=== PATIENT | female | born 1950 | race American Indian/Alaskan Native ===

== ENCOUNTER 2020-11-06 15:17 | Outpatient (REF) | payer MEDICARE, MEDICAID, SELFPAY ==
--- NOTE | 2020-11-06 15:26 | MM_ITS ---
EXAMINATION: MM SCREENING DIGITAL BREAST TOMOSYNTHESIS, BILATERAL CLINICAL INFORMATION: Screening. Asymptomatic. The lifetime risk of breast cancer based on the Tyrer-Cuzick Model is 2%. COMPARISON: Mammography: 08/17/2019, 09/20/2017, 09/01/2016 TECHNIQUE: Digital breast tomosynthesis is performed in both the craniocaudal and mediolateral oblique views along with computer-aided detection (CAD). Synthesized 2D images are generated from the tomosynthesis. FINDINGS: There are scattered areas of fibroglandular density (ACR BI-RADS breast composition Category b). There are no significant masses, abnormal calcifications, or other abnormalities. There are some punctate dermal calcifications posterior inferior medial right breast as well as some vascular calcifications both breasts. MM/MM tomosynthesis screening BI IMPRESSION: No significant changes from prior studies. ASSESSMENT: BI-RADS 2: Benign RECOMMENDATION: Routine annual mammography screening. This patient's information was entered into a reminder system with a target due date for their next mammogram.
== END 2020-11-06 15:18 | disposition home or self-care (01) ==
LOC: HO.MAMMO 15:17
PROVIDERS: Visit Provider Internal Medicine
DX: Z12.31 Encounter for screening mammogram for malignant neoplasm of breast (principal)
CPT/HCPCS: 77063; 77067

== ENCOUNTER 2021-12-08 08:24 | Outpatient (REF) | payer MEDICARE, MEDICAID, SELFPAY ==
--- NOTE | ~2021-12-08 | MM_ITS ---
EXAMINATION: MM SCREENING DIGITAL BREAST TOMOSYNTHESIS, BILATERAL CLINICAL INFORMATION: Screening. Asymptomatic. The lifetime risk of breast cancer based on the Tyrer-Cuzick Model is 2%. COMPARISON: Mammography: 11/06/2020, 08/17/2019, 09/20/2017 TECHNIQUE: Digital breast tomosynthesis is performed in both the craniocaudal and mediolateral oblique views along with computer-aided detection (CAD). Synthesized 2D images are generated from the tomosynthesis. FINDINGS: There are scattered areas of fibroglandular density (ACR BI-RADS breast composition Category b). There are no significant masses, abnormal calcifications, or other abnormalities. Parenchymal pattern is similar to prior studies. There is no developing density or architectural abnormality. Chronic mild bilateral nipple retraction. The axilla are unremarkable. No significant changes. MM/MM tomosynthesis screening BI IMPRESSION: No mammographic evidence of malignancy. ASSESSMENT: BI-RADS 2: Benign RECOMMENDATION: Routine annual mammography screening. This patient's information was entered into a reminder system with a target due date for their next mammogram.
--- NOTE | ~2021-12-08 | MM_ITS ---
EXAMINATION: BONE DENSITOMETRY CLINICAL INDICATION: Osteopenia. COMPARISON: Previous BD dated 08/17/2019 and baseline BD dated 01/17/2007. TECHNIQUE: Using a TopBlip DXA System (software version: 13.1) manufactured by [employer], dual-energy x-ray absorptiometry was performed of the lumbar spine and left hip. The images are of good technical quality. Summary results are attached. FINDINGS: AP SPINE L1-L4: Current: BMD 1.072 g/cm2, Z-score 0.8, T-score -0.9, normal, 0.8% increase from previous, 15.6% decrease from baseline (<5% change is not significant). Prior: BMD 1.063 g/cm2. Baseline: BMD 1.270 g/cm2. LEFT FEMUR, NECK: Current: BMD 0.693 g/cm2, Z-score -0.8, T-score -2.5, osteoporosis. Prior: BMD 0.728 g/cm2. Baseline: BMD 0.916 g/cm2. LEFT FEMUR, TOTAL: Current: BMD 0.822 g/cm2, Z-score 0.0, T-score -1.5, osteopenia, 9.6% decrease from previous, 26.0% decrease from baseline (<5% change is not significant). Prior: BMD 0.909 g/cm2. Baseline: BMD 1.111 g/cm2. IDENTIFIED RISK FACTORS: Osteoporosis, recurrent falls, height loss, history of fracture (adult), secondary osteoporosis, anticonvulsants, glucocorticoids (chronic), menopause. HISTORY OF FRACTURE: Wrist. MEDICATIONS: Calcium supplements or multivitamin, vitamin D. MM/XR DEXA axial skeleton IMPRESSION: 1. DIAGNOSIS: Osteoporosis based on the lowest T-score value of -2.5 in the femoral neck applying World Health Organization criteria. 2. 10-YEAR FRACTURE RISK PREDICTION, FRAX: According to the guidelines, FRAX calculation should only be performed on patients in the osteopenia bone density category. Therefore, FRAX was not performed on this patient. 3. Treatment Recommendations: NOF guidelines recommend consideration for treatment in postmenopausal women and men age 50 and older presenting with the following: -A hip or vertebral (clinical or morphometric) fracture. -T-score less than or equal to -2.5 at the femoral neck or spine after appropriate evaluation to exclude secondary causes. -Low bone mass at the hip or spine and a 10-year fracture probability by FRAX of greater than or equal to 3% for hip fracture or greater than or equal to 20% for major osteoporotic fracture based on the [place] adapted WHO algorithm. 4. Other Recommendations: All treatment decisions require clinical judgment and consideration of individual patient factors, including patient preferences, comorbidities, previous drug use, risk factors not captured in the FRAX model (e.g. frailty, falls, vitamin D deficiency, increased bone turnover, interval significant decline in bone density) and possible under or overestimation of fracture risk by FRAX. Additional medical evaluation for secondary cause of low bone mineral density may be appropriate. FUTURE SCAN RECOMMENDATION: People with diagnosed cases of osteoporosis or at high risk for fracture should have regular bone mineral density tests. For patients eligible for Medicare, routine testing is allowed once every 2 years. The testing frequency can be increased to one year for patients who have rapidly progressing disease, those who are receiving or discontinuing medical therapy to restore bone mass, or have additional risk factors.
== END 2021-12-08 08:25 | disposition home or self-care (01) ==
LOC: HO.MAMMO 08:24
PROVIDERS: Visit Provider Internal Medicine Rheumatology
DX: Z12.31 Encounter for screening mammogram for malignant neoplasm of breast (principal); Z13.820 Encounter for screening for osteoporosis; M32.10 Systemic lupus erythematosus, organ or system involvement unspecified; M85.852 Other specified disorders of bone density and structure, left thigh; R29.890 Loss of height; Z79.899 Other long term (current) drug therapy; Z78.0 Asymptomatic menopausal state
CPT/HCPCS: 77063; 77067; 77080

== ENCOUNTER 2024-10-29 13:23 | Outpatient (AMB) | payer OTHER, SELFPAY ==
--- NOTE | 2024-10-29 13:52 | A.OFFPC_ITS ---
Vital Signs 10/29/24 14:07 Height 5 ft Weight 123 lb 6 oz BMI 24.1 BP 100/60 Blood Pressure Location Lt brachial Position Sitting Respiration 14 Pulse 80 Pulse Source Pulse Oximeter Temp 97.4 F Temp Source Oral Pulse Oximetry (%) 97 Oxygen Delivery Method Room Air Intake Visit Reasons: TIMBER GIRDLER Establish Care Intake Note: establish care Allergies carbamazepine [From Tegretol] Allergy (Intermediate, Verified 10/29/24 13:56) MOUTH SORES gabapentin [Gabapentin] Allergy (Intermediate, Verified 10/29/24 13:56) CANKER SORES IN MOUTH (ONLY GENERIC BRAND OF NEURONTIN) spider venom [SPIDER BITES] Allergy (Intermediate, Verified 10/29/24 13:56) BLISTERS Sulfa (Sulfonamide Antibiotics) Allergy (Intermediate, Verified 10/29/24 13:56) DISORIENTATION/RASH tizanidine [Tizanidine] Allergy (Intermediate, Verified 10/29/24 13:56) NIGHTMARES horton Adverse Reaction (Severe, Verified 10/29/24 13:56) SEVERE VOMITING Shellfish Allergy (Severe, Uncoded 07/10/20 15:23) TONGUE SWELLING, SHORTNESS OF BREATH spider bites Allergy (Intermediate, Uncoded 09/23/21 09:19) swelling, anaphylaxis STERI STRIPS Allergy (Mild, Uncoded 07/10/20 15:23) REDNESS/SWELLING cherries Allergy (Unknown, Uncoded 09/23/21 09:19) Nausea and Vomiting mold Allergy (Unknown, Uncoded 09/23/21 09:19) congestion SUGAR SUBSTITUTES Allergy (Unknown, Uncoded 07/10/20 15:23) SORE THROAT - LARYNGITIS Tobacco use date assessed: 10/29/24 Fall risk assessment: 2 + Falls in past year Last assessed Fall Risk: 10/29/24 Dental Screening Dental Screen Date: 10/29/24 Did you have a dental visit in the last 12 months?: Yes Did you have a dental problem in the last 6 months where you did not have access to dental care?: No Was dental information given to patient?: Patient has dentist HPI TIMBER GIRDLER Establish Care HPI Details New Patient? ?? Prior PCP:?Isadora Lopez & Dr Galvan. Last office visit/CPE:? Acute issue(s):? Sinus infection ?? PMHx:? Irregular Heartbeat., Lupus Dr Nowalk, Raynauds and using Amlodipine. Anxiety. IBS, HLD, Hypothyroid Najma's, Small Fiber Neuropathy (On gabapentin & Nortriptyline, Migraines, SurgHx:?B/L Unar Nrve, R Elbow tendon repair, Carpal tunnel b/L , L shoulder, FHx:? Mom: DM, HTN, Lung CA.. Daughter: DM. Sister: Lung CA. SocHx:? Quit cigs > 30 yrs ago. Vapes.. EtOH: Very Rarely 1-2 dr a month. MJ: None. No drugs PFSH Social History Housing: Apartment Patient Tobacco Use Status: Former Tobacco user e-Cigarette/Vaping Use: Currently Using service: No Current occupational status: retired and disabled Current occupational exposures/hazards: No Cognitive needs: No Hearing needs: No Vision needs: Yes Questionnaire PHQ-9 Over the last 2 weeks, how often have you been bothered by any of the following problems? 1. Little interest or pleasure in doing things: nearly every day 2. Feeling down, depressed, or hopeless: nearly every day 3. Trouble falling or staying asleep, or sleeping too much: nearly every day 4. Feeling tired or having little energy: nearly every day 5. Poor appetite or overeating: nearly every day 6. Feeling bad about yourself - or that you are a failure or have let yourself or your family down: nearly every day 7. Trouble concentrating on things, such as reading the newspaper or watching television: nearly every day 8. Moving or speaking so slowly that other people could have noticed. Or the opposite - being so fidgety or restless that you have been moving around a lot more than usual: more than half the days 9. Thoughts that you would be better off or of hurting yourself in some way: not at all Total score: 23 Depression Screening Interpretation: Positive Depression Screening Done: Yes 03104 - PHQ-9 Billing: Yes Source: Developed by Drs. Eric Pineda, Judy Martinez, Anup Bahena and colleagues, with an educational malu from [employer]. Thrive Questionnaire Date Thrive assessed: 10/29/24 I am a: Patient What is your living situation today?: I have a steady place to live Within the past 12 months, did the food you bought not last and you didn't have the money to get more?: Never true Within the past 12 months, did you worry whether your food would run out before you got money to buy more?: Never true Do you have trouble paying for medicines?: No Do you have trouble getting transportation to medical appointments?: Yes Do you have trouble paying your heating and electricity bill?: No Do you have trouble taking care of your child, family member or friend?: No Do you have trouble with day-to-day activities such as bathing, preparing meals, shopping, managing finances, etc.?: Yes Are you currently unemployed and looking for a job?: Yes Are you interested in more education?: No Please select the resources that you would like help with: Transportation Currently or been in a relationship where the following occur: Controlled Emotionally THRIVE Score: 2 AUDIT C Alcohol Use Questionnaire (AUDIT-C) 1. How often do you have a drink containing alcohol?: Monthly or less 2. How many drinks containing alcohol do you have on a typical day when you are drinking?: 1 or 2 3. How often do you have six or more drinks on one occasion?: Never Total Score: 1 FERMIN-7 AMB Questionnaire FERMIN-7 Date FERMIN - 7 assessed: 10/29/24 Feeling nervous, anxious, or on edge: 3 = Nearly every day Not being able to stop or control worryin = Nearly every day Worrying too much about different things: 3 = Nearly every day Trouble relaxin = Nearly every day Being so restless that it is hard to sit still: 3 = Nearly every day Becoming easily annoyed or irritable: 3 = Nearly every day Feeling afraid as if something awful might happen: 3 = Nearly every day Total FERMIN-7 score (0-4 normal; 5-9 mild; 10-14 moderate; 15-21 severe): 21 Source: Developed by Drs. Eric Pineda, Judy Martinez, Anup Bahena and colleagues, with an educational malu from [employer]. FERMIN-7 Assessment Billing FERMIN-7 Assessment Tool: FERMIN-7 Assessment 98623 Review of Systems Const Denies chills, Denies fatigue, Denies fever(s), Denies headache(s) and Denies weakness ENT Denies dizziness and Denies headache(s) Card Denies chest pain, Denies lightheadedness, Denies dyspnea and Denies other (Palpitations) Resp Denies cough, Denies dyspnea, Denies wheezing and Denies other ( shortness of breath) Musc Denies numbness and Denies tingling Neuro Denies dizziness, Denies headache(s), Denies numbness, Denies tingling, Denies paresthesias and Denies weakness Psych Denies anxiety and Denies depression Endo Denies fatigue Aller/Immun Denies wheezing Physical exam (Primary Care) Vital Signs: Last Vital Signs Temp 97.4 F 10/29/24 14:07 Pulse 80 10/29/24 14:07 Resp 14 10/29/24 14:07 BP 100/60 10/29/24 14:07 Pulse Ox 97 10/29/24 14:07 Oxygen Delivery Method Room Air 10/29/24 14:07 BMI result Body Mass Index 24.1 Tobacco/Smoking Status: Tobacco use Status Tobacco use date assessed 10/29/24 10/29/24 14:11 Patient Tobacco Use Status Former Tobacco user 10/29/24 13:54 e-Cigarette/Vaping Use Currently Using 10/29/24 14:11 PHQ-9: PHQ-9 Score PHQ-9: Total score 23 10/29/24 14:20 Depression Screening Interpretation: Positive Thrive Assessment: Date of Thrive Assessment Date Thrive assessed 10/29/24 10/29/24 14:11 Currently or been in a relationship where the following occur: Controlled Emotionally Const General: no acute distress and well developed Nutritional Appearance: well nourished Orientation/consciousness: patient oriented [facility]: Yes normocephalic and Yes atraumatic Eyes General: appearance normal, both eyes and all related structures Pupils: Equal, round and reactive pupils present EOM: EOMs intact bilaterally Resp Effort & Inspection: normal respiratory effort Auscultation: clear to auscultation bilaterally Cardio Rate: regular rate Rhythm: regular rhythm Heart sounds: S1 normal heart sound present, S2 normal heart sound present, no gallops, no murmurs and no rubs Neuro General: patient oriented x3 and gait normal Cranial nerves: Yes Equal, round and reactive pupils present Psych Affect: normal affect Coding Level of Care Code New Pt Level 4 (96860) Diagnoses Sinusitis, acute J01.90 Raynaud phenomenon I73.00 IBS (irritable bowel syndrome) K58.9 HLD (hyperlipidemia) E78.5 Cough R05.9 Anxiety F41.9 Migraines G43.909 Osteoporosis M81.0 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 Small fiber neuropathy G62.9 Back pain M54.9 History of irregular heartbeat Z86.79 Laboratory exam ordered as part of routine general medical examination Z00.00 Lupus (systemic lupus erythematosus) M32.9 Additional Codes FERMIN-7 Assessment Billing - FERMIN-7 Assessment Tool: FERMIN-7 Assessment 98786 ([id number]) PHQ-9 - 17853 - PHQ-9 Billing: Yes ([id number]) Assessment & Plan Assessment & Plan (1) Sinusitis, acute: Code(s): J01.90 - Acute sinusitis, unspecified Category: Medical Plan: Start?amoxicillin Use?saline?flushes Warm?compresses?on?face?and?forehead (2) Raynaud phenomenon: Code(s): I73.00 - Raynaud's syndrome without gangrene Category: Medical Plan: Patient?is?on?amlodipine?for?Raynaud's Keep?hands?warm (3) IBS (irritable bowel syndrome): Code(s): K58.9 - Irritable bowel syndrome, unspecified Category: Medical Plan: History?of?IBS?and?she?is?on?Linzess and?dicyclomine Continue?current?medications Follow-up?with?Gastroenterology?as?recommended (4) HLD (hyperlipidemia): Code(s): E78.5 - Hyperlipidemia, unspecified Category: Medical Plan: Continue?atorvastatin Check?lipids (5) Cough: Code(s): R05.9 - Cough, unspecified Category: Medical Plan: Possibly?secondary?to?sinus?infection Treating?as?above She?can?let?me?know?if?still?a?problem?and?we?can?work?up?further (6) Anxiety: Code(s): F41.9 - Anxiety disorder, unspecified Category: Medical Plan: She?is?on?bupropion,?mirtazapine?and?nortriptyline Continue?current?medications Follow-up?with?psychiatrist?and?therapist She?will?let?me?know?if?she?wants?to?pursue?other?referrals?as?she? considered?this?today (7) Migraines: Code(s): G43.909 - Migraine, unspecified, not intractable, without status migrainosus Category: Medical Plan: She?is?on?sumatriptan Can?continue?this?p.r.n. 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 She?has?used?visit?therapy?with?good? affect.??Also?get?good?pain?control?from?carisoprodol. Patient has tried Baclofen, Tizanadine, Cyclobenzaprene, Robaxin, with adverse effects and/or no efficacy. Will?send?script?for?carisoprodol.??I f?denied,?will?get?PA. Could?also?try?Skelaxin. (12) History of irregular heartbeat: Code(s): Z86.79 - Personal history of other diseases of the circulatory system Category: Medical Plan: Patient?notes?a?history?of?irregular?heartbeat. She?is?on?aspirin Regular?rate?and?rhythm?to?auscultation?today EKG: ?Normal?sinus?rhythm,?normal?axis,?no?hypertrophy,?no?ST-T-wave?changes. (13) Laboratory exam ordered as part of routine general medical examination: Code(s): Z00.00 - Encounter for general adult medical examination without abnormal findings Category: Medical Plan: Check?labs (14) Lupus (systemic lupus erythematosus): Code(s): M32.9 - Systemic lupus erythematosus, unspecified Category: Medical Plan: She?is?on?Plaquenil Followed?by?rheumatology Currently?stable Follow-up?with?rheumatology?as?recommended Orders: Orders Complete Blood Count Auto Diff Today Z00.00 - Encounter for general adult medical examination without abnormal findings Microalbumin, Random (w Creat) Today I10 - Essential (primary) hypertension Triiodothyronine T3 Total Today E03.9 - Hypothyroidism, unspecified UA and rflx microscopic Today Z00.00 - Encounter for general adult medical examination without abnormal findings Vitamin D 25-OH Total Today E55.9 - Vitamin D deficiency, unspecified AMB EKG-In Office Today Z86.79 - Personal history of other diseases of the circulatory system Comprehensive [place]. Panel Fast Today Z00.00 - Encounter for general adult medical examination without abnormal findings Lipid Panel Today Z00.00 - Encounter for general adult medical examination without abnormal findings Thyroid Stimulating Hormone Today E03.9 - Hypothyroidism, unspecified Free T4 (Free Thyroxine) Today E03.9 - Hypothyroidism, unspecified Vitamin B12 and Folate Today E53.8 - Deficiency of other specified B group vitamins Erythrocyte Sedimentation Rate Today M32.9 - Systemic lupus erythematosus, unspecified Medications: New amoxicillin 500 mg PO Q12H 10 days 20 tabs 0RF pantoprazole 40 mg PO DAILY 90 days 90 tabs 3RF amoxicillin 500 mg PO Q12H 10 days 20 tabs 0RF Changed From carisoprodol 350 mg PO TID To carisoprodol 350 mg PO TID 30 days PRN 90 tabs 0RF muscle pain/spasm
[2024-10-29 14:07] VITALS: BP 100/60; PULSE 80; RESP 14; TEMP 36.3; O2SAT 97; BMI 24.1
== END 2024-10-29 15:24 | disposition home or self-care (01) ==
PROVIDERS: PCP Family Medicine; Visit Provider Family Medicine
DX: J01.90 Acute sinusitis, unspecified (principal); M32.9 Systemic lupus erythematosus, unspecified; I73.00 Raynaud's syndrome without gangrene; K58.9 Irritable bowel syndrome, unspecified; E78.5 Hyperlipidemia, unspecified; R05.9 Cough, unspecified; F41.9 Anxiety disorder, unspecified; G43.909 Migraine, unspecified, not intractable, without status migrainosus; M81.0 Age-related osteoporosis without current pathological fracture; E06.3 Autoimmune thyroiditis; G62.9 Polyneuropathy, unspecified; M54.9 Dorsalgia, unspecified; Z86.79 Personal history of other diseases of the circulatory system

== ENCOUNTER → 2024-10-29 13:23 | Outpatient (BNVA) | payer OTHER, SELFPAY | PROVIDERS: PCP Family Medicine; Visit Provider Family Medicine | DX: Z00.00 Encounter for general adult medical examination without abnormal findings (principal); J01.90 Acute sinusitis, unspecified; M32.9 Systemic lupus erythematosus, unspecified; I73.00 Raynaud's syndrome without gangrene; K58.9 Irritable bowel syndrome, unspecified; E78.5 Hyperlipidemia, unspecified; R05.9 Cough, unspecified; F41.9 Anxiety disorder, unspecified; G43.909 Migraine, unspecified, not intractable, without status migrainosus; M81.0 Age-related osteoporosis without current pathological fracture; E06.3 Autoimmune thyroiditis; G62.9 Polyneuropathy, unspecified; M54.9 Dorsalgia, unspecified; Z86.79 Personal history of other diseases of the circulatory system | CPT/HCPCS: 96127; 99202 ==

== ENCOUNTER 2024-12-17 09:57 | Outpatient (AMB) | payer OTHER, SELFPAY ==
[2024-12-17 10:51] VITALS: BP 126/80; PULSE 83; TEMP 36.6; O2SAT 97; BMI 24.0
--- NOTE | 2024-12-17 10:51 | MHC.OFFWIV ---
Intake Vital Signs 12/17/24 10:51 Height 5 ft Weight 123 lb BMI 24.0 BP 126/80 Blood Pressure Location Lt brachial Position Sitting Pulse 83 Pulse Source Pulse Oximeter Temp 97.8 F Temp Source Oral Pulse Oximetry (%) 97 Oxygen Delivery Method Room Air Intake Visit Reasons: EP fall on Sat, lower back pain, neck (Not WC) Patient Tobacco Use Status: Former Tobacco user Allergies carbamazepine [From Tegretol] Allergy (Intermediate, Verified 12/17/24 10:51) MOUTH SORES gabapentin [Gabapentin] Allergy (Intermediate, Verified 12/17/24 10:51) CANKER SORES IN MOUTH (ONLY GENERIC BRAND OF NEURONTIN) spider venom [SPIDER BITES] Allergy (Intermediate, Verified 12/17/24 10:51) BLISTERS Sulfa (Sulfonamide Antibiotics) Allergy (Intermediate, Verified 12/17/24 10:51) DISORIENTATION/RASH tizanidine [Tizanidine] Allergy (Intermediate, Verified 12/17/24 10:51) NIGHTMARES horton Adverse Reaction (Severe, Verified 12/17/24 10:51) SEVERE VOMITING Shellfish Allergy (Severe, Uncoded 07/10/20 15:23) TONGUE SWELLING, SHORTNESS OF BREATH spider bites Allergy (Intermediate, Uncoded 09/23/21 09:19) swelling, anaphylaxis STERI STRIPS Allergy (Mild, Uncoded 07/10/20 15:23) REDNESS/SWELLING cherries Allergy (Unknown, Uncoded 09/23/21 09:19) Nausea and Vomiting mold Allergy (Unknown, Uncoded 09/23/21 09:19) congestion SUGAR SUBSTITUTES Allergy (Unknown, Uncoded 07/10/20 15:23) SORE THROAT - LARYNGITIS Do you need a note to return to daycare/school/sports/work: No HPI HPI Comments History of Present Illness Details History of Present Illness - The patient is a 74-year-old female presenting with evaluation after falling 2 days ago and subsequent pain. - She experienced a fall incident on Tuesday after being thrown from her shopping cart when her dog abruptly bolted, resulting in impact backwars onto pavement. - The patient hit her head, confirming no loss of consciousness, not on a blood thinner. Admits to headaches, persistent chronic tinnitus, increased light and sound sensitivity without nausea or vomiting. - She has a history of concussions, the most recent was in May and she has residual tinnitus. - She reports neck pain, consistent with whiplash injury (she has had this before and thinks it feels the same), as well as persistent pain in the lower back and hips, impacting her ability to ambulate particularly on stairs, with added pain in the right hip that occasionally pops audibly. - The left elbow shows tenderness after impacting the ground but retains full range of motion. - Attempts at analgesia with 1000mg of Tylenol and 440mg Naproxen were ineffective over the span of two days post-incident. - Admits to Osteoporosis history Physical Exam General: Cooperative, healthy appearing, uncomfortable, in acute distress, and well developed Orientation: Patient oriented x3 Limitations: Limited due to pain in the neck, lower back, ambulating gingerly Head: Tenderness noted, patient reports a horrible headache and sensitivity to light and sound Ears: Hearing grossly normal bilaterally Nose: Normal external nose present Face and sinus: Normal facial exam Eyes: Appearance normal, both eyes and all related structures Neck: Tenderness noted, limited ROM due to pain Respiratory: Normal respiratory effort and able to speak in complete sentences. Clear to auscultation bilaterally Cardiovascular: Regular rate and rhythm. Normal S1 and S2 Skin: No rashes or lesions noted Neuro: Patient oriented x3, gait is normal but walking slow and gingerly Extremities:as below [facility] Social History Housing: Apartment Patient Tobacco Use Status: Former Tobacco user e-Cigarette/Vaping Use: Currently Using service: No Current occupational status: retired and disabled Current occupational exposures/hazards: No Cognitive needs: No Hearing needs: No Vision needs: Yes Review of Systems Const All systems reviewed & are unremarkable except as noted in HPI and below Physical Exam Vital Signs: Last Vital Signs Temp 97.8 F 12/17/24 10:51 Pulse 83 12/17/24 10:51 BP 126/80 12/17/24 10:51 Pulse Ox 97 12/17/24 10:51 Oxygen Delivery Method Room Air 12/17/24 10:51 BMI result Body Mass Index 24.0 Back/Spine/Pelvis Cervical Spine: normal cervical lordosis, cervical ROM normal, cervical muscular tenderness and No Cervical spine tenderness Thoracic/Lumbar Spine: thoracic and lumbar spine normal to inspection, paraspinal muscle tenderness bilaterally in the mid thoracic, thoracic spinal tenderness at T9, at T10 and at T11 and No lumbar spinal tenderness Pelvis: no pain with anterior-posterior compression Extrem Left upper extremity: elbow/forearm Details: normal to inspection, tenderness and normal ROM; no swelling Right lower extremity: hip/thigh Details: normal to inspection and abnormal ROM Details: pain with active ROM during Details: with extension; no tenderness and no swelling Left lower extremity: hip/thigh Details: normal to inspection and abnormal ROM Details: pain with active ROM Details: with extension; no tenderness, no swelling, no abrasions and no lacerations Assessment & Plan Assessment & Plan (1) Neck pain: Code(s): M54.2 - Cervicalgia Plan: VSS, pt well appearing, no acute neurological deficits, ambulating well but gingerly. The patient is to undergo imaging of the hips, and entire spine to assess possible fractures or injuries due to the incident, with her history of osteoporosis. Monitoring of neurological status due to mild concussion is indicated, and referral for further evaluation should be considered if no symptomatic improvement is observed. Analgesic regimen may need adjustment pending imaging results. Her osteoporosis history necessitates close observation for potential fractures. Imaging will guide further management and possible referrals. Evaluation and management will adjust as determined by imaging and symptomatic response. My interpretation of the bilateral hip and pelvic x-ray did not appear to be any fractures or dislocations. Waiting on radiology read for the spine x-rays. Patient is aware we will call her with the results. Patient educated on brain rest, encouraged to continue to use Tylenol and will send Meloxicam for musculoskeletal pain. Patient currently has no acute neurological defects and cranial nerves 2-12 are intact. Likely a mild concussion. She was educated on any acute neurological defects, she should go to the emergency department to get her head scanned. She was educated on using a very low threshold to call 911 on any acute neurological changes or if her headache does not go away with a maximum dose of Tylenol and meloxicam. Patient was informed and verbally consented to the use of an ambient scribe for clinic note documentation during this visit. (2) Fall: Code(s): W19.XXXA - Unspecified fall, initial encounter Qualifiers: Encounter type: initial encounter Qualified Code(s): W19.XXXA - Unspecified fall, initial encounter Plan: as above (3) Acute hip pain, bilateral: Code(s): M25.551 - Pain in right hip; M25.552 - Pain in left hip Plan: as above (4) Acute thoracic back pain: Code(s): M54.6 - Pain in thoracic spine Qualifiers: Back pain laterality: midline Qualified Code(s): M54.6 - Pain in thoracic spine Plan: as above (5) Acute lumbar back pain: Code(s): M54.50 - Low back pain, unspecified Qualifiers: Back pain laterality: bilateral Sciatica presence: without sciatica Qualified Code(s): M54.50 - Low back pain, unspecified Plan: as above (6) Concussion: Code(s): S06.0XAA - Concussion with loss of consciousness status unknown, initial encounter Qualifiers: Encounter type: initial encounter Loss of consciousness presence/duration: without LOC Qualified Code(s): S06.0X0A - Concussion without loss of consciousness, initial encounter Plan: as above Orders: Orders XR thoracic spine 3V Today M54.6 - Pain in thoracic spine, W19.XXXA - Unspecified fall, initial encounter Coding Level of Care Code Est Pt Level 5 (51444) Diagnoses Neck pain M54.2 Fall, initial encounter W19.XXXA Encounter type: initial encounter Acute hip pain, bilateral M25.551; M25.552 Acute midline thoracic back pain M54.6 Back pain laterality: midline Acute bilateral low back pain without sciatica M54.50 Back pain laterality: bilateral Sciatica presence: without sciatica Concussion without loss of consciousness, initial encounter S06.0X0A Encounter type: initial encounter Loss of consciousness presence/duration: without LOC
--- OUTSIDE RECORDS SUMMARY | 2024-12-17 11:01 | XMS_ITS | Clinical Summary ---
Author Organization [facility] Address [address] [place] [address] Care Team Providers Care Neck Band Maker Name Role Phone Magda Garsia DMD Primary Care Provider [phone] Source Comments PLEASE NOTE, if this patient is a minor, it may be UNLAWFUL to discuss sensitive information that is contained in these records (such as FAMILY PLANNING, MENTAL HEALTH or SUBSTANCE ABUSE) with the minor patient's parent or other person without the patient's specific authorization.[facility] Social History Tobacco Use Types Packs/Day Years Used Date Smoking Tobacco: Never Assessed Social Connections Answer Date Recorded Social Connections and Isolation 0 08/10/2021 Financial Resource Strain Answer Date R ecorded Financial Resource Strain 0 2020 Stress Answer Date Recorded Stress 0 08/10/2021 Physical Activity Answer Date Recorded Physical Activity 0 08/10/2021 Food Insecurity Answer Date Recorded Food 0 08/10/2021 Transportation Needs Answer Date Record ed Transportation 0 08/10/2021 Housing Stability Answer Date Recorded Housing 0 08/10/2021 Safety and Environment Answer Date Gustavo rded Safety 0 08/10/2021 Utilities Answer Date Recorded Utilities 0 08/10/2021 Employment Answer Date Recorded Employment 0 08/10/2021 Comments Unknown Sex and Gender Information Value Date Recorded Sex Assigned at Not on file Legal Sex Female 9:45 AM PDT Gender Identity Not on file Sexual Orientation Not on file Plan of Treatment Not on file Insurance HEALTH SAF[employer]Y NET D[place] MED[place]ENT[place] Care Teams Neck Band Maker Relationship Specialty Start Date End Date Magda Garsia DMD [address] [place] [address] PCP - General 07/05/19
== END 2024-12-17 12:21 | disposition home or self-care (01) ==
PROVIDERS: PCP Family Medicine; Visit Provider Physician Assistant
DX: M54.2 Cervicalgia (principal); W19.XXXA Unspecified fall, initial encounter; M25.551 Pain in right hip; M25.552 Pain in left hip; M54.6 Pain in thoracic spine; M54.50 Low back pain, unspecified; S06.0X0A Concussion without loss of consciousness, initial encounter

== ENCOUNTER 2024-12-17 09:57 | Outpatient (REF) | payer OTHER, SELFPAY ==
--- NOTE | ~2024-12-17 | XR_ITS ---
EXAMINATION: XR THORACIC SPINE CLINICAL INFORMATION: M54.6 - Pain in thoracic spine COMPARISON: 02/10/2017. TECHNIQUE: 3 views of the thoracic spine were obtained. FINDINGS: Trace levoconvex scoliosis centered at T3. Normal thoracic kyphosis. No fractures, compression deformity, or suspicious bone lesions. Normal sagittal alignment. Moderate disc degeneration noted throughout the mid thoracic region, minimally progressed. Normal facet alignment. Mild multilevel facet degeneration, stable. Incidentally noted in the cervical spine on the swimmer's view, there is a 4 mm degenerative appearing anterolisthesis C5 on C6. There is no paraspinal soft tissue abnormality. There is dense calcification of the mitral annulus. XR/XR thoracic spine 3V IMPRESSION: 1. No acute findings of the thoracic spine. Degenerative changes as discussed. Electronically signed by: Price Maxwell MD 12/17/2024 01:29 PM [facility]
--- NOTE | ~2024-12-17 | XR_ITS ---
EXAMINATION: XR PELVIS CLINICAL INFORMATION: Bilateral hip pain. S/P fall COMPARISON: None available. TECHNIQUE: AP view of the pelvis. FINDINGS: No fracture. Hip joint spaces are maintained. Alignment is anatomic. Sacroiliac joints and pubic symphysis are normal. Degenerative changes of the lower lumbar spine with scoliosis, partially imaged. No soft tissue abnormalities. XR/XR pelvis 1-2V IMPRESSION: No acute bony abnormalities of the pelvis. Electronically signed by: Price Maxwell MD 12/18/2024 01:46 PM [facility]
--- NOTE | ~2024-12-17 | XR_ITS ---
EXAMINATION: XR HIP, RIGHT CLINICAL INFORMATION: M25.551 - Pain in right hip COMPARISON: None available. TECHNIQUE: Two views of the right hip. FINDINGS: No fracture. Alignment is anatomic. Hip joint space is maintained. No significant arthritis. Femoral head is normal in contour without evidence of AVN. Soft tissues are unremarkable. XR/XR hip RT min 2V IMPRESSION: Normal right hip. Electronically signed by: Price Maxwell MD 12/17/2024 01:17 PM [facility]
--- NOTE | ~2024-12-17 | XR_ITS ---
EXAMINATION: XR CERVICAL SPINE CLINICAL INFORMATION: M54.2 - Cervicalgia COMPARISON: February 10, 2017 TECHNIQUE: 3 views of the cervical spine were obtained. FINDINGS: Craniocervical junction is intact. There is a grade 1 anterolisthesis C5-6. No acute cortical disruption. No lytic or blastic lesions. Upper airway is patent. XR/XR cervical spine 3V IMPRESSION: Grade 1 anterolisthesis C5-6. Cervical instability cannot be entirely excluded. Overall worsened since prior exam. Electronically signed by: Gab Clark MD 12/17/2024 01:11 PM [facility]
--- NOTE | ~2024-12-17 | XR_ITS ---
EXAMINATION: XR LUMBOSACRAL SPINE CLINICAL INFORMATION: W19.XXXA - Unspecified fall, initial encounter COMPARISON: 02/10/2017. TECHNIQUE: Three views of the lumbosacral spine. FINDINGS: There is a moderate levoconvex scoliosis, apex at L2-3. There is a normal lumbar lordosis. There is no subluxation. Sagittal alignment is anatomic. There is no fracture, compression deformity, or suspicious bone lesion. Severe disc degeneration present at L2-3. Otherwise only mild disc degeneration. There is normal facet alignment. Facet degeneration is present most significant at L3-S1. There are mild vascular calcifications in the soft tissues. There is a 0.8 cm oval calcification overlying the right superior renal shadow. There are probable smaller renal calculi present. XR/XR lumbar spine 2-3V IMPRESSION: 1. Moderate levoconvex scoliosis with severe degenerative disc disease focally at L2-3. 2. Degenerative facet disease most significant at L3-S1. 3. No acute lumbar spine abnormality. 4. 8mm calcification overlying the right superior renal shadow, suspect for nephrolithiasis. There are probable smaller right renal calculi present as well. Electronically signed by: Price Maxwell MD 12/17/2024 01:25 PM [facility]
--- NOTE | ~2024-12-17 | XR_ITS ---
EXAMINATION: XR HIP, LEFT CLINICAL INFORMATION: Left hip pain. S/P fall COMPARISON: None available. TECHNIQUE: Two views of the left hip. FINDINGS: No fracture. Alignment is anatomic. Hip joint space is maintained. Soft tissues are unremarkable. XR/XR hip LT min 2V IMPRESSION: Normal left hip. Electronically signed by: Price Maxwell MD 12/18/2024 01:45 PM EST
--- OUTSIDE RECORDS SUMMARY | 2024-12-17 13:17 | XMS_ITS | Clinical Summary ---
Author Organization [facility] Address [address] [place] [address] Care Team Providers Care Asphalt Coater Name Role Phone Magda Garsia DMD Primary Care Provider [phone] Source Comments PLEASE NOTE, if this patient [...] on file Insurance HEALTH SAF[employer]Y NET DENTAL [place] MEDICAID DENTAL Care Teams Asphalt Coater Relationship Specialty Start Date End Date Magda Garsia DMD [address] [place] [address] PCP - General 07/05/19
--- OUTSIDE RECORDS SUMMARY | 2024-12-17 13:17 | XMS_ITS | Data Portability ---
Author Organization [facility] Address [address] [place] [id number] Care Team Providers Care Coping Machine Assembler Name Role Phone [facility] Referring Provider Assessment Encounter Date Assessment Date Assessment LastModified by Organization Details LastModified Time 10/15/2023 10/15/2023 I have reviewed and agree with the assessment and plan as documented by the reed man. I provided real time medical direction for this encounter and was immediately available to provide additional phone based assistance as needed. History as noted by reed man. Pt reports 2-3 weeks of a cough that is now productive of green sputum. She reports that she feels feverish intermittently . She endorses rhinorrhea as well but denies any CP or dyspnea. Pt is a non smoker. No history of asthma/COPD. On exam, pt appears well, no distress. Vitals normal. Lungs clear. Impression: Pt with acute bronchitis likely following a viral URI. Pt is prescribed doxycycline 100mg bid x7 days, as well as guaifenesin 600mg bid and albuterol MDI 2 puffs qid prn. Pt instructed to follow up with her primary care team if not improving by next week, and to seek medical attention right away with any worsening or new symptoms, which are reviewed with her. [email or web address] Not available 10/15/2023 10:51:35 Plan of Treatment Reminders Order Date Submit Date Provider Last Modified By Organization Details Last Modified Time Details Appointments None recorded. Lab None recorded. Referral None recorded. Procedures None recorded. Surgeries None recorded. Imaging None recorded. Medication Orders doxycycline hyclate 100 mg tablet 2022 023 [id number], [address], [place], [place], [phone], 10:46:47 guaifenesin ER 600 mg tablet, extended release 12 hr 2022 023 [id number], [address] [place], [phone], 3 10:46:44 albuterol sulfate HFA 90 mcg/actuati on aerosol inhaler 2022 023 [facility] #[id number], [address] [place], [place], [phone], 3 10:46:44 Patient TargetsNo targets recorded. Patient InstructionsNo instructions recorded. Reason for Referral None Reported. Medical Equipment None Reported. Medications Name Sig Start Date Stop Date Status Note LastModified by Organization Details LastModified Time multivitamin tablet TAKE 1 TABLET BY MOUTH DAILY active Not Available Not Available Not Available carisoprodol 350 mg tablet TAKE 1 TABLET BY MOUTH UP TO TWICE DAILY NEEDED active Not Available Not Available No t Available amoxicillin 500 mg capsule TAKE ONE CAPSULE BY MOUTH THREE TIMES DAILY active Not Available Not Available Not Available atorvastatin 20 mg tablet TAKE 1 TABLET BY MOUTH AT BEDTIME active Not Available Not Available No t Available cetirizine 10 mg tablet TAKE 1 TABLET BY MOUTH EVERY DAY active Not Available Not Available No t Available sumatriptan 100 mg tablet TAKE 1 TABLET BY MOUTH EVERY DAY NEEDED FOR MIGRAINE active Not Available Not Available No t Available sertraline 100 mg tablet active Not Available Not Available Not Available aspirin 81 mg tablet,delay ed release TAKE 1 TABLET BY MOUTH EVERY DAY AT LUNCH active Not Available Not Available No t Available triamcinolon e acetonide 0.1 % topical cream APPLY TWICE DAILY TWICE DAILY NEEDED. SKIP EVERY 3RD WEEK. active Not Available Not Available No t Available bupropion HCl SR 100 mg tablet,12 hr sustained-re lease active Not Available Not Available Not Available magnesium oxide 400 mg (241.3 mg magnesium) tablet active Not Available Not Available Not Available gabapentin 800 mg tablet TAKE 1 TABLET BY MOUTH FOUR TIMES A DAY active Not Available Not Available Not Available meclizine 25 mg tablet TAKE 1 TABLET BY MOUTH THREE TIMES DAILY NEEDED FOR DIZZINESS active Not Available Not Available No t Available amlodipine 10 mg tablet active Not Available Not Available Not Available levothyroxin e 50 mcg tablet TAKE 1 TABLET BY MOUTH EVERY DAY FOR 5 DAYS AND TAKE 2 TABLET BY MOUTH EVERY DAY ON 2 DAYS A WEEK active Not Available Not Available Not Available cephalexin 500 mg capsule active Not Available Not Available Not Available pantoprazole 40 mg tablet,delay ed release TAKE 1 TABLET BY MOUTH DAILY 30 TO 60 MINUTES BEFORE BREAKFAST active Not Available Not Available No t Available nortriptylin e 10 mg capsule TAKE 4 CAPSULES BY MOUTH EVERY NIGHT AT BEDTIME active Not Available Not Available No t Available mirtazapine 30 mg tablet active Not Available Not Available Not Available docusate sodium 100 mg capsule TAKE 1 CAPSULE BY MOUTH TWICE DAILY active Not Available Not Available No t Available sertraline 25 mg tablet active Not Available Not Available Not Available montelukast 10 mg tablet active Not Available Not Available Not Available mirtazapine 15 mg tablet active Not Available Not Available Not Available hydroxychlor oquine 200 mg tablet TAKE 1 TABLET BY MOUTH EVERY 12 HOURS active Not Available Not Available No t Available epinephrine 0.3 mg/0.3 mL injection, auto-injecto r INJECT 1 PEN IN THE MUSCLE ONE TIME DIRECTED active Not Available Not Available No t Available ibuprofen 600 mg tablet TAKE 1 TABLET BY MOUTH TWICE DAILY WITH FOOD NEEDED active Not Available Not Available No t Available polyethylene glycol 3350 17 gram/dose oral powder DISSOLVE 17G IN 8OZ OF WATER AND DRINK BY MOUTH DAILY NEEDED FOR MILD CONSTIPATIO N active Not Available Not Available No t Available albuterol sulfate HFA 90 mcg/actuatio n aerosol inhaler INHALE 2 PUFFS BY MOUTH FOUR TIMES DAILY FOR 10 DAYS active Not Available Not Available Not Available topiramate 100 mg tablet TAKE 1 TABLET BY MOUTH EVERY NIGHT AT BEDTIME active Not Available Not Available No t Available fluticasone propionate 50 mcg/actuatio n nasal spray,suspen kely USE 1 SPRAY IN EACH NOSTRILE DAILY active Not Available Not Available No t Available sertraline 50 mg tablet active Not Available Not Available Not Available doxycycline hyclate 100 mg tablet TAKE 1 TABLET BY MOUTH TWICE DAILY FOR 7 DAYS active Not Available Not Available No t Available vitamin E 268 mg (400 unit) capsule TAKE 1 CAPSULE BY MOUTH EVERY DAY active Not Available Not Available No t Available nortriptylin e 50 mg capsule TAKE ONE CAPSULE BY MOUTH EVERY NIGHT AT BEDTIME active Not Available Not Available No t Available Vitamin B-12 1,000 mcg tablet TAKE 1 TABLET BY MOUTH EVERY DAY active Not Available Not Available No t Available bupropion HCl XL 150 mg 24 hr tablet, extended release active Not Available Not Available Not Available nitrofuranto in monohydrate/ macrocrystal s 100 mg capsule active Not Available Not Available Not Available duloxetine 30 mg capsule,maldonado yed release active Not Available Not Available Not Available duloxetine 60 mg capsule,maldonado yed release active Not Available Not Available Not Available aripiprazole 2 mg tablet active Not Available Not Available Not Available calcium 600 mg (as carbonate)-v itamin D3 10 mcg (400 unit) tablet TAKE 1 TABLET THEN ALTERNATE WITH 2 TABLET EVERY DAY active Not Available Not Available No t Available diclofenac 1 % topical gel APPLY 2 TO 4 GRAMS TO THE LEFT HIP THREE TIMES DAILY NEEDED active Not Available Not Available No t Available cholecalcife rol (vitamin D3) 50 mcg (2,000 unit) capsule TAKE 1 CAPSULE BY MOUTH DAILY active Not Available Not Available Not Available Linzess 290 mcg capsule TAKE 1 CAPSULE BY MOUTH DAILY active Not Available Not Available Not Available guaifenesin ER 600 mg tablet, extended release 12 hr TAKE 1 TABLET BY MOUTH EVERY 12 HOURS FOR 10 DAYS NEEDED active Not Available Not Available No t Available Vitals Date Recorded Respiratory rate Body temperature Oxygen saturation Oxygen saturation in Arterial blood by Pulse oximetry Heart rate Systolic blood pressure Diastolic blood pressure Provider Name and Address Organization Details Last Updated DateTime 3 18 /min 96.8 [degF] 97 % 97 % 92 /min 130 mm[Hg] 80 mm[Hg] Not Available [facility] - production 3 10:37:25 Social History None recorded. Functional Status None recorded. Mental Status None recorded. Family History Nothing Reported. Medical History No medical history recorded. Gynecological HistoryNo gynecological history recorded. Obstetrics History GPAL:G 0 P 0 0 0 0 Past Encounters Encounter ID Performer Location Encounter Start Date Encounter Closed Date Diagnosis/Indication Diagnosis SNOMED-CT Code Diagnosis ICD10 Code Diagnosis Note [id number] Storm Hutchinson MD [facility] - [facility] [address] [place] [address] 10/15/2023 10:37:19 10/15/2023 17:33:51 Acute bronchitis 59231095 J20.9 Health Concerns Section Related Observation LastModified by Organization Detai ls LastModified Time None Recorded Concern Status LastModified by Organization Details LastModified Time None Recorded Advance Directives Directive None Recorded Payers Encounter Date Sequence Insurance Name Policy Number Policy Titus Covered Member ID Titus Member ID Guarantor Name 10/15/2023 1 [facility] - DOS ON OR AFTER 2023 - DUAL ELIGIBLE - ASSISTED OPTIONS AND ONE CARE (MEDICARE REPLACEMENT/ADV ANTAGE - HMO) Kiara Pastrana [id number] Kiara Pastrana Notes Date Note Type Note Provider Name and Address Organization Details Recorded Time 10/15/2023 text/html This was a supervised home visit with reed man Naye Yi. [facility] Nurse Triage Notes (Denilson Cedeno): Chief Complaints: URI Allergies: Unknown Comments: Cough/cold/congest ion/fever -s/s for few weeks - SOB of times - Wellness check - Coreen RN .................. .................. .................. .................. .................. .................. .................. ............... Social Science Professor Note From Naye Yi: Community Social Science Professor Angelic Yi [facility] dispatched to a [facility] for a 73 yof C/O a cough X3 weeks. Upon arrival, the pt was ambulatory, JOHNSON X4, in no apparent distress. No tachypnea or dyspnea. Pt reported that she had a productive cough w/ green phlegm that had steadily been getting worse X3 weeks. She stated she had post nasal drip, and chest wall/abd pain when she coughed. She reported that exertion and cold air triggered the coughing, and that she had not been able to sleep the past 2 nights (due to the coughing). She tried OTC meds, including nyquil and a phenylephrine/anti histamine product w/ little relief. She denied POWELL, dizziness, sore throat, ear pain, sinus pressure, CP, SOB, abd pain, N/V/D, or urinary S/S. Lung sounds clear, no pedal edema. [facility] consulted; pt was given rx for doxycycline, guafenesin, and an albuterol MDI. Instructions were discussed, and it was recommended that she also take 650 mg tylenol 3-4X a day for body pain. She was instructed to call back if she was not feeling better in a few days, or if she felt worse. Red flags discussed at length. .................. .................. .................. .................. .................. .................. .................. ............... Disposition: Fulfilled Storm Hutchinson MD [address] [facility],[address], [place], [address], [facility] 10/15/2023 11:33:52 OBGyn Episode No OBEpisode recorded.
== END 2024-12-17 09:58 | disposition home or self-care (01) ==
LOC: HO.HMGCX 09:57
PROVIDERS: PCP Family Medicine; Visit Provider Physician Assistant
DX: Z13.89 Encounter for screening for other disorder (principal)
CPT/HCPCS: 72040; 72072; 72100; 72170; 73502

== ENCOUNTER → 2024-12-17 11:35 | Outpatient (BNV) | payer OTHER, SELFPAY | PROVIDERS: PCP Family Medicine; Visit Provider Radiology Diagnostic Radiology | DX: M25.551 Pain in right hip (principal); M25.552 Pain in left hip; J01.10 Acute frontal sinusitis, unspecified; M43.12 Spondylolisthesis, cervical region; M51.360 Other intervertebral disc degeneration, lumbar region with discogenic back pain only; M51.34 Other intervertebral disc degeneration, thoracic region; S13.160A Subluxation of C5/C6 cervical vertebrae, initial encounter; M25.78 Osteophyte, vertebrae; W17.82XA Fall from (out of) grocery cart, initial encounter; W54.8XXA Other contact with dog, initial encounter | CPT/HCPCS: 70450; 72040; 72072; 72100; 72125; 73522 ==

== ENCOUNTER 2024-12-17 14:15 | Emergency (ER) | payer OTHER, SELFPAY ==
--- NOTE | ~2024-12-17 | CT_ITS ---
EXAMINATION: CT HEAD WITHOUT IV CONTRAST HISTORY: head trauma. TECHNIQUE: Unenhanced helical CT of the head was performed per standard departmental protocol. Coronal and sagittal reformats of the head were also evaluated. One or more of the following techniques was used for dose reduction: Automated exposure control, adjustment of the mA and/or kV according to patient size, use of iterative reconstruction technique. DLP: 542.97 mGy-cm COMPARISON: There are no prior studies for comparison. FINDINGS: BRAIN: The brain parenchyma is unremarkable. There is normal sagastume/white differentiation. The ventricular system is normal in size and configuration. There is no mass effect or midline shift. No intra- or extra-axial fluid collections are identified. SINUSES: There is opacification of the left frontal sinus. The mastoid air cells and middle ear cavities are well pneumatized. ORBITS: The visualized orbits are unremarkable. BONES/SOFT TISSUES: The extracranial soft tissues are unremarkable. The calvarium is intact. No suspicious lytic or sclerotic lesions. CT/CT head/brain wo IV con IMPRESSION: Opacification of the left frontal sinus. Otherwise unremarkable unenhanced head CT. Electronically signed by: Eric Pastrana MD 12/17/2024 03:37 PM [facility] [place]
--- NOTE | ~2024-12-17 | CT_ITS ---
EXAMINATION: CT CERVICAL SPINE WITHOUT IV CONTRAST HISTORY: neck trauma. TECHNIQUE: Helical CT of the cervical spine was performed per standard departmental protocol. Coronal and sagittal reformatted images were also evaluated. One or more of the following techniques was used for dose reduction: Automated exposure control, adjustment of the mA and/or kV according to patient size, use of iterative reconstruction technique. DLP: 232.17 mGy-cm COMPARISON: There are no prior studies for comparison. FINDINGS: CERVICAL SPINE: Osseous mineralization is normal. The vertebral bodies maintain normal height without evidence of fracture. There is anterior subluxation of C5 on C6, likely related to degenerative changes of the facet joints. There is moderate degenerative disc disease at this level with disc space narrowing and osteophyte formation. Evaluation for disc pathology is limited by lack of intrathecal contrast material. BRAIN: The visualized portion of the brain is unremarkable. SINUSES: The visualized paranasal sinuses, mastoid air cells and middle ear cavities are unremarkable. LUNG APICES: The visualized lung apices are clear. SOFT TISSUES: There is calcification of the internal carotid arteries. CT/CT cervical spine wo IV con IMPRESSION: No evidence of fracture of the cervical spine. Anterior subluxation of C5 on C6 is likely degenerative in nature. Electronically signed by: Eric Pastrana MD 12/17/2024 03:46 PM EST
--- NOTE | 2024-12-17 14:40 | ED_ITS ---
HPI - Neck Pain/Injury General Chief Complaint: Fall Stated Complaint: fall neck head inj sent in by pcp Time Seen by Provider: 12/17/24 14:52 Source: patient Mode of arrival: ambulatory Limitations: no limitations History of Present Illness HPI Narrative: This is a 74 years old the patient was referred to us from the urgent care because of the complaining of neck pain, she had a fall on Tuesday she is complaining of neck pain since the fall at the urgent care x ray showed ? anterolistesis complaint: neck pain Onset (ago): day(s) (2) Severity: mild Duration: constant Relieving factors: none Exacerbating factors: none Context: fall Associated symptoms: none Related Data Home Medications ?Medication ?Instructions ?Recorded ?Confirmed amlodipine 10 mg tablet 10 mg PO DAILY 09/23/21 docusate calcium 240 mg capsule 240 mg PO DAILY 09/23/21 gabapentin 800 mg tablet 800 mg PO DAILY 09/23/21 (Neurontin) hydroxychloroquine 200 mg tablet 200 mg PO DAILY 09/23/21 ibuprofen 600 mg tablet (IBU) 600 mg PO Q8H PRN 09/23/21 linaclotide 290 mcg capsule 290 mcg PO DAILY 09/23/21 (Linzess) montelukast 10 mg tablet 10 mg PO DAILY 09/23/21 aspirin 81 mg tablet,delayed 81 mg PO DAILY 10/29/24 release bupropion HCl 150 mg 24 hr tablet, 150 mg PO QAM 10/29/24 extended release diclofenac sodium 1 % topical gel topical 10/29/24 dicyclomine 10 mg capsule mg PO 10/29/24 epinephrine 0.3 mg/0.3 mL IM 10/29/24 injection, auto-injector meclizine 25 mg tablet 25 mg PO TID PRN 10/29/24 mirtazapine 45 mg tablet 45 mg PO BEDTIME 10/29/24 nortriptyline 50 mg capsule 50 mg PO BEDTIME 10/29/24 sumatriptan succinate 100 mg tablet 100 mg PO DAILY PRN migraine 10/29/24 triamcinolone acetonide 0.1 % 1 appl topical BID-TID 10/29/24 topical cream lamotrigine 25 mg tablet mg PO DAILY 12/17/24 levothyroxine 50 mcg tablet mcg PO DAILY 12/17/24 pen needle, diabetic 31 gauge x #1,200 ea 12/17/2401/06 (BD Ultra-Fine Mini Pen Needle) teriparatide 20 mcg/dose (600 mcg subcut 12/17/24 mcg/2.4 mL) subcutaneous pen injector Previous Rx's ?Medication ?Instructions ?Recorded carisoprodol 350 mg tablet 350 mg PO TID PRN muscle 10/29/24 pain/spasm 30 days #90 tabs pantoprazole 40 mg tablet,delayed 40 mg PO DAILY 90 days #90 tabs 10/29/24 release atorvastatin 20 mg tablet 20 mg PO DAILY 90 days #90 tabs 11/12/24 meloxicam 15 mg tablet 15 mg PO DAILY #7 tabs 12/17/24 oxycodone 5 mg tablet 5 mg PO Q6H PRN pain #15 tabs 12/17/24 Allergies Allergy/AdvReac Type Severity Reaction Status Date / Time carbamazepine [From Tegretol] Allergy Intermediate MOUTH SORES Verified 12/17/24 14:56 gabapentin [Gabapentin] Allergy Intermediate CANKER Verified 12/17/24 14:56 SORES IN MOUTH (ONLY GENERIC BRAND OF NEURONTIN) spider venom [SPIDER BITES] Allergy Intermediate BLISTERS Verified 12/17/24 14:56 Sulfa (Sulfonamide Allergy Intermediate DISORIENTAT Verified 12/17/24 14:56 Antibiotics) ION/RASH tizanidine [Tizanidine] Allergy Intermediate NIGHTMARES Verified 12/17/24 14:56 horton AdvReac Severe SEVERE Verified 12/17/24 14:56 VOMITING Shellfish Allergy Severe TONGUE Uncoded 12/17/24 14:56 SWELLING, SHORTNESS OF BREATH spider bites Allergy Intermediate swelling, Uncoded 12/17/24 14:56 anaphylaxis STERI STRIPS Allergy Mild REDNESS/SWE Uncoded 12/17/24 14:56 LLING cherries Allergy Unknown Nausea and Uncoded 12/17/24 14:56 Vomiting mold Allergy Unknown congestion Uncoded 12/17/24 14:56 SUGAR SUBSTITUTES Allergy Unknown SORE Uncoded 12/17/24 14:56 THROAT - LARYNGITIS Review of Systems Constitutional: Constitutional: Reports no additional constitutional complaints Cardiovascular: Cardiovascular: Reports no additional cardiovascular complaints PMFSH Past Medical History Attestation statement: The following information was validated with the patient. Social History Social History Housing: Apartment Patient Tobacco Use Status: Former Tobacco user e-Cigarette/Vaping Use: Currently Using Advance Directives: Yes Advance Directives Information Provided: No Advance Directives on File: No service: No Current occupational status: retired and disabled Current occupational exposures/hazards: No Cognitive needs: No Hearing needs: No Vision needs: Yes Physical Exam Vital Signs: Vital Signs: Last Vital Signs Temp 97.5 F 12/17/24 14:54 Pulse 87 12/17/24 14:54 Resp 20 12/17/24 14:54 BP 180/80 H 12/17/24 14:54 Pulse Ox 96 12/17/24 14:54 O2 Del Method Room Air 12/17/24 14:54 BMI result Body Mass Index 29.3 No acute distress Const: General: cooperative Nutritional Appearance: average body habitus Orientation/consciousness: patient oriented x3 Limitations: no limitations HEENT: Head: Yes normal to inspection Face and sinus: Yes normal facial exam Neck: Other: Tenderness in the posterior aspect of the neck Chest: Chest palpation & inspection: normal inspection of the chest Resp: Effort & Inspection: normal respiratory effort Auscultation: clear to auscultation bilaterally Cardio: Jugular venous distension: no JVD Rate: regular rate Rhythm: regular rhythm GI: Inspection: Yes normal to inspection Palpation (GI): Soft to palpation, not firm and nontender Auscultation: normal bowel sounds Neuro: Other: On re-examination upper extremity strength 5/5 lower extremity 5/5 sensation is intact General: patient oriented x3 Cranial nerves: Yes CN's II-XII intact bilaterally Course Course Course Narrative: This is a Rapid Medical Examination (RME) performed by Carlos Calabrese PA-C in triage. Full HPI, ROS, assessment and treatment plan per primary provider in the Main ED. 74 yo female here from for eval of neck pain s/p mechanical fall on tuesday. seen at today - xr c spine showed grade 1 anterolisthesis C5/C6, cervical instability could not entirely be ruled out. patient had already been discharged from when radiologist called. advised to come to ED for c collar and ct scans. Plan: imaging. patient placed in c collar and brought back to main ED bed Reevaluation(s) Reevaluation #1: CT scan of the cervical spine shows no acute fracture or dislocation, she has a DJD changes but no acute fracture or dislocation, neurologically she is intact she has no deficit in strength or sensation at this point she can be discharged home and follow-up with the PCP Time: 16:09 Medications Administered Discontinued Medications Generic Name Dose Route Start Last Admin Trade Name Freq PRN Reason Stop Dose Admin Oxycodone HCl 5 mg 12/17/24 14:58 12/17/24 15:36 Oxycodone Hcl Immed Release 5 Mg Tablet PO 12/17/24 14:59 5 mg ONCE ONE Administration Medical Decision Making Medical Decision Making [facility] Narrative: Patient was referred by the urgent care for a question of subluxation C5/C6 we will get CT scan cervical spine Differential Diagnosis Differential Diagnoses: The differential diagnosis associated with the presentation includes Cervical spine fracture/cervical strain Admission/Observation Consideration of admission/observation: Escalation of care including admission/observation considered Independent Interpretation I performed an independent interpretation of an: CT Scan Interpretation: No fracture no dislocation Radiology Impression Discussion of test interpretation with radiology: I have reviewed the radiologist's reading. Radiologist Impression: s unremarkable. SINUSES: The visualized paranasal sinuses, mastoid air cells and middle ear cavities are unremarkable. LUNG APICES: The visualized lung apices are clear. SOFT TISSUES: There is calcification of the internal carotid arteries. CT/CT cervical spine wo IV con IMPRESSION: No evidence of fracture of the cervical spine. Anterior subluxation of C5 on C6 is likely degenerative in nature. Electronically signed by: Eric Pastrana MD 12/17/2024 03:46 PM [facility] [place] Prescription Management I considered prescription management with: Pain Medication Discharge Plan Discharge Clinical Impression: Neck pain Patient Disposition: Home, Self-Care Instructions: Cervical Strain (ED) Additional Instructions: Follow-up with your primary care physician, return to the ED if worse, you CT of the cervical spine shows no acute fracture or acute dislocation Prescriptions: New oxycodone 5 mg tablet 5 mg PO Q6H PRN (Reason: pain) Qty: 15 0RF Rx Instructions: partial filing upon pt request; Partial Fill upon patient request. No Action atorvastatin 20 mg tablet 20 mg PO DAILY 90 Days Qty: 90 3RF docusate calcium 240 mg capsule 240 mg PO DAILY gabapentin [Neurontin] 800 mg tablet 800 mg PO DAILY ibuprofen [IBU] 600 mg tablet 600 mg PO Q8H PRN hydroxychloroquine 200 mg tablet 200 mg PO DAILY amlodipine 10 mg tablet 10 mg PO DAILY montelukast 10 mg tablet 10 mg PO DAILY Linzess 290 mcg capsule 290 mcg PO DAILY nortriptyline 50 mg capsule 50 mg PO BEDTIME sumatriptan succinate 100 mg tablet 100 mg PO DAILY PRN (Reason: migraine) bupropion HCl 150 mg tablet extended release 24 hr 150 mg PO QAM mirtazapine 45 mg tablet 45 mg PO BEDTIME meclizine 25 mg tablet 25 mg PO TID PRN aspirin 81 mg tablet,delayed release (DR/EC) 81 mg PO DAILY diclofenac sodium 1 % gel topical triamcinolone acetonide 0.1 % cream 1 appl topical BID-TID epinephrine 0.3 mg/0.3 mL auto-injector IM dicyclomine 10 mg capsule PO pantoprazole 40 mg tablet,delayed release (DR/EC) 40 mg PO DAILY 90 Days Qty: 90 3RF carisoprodol 350 mg tablet 350 mg PO TID PRN (Reason: muscle pain/spasm) 30 Days Qty: 90 0RF lamotrigine 25 mg tablet PO DAILY levothyroxine 50 mcg tablet PO DAILY (DME) pen needle, diabetic [BD Ultra-Fine Mini Pen Needle] 31 gauge x 3/16 needle See Rx Instructions .ROUTE DAILY Qty: 1200 Rx Instructions: As directed teriparatide 20 mcg/dose (600mcg/2.4mL) pen injector subcut meloxicam 15 mg tablet 15 mg PO DAILY Qty: 7 0RF Print Language: Russian
[2024-12-17 14:54] VITALS: BP 180/80; PULSE 87; RESP 20; TEMP 36.4; O2SAT 96; BMI 29.3
[2024-12-17] MEDS: oxyCODONE HCl Immed Release 5 MG TABLET PO (15:36)
[2024-12-17 16:28] VITALS: BP 199/108; PULSE 87; RESP 20; TEMP 36.2; O2SAT 99
--- OUTSIDE RECORDS SUMMARY | 2024-12-17 17:38 | XMS_ITS | Clinical Summary ---
Author Organization [facility] Address [address] [place] [address] Care Team Providers Care Systems Lead Name Role Phone Magda Garsia DMD Primary Care Provider Source Comments PLEASE NOTE, if this patient [...] on file Insurance [employer] [place] Care Teams Systems Lead Relationship Specialty Start Date End Date Magda Garsia DMD [address] [place] [address] PCP - General 07/05/19
== END 2024-12-17 16:29 | disposition home or self-care (01) ==
PROVIDERS: Emergency Provider Emergency Medicine; PCP Family Medicine
DX: M54.2 Cervicalgia (principal); R07.89 Other chest pain; M25.552 Pain in left hip; M25.551 Pain in right hip; R10.2 Pelvic and perineal pain; M54.50 Low back pain, unspecified; R51.9 Headache, unspecified; Z79.899 Other long term (current) drug therapy; Z87.891 Personal history of nicotine dependence
CPT/HCPCS: 70450; 72040; 72072; 72100; 72125; 72170; 73502; 99212; 99283; 99284

== ENCOUNTER 2024-12-24 09:23 | Outpatient (AMB) | payer OTHER, SELFPAY ==
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
--- OUTSIDE RECORDS SUMMARY | 2024-12-24 10:14 | XMS_ITS | Clinical Summary ---
Author Organization [facility] Address [address] [place] [address] Care Team Providers Care Principal Network Engineer Name Role Phone Magda Garsia DMD Primary Care Provider [phone] Source Comments PLEASE NOTE, if this patient [...] on file Insurance [employer] [place] Care Teams Principal Network Engineer Relationship Specialty Start Date End Date Magda Garsia DMD [address] [place] [address] PCP - General 07/05/19
--- OUTSIDE RECORDS SUMMARY | 2024-12-24 10:14 | XMS_ITS | Data Portability ---
Author Organization [facility] [employer] Address [address] [place] [id number] Care Team Providers Care Cafe Helper Name Role Phone [facility] Referring Provider [phone] Assessment Encounter Date Assessment Date Assessment LastModified by Organization Details LastModified Time 10/15/2023 10/15/2023 I have reviewed and agree with the assessment and plan as documented by the marine designer. I provided real time medical direction for this encounter and was immediately available to provide additional phone based assistance as needed. History as noted by marine designer. Pt reports 2-3 weeks of a cough [...] doxycycline hyclate 100 mg tablet 2022 023 [id number], [address], [place], [place], [phone], 10:46:47 guaifenesin ER 600 mg tablet, extended release 12 hr 2022 023 [id number], [address], [phone], 3 10:46:44 albuterol sulfate HFA 90 mcg/actuati on aerosol inhaler 2022 023 [facility] #[id number], [address] [place], [place], [phone], 3 10:46:44 Patient TargetsNo targets recorded. Patient [...] SNOMED-CT Code Diagnosis ICD10 Code Diagnosis Note [id number] Storm Hutchinson MD Main - [facility] [address] [place] [address] 10/15/2023 10:37:19 10/15/2023 17:33:51 Acute bronchitis [id number] J20.9 Health Concerns Section Related Observation LastModified by Organization Detai ls LastModified Time None Recorded Concern Status LastModified by Organization Details LastModified Time None Recorded Advance Directives Directive None Recorded Payers Encounter Date Sequence Insurance Name Policy Number Policy Titus Covered Member ID Titus Member ID Guarantor Name 10/15/2023 1 [facility] - DOS ON OR AFTER 2023 - DUAL ELIGIBLE - SHELTER OPTIONS AND ONE CARE (MEDICARE REPLACEMENT/ADV ANTAGE - HMO) Kiara Pastrana [id number] Kiara Pastrana Notes Date Note Type Note Provider Name and Address Organization Details Recorded Time 10/15/2023 text/html This was a supervised home visit with marine designer Naye Yi. [facility] Nurse Triage Notes (Denilson Cedeno): Chief Complaints: URI Allergies: Unknown Comments: Cough/cold/congest ion/fever -s/s for few weeks - SOB of times - Wellness check - Coreen RN .................. .................. .................. .................. .................. .................. .................. ............... Civil Preparedness Training Officer Note From Naye Yi: Community Civil Preparedness Training Officer Angelic Yi [facility]1 dispatched to a [facility] for a 73 yof C/O a [...] ............... Disposition: Fulfilled Storm Hutchinson MD [address] [facility],[address], [place], [address], [facility] 10/15/2023 11:33:52 OBGyn Episode No OBEpisode recorded.
--- OUTSIDE RECORDS SUMMARY | 2024-12-24 10:14 | XMS_ITS | Data Portability ---
Author Organization [place] [facility] Address [address] [place] [address] Care Team Providers Care Associate Entertainment Editor Name Role Phone DEEPA FONSECA Primary Care Provider [phone] Assessment Encounter Date Assessment Date Assessment LastModified by Organization Details LastModified Time 07/29/2022 07/29/2022 71 YO F establishing care with . She complains of ble edema to ankle and feet x one week with rash . Edema is worse with prolonged walking/standin g the rash gets worse with swelling . Edema and rash appearance improves with rest and elevating legs. Denies rash being itchy, hot, or experiencing exudate. States she can not wear compression stockings due to her neuropathy. VSS Exam: Constitutional: Well appearing, well nourished, well developed. NAD. HEENT:Normoceph alic, atraumatic, EOMI Resp: No dyspnea, no use of accessory muscles, speech clear and able to complete sentences CV: deferred Musc: Moves all extremities. Extremity: Trace non pitting edema with mild venous stasis. Psych: Alert and oriented. Pleasant. Test: None DDx: DVT, cellulitis, atopic dermatitis Plan: -See assessment for detail. No localized swelling, warmth, or tenderness. This is less likely cellulitis or DVT. -Patient with trace edema and mild venous stasis. Discussed briefly low salt diet, use of compression stockings with zipper or velcro since the patient has neuropathy. -Encouraged elevating legs wtih rest. -Perhaps may benefit from vascular consultation. The patient is advised to make an appt with PCP in 3-5 days to discuss ongoing symptoms/ further management. The patient is also advised to go to the ED immediately for any worsening symptoms. The patient understood and agreed with this plan. The patient was given discharge instructions and all questions were answered prior to team departure. [email or web address] Not available 07/29/2022 09:50:43 Plan of Treatment Reminders Order Date Submit Date Provider Last Modified By Organization Details Last Modified Time Details Appointments None record ed. Lab None record ed. Referral None record ed. Procedures None record ed. Surgeries None record ed. Imaging None record ed. Medication Orders None record ed. Patient TargetsNo targets recorded. Patient Instructions Encounter Date Encounter Id Patient Instructions Last Modified By Organization Details Last Modified Time 07/29/2022 [id number] Thank you for yo ur [facility]. We cannot always find the exact cause of your symptoms during your initial visit. Please follow up with your primary care provider or specialist within 12-24 hours within 24-48 hours within 2-3 days to be rechecked or seek medical attention if your symptoms do not go away or get worse. If you develop any new or worsening symptoms and need after hours care, please go to nearest ER and/or call 911. If you have additional concerns or develop a change in your condition between 8am-10pm, please call [facility] at [phone] to help navigate your care. 3 Not available 07/29/2022 09:35:09 Reason for Referral None Reported. Medical Equipment None Reported. Allergies Allergen ID Allergen Name Allergen Category Reaction Reaction Severity Criticality Documentation Date Start Date Code Code System Note Provider Name and Address Organization Details Recorded Time 203672 Substance with sulfonami de structure and antibacte rial mechanism of action (substanc e) medicatio n Not available Not available Not available 07/29/2022 21533 8003 SNOMED April HUGO Guerrero [address] [place], [address], [place] [facility] 2 09:12:58 [id number] Tegretol medicatio n Not available Not available Not available 07/29/2022 9 RxNorm Josseline Guerrero NP [address] [place], [address], [place] [facility] 09:13:07 [id number] gabapenti n medicatio n Not available Not available Not available 07/29/2022 86290 RxNorm April HUGO Guerrero [address] [place], [address], [place] [facility] 2 09:13:15 [id number] tizanidin e medicatio n Not available Not available Not available 07/29/2022 50936 RxNorm Josseline Cesar , HUGO [address], [place], [place], [address], [place] [facility] 2 09:13:24 [id number] shellfish derived food,medi cation Not available Not available Not available 07/29/2022 [id number] UNK Josseline HUGO Guerrero [address], [place], [address], [place] [facility] 2 09:13:37 Medications Name Sig Start Date Stop Date Status Note LastModified by Organization Details LastModified Time multivitami n tablet TAKE 1 TABLET BY MOUTH DAILY active Not Available Not Available No t Available carisoprodo l 350 mg tablet TAKE 1 TABLET BY MOUTH UP TO TWICE DAILY NEEDED active Not Available Not Available No t Available atorvastati n 20 mg tablet TAKE 1 TABLET BY MOUTH AT BEDTIME active Not Available Not Available No t Available cetirizine 10 mg tablet TAKE 1 TABLET BY MOUTH EVERY DAY active Not Available Not Available No t Available sumatriptan 100 mg tablet active Not Available Not Available Not Available hydrocodone 5 mg-acetamin ophen 325 mg tablet TAKE 1 TABLET BY MOUTH DAILY NEEDED FOR PAIN active Not Available Not Available No t Available Neurontin 800 mg tablet TAKE 1 TABLET BY MOUTH FOUR TIMES DAILY active Not Available Not Available No t Available sumatriptan 50 mg tablet TAKE 1 TABLET BY MOUTH EVERY DAY NEEDED FOR MIGRAINE 07/29 completed Not Available Not Available Not Available aspirin 81 mg tablet,maldonado yed release TAKE 1 TABLET BY MOUTH EVERY DAY AT LUNCH active Not Available Not Available No t Available triamcinolo ne acetonide 0.1 % topical cream APPLY TWICE DAILY NEEDED FOR LICHEN SCLEROSUS . SKIP EVERY 3RD WEEK. active Not Available Not Available No t Available pantoprazol e 20 mg tablet,maldonado yed release TAKE 1 TABLET BY MOUTH DAILY active Not Available Not Available No t Available magnesium oxide 400 mg (241.3 mg magnesium) tablet TAKE 1 TABLET BY MOUTH EVERY DAY active Not Available Not Available No t Available meclizine 25 mg tablet TAKE 1 TABLET BY MOUTH THREE TIMES DAILY NEEDED FOR DIZZINESS active Not Available Not Available No t Available amlodipine 10 mg tablet TAKE 1 TABLET BY MOUTH EVERY DAY active Not Available Not Available No t Available levothyroxi ne 50 mcg tablet TAKE 1 TABLET BY MOUTH FIVE DAYS PER WEEK AND 2 TABLETS TWO DAYS PER WEEK active Not Available Not Available No t Available pantoprazol e 40 mg tablet,maldonado yed release TAKE 1 TABLET BY MOUTH DAILY TAKE 30-60 MINUTES BEFORE BREAKFAST active Not Available Not Available No t Available nortriptyli ne 10 mg capsule TAKE 4 CAPSULES BY MOUTH EVERY NIGHT AT BEDTIME active Not Available Not Available No t Available docusate sodium 100 mg capsule TAKE 1 CAPSULE BY MOUTH TWICE DAILY active Not Available Not Available No t Available omeprazole 20 mg capsule,del ayed release active Not Available Not Available Not Available montelukast 10 mg tablet active Not Available Not Available Not Available hydroxychlo roquine 200 mg tablet TAKE 1 TABLET BY MOUTH EVERY 12 HOURS active Not Available Not Available No t Available epinephrine 0.3 mg/0.3 mL injection, auto-inject or INJECT INTO THE MUSCLE NEEDED FOR AMAPHYLAX IS active Not Available Not Available No t Available ibuprofen 600 mg tablet TAKE 1 TABLET BY MOUTH TWICE DAILY WITH FOOD active Not Available Not Available No t Available polyethylen e glycol 3350 17 gram/dose oral powder active Not Available Not Available Not Available topiramate 100 mg tablet TAKE 1 TABLET BY MOUTH EVERY NIGHT AT BEDTIME active Not Available Not Available No t Available dicyclomine 10 mg capsule TAKE 2 CAPSULES BY MOUTH FOUR TIMES DAILY NEEDED active Not Available Not Available No t Available vitamin E 268 mg (400 unit) capsule TAKE 1 CAPSULE BY MOUTH EVERY DAY active Not Available Not Available No t Available nortriptyli ne 50 mg capsule active Not Available Not Available Not Available amoxicillin 875 mg-potassiu m clavulanate 125 mg tablet 07/29 completed Not Available Not Available Not Available Vitamin B-12 1,000 mcg tablet TAKE 1 TABLET BY MOUTH EVERY DAY active Not Available Not Available No t Available calcium 600 mg (as carbonate)- vitamin D3 10 mcg (400 unit) tablet TAKE 2 TABLETS BY MOUTH DAILY active Not Available Not Available No t Available cholecalcif arian (vitamin D3) 50 mcg (2,000 unit) capsule TAKE 1 CAPSULE BY MOUTH DIALY active Not Available Not Available No t Available Linzess 290 mcg capsule TAKE 1 CAPSULE BY MOUTH DAILY active Not Available Not Available No t Available Therems Multivitami n 400 mcg tablet TAKE 1 TABLET BY MOUTH DAILY active Not Available Not Available No t Available Vitals Date Recorded Heart rate Respiratory rate Oxygen saturation Oxygen saturation in Arterial blood by Pulse oximetry Body temperature Systolic blood pressure Diastolic blood pressure Provider Name and Address Organization Details Last Updated DateTime 2 90 /min 18 /min 99 % 99 % 98.6 [degF] 136 mm[Hg] 68 mm[Hg] Not Available [facility] 09:16:37 Social History Question Answer Notes LastModified by Organizat ion Details LastModified Time Tobacco Smoking Status Former Smoker April Cesar, HUGO [address], [place], [address], [place] [facility] 07/29/2022 09:32:30 Do You Have An Advance Directive? Yes [email or web address] Information not available 07/29/2022 What Is Your Level Of Alcohol Consumption? Occasional [email or web address] Information not available 07/29/2022 Is Blood Transfusion Acceptable In An Emergency? Yes [email or web address] Information not available 07/29/2022 What Is Your Code Status? Full Code [email or web address] Information not available 07/29/2022 Do You Have A Directive To Physicians? No [email or web address] Information not available 07/29/2022 When Did You Quit Smoking? 16+yearssincel astcirodriguez [email or web address] Information not available 07/29/2022 Within The Past 12 Months, Has It Happened That The Food You Bought Just Didn't Last And You Didn't Have Money To Get More. No [email or web address] Information not available 07/29/2022 Within The Past 12 Months, Have You Worried That Your Food Would Run Out Before You Got Money To Buy More. No [email or web address] Information not available 07/29/2022 Fall Risk: Do You Feel Unsteady When Standing Or Walking? No [email or web address] Information not available 07/29/2022 We Know That How And When People Interact With Friends And Family Can Be Very Different From Person To Person. How Often Do You Have The Opportunity To See Or Talk To People That You Care About And Feel Close To? (Ex: Talking To Friends On The Phone Or Visiting Friends Or Family Or Going To Confucianism Or Club Meetings) Choose Not To Answer This Question [email or web address] Information not available 07/29/2022 Excessive Alcohol Or Drug Use No [email or web address] Information not available 07/29/2022 Does This Patient Have A PCP? Yes [email or web address] Information not available 07/28/2022 Has The Patient Seen Their PCP In The Past 6 Months? Yes [email or web address] Information not available 07/28/2022 Is This Patient In Hospice? No [email or web address] Information not available 07/29/2022 We Know From Many Of Our Patients That Covering All Of Their Costs Can Be Difficult At Times. This Can Cause Stress And Impact Health. In The Past Year, Have You Been Unable To Get Any Of The Following When It Was Really Needed? No [email or web address] Information not available 07/29/2022 What Is Your Housing Situation Today? I Have Housing [email or web address] Information not available 07/29/2022 Would You Like Help Connecting To Resources? None [email or web address] Information not available 07/29/2022 Do You Have A Medical Power Of Partner Manager? No Information not available 07/29/2022 Do You Have An Out Of Hospital DNR? No [email or web address] Information not available 07/29/2022 Do You Have A Patient Advocate? No [email or web address] Information not available 07/29/2022 Do You Use Any Illicit Or Recreational Drugs? No [email or web address] Information not available 07/29/2022 Sex: Unknown Functional Status None recorded. Mental Status None recorded. Family History Nothing Reported. Medical History Condition Response Diabetes N Coronary Artery Disease N CHF N Parkinson's Disease N Cancer N Stroke N Dementia N Hypothyroidism Y Asthma N COPD N Depression N High Cholesterol Y Rheumatoid Arthritis N Pulmonary Embolism N Hypertension N Osteoporosis Y A-fib N Kidney Disease N Gynecological HistoryNo gynecological history recorded. Obstetrics History GPAL:G 0 P 0 0 0 0 Past Encounters Encounter ID Performer Location Encounter Start Date Encounter Closed Date Diagnosis/Indication Diagnosis SNOMED-CT Code Diagnosis ICD10 Code Diagnosis Note [id number] April HUGO Guerrero [facility] [address] [facility], [place] [address] 07/29/2022 09:11:05 07/29/2022 11:15:33 Health Concerns Section Related Observation LastModified by Organization Detai ls LastModified Time None Recorded Concern Status LastModified by Organization Details LastModified Time None Recorded Advance Directives Directive Y: Payers Encounter Date Sequence Insurance Name Policy Number Policy Titus Covered Member ID Titus Member ID Guarantor Name 07/29/2022 1 [place] [employer] Kiara Pastrana [id number] Ashely Pastrana 07/29/2022 2 [place] [facility] Ashely Pastrana [id number] Ashely Pastrana Notes Date Note Type Note Provider Name and Address Organization Details Recorded Time 07/29/2022 text/html 71 YO F establishing care with . She complains of ble edema to ankle and feet x one week with rash . Edema is worse with prolonged walking/standing the rash gets worse with swelling . Edema and rash appearance improves with rest and elevating legs. States she can not wear compression stockings due to her neuropathy. April HUGO Guerrero [address], [place], [address], [place] [facility] 07/29/2022 09:50:54 OBGyn Episode No OBEpisode recorded.
[2024-12-24 10:23] VITALS: BP 100/66; PULSE 99; RESP 14; O2SAT 99
== END 2024-12-24 10:54 | disposition home or self-care (01) ==
PROVIDERS: PCP Family Medicine; Visit Provider Physician Assistant Medical
DX: N20.0 Calculus of kidney (principal); J30.89 Other allergic rhinitis; S06.0X0A Concussion without loss of consciousness, initial encounter; W19.XXXA Unspecified fall, initial encounter; M54.2 Cervicalgia; M54.9 Dorsalgia, unspecified

== ENCOUNTER → 2024-12-24 09:23 | Outpatient (BNVA) | payer OTHER, SELFPAY | PROVIDERS: PCP Family Medicine; Visit Provider Physician Assistant Medical | DX: S06.0X0A Concussion without loss of consciousness, initial encounter (principal); N20.0 Calculus of kidney; J30.89 Other allergic rhinitis; M54.2 Cervicalgia; M50.30 Other cervical disc degeneration, unspecified cervical region; M51.35 Other intervertebral disc degeneration, thoracolumbar region; W10.2XXA Fall (on)(from) incline, initial encounter; Y93.K1 Activity, walking an animal; Y92.521 Bus station as the place of occurrence of the external cause; Y99.9 Unspecified external cause status | CPT/HCPCS: 99212 ==

== ENCOUNTER 2024-12-29 14:02 | Outpatient (AMB) | payer OTHER, SELFPAY ==
--- NOTE | 2024-12-29 14:03 | AM.OFFWIN_ITS ---
Intake Vital Signs 12/29/24 14:04 Height 5 ft Weight 127 lb BMI 24.8 BP 130/78 Blood Pressure Location Lt brachial Position Sitting Pulse 90 Pulse Source Pulse Oximeter Temp 96.7 F L Temp Source Oral Pulse Oximetry (%) 98 Oxygen Delivery Method Room Air Intake Visit Reasons: EP-Fell 12/17/24, having pain Lt side ribs Patient Tobacco Use Status: Former Tobacco user Allergies carbamazepine [From Tegretol] Allergy (Intermediate, Verified 12/29/24 14:08) MOUTH SORES spider venom [SPIDER BITES] Allergy (Intermediate, Verified 12/29/24 14:08) BLISTERS Sulfa (Sulfonamide Antibiotics) Allergy (Intermediate, Verified 12/29/24 14:08) DISORIENTATION/RASH tizanidine [Tizanidine] Allergy (Intermediate, Verified 12/29/24 14:08) NIGHTMARES horton Adverse Reaction (Severe, Verified 12/29/24 14:08) SEVERE VOMITING Shellfish Allergy (Severe, Uncoded 12/29/24 14:08) TONGUE SWELLING, SHORTNESS OF BREATH spider bites Allergy (Intermediate, Uncoded 12/29/24 14:08) swelling, anaphylaxis cherries Allergy (Unknown, Uncoded 12/29/24 14:08) Nausea and Vomiting mold Allergy (Unknown, Uncoded 12/29/24 14:08) congestion SUGAR SUBSTITUTES Allergy (Unknown, Uncoded 12/29/24 14:08) SORE THROAT - LARYNGITIS HPI HPI Comments History of Present Illness Details This is a 74-year-old female who presented to the walk-in clinic complaining of left-sided rib pain that began last night. Patient states she was seen at the walk-in clinic on 12/17/2024 following a fall in which her dog bolted causing her shopping cart to list up and she was propelled backwards. She states she landed on her back, hit her head on the pavement, and hit her left ribs. She underwent an extensive workup including x-ray of the entire spine, bilateral hips, and pelvis all of which were negative for acute findings. She did follow up in the emergency room as well for CT head and CT C-spine, which were negative for acute findings. She was diagnosed with a mild concussion and was recommended brain rest and acetaminophen/ibuprofen for pain. Patient returned to the walk-in clinic today as she developed new left rib pain last night. She states that she was out and about pushing her shopping cart in very high winds yesterday and felt like she was being twisted and pulled. She also reports a chronic cough and chronic nasal congestion/rhinorrhea but states that she has noticed an increase in her cough and congestion/rhinorrhea since yesterday. She states that her lower left ribs mostly her with coughing or laughing. She denies any chest pain or shortness of breath. She denies any hemoptysis. She denies any significant sputum production/purulence with her cough. She denies any fevers or chills. [facility] Medical History (Updated 12/24/24 @ 10:38 by ROSY Hurley) Nephrolithiasis Perennial allergic rhinitis Social History Housing: Apartment Patient Tobacco Use Status: Former Tobacco user e-Cigarette/Vaping Use: Currently Using service: No Current occupational status: retired and disabled Current occupational exposures/hazards: No Cognitive needs: No Hearing needs: No Vision needs: Yes Review of Systems Const All systems reviewed & are unremarkable except as noted in HPI and below Reports no additional complaints Eyes Reports no additional complaints ENT Reports no additional complaints Card Reports no additional complaints Resp Reports no additional complaints GI Reports no additional complaints Reports no additional complaints Musc Reports no additional complaints Skin/Breast Reports system reviewed and no additional complaints, except as documented Neuro Reports no additional complaints Psych Reports no additional complaints Endo Reports no additional complaints Troy/Lymph Reports no additional complaints Aller/Immun Reports no additional complaints Physical Exam Vital Signs: Last Vital Signs Temp 96.7 F L 12/29/24 14:04 Pulse 90 12/29/24 14:04 BP 130/78 12/29/24 14:04 Pulse Ox 98 12/29/24 14:04 Oxygen Delivery Method Room Air 12/29/24 14:04 BMI result Body Mass Index 24.8 Const Other: Vital signs reviewed. Constitutional: Non-toxic appearing. No acute distress. Well-developed and well-nourished. HEENT: Normocephalic and atraumatic. Skin: Warm and dry. No rashes or lesions noted. Neck: Full and painless range of motion. No cervical lymphadenopathy. Cardio: Regular rate and rhythm. No murmurs, gallops, or rubs. No lower extremity edema. No JVD. + Tenderness to palpation of the lateral left lower ribs without crepitus or ecchymosis. Pulmonary: No respiratory distress. No accessory muscle usage. Clear to auscultation bilaterally without wheezing, crackles, or rhonchi. Gastrointestinal: Soft, nontender, and nondistended in all 4 quadrants. Musculoskeletal: Normal range of motion in joints throughout the body. No deformity or other signs of injury. Neuro: Alert and oriented x4. Cranial nerves 2-12 grossly intact. No focal deficits appreciated. Psych: Normal mood and affect. Assessment & Plan Assessment & Plan (1) Rib pain on left side: Code(s): R07.81 - Pleurodynia (2) Acute upper respiratory infection, unspecified: Code(s): J06.9 - Acute upper respiratory infection, unspecified Plan This is a 74-year-old female who presented to the walk-in clinic complaining of new onset left-sided lateral lower rib pain in the setting of worsening cough x 1 day, possible twisting injury yesterday, and recent fall 2 weeks ago. On physical examination, there is tenderness to palpation of the left lateral lower ribs without crepitus. An x-ray of the left ribs with chest x-ray was obtained, which was negative for acute bony abnormality or acute cardiopulmonary process. Patient very likely has intercostal sprain/strain/inflammation versus pleurodynia in the setting of worsening cough as well as pushing her shopping cart in high winds yesterday. Recommended symptomatic management such as heat/ice to the area, [id number] lidocaine patches or gel, acetaminophen/ibuprofen for pain management, and rest/activity modification. She was also educated on the importance deep breathing, bracing when coughing/sneezing/laughing to avoid further rib injury and atelectasis/pneumonia. Additionally, patient likely has early symptoms of an acute viral upper respiratory tract infection. Recommended symptomatic management including rest, increased fluids, advil/tylenol for pain/fever, and over the counter throat lozenges/decongestants. Patient was advised to follow-up here or proceed directly to the emergency room if she were to develop any worsening chest pain, shortness of breath, hemoptysis, etc. Patient verbalized understanding and is agreeable with the plan. Orders: Orders XR ribs LT min 3V w CXR1V Today R07.81 - Pleurodynia SARS-CoV2/FLU/RSV Today J06.9 - Acute upper respiratory infection, unspecified Coding Level of Care Code Est Pt Level 3 (24716) Diagnoses Rib pain on left side R07.81 Acute upper respiratory infection, unspecified J06.9
[2024-12-29 14:04] VITALS: BP 130/78; PULSE 90; TEMP 35.9; O2SAT 98; BMI 24.8
== END 2024-12-29 14:54 | disposition home or self-care (01) ==
LOC: HO.HMCWIC 14:02
PROVIDERS: PCP Family Medicine; Visit Provider Physician Assistant Medical
DX: R07.81 Pleurodynia (principal); J06.9 Acute upper respiratory infection, unspecified

== ENCOUNTER 2024-12-29 14:21 | Outpatient (REF) | payer OTHER, SELFPAY ==
--- NOTE | ~2024-12-29 | XR_ITS ---
CLINICAL HISTORY: R07.81 - Pleurodynia PA chest with left rib films Comparison: None Findings: Heart and lungs normal. No pneumothorax. There is mild pleural plaque in the superior left upper lobe pleural surface. No rib fractures. Impression Lungs are clear. No pleural effusion. Normal left rib films. There is a 6 cm hiatal hernia. This document has been electronically signed by: Bull Kirkland MD on 12/29/2024 14:53:50
--- OUTSIDE RECORDS SUMMARY | 2024-12-29 14:24 | XMS_ITS | Data Portability ---
Author Organization [employer] [place] [facility] [place] Address [address] [place] [address] Care Team Providers Care Criminal Records Technician Name Role Phone [facility] Referring Provider [phone] Assessment Encounter Date Assessment Date Assessment LastModified by Organization Details LastModified Time 10/15/2023 10/15/2023 I have reviewed and agree with the assessment and plan as documented by the tear down man. I provided real time medical direction for this encounter and was immediately available to provide additional phone based assistance as needed. History as noted by tear down man. Pt reports 2-3 weeks of a [...] doxycycline hyclate 100 mg tablet 2022 023 [id number], [address], [place], [place], [phone], 10:46:47 guaifenesin ER 600 mg tablet, extended release 12 hr 2022 023 [id number], [address], [place], [phone], 3 10:46:44 albuterol sulfate HFA 90 mcg/actuati on aerosol inhaler 2022 023 [facility] #[id number], [address] [place], [place], [phone], 3 10:46:44 Patient TargetsNo targets recorded. Patient [...] SNOMED-CT Code Diagnosis ICD10 Code Diagnosis Note [id number] Storm Hutchinson MD Main - [facility] [address] [place] [address] 10/15/2023 10:37:19 10/15/2023 17:33:51 Acute bronchitis [id number] J20.9 Health Concerns Section Related Observation LastModified by Organization Detai ls LastModified Time None Recorded Concern Status LastModified by Organization Details LastModified Time None Recorded Advance Directives Directive None Recorded Payers Encounter Date Sequence Insurance Name Policy Number Policy Titus Covered Member ID Titus Member ID Guarantor Name 10/15/2023 1 [facility] - DOS ON OR AFTER 2023 - DUAL ELIGIBLE - SKILLED NURSING OPTIONS AND ONE CARE (MEDICARE REPLACEMENT/ADV ANTAGE - HMO) Kiara Pastrana [id number] Kiara Pastrana Notes Date Note Type Note Provider Name and Address Organization Details Recorded Time 10/15/2023 text/html This was a supervised home visit with tear down man Naye Yi. [facility] Nurse Triage Notes (Denilson Cedeno): Chief Complaints: URI Allergies: Unknown Comments: Cough/cold/congest ion/fever -s/s for few weeks - SOB of times - Wellness check - Coreen RN .................. .................. .................. .................. .................. .................. .................. ............... Social Sciences Chair Note From Naye Yi: Community Social Sciences Chair Angelic Yi [facility] dispatched to a [facility] for a 73 yof C/O a [...] ............... Disposition: Fulfilled Storm Hutchinson MD [address] [facility],[address], [place], [address], [employer] 10/15/2023 11:33:52 OBGyn Episode No OBEpisode recorded.
--- OUTSIDE RECORDS SUMMARY | 2024-12-29 14:24 | XMS_ITS | Clinical Summary ---
Author Organization [facility] Address [address] [place] [address] Care Team Providers Care Director Of Environmental Services Name Role Phone Magda Garsia DMD Primary Care Provider [phone] Source Comments PLEASE NOTE, if this patient [...] on file Insurance [employer] [place] [employer]ENT[place] Care Teams Director Of Environmental Services Relationship Specialty Start Date End Date Magda Garsia DMD [address] [place] [address] PCP - General 07/05/19
[2024-12-31 13:50] LABS: Influenza A PCR NEGATIVE (Negative); Influenza B PCR NEGATIVE (Negative); Resp Syncy Virus RNA Qual PCR NEGATIVE (Negative); SARS COV2 PCR INHOUSE NEGATIVE (Negative)
== END 2024-12-29 14:22 | disposition home or self-care (01) ==
LOC: HO.HMGCX 14:21
PROVIDERS: PCP Family Medicine; Visit Provider Physician Assistant Medical
DX: R07.81 Pleurodynia (principal); J06.9 Acute upper respiratory infection, unspecified
CPT/HCPCS: 0241U; 71101

== ENCOUNTER → 2024-12-29 14:26 | Outpatient (BNV) | payer OTHER, SELFPAY | PROVIDERS: PCP Family Medicine; Visit Provider Radiology Diagnostic Radiology | DX: K44.9 Diaphragmatic hernia without obstruction or gangrene (principal) | CPT/HCPCS: 71101 ==

== ENCOUNTER 2025-01-11 09:11 | Outpatient (REF) | payer OTHER, SELFPAY ==
[2025-01-11 09:45] LABS: MANUAL DIFF FLAG NO
[2025-01-11 10:28] LABS: Basophils Percent Auto 1.1 % (0-2); Eosinophils Absolute Auto 0.1 X10*3/uL (0.0-0.4); Eosinophils Percent Auto 1.9 % (0-4); Hematocrit 34.9 % (37.0-47.0); Hemoglobin 11.4 g/dl (12.0-16.0); Imm Gran Abs Auto 0.01 X10*3/uL (0.00-0.03); Imm Gran Pct Auto 0.3 % (0.0-0.4); Lymphocytes Absolute Auto 1.4 X10*3/uL (1.2-4.9); Lymphocytes Percent Auto 36.5 % (20-40); Mean Corpuscular HGB Conc 32.7 g/dl (31.0-35.0); Mean Corpuscular Hemoglobin 30.9 pg (27.0-33.0); Mean Corpuscular Volume 94.6 fL (80.0-98.0); Mean Platelet Volume 10.2 fL (9.4-12.3); Monocytes Absolute Auto 0.3 X10*3/uL (0.1-1.2); Neutrophils Absolute Auto 1.9 x10*3/uL (2.0-8.3); Neutrophils Percent Auto 51.2 % (45-73); Platelet Count 251 X10*3/uL (160-400); Red Blood Count 3.69 X10*6/uL (4.20-5.50); Red Cell Distribution Width 14.4 % (11.0-16.0); White Blood Count 3.8 X10*3/uL (4.8-10.8)
[2025-01-11 11:08] LABS: Erythrocyte Sedimentation Rate 30 MM/HR (0-20)
[2025-01-11 11:24] LABS: Alanine Aminotransferase 14 U/L (0-31); Alkaline Phosphatase 122 U/L (39-117); Anion Gap 10 (12-20); Aspartate Amino Transferase 29 U/L (5-31); Bilirubin Total 0.3 mg/dL (0.0-1.0); Blood Urea Nitrogen 17 mg/dL (9-16); Calcium 9.5 mg/dL (8.4-10.2); Carbon Dioxide 22 mmol/L (22-29); Chloride 111 mmol/L (96-108); Cholesterol 202 mg/dL (<200); Estimated Glomerular Filt Rate 58; Free T4 (Free Thyroxine) 1.14 ng/dL (0.71-1.85); Glucose Fasting 70 mg/dL (60-99); HDL Cholesterol 89 mg/dL (>40); LDL Cholesterol Calculated 98 mg/dL (<100); Potassium 4.1 mmol/L (3.3-5.1); Sodium 139 mmol/L (135-145); Thyroid Stimulating Hormone 1.84 uIU/mL (0.32-4.0); Triglycerides 77 mg/dL (<150); Vitamin D 25-OH Total 31.1 ng/mL (>30)
[2025-01-11 11:29] LABS: Folate 10.2 ng/mL (> or = 4.0); Vitamin B12 564 pg/mL (200-900)
[2025-01-11 12:50] LABS: Appearance Urine Cloudy; Color Urine Yellow; Glucose Urine UA Negative (Negative); Leukocyte Esterase Urine Negative (Negative); Nitrite Urine Negative (Negative); PH 7.5 (5.0-9.0); Urine Blood Negative (Negative); Urine Ketones Negative (Negative); Urine Protein Negative (Neg-Trace)
[2025-01-11 14:14] LABS: Creatinine Urine 45.74 mg/dL; Microalbum/Creatinine Ratio Ur 19.6 ug/mg cr (<30)
[2025-01-12 05:48] LABS: Triiodothyronine T3 Total 64 ng/dL (76-181)
== END 2025-01-11 09:12 | disposition home or self-care (01) ==
LOC: HO.LAB 09:11
PROVIDERS: PCP Physician Assistant Medical; Visit Provider Family Medicine
DX: Z13.89 Encounter for screening for other disorder (principal)
CPT/HCPCS: 36415; 80053; 80061; 81003; 82043; 82306; 82570; 82607; 82746; 84439; 84443; 84480; 85025; 85652

== ENCOUNTER 2025-01-11 09:57 | Outpatient (REF) | payer OTHER, SELFPAY ==
--- NOTE | ~2025-01-11 | US_ITS ---
CLINICAL HISTORY: N20.0 - Calculus of kidney US Renal Comparison: None Findings: Right kidney normal size and echotexture, 10.6 cm length. Left kidney normal size and echotexture, 10.3 cm length. Bosniak 1 left renal cortical 1.1 x 1.0 x 0.8 cm cyst. No hydronephrosis of either kidney. Normal color Doppler. Urinary bladder is unremarkable. Prevoid volume 398 mL. Postvoid volume 308 mL. Bilateral ureteral jets are visualized. IMPRESSION: 1. Marked postvoid residual This document has been electronically signed by: Ab Garcia MD on 01/12/2025 08:49:55
== END 2025-01-11 09:58 | disposition home or self-care (01) ==
LOC: HO.US 09:57
PROVIDERS: PCP Family Medicine; Visit Provider Physician Assistant Medical
DX: N20.0 Calculus of kidney (principal); Z13.6 Encounter for screening for cardiovascular disorders
CPT/HCPCS: 36415; 76770; 80053; 80061; 81003; 82043; 82306; 82570; 82607; 82746; 84439; 84443; 84480; 85025; 85652

== ENCOUNTER → 2025-01-11 10:03 | Outpatient (BNV) | payer OTHER, SELFPAY | PROVIDERS: PCP Family Medicine; Visit Provider Specialist | DX: N39.43 Post-void dribbling (principal) | CPT/HCPCS: 76770 ==

== ENCOUNTER 2025-01-29 11:29 | Outpatient (AMB) | payer OTHER, SELFPAY ==
--- NOTE | 2025-01-29 11:50 | AM.OFFVISMDC ---
Intake Vital Signs 01/29/25 12:30 Height 5 ft Weight 127 lb 2 oz BMI 24.8 BP 122/72 Blood Pressure Location Rt brachial Position Sitting Respiration 12 Pulse 89 Pulse Source Pulse Oximeter Temp 97.5 F Temp Source Oral Pulse Oximetry (%) 98 Oxygen Delivery Method Room Air Intake Visit Reasons: CPE with f/u labs and health maint Intake Note: AWV and patient has concerns about her concussion. Patient c/o of headache after her concussion Service Greeter Required: No Allergies carbamazepine [From Tegretol] Allergy (Intermediate, Verified 01/29/25 12:42) MOUTH SORES spider venom [SPIDER BITES] Allergy (Intermediate, Verified 01/29/25 12:42) BLISTERS Sulfa (Sulfonamide Antibiotics) Allergy (Intermediate, Verified 01/29/25 12:42) DISORIENTATION/RASH tizanidine [Tizanidine] Allergy (Intermediate, Verified 01/29/25 12:42) NIGHTMARES horton Adverse Reaction (Severe, Verified 01/29/25 12:42) SEVERE VOMITING Shellfish Allergy (Severe, Uncoded 01/29/25 12:42) TONGUE SWELLING, SHORTNESS OF BREATH spider bites Allergy (Intermediate, Uncoded 01/29/25 12:42) swelling, anaphylaxis cherries Allergy (Unknown, Uncoded 01/29/25 12:42) Nausea and Vomiting mold Allergy (Unknown, Uncoded 01/29/25 12:42) congestion SUGAR SUBSTITUTES Allergy (Unknown, Uncoded 01/29/25 12:42) SORE THROAT - LARYNGITIS Medication List - Last Reconciled 01/29/25 by Luci Jean, REGISTRY RN- amlodipine 10 mg PO DAILY aspirin 81 mg PO DAILY atorvastatin 20 mg PO DAILY 90 days bupropion HCl XL 150 mg PO QAM [calciuum citrate plus d daily] carisoprodol 350 mg PO TID PRN 30 days diclofenac sodium 1% topical dicyclomine mg PO docusate calcium 240 mg PO DAILY epinephrine IM gabapentin (Neurontin) 800 mg PO DAILY hydroxychloroquine 200 mg PO DAILY ibuprofen (IBU) 600 mg PO Q8H PRN lamotrigine 50 mg PO DAILY levothyroxine mcg PO DAILY linaclotide (Linzess) 290 mcg PO DAILY meclizine 25 mg PO TID PRN meloxicam 15 mg PO DAILY mirtazapine 45 mg PO BEDTIME montelukast 10 mg PO DAILY nortriptyline 50 mg PO BEDTIME oxycodone 5 mg PO Q6H PRN pantoprazole 40 mg PO DAILY 90 days pen needle, diabetic (BD Ultra-Fine Mini Pen Needle) As directed sumatriptan succinate 100 mg PO DAILY PRN teriparatide mcg subcut triamcinolone acetonide 0.1% 1 appl topical BID-TID Do you need a note to return to daycare/school/sports/work: No HPI HPI Comments History of Present Illness Details Here today for AWV. The Medicare Annual Wellness Visit (AWV) is a yearly appointment with a health professional to identify health risks and help reduce them and to create or update a personalized prevention plan. During a Medicare AWV, health professionals should also review any current opioid prescriptions, detect any cognitive impairment, and establish or update medical and family history. 74 y/o F with chronic back pain, lupus, anxiety, multiple allergies, hyperlipidemia, FERMIN,hypothyroid, IBS, migraines, neuropathy, nephrolithiasis, CKD3, osteoporosis, L renal cyst (bosniak 1), GERD, migraine headaches, anemia, Raynauds phenomenon SurgHx:?B/L Ulnar Nerve, R Elbow tendon repair, Carpal tunnel b/L , L shoulder, FHx:? Mom: DM, HTN, Lung CA.. Daughter: DM. Sister: Lung CA. SocHx:? Quit cigs > 30 yrs ago. Vapes.. EtOH: Very Rarely 1-2 dr a month. MJ: None. No drugs Health Maintenance: See scanned preventative medicine assessment with personalized health plan and screening schedule. Colon: 2020 Mammo 2021 * DEXA 2021 *States she had this done 2024 at [facility] but i do not see these results; she is certain this is complete PAP aged out Vaccines: UTD Flu, PPSV, PCV. Tdap due AAA screen: NA hypertension well controlled on amlodipine EK10/2024 by PCP EKG: ?Normal?sinus?rhythm,?normal?axis,?no?hypertrophy,?no?ST-T-wave?changes. Results: Labs 01/11/25 anemia, ^ ESR, eGFR 58, otherwise wnl [place] of Care: Uro Allergy Immune GI Rheum Visual Acuity: wears glasses; vision screen today Hearing Screening: no hearing aides; loss of hearing in L ear. Interested in hearing eval. ACP: has HCP, does not have living will. Indo provided today Dietary/Nutrition/Exercise Edu provided: Y During the course of the visit the patient was educated and counseled about appropriate screening and preventative services. Patient instructions were provided to the patient in written or electronic format. I have reviewed and verified the above information. Here today for AWV and chronic dz fu: hypertension well controlled on amlodipine hyperlipidemia on atorvastatin generalized anxiety disorder on bupropion, lamotrigine, mirtazapine complaints of chronic pain status post falls with multiple concussions. Was prescribed oxycodone previously. Asked him for a refill today. She was also maintained on Soma. She does have meloxicam on hand that she can use, too. She reports intermittent dizziness and uses meclizine with some effect. She is currently in physical therapy. She lives home alone. Other than a dog she does not have a support system. She does not drive. She depends on public transportation. Does not have a life Alert or the like. She is interested in meeting with the community navigation team to access resources. Has a appointment with Urology this month. GI manages her IBS and GI symptoms. Review of Systems Denies any signs of bleeding Denies sob, chest pain Physical Exam General: Well developed, well nourished, in no acute distress. Appears stated age. Head: Normocephalic, atraumatic. Eyes: Pupils are equal, round and reactive to light and accommodation. Conjunctivae are clear. Wears glasses, has some light sensitivty, she reports baseline AP Ears: TMs clear AU, EACS WNL Nose: Patent, without discharge. Mouth: There are no ulcers or lesions noted. No inflammation, no post nasal drip, no plaques nor exudates. Neck: Supple, no adenopathy or thyromegaly. Breast: Edu on SBE Lungs: Clear to auscultation bilaterally. No rales, rhonchi or wheeze noted. Good air flow in all tolliver. Heart: Regular rate and rhythm. No murmurs, click, rubs or gallops are noted. Abdomen: Bowel sounds present in all quadrants. The abdomen is soft, nontender, with no masses or organomegaly noted. No hernias are noted. : Deferred. 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 Range of motion is observed to be normal. Pulses: Peripheral pulses are equal and palpable bilaterally. Extremities: No clubbing, cyanosis nor edema is noted. Neurologic: Cranial Nerves 2-12 intact. Motor strength grossly symmetrical and intact. No sensory loss. Balance abnormal, unsteady gait, requires asst onto exam table. Accompanied by dog, fiona Skin: No rashes, ulcers, or lesions noted. Turgor is good. Skin color is good. Hair and nails are without abnormalities. Psych: Normal eye contact, affect and mood appropriate, and normal interactions. Patient is alert and appropriate to context. Assessment and Plan Tdap admin today Refer to Audio for hearing loss Brief intervention w/ NN team today for resources such as life line, etc to keep her safe in the home Recommend cont all meds and care w/ care team Recommend close interim fu with PCP in a few weeks to review pain, falls and safety. Consent Patient was informed and verbally consented to the use of an ambient scribe for clinic note documentation during this visit. An additional 30 minutes was spent addressing the problem(s) noted at todays visit. This includes time spent before the visit reviewing the chart, time spent during the visit, and time spent after the visit on documentation [facility] Medical History (Updated 01/29/25 @ 17:15 by DAISHA Peoples-TRICE) Nephrolithiasis Perennial allergic rhinitis Surgical History (Updated 01/29/25 @ 12:51 by DAISHA Peoples-TRICE) History of colonoscopy (~2019) Social History Housing: Apartment Patient Tobacco Use Status: Former Tobacco user e-Cigarette/Vaping Use: Currently Using service: No Current occupational status: retired and disabled Current occupational exposures/hazards: No Cognitive needs: No Hearing needs: No Vision needs: Yes Questionnaire Medicare Wellness Checkup What [age] What gender do you identify with?: female During the past 4 weeks, how much have you been bothered by emotional problems such as feeling anxious, depressed, irritable, sad or downhearted, and blue?: moderately During the past 4 weeks, has your physical & emotional health limited your social activities with family, friends, neighbors, or groups?: moderately During the past 4 weeks, how much bodily pain have you generally had?: severe pain During the past 4 weeks, was someone available to help you if you needed & wanted help?: no, not at all During the past 4 weeks, what was the hardest physical activity you could do for at least 2 minutes?: very light Can you get to places out of walking distance without help? (For eg., can you travel alone on buses, taxis or drive your car?): Yes Can you go shopping for groceries or clothes without someone's help?: Yes Can you prepare your own meals?: Yes Can you do your housework without help?: Yes Because of any health problems, do you need the help of another person with your personal care needs such as eating, bathing, dressing or getting around the house?: Yes Can you handle your own money without help?: Yes During the past 4 weeks, how would you rate your health in general?: good During the past 4 weeks how have things been going for you?: pretty bad Are you having difficulties driving your car?: not applicable, I don't use a car Do you always fasten your seat belt when you are in a car?: yes, usually During past 4 weeks, have you been bothered by the following: never: Trouble eating well?, Teeth or denture problems?, Problems using the telephone? and Tiredness or fatigue? and always: Falling or dizzy when standing up Have you fallen 2 or more times in the past year?: Yes Are you afraid of falling?: Yes Are you a smoker?: no During the past 4 weeks, how many drinks of wine, beer, or other alcoholic beverages did you have?: 1 drink or less per week Do you exercise for about 20 minutes 3 or more times a week?: yes, some of the time Have you been given information to help with the following?: no: Hazards in your house that might hurt you? and no: Keeping track of your medications? How often do you have trouble taking medicines the way you have been told to take them?: I always take medicine as prescribed How confident are you that you can control & manage most of your health problems?: very confident What is your race?: White Activity of Daily Living Bathing - sponge bath, tub bath or shower: receives no assistance (gets in/out by self, if usual bathing means Dressing - getting clothes from closets & drawers, including inner/outer garments & fasteners.: gets clothes & gets completely dressed without help Toileting - going to the 'toilet room' for urine/bowel elimination & cleaning self/arranging clothes: goes to toilet room, cleans self, arranges clothes without help Transfer: moves in & out of bed and chair without help (may use support object) Continence: controls urination/bowel movements completely by self Feeding: feeds self without help Total Score: 0 Information obtained from: patient Using telephone: independent Traveling: independent Shopping: independent Preparing meals: independent Housework: independent Taking medicine: independent Managing money: independent PHQ-9 Over the last 2 weeks, how often have you been bothered by any of the following problems? 1. Little interest or pleasure in doing things: not at all 2. Feeling down, depressed, or hopeless: not at all 3. Trouble falling or staying asleep, or sleeping too much: not at all 4. Feeling tired or having little energy: not at all 5. Poor appetite or overeating: not at all 6. Feeling bad about yourself - or that you are a failure or have let yourself or your family down: not at all 7. Trouble concentrating on things, such as reading the newspaper or watching television: not at all 8. Moving or speaking so slowly that other people could have noticed. Or the opposite - being so fidgety or restless that you have been moving around a lot more than usual: not at all 9. Thoughts that you would be better off or of hurting yourself in some way: not at all Total score: 0 Depression Screening Interpretation: Negative Depression Screening Done: Yes 32822 - PHQ-9 Billing: Yes Source: Developed by Drs. Eric Pineda, Judy Martinez, Anup Bahena and colleagues, with an educational malu from [employer]. Physical Exam Vital Signs: Last Vital Signs Temp 97.5 F 01/29/25 12:30 Pulse 89 01/29/25 12:30 Resp 12 01/29/25 12:30 BP 122/72 01/29/25 12:30 Pulse Ox 98 01/29/25 12:30 Oxygen Delivery Method Room Air 01/29/25 12:30 BMI result Body Mass Index 24.8 Office Procedures Vision Screening Right Eye: 20/70 Left Eye: 20/200 Bilateral: 20/70 Color: Pass Corrected: Pass (wearing glasses) 17530 - Vision Screening Results AMB Hemoglobin A1c AMB Hemoglobin A1c 5.4 % Last Edit by Uriah Nunez MA on 01/29/25 13:00 Immunizations Boostrix Tdap 2.5 Lf unit-8 mcg-5 Lf/0.5 mL intramuscular syringe Performing Provider: ALLIE Peoples Performing Location: [facility] Administered by: Kiara Hood RN on 01/29/25 13:11 Dose Route Admin Location Dispensed Lot Number Expiration Date NDC Water Service Supervisor 0.5 mL IM Right Deltoid 0.5 mL [id number] 11/02/26 [id number] Context[employer] VIS Given Date VIS Provided VIS Publication Date 01/29/25 Single Vaccine 21 Eligibility Eligibility Date Funding Source Not [facility] Eligible 01/29/25 Private Results Reviewed Results Reviewed: Laboratory Last Values Hgb A1c (Clinic) 5.4 % (4.0-6.0) 01/29/25 12:40 Assessment & Plan Assessment & Plan (1) Encounter for subsequent annual wellness visit (AWV) in Medicare patient: Onset Date: ~01/2025 Code(s): Z00.00 - Encounter for general adult medical examination without abnormal findings (2) Hearing loss: Code(s): H91.90 - Unspecified hearing loss, unspecified ear Qualifiers: Hearing loss type: other Laterality: left Contralateral hearing status: unspecified Qualified Code(s): H91.8X2 - Other specified hearing loss, left ear (3) Encounter for screening involving social determinants of health (SDoH): Code(s): Z13.9 - Encounter for screening, unspecified (4) Need for Tdap vaccination: Code(s): Z23 - Encounter for immunization (5) HLD (hyperlipidemia): Code(s): E78.5 - Hyperlipidemia, unspecified Qualifiers: Hyperlipidemia type: mixed hyperlipidemia Qualified Code(s): E78.2 - Mixed hyperlipidemia (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: Code(s): E06.3 - Autoimmune thyroiditis (7) Osteoporosis: Code(s): M81.0 - Age-related osteoporosis without current pathological fracture Qualifiers: Osteoporosis type: unspecified Presence of current pathological fracture: unspecified Qualified Code(s): M81.0 - Age-related osteoporosis without current pathological fracture (8) Anxiety: Code(s): F41.9 - Anxiety disorder, unspecified (9) Concussion: Code(s): S06.0XAA - Concussion with loss of consciousness status unknown, initial encounter Qualifiers: Encounter type: initial encounter Loss of consciousness presence/duration: without LOC Qualified Code(s): S06.0X0A - Concussion without loss of consciousness, initial encounter (10) IBS (irritable bowel syndrome): Code(s): K58.9 - Irritable bowel syndrome, unspecified (11) CKD stage 3a, GFR 45-59 ml/min: Code(s): N18.31 - Chronic kidney disease, stage 3a (12) Renal cyst: Code(s): N28.1 - Cyst of kidney, acquired (13) Mild anemia: Code(s): D64.9 - Anemia, unspecified (14) ACP (advance care planning): Code(s): Z71.89 - Other specified counseling Plan . Orders: Orders AMB Hemoglobin A1c Today Z13.9 - Encounter for screening, unspecified TDaP Immunization Today Z23 - Encounter for immunization Referrals Nurse Navigator Referral H91.90 - Unspecified hearing loss, unspecified ear, Z13.9 - Encounter for screening, unspecified Audiology Referral H91.90 - Unspecified hearing loss, unspecified ear Patient Instructions: Health screenings for women You should visit your health care provider from time to time, even if you are healthy. The purpose of these visits is to: Screen for medical issues Assess your risk for future medical problems Encourage a healthy lifestyle Update vaccinations and other preventive care services Help you get to know your provider in case of an illness Information Even if you feel fine, you should still see your provider for regular checkups. These visits can help you avoid problems in the future. For example, the only way to find out if you have high blood pressure is to have it checked regularly. High blood sugar and high cholesterol levels also may not have any symptoms in the early stages. A simple blood test can check for these conditions. There are specific times when you should see your provider or receive specific health screenings. The [place] Preventive Services Task Force publishes a list of recommended screenings. Below are screening guidelines for women ages 18 to 39. BLOOD PRESSURE SCREENING Your blood pressure should be checked at least once every 3 to 5 years if: Your blood pressure is in the normal range (top number less than 120 mm Hg and bottom number less than 80 mm Hg) You don't have risk factors for high blood pressure Ask your provider if you need your blood pressure checked more often if: The top number is 120 to 129 mm Hg or the bottom number is 70 to 79 mm Hg You have diabetes, heart disease, kidney problems, are overweight, or have certain other health conditions You have a first-degree relative with high blood pressure You are Black You had high blood pressure during a If the top number is 130 mm Hg or greater or the bottom number is 80 mm Hg or greater, this is considered stage 1 hypertension. Schedule an appointment with your provider to learn how you can reduce your blood pressure. Watch for blood pressure screenings in your area. Ask your provider if you can stop in to have your blood pressure checked. BREAST CANCER SCREENING Experts do not agree about the benefits of breast self-exams in finding breast cancer or saving lives. Talk to your provider about what is best for you. A screening mammogram is not recommended for most women under age 40. Your provider may discuss and recommend mammograms, MRI scans, or ultrasounds if you have an increased risk for breast cancer, such as: A mother or sister who had breast cancer at a young age (most often starting screening earlier than the age the close relative was diagnosed) You carry a high-risk genetic marker CERVICAL CANCER SCREENING Cervical cancer screening should start at age 21 years unless your provider advises otherwise. After the first test: Women ages 21 through 29 should have a Pap test every 3 years. Exoprts do not agree on whether HPV testing is recommended for this age group. Women ages 30 through 65 should be screened with either a Pap test every 3 years or the HPV test every 5 years or both tests every 5 years (called cotesting ). Women who have been treated for precancer (cervical dysplasia) should continue to have Pap tests for 20 years after treatment or until age 65, whichever is longer. If you have had your uterus and cervix removed (total hysterectomy), and you have not been diagnosed with cervical cancer or precancer (high grade cervical neoplasia), you do not need cervical cancer screening. CHOLESTEROL SCREENING Cholesterol screening should begin at: Age 45 for women with no known risk factors for coronary heart disease Age 20 for women with known risk factors for coronary heart disease Repeat cholesterol screening should take place: Every 5 years for women with normal cholesterol levels More often if changes occur in lifestyle (including weight gain and diet) More often if you have diabetes, heart disease, kidney problems, or certain other conditions DIABETES SCREENING You should be screened for diabetes starting at age 35 and then repeated every 3 years if you have no risk factors for diabetes. Screening may need to start earlier and be repeated more often if you have other risk factors for diabetes, such as: You have a first degree relative with diabetes. You are overweight or have obesity. You have high blood pressure, prediabetes, or a history of heart disease. Screening for diabetes should be done if you are planning to become and you are overweight and have other risk factors such as high blood pressure. DENTAL EXAM Go to the dentist once or twice every year for an exam and cleaning. Your dentist will evaluate if you need more frequent visits. EYE EXAM Have an eye exam every 5 to 10 years before age 40. If you have vision problems, have an eye exam every 2 years or more often if recommended by your provider. You should have an eye exam that includes an examination of your retina (back of your eye) at least every year if you have diabetes. IMMUNIZATIONS Commonly needed vaccines include: Flu shot: get one every year. COVID-19 vaccine: ask your provider what is best for you. Tetanus-diphtheria and acellular pertussis (Tdap) vaccine: have one at or after age 19 as one of your tetanus-diphtheria vaccines if you did not receive it as an adolescent. Tetanus-diphtheria: have a booster (or Tdap) every 10 years. Varicella vaccine: receive 2 doses if you never had chickenpox or the varicella vaccine. Hepatitis B vaccine: receive 2, 3, or 4 doses, depending on your exact circumstances. Measles, mumps, and rubella (MMR) vaccine: receive 1 to 2 doses if you are not already immune to MMR. Your provider can tell you if you are immune. Ask your provider about the human papillomavirus (HPV) vaccine if: You have not received the HPV vaccine in the past You have not completed the full vaccine series (you should catch up on this shot) Ask your provider if you should receive other immunizations if you have certain health problems that increase your risk for some diseases such as pneumonia. INFECTIOUS DISEASE SCREENING Women who are sexually active should be screened for chlamydia and gonorrhea up until age 25. Women 25 years and older should be screened for chlamydia and gonorrhea if at high risk. Screening for hepatitis C: All adults ages 18 to 79 should get a one-time test for hepatitis C. people should be screened at every . Screening for human immunodeficiency virus (HIV): All people ages 15 to 65 should get a one-time test for HIV. Depending on your lifestyle and medical history, you may also need to be screened for infections such as syphilis and HIV, as well as other infections. PHYSICAL EXAM All adults should visit their provider from time to time, even if they are healthy. The purpose of these visits is to: Screen for disease Assess your risk of future medical problems Encourage a healthy lifestyle Update your vaccinations and other preventive care services Maintain a relationship with a provider in case of an illness Your height, weight, and BMI should be checked at every exam. During your exam, your provider may ask you about: Depression and anxiety Diet and exercise Alcohol and tobacco use Safety issues, such as using seat belts, smoke detectors, and intimate partner violence Your medicines and risk for interactions SKIN SELF-EXAM Your provider may check your skin for signs of skin cancer, especially if you're at high risk, such as if you: Have had skin cancer before Have close relatives with skin cancer Have a weakened immune system OTHER SCREENING Talk with your provider about colon cancer screening if you have a strong family history of colon cancer or polyps, or if you have had inflammatory bowel disease or polyps yourself. Routine bone density screening of women under 40 is not recommended. Quality Reporting (2019) Adult ([facility] 138/12/15/68) Smoking risk assessment performed?: Yes Patient Tobacco Use Status: Former Tobacco user Depression screening performed: Yes Screen Results: Yes Negative screen Systolic BP not done?: No Diastolic BP not done?: No BMI screening not done: No Sexual Activity Screening ([facility] 153) Sexually active?: No Immunizations ([facility] 147, 117) Annual Influenza Vaccine: Yes Measles Antibody Test: No Mumps Antibody Test: No Rubella Antibody Test: No Varicella Antibody Test: No Anti Hepatitis A IgG Antigen test: No Anti Hepatitis B Virus Surface Ab test: No Fall Risk Screening ([facility] 139) Last assessed Fall Risk: 01/29/25 Fall risk assessment: 2 + Falls in past year Dementia Assessment ([facility] 149) Cognitive assessment recorded: Yes Assessment of cognition with standardized tool: Yes Depression/Bipolar (159/160/161/177) PHQ-9: Total score: 0 Ophthalmol:Cataracts Visual Acuity (133) Visual acuity exam performed: Yes (see results) Coding Level of Care Code Medicare Subsequent (G0439) Est Pt Level 4 (14522) Diagnoses Encounter for subsequent annual wellness visit (AWV) in Medicare patient Z00.00 Other specified hearing loss of left ear, unspecified hearing status on contralateral side H91.8X2 Hearing loss type: other Laterality: left Contralateral hearing status: unspecified Encounter for screening involving social determinants of health (SDoH) Z13.9 Need for Tdap vaccination Z23 Mixed hyperlipidemia E78.2 Hyperlipidemia type: mixed hyperlipidemia 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 Osteoporosis, unspecified osteoporosis type, unspecified pathological fracture presence M81.0 Osteoporosis type: unspecified Presence of current pathological fracture: unspecified Anxiety F41.9 Concussion without loss of consciousness, initial encounter S06.0X0A Encounter type: initial encounter Loss of consciousness presence/duration: without LOC IBS (irritable bowel syndrome) K58.9 CKD stage 3a, GFR 45-59 ml/min N18.31 Renal cyst N28.1 Mild anemia D64.9 ACP (advance care planning) Z71.89 CPT Codes Advance Care Planning - Time spent: 1-15 minutes, not on file ([id number]) Vision Screening - Vision Screenin - Vision Screening ([id number]) Additional Codes PHQ-9 - 01016 - PHQ-9 Billing: Yes ([id number]) Advance Care Planning Advance Care Planning discussion: Exists, not on file Date of discussion: 01/29/25 Forms completed: Health Care Proxy, MOLST and Living will Time spent: 1-15 minutes, not on file Actual minutes spent: 5
[2025-01-29 12:30] VITALS: BP 122/72; PULSE 89; RESP 12; TEMP 36.4; O2SAT 98; BMI 24.8
--- OUTSIDE RECORDS SUMMARY | 2025-01-29 14:04 | XMS_ITS | Data Portability ---
Author Organization [facility] [employer] [facility] [employer] Address [address] [place] [address] Care Team Providers Care Drag Seiner Name Role Phone CCA PRIMARY CARE Referring Provider [phone] Assessment Encounter Date Assessment Date Assessment LastModified by Organization Details LastModified Time 10/15/2023 10/15/2023 I have reviewed and agree with the assessment and plan as documented by the direct care staffer. I provided real time medical direction for this encounter and was immediately available to provide additional phone based assistance as needed. History as noted by direct care staffer. Pt reports 2-3 weeks of a cough [...] doxycycline hyclate 100 mg tablet 2022 023 [facility]61, [address], [place], [place], [id number], 10:46:47 guaifenesin ER 600 mg tablet, extended release 12 hr 2022 023 [facility]94[facility], [address] [place], [place], [id number], 3 10:46:44 albuterol sulfate HFA 90 mcg/actuati on aerosol inhaler 2022 023 [facility] #91399, [address] [place], [place], [id number], 3 10:46:44 Patient TargetsNo targets recorded. Patient [...] SNOMED-CT Code Diagnosis ICD10 Code Diagnosis Note 56739 Storm Hutchinson MD Main - instED [address] [place] [address] 10/15/2023 10:37:19 10/15/2023 17:33:51 Acute bronchitis 83923337 J20.9 Health Concerns Section Related Observation LastModified by Organization Detai ls LastModified Time None Recorded Concern Status LastModified by Organization Details LastModified Time None Recorded Advance Directives Directive None Recorded Payers Encounter Date Sequence Insurance Name Policy Number Policy Titus Covered Member ID Titus Member ID Guarantor Name 10/15/2023 1 [facility] - DOS ON OR AFTER 2023 - DUAL ELIGIBLE - USP OPTIONS AND ONE CARE (MEDICARE REPLACEMENT/ADV ANTAGE - HMO) Kiara Pastrana [id number] Kiara Pastrana Notes Date Note Type Note Provider Name and Address Organization Details Recorded Time 10/15/2023 text/html This was a supervised home visit with direct care staffer Naye Yi. [facility] Nurse Triage Notes (Denilson Cedeno): Chief Complaints: URI Allergies: Unknown Comments: Cough/cold/congest ion/fever -s/s for few weeks - SOB of times - Wellness check - Coreen RN .................. .................. .................. .................. .................. .................. .................. ............... Melting Operator Note From Naye Yi: Community Melting Operator Angelic Yi [facility] 73 [facility] C/O a [...] Disposition: Fulfilled Storm Hutchinson MD [address] [facility],[address], [place], [address], [facility] 10/15/2023 11:33:52 OBGyn Episode No OBEpisode recorded.
--- OUTSIDE RECORDS SUMMARY | 2025-01-29 14:05 | XMS_ITS | Clinical Summary ---
Author Organization [facility] Address [address] [place] [address] Care Team Providers Care Goods Layer Name Role Phone Magda Garsia DMD Primary Care Provider [phone] Source Comments PLEASE NOTE, if this patient [...] on file Insurance HEALTH SAFETY NET DENTAL [place] MEDICAID DENT[place] Care Teams Goods Layer Relationship Specialty Start Date End Date Magda Garsia DMD [address] [place] [address] PCP - General 07/05/19
--- OUTSIDE RECORDS SUMMARY | 2025-01-29 14:05 | XMS_ITS | Data Portability ---
Author Organization [place] [facility] Address [address] [place] [address] Care Team Providers Care Brine Supervisor Name Role Phone DEEPA FONSECA Primary Care Provider Assessment Encounter Date Assessment Date Assessment [...] questions were answered prior to team departure. Not available 07/29/2022 09:50:43 Plan of Treatment [...] By Organization Details Last Modified Time 07/29/2022 [id number] Thank you for yo ur visit with [facility] today. We cannot always find the exact [...] in your condition between 8am-10pm, please call [facility] at [phone] to help navigate your care. 3 Not available 07/29/2022 09:35:09 Reason for Referral None Reported. Medical Equipment None Reported. Allergies Allergen ID Allergen Name Allergen Category Reaction Reaction Severity Criticality Documentation Date Start Date Code Code System Note Provider Name and Address Organization Details Recorded Time 866292 Substance with sulfonami de structure and antibacte rial mechanism of action (substanc e) medicatio n Not available Not available Not available 07/29/2022 54279 8003 SNOMED April HUGO Guerrero [address] [place], [address], [place] [facility] 2 09:12:58 093163 Tegretol medicatio n Not available Not available Not available 07/29/2022 9 RxNorm Josseline HUGO Guerrero [address] [place], [address], [place] [facility] 2 09:13:07 895901 gabapenti n medicatio n Not available Not available Not available 07/29/2022 13827 RxNorm April HUGO Guerrero [address] [place], [address], [place] [facility] 2 09:13:15 894276 tizanidin e medicatio n Not available Not available Not available 07/29/2022 20846 RxNorm Josseline Cesar , NUCLEAR OPERATIONS SPECIALIST [address], [place], [place], [address], [place] [facility] 2 09:13:24 837690 shellfish derived food,medi cation Not available Not available Not available 07/29/2022 83382 UNK Josseline Cesar , HUGO [address], [place], [place], [address], [place] [facility] [...] and Address Organization Details Last Updated DateTime 90 /min 18 /min 99 % 99 % 98.6 [degF] 136 mm[Hg] 68 mm[Hg] Not Available [facility] 09:16:37 Social History Question Answer Notes LastModified by Organizat ion Details LastModified Time Tobacco Smoking Status Former Smoker April HUGO Guerrero [address], [place], [address], [place] [facility] 07/29/2022 09:32:30 Do You Have An Advance Directive? Yes [email or web address] Information not available 07/29/2022 What Is Your Level Of Alcohol Consumption? Occasional [email or web address] Information not available 07/29/2022 Is Blood Transfusion Acceptable In An Emergency? Yes [email or web address] Information not available 07/29/2022 What Is Your Code Status? Full Code [email or web address] Information not available 07/29/2022 Do You Have A Directive To Physicians? No [email or web address] Information not available 07/29/2022 When Did You Quit Smoking? 16+yearssincel astcirodriguez legkzkzxcn441 Information not available 07/29/2022 Within The Past 12 Months, Has It Happened That The Food You Bought Just Didn't Last And You Didn't Have Money To Get More. No [email or web address] Information not available 07/29/2022 Within The Past 12 Months, Have You Worried That Your Food Would Run Out Before You Got Money To Buy More. No seetcoowfz741 Information not available 07/29/2022 Fall Risk: Do You Feel Unsteady When Standing Or Walking? No [email or web address] Information not available 07/29/2022 We Know That How And When People Interact With Friends And Family Can Be Very Different From Person To Person. How Often Do You Have The Opportunity To See Or Talk To People That You Care About And Feel Close To? (Ex: Talking To Friends On The Phone Or Visiting Friends Or Family Or Going To Temple Or Club Meetings) Choose Not To Answer This Question [email or web address] Information not available 07/29/2022 Excessive Alcohol Or Drug Use No [email or web address] Information not available 07/29/2022 Does This Patient Have A PCP? Yes [email or web address] Information not available 07/28/2022 Has The Patient Seen Their PCP In The Past 6 Months? Yes [email or web address] Information not available 07/28/2022 Is This Patient In Hospice? No [email or web address] Information not available 07/29/2022 We Know From Many Of Our Patients That Covering All Of Their Costs Can Be Difficult At Times. This Can Cause Stress And Impact Health. In The Past Year, Have You Been Unable To Get Any Of The Following When It Was Really Needed? No Information not available 07/29/2022 What Is Your Housing Situation Today? I Have Housing ouenflrfrz717 Information not available 07/29/2022 Would You Like Help Connecting To Resources? None [email or web address] Information not available 07/29/2022 Do You Have A Medical Power Of Health Unit Supervisor? No rkqzvbrnaa003 Information not available 07/29/2022 Do You Have An Out Of Hospital DNR? No [email or web address] Information not available 07/29/2022 Do You Have A Patient Advocate? No [email or web address] Information not available 07/29/2022 Do You Use Any Illicit Or Recreational Drugs? No fmifmtcbki734 Information not available 07/29/2022 Sex: Unknown Functional Status None recorded. Mental Status None recorded. Family History Nothing Reported. Medical History Condition Response Diabetes N Coronary Artery Disease N CHF N Parkinson's Disease N Cancer N Stroke N Dementia N Asthma N Hypothyroidism Y Depression N COPD N High Cholesterol Y Rheumatoid Arthritis N Pulmonary Embolism N Hypertension N A-fib N Osteoporosis Y Kidney Disease N Gynecological HistoryNo gynecological history recorded. Obstetrics History GPAL:G 0 P 0 0 0 0 Past Encounters Encounter ID Performer Location Encounter Start Date Encounter Closed Date Diagnosis/Indication Diagnosis SNOMED-CT Code Diagnosis ICD10 Code Diagnosis Note [id number] April HUGO Guerrero [facility] - HOME [address] [facility] [place], [place] [address] 07/29/2022 09:11:05 07/29/2022 11:15:33 Health Concerns Section Related Observation LastModified by Organization Detai ls LastModified Time None Recorded Concern Status LastModified by Organization Details LastModified Time None Recorded Advance Directives Directive Y: Payers Encounter Date Sequence Insurance Name Policy Number Policy Titus Covered Member ID Titus Member ID Guarantor Name 07/29/2022 1 [place] [employer] Kiara Pastrana [id number] Ashely Pastrana 07/29/2022 2 [place] [facility] Ashely Pastrana [id number] Ashely Pastrana Notes Date Note Type Note [...] neuropathy. April HUGO Guerrero [address], [place], [address], [place] [facility] 07/29/2022 09:50:54 OBGyn Episode No OBEpisode recorded.
== END 2025-01-29 13:14 | disposition home or self-care (01) ==
PROVIDERS: PCP Family Medicine; Visit Provider Nurse Practitioner Family
DX: Z00.00 Encounter for general adult medical examination without abnormal findings (principal); H91.8X2 Other specified hearing loss, left ear; N18.31 Chronic kidney disease, stage 3a; Z23 Encounter for immunization; E78.2 Mixed hyperlipidemia; E06.3 Autoimmune thyroiditis; M81.0 Age-related osteoporosis without current pathological fracture; F41.9 Anxiety disorder, unspecified; S06.0X0A Concussion without loss of consciousness, initial encounter; K58.9 Irritable bowel syndrome, unspecified; N28.1 Cyst of kidney, acquired; Z13.9 Encounter for screening, unspecified

== ENCOUNTER → 2025-01-29 11:29 | Outpatient (BNVA) | payer OTHER, SELFPAY | PROVIDERS: PCP Family Medicine; Visit Provider Nurse Practitioner Family | DX: Z00.01 Encounter for general adult medical examination with abnormal findings (principal); M54.9 Dorsalgia, unspecified; G89.29 Other chronic pain; F41.9 Anxiety disorder, unspecified; E78.5 Hyperlipidemia, unspecified; K21.9 Gastro-esophageal reflux disease without esophagitis; E03.9 Hypothyroidism, unspecified; K58.9 Irritable bowel syndrome, unspecified; G62.9 Polyneuropathy, unspecified; M81.0 Age-related osteoporosis without current pathological fracture; I73.00 Raynaud's syndrome without gangrene; H91.8X2 Other specified hearing loss, left ear; E78.2 Mixed hyperlipidemia; N18.31 Chronic kidney disease, stage 3a; N28.1 Cyst of kidney, acquired; D64.9 Anemia, unspecified; S06.0X0D Concussion without loss of consciousness, subsequent encounter; W19.XXXD Unspecified fall, subsequent encounter; Z23 Encounter for immunization; Z79.891 Long term (current) use of opiate analgesic; Z71.89 Other specified counseling | CPT/HCPCS: 83036; 90471; 90715; 96127; 99212 ==

== ENCOUNTER 2025-02-14 08:24 | Outpatient (AMB) | payer OTHER, SELFPAY ==
--- OUTSIDE RECORDS SUMMARY | 2025-02-14 08:45 | XMS_ITS | Data Portability ---
Author Organization [facility] Address [address] [place] [address] Care Team Providers Care Piano Mover Name Role Phone DEEPA FONSECA Primary Care [...] questions were answered prior to team departure. [email or web address] Not available 07/29/2022 09:50:43 Plan of Treatment [...] By Organization Details Last Modified Time 07/29/2022 [id number] Thank you for yo ur visit with [facility] today. We cannot always find the [...] in your condition between 8am-10pm, please call [facility] at [phone] to help navigate your care. [email or web address] 3 Not available 07/29/2022 09:35:09 Reason for Referral None Reported. Medical Equipment None Reported. Allergies Allergen ID Allergen Name Allergen Category Reaction Reaction Severity Criticality Documentation Date Start Date Code Code System Note Provider Name and Address Organization Details Recorded Time 879929 Substance with sulfonami de structure and antibacte rial mechanism of action (substanc e) medicatio n Not available Not available Not available 07/29/2022 57280 8003 SNOMED April HUGO Guerrero [address] [place], [address], [place] [facility] 09:12:58 434942 Tegretol medicatio n Not available Not available Not available 07/29/2022 9 RxNorm Josseline HUGO Guerrero [address] [place], [address], [place] [facility] 2 09:13:07 795903 gabapenti n medicatio n Not available Not available Not available 07/29/2022 85318 RxNorm April HUGO Guerrero [address] [place], [address], [place] [facility] 2 09:13:15 174867 tizanidin e medicatio n Not available Not available Not available 07/29/2022 95903 RxNorm Josseline Cesar , CALL CENTER ANALYST [address], [place], [place], [address], [place] [facility] 2 09:13:24 205172 shellfish derived food,medi cation Not available Not available Not available 07/29/2022 60368 UNK Josseline Cesar , HUGO [address], [place], [place], [address], [place] [facility] [...] Smoker April HUGO Guerrero [address], [place], [address], [place] [facility] 07/29/2022 09:32:30 Do You Have An Advance Directive? Yes [email or web address] Information not available 07/29/2022 What Is Your Level Of Alcohol Consumption? Occasional [email or web address] Information not available 07/29/2022 Is Blood Transfusion Acceptable In An Emergency? Yes [email or web address] Information not available 07/29/2022 What Is Your Code Status? Full Code bfvwagkmfi804 Information not available 07/29/2022 Do You Have A Directive To Physicians? No [email or web address] Information not available 07/29/2022 When Did You Quit Smoking? 16+yearssincel astcirodriguez eaphwtfvdt334 Information not available 07/29/2022 Within The Past 12 Months, Has It Happened That The Food You Bought Just Didn't Last And You Didn't Have Money To Get More. No adlgzxjdwo404 Information not available 07/29/2022 Within The Past 12 Months, Have You Worried That Your Food Would Run Out Before You Got Money To Buy More. No [email or web address] Information not available 07/29/2022 Fall Risk: Do You Feel Unsteady When Standing Or Walking? No iykiredtnn828 Information not available 07/29/2022 We Know That How And When People Interact With Friends And Family Can Be Very Different From Person To Person. How Often Do You Have The Opportunity To See Or Talk To People That You Care About And Feel Close To? (Ex: Talking To Friends On The Phone Or Visiting Friends Or Family Or Going To [employer] Or Club Meetings) Choose Not To Answer This Question iamijlbgsy967 Information not available 07/29/2022 Excessive Alcohol Or Drug Use No [email or web address] Information not available 07/29/2022 Does This Patient Have A PCP? Yes [email or web address] Information not available 07/28/2022 Has The Patient Seen Their PCP In The Past 6 Months? Yes [email or web address] Information not available 07/28/2022 Is This Patient In Hospice? No pjcpsmavqm025 Information not available 07/29/2022 We Know From Many Of Our Patients That Covering All Of Their Costs Can Be Difficult At Times. This Can Cause Stress And Impact Health. In The Past Year, Have You Been Unable To Get Any Of The Following When It Was Really Needed? No [email or web address] Information not available 07/29/2022 What Is Your Housing Situation Today? I Have Housing mxovwnndfp105 Information not available 07/29/2022 Would You Like Help Connecting To Resources? None cwxaipiarl513 Information not available 07/29/2022 Do You Have A Medical Power Of Acid Tank Cleaner? No wpopxgbrxh891 Information not available 07/29/2022 Do You Have An Out Of Hospital DNR? No cugnqjdlmz842 Information not available 07/29/2022 Do You Have A Patient Advocate? No [email or web address] Information not available 07/29/2022 Do You Use Any Illicit Or Recreational Drugs? No lvyqirhonz379 Information not available 07/29/2022 Sex: Unknown Functional Status None recorded. Mental Status None recorded. Family History Nothing Reported. Medical History Condition Response Coronary Artery Disease N COPD N Depression N Hypothyroidism Y A-fib N Cancer N Stroke N High Cholesterol Y Rheumatoid Arthritis N Kidney Disease N Parkinson's Disease N Diabetes N CHF N Dementia N Asthma N Pulmonary Embolism N Hypertension N Osteoporosis Y Gynecological HistoryNo gynecological history recorded. Obstetrics History GPAL:G 0 P 0 0 0 0 Past Encounters Encounter ID Performer Location Encounter Start Date Encounter Closed Date Diagnosis/Indication Diagnosis SNOMED-CT Code Diagnosis ICD10 Code Diagnosis Note [id number] April HUGO Guerrero [facility] - HOME [address] [facility], [place] [address] 07/29/2022 09:11:05 07/29/2022 11:15:33 Health Concerns Section Related Observation LastModified by Organization Detai ls LastModified Time None Recorded Concern Status LastModified by Organization Details LastModified Time None Recorded Advance Directives Directive Y: Payers Encounter Date Sequence Insurance Name Policy Number Policy Titus Covered Member ID Titus Member ID Guarantor Name 07/29/2022 1 [place] [employer] Kiara Pastrana [id number] Asheyl Pastrana 07/29/2022 2 [place] [facility] Ashely Pastrana [id number] Ashely Pastrana Notes Date Note Type Note [...] neuropathy. April HUGO Guerrero [address], [place], [address], [place] [facility] 07/29/2022 09:50:54 OBGyn Episode No OBEpisode recorded.
--- OUTSIDE RECORDS SUMMARY | 2025-02-14 08:45 | XMS_ITS | Clinical Summary ---
Author Organization [facility] Address [address] [place] [address] Care Team Providers Care Machining And Assembly Supervisor Name Role Phone Magda Garsia DMD Primary Care Provider [phone] Source Comments PLEASE NOTE, if this patient [...] on file Insurance HEALTH SAFETY NET DENT[place] MED[place]ID DENTAL Care Teams Machining And Assembly Supervisor Relationship Specialty Start Date End Date Magda Garsia DMD [address] [place] [address] PCP - General 07/05/19
--- OUTSIDE RECORDS SUMMARY | 2025-02-14 08:45 | XMS_ITS | Data Portability ---
Author Organization [facility] [employer] [facility] [employer] Address [address] [place] [address] Care Team Providers Care Spooler Operator Automatic Name Role Phone CCA PRIMARY CARE Referring Provider [phone] Assessment Encounter Date Assessment Date Assessment LastModified by Organization Details LastModified Time 10/15/2023 10/15/2023 I have reviewed and agree with the assessment and plan as documented by the organ pipe voicer. I provided real time medical direction for this encounter and was immediately available to provide additional phone based assistance as needed. History as noted by organ pipe voicer. Pt reports 2-3 weeks of a cough [...] doxycycline hyclate 100 mg tablet 2022 023 [facility] #32352, [address], [place], [place], [id number], 10:46:47 guaifenesin ER 600 mg tablet, extended release [address] [facility]10, [address] [place], [place], [id number], 3 10:46:44 albuterol sulfate HFA 90 mcg/actuati on aerosol inhaler [address] [facility] #25682, [address] [place], [place], [id number], 3 10:46:44 Patient TargetsNo targets recorded. Patient [...] SNOMED-CT Code Diagnosis ICD10 Code Diagnosis Note 64355 Storm Hutchinson MD Main - instED [address] [place] [address] 10/15/2023 10:37:19 10/15/2023 17:33:51 Acute bronchitis 47159094 J20.9 Health Concerns Section Related Observation LastModified by Organization Detai ls LastModified Time None Recorded Concern Status LastModified by Organization Details LastModified Time None Recorded Advance Directives Directive None Recorded Payers Encounter Date Sequence Insurance Name Policy Number Policy Titus Covered Member ID Titus Member ID Guarantor Name 10/15/2023 1 [facility] - DOS ON OR AFTER 2023 - DUAL ELIGIBLE - PENITENTIARY OPTIONS AND ONE CARE (MEDICARE REPLACEMENT/ADV ANTAGE - HMO) Kiara Pastrana [id number] Kiara Pastrana Notes Date Note Type Note Provider Name and Address Organization Details Recorded Time 10/15/2023 text/html This was a supervised home visit with organ pipe voicer Naye Yi. [facility] Nurse Triage Notes (Denilson Cedeno): Chief Complaints: URI Allergies: Unknown Comments: Cough/cold/congest ion/fever -s/s for few weeks - SOB of times - Wellness check - Coreen RN .................. .................. .................. .................. .................. .................. .................. ............... Gas Usage Meter Clerk Note From Naye Yi: Community Gas Usage Meter Clerk Angelic Yi CCA1 dispatched to a [facility] for a 73 yof C/O a [...] ............... Disposition: Fulfilled Storm Hutchinson MD [address] [facility],[address], [place], [address], [facility] 10/15/2023 11:33:52 OBGyn Episode No OBEpisode recorded.
--- NOTE | 2025-02-14 08:56 | A.OFFVIS_ITS ---
Intake Visit Reasons: kidney stones Intake Note: New Patient presents for initial visit for kidney stones Urology Medications: none Blood Thinner: aspirin Psychiatric Registered Nurse Required: No Accompanied by: Self / Same As Patient Allergies carbamazepine [From Tegretol] Allergy (Intermediate, Verified 02/14/25 09:24) MOUTH SORES spider venom [SPIDER BITES] Allergy (Intermediate, Verified 02/14/25 09:24) BLISTERS Sulfa (Sulfonamide Antibiotics) Allergy (Intermediate, Verified 02/14/25 09:24) DISORIENTATION/RASH tizanidine [Tizanidine] Allergy (Intermediate, Verified 02/14/25 09:24) NIGHTMARES horton Adverse Reaction (Severe, Verified 02/14/25 09:24) SEVERE VOMITING Shellfish Allergy (Severe, Uncoded 02/14/25 09:24) TONGUE SWELLING, SHORTNESS OF BREATH spider bites Allergy (Intermediate, Uncoded 02/14/25 09:24) swelling, anaphylaxis cherries Allergy (Unknown, Uncoded 02/14/25 09:24) Nausea and Vomiting mold Allergy (Unknown, Uncoded 02/14/25 09:24) congestion SUGAR SUBSTITUTES Allergy (Unknown, Uncoded 02/14/25 09:24) SORE THROAT - LARYNGITIS Medication List - Last Reconciled 02/14/25 by ALLIE Livingston amlodipine 10 mg PO DAILY aspirin 81 mg PO DAILY atorvastatin 20 mg PO DAILY 90 days bupropion HCl XL 150 mg PO QAM [calciuum citrate plus d daily] carisoprodol 350 mg PO TID PRN 30 days diclofenac sodium 1% topical dicyclomine mg PO docusate calcium 240 mg PO DAILY epinephrine IM gabapentin (Neurontin) 800 mg PO DAILY hydroxychloroquine 200 mg PO DAILY ibuprofen (IBU) 600 mg PO Q8H PRN lamotrigine 50 mg PO DAILY levothyroxine mcg PO DAILY linaclotide (Linzess) 290 mcg PO DAILY meclizine 25 mg PO TID PRN meloxicam 15 mg PO DAILY mirtazapine 45 mg PO BEDTIME montelukast 10 mg PO DAILY nortriptyline 50 mg PO BEDTIME oxycodone 5 mg PO Q6H PRN pantoprazole 40 mg PO DAILY 90 days pen needle, diabetic (BD Ultra-Fine Mini Pen Needle) As directed sumatriptan succinate 100 mg PO DAILY PRN teriparatide mcg subcut triamcinolone acetonide 0.1% 1 appl topical BID-TID HPI Comments Details: Miranda is a very pleasant 74-year-old female patient of Dr. You. She has a past medical history of hypertension, hyperlipidemia, lupus, chronic back pain, anxiety, IBS, hypothyroidism, migraines, neuropathy, chronic kidney disease, Osteo pyrosis, anemia, and Raynaud's. She presents to the office today as a new patient for renal cyst as well as incomplete bladder emptying. In discussion with the patient today she reports having had a recent ultrasound in recommendations were made for urology referral for further assessment evaluation. These results were reviewed and communicated with the patient today. Bilateral kidneys are normal in size and echotexture. Bosniak 1 left renal cortical cyst measuring a proximally 1.1 cm. No hydronephrosis or renal calculi of bilateral kidneys. Marked postvoid residual of 300 mL. In office urinalysis results reviewed with the patient today. In office PVR 0 mL. When asked she denies any bothersome urinary issues. She denies urinary urgency, urinary frequency, incontinence, nocturia, hematuria, dysuria, foul smelling urine, changes to urinary stream, flank pain, fever, and or chills. She is happy with her current voiding parameters. We discussed potential causes of renal cysts as well as classifications of renal cysts. Although patient with incomplete bladder emptying on day of exam it does not appear this is an issue today as postvoid residual is 0ml's. We discussed surveillance monitoring. All questions were answered. She otherwise offers no other issues or concerns at this time. Plan Our plan involves the regular surveillance of the patient's renal cyst with periodic ultrasound imaging. We will conduct an ultrasound approximately every six months to a year, depending on changes in symptom presentation, to monitor any significant changes in the size or appearance of the cyst. The patient remains clinically stable and asymptomatic, with instructions to adhere to regular voiding practices and awareness of potential symptoms requiring earlier evaluation. Understanding that her prior post-void residual was due to pre-exam overhydration alleviates concerns of chronic retention, the patient is advised to ensure balanced hydration without excess. No immediate interventions are required unless future imaging or symptoms suggest otherwise. Patient was informed and verbally consented to the use of an ambient scribe for clinic note documentation during this visit. Discussion Notes During the consultation, I discussed with the patient the current finding of a renal cyst. I explained the nature of renal cysts, reassurance was provided regarding their typically benign nature, and I emphasized the importance of regular ultrasound follow-ups to ensure stability. The discussion covered that excessive fluid intake before imaging led to an inaccurate assessment of bladder residual, alleviating concerns of persistent dysfunction. The importance of recognizing any new or significant symptoms was underscored as part of ongoing assessment, with the patient agreeing to the suggested surveillance schedule. The patient was informed about possible symptoms to watch for, should they experience increased pain or urinary changes, and reiterated the consent for periodic monitoring. [facility] Medical History Nephrolithiasis Perennial allergic rhinitis Surgical History History of colonoscopy (~2019) Social History Housing: Apartment Patient Tobacco Use Status: Former Tobacco user e-Cigarette/Vaping Use: Currently Using service: No Current occupational status: retired and disabled Current occupational exposures/hazards: No Cognitive needs: No Hearing needs: No Vision needs: Yes Review of Systems Const All systems reviewed & are unremarkable except as noted in HPI and below Physical Exam Const General: cooperative, healthy appearing, comfortable, no acute distress, well developed, alert and awake Orientation/consciousness: patient oriented x3 Limitations: no limitations HEENT Head: Yes normal to inspection, Yes normocephalic and Yes atraumatic Ears: hearing grossly normal bilaterally Eyes General: appearance normal, both eyes and all related structures Neck Neck: Yes normal visual inspection and Yes trachea midline Chest Chest palpation & inspection: normal inspection of the chest Resp Effort & Inspection: normal respiratory effort and able to speak in complete sentences Cardio Rate: regular rate GI Inspection: Yes normal to inspection General: Yes no CVA tenderness Back/Spine/Pelvis Back: no CVA tenderness Skin General skin exam: no rashes or lesions noted Neuro General: patient oriented x3 Extrem General: Yes normal to inspection Psych Appearance: grossly normal and well kempt Mental Status: mental status grossly normal Speech and movement: Normal speech and movement present and Clear speech present Affect: normal affect Attitude: cooperative Thought process: Normal thought process present Thought content: Normal thought content present Insight: Fair insight present (Psych) Judgement: Fair judgement present (Psych) Results AMB Urinalysis, Automated UA Leukoctes 0 Edvin/uL Last Edit by SiteJabberavila Fierro on 02/14/25 09:12 UA Nitrite Last Edit by Calligoyas on 02/14/25 09:12 UA Urobilinogen 0.2 mg/dL Last Edit by Calligoyas on 02/14/25 09:12 UA Protein 0 mg/dL Last Edit by Calligoyas on 02/14/25 09:12 UA pH 6.0 Last Edit by Calligoyas on 02/14/25 09:12 UA Blood 0 Devaughn/uL Last Edit by Calligoyas on 02/14/25 09:12 UA Specific [place] 1.015 Last Edit by Calligoyas on 02/14/25 09:12 UA Ketone Last Edit by Calligoyas on 02/14/25 09:12 UA Bilirubin 0 mg/dL Last Edit by Calligoyas on 02/14/25 09:12 UA Glucose 0 mg/dL Last Edit by Calligoyas on 02/14/25 09:12 Results Reviewed Results Reviewed: Laboratory Last Values Urine pH (Auto) 6.0 02/14/25 09:10 Specific [place] (Auto) 1.015 02/14/25 09:10 Urine Protein (Auto) 0 mg/dL 02/14/25 09:10 Glucose (UA)(Auto) 0 mg/dL 02/14/25 09:10 Urine Blood (Auto) 0 Devaughn/uL 02/14/25 09:10 Urine Bilirubin (Auto) 0 mg/dL 02/14/25 09:10 Urine Urobilinogen (Auto) 0.2 mg/dL 02/14/25 09:10 Leukocyte Esterase (Auto) 0 Edvin/uL 02/14/25 09:10 Date of Service: 01/11/25 Procedure(s): US retroperitoneal comp Findings: Right kidney normal size and echotexture, 10.6 cm length. Left kidney normal size and echotexture, 10.3 cm length. Bosniak 1 left renal cortical 1.1 x 1.0 x 0.8 cm cyst. No hydronephrosis of either kidney. Normal color Doppler. Urinary bladder is unremarkable. Prevoid volume 398 mL. Postvoid volume 308 mL. Bilateral ureteral jets are visualized. IMPRESSION: 1. Marked postvoid residual Assessment & Plan Assessment & Plan (1) Renal cyst: Code(s): N28.1 - Cyst of kidney, acquired Category: Medical Plan In office urinalysis results reviewed with the patient today; as noted above. PVR 0 mL. Previous imaging results reviewed with the patient today; as noted above. Will continue with surveillance monitoring. Patient currently denies any bothersome urinary issues or concerns. She reports be happy with current voiding parameters. We discussed potential causes of renal cysts as well as incomplete bladder emptying noted on day of exam We discussed healthy bathroom behaviors. Will obtain renal ultrasound in 6 months. Follow-up in 6 months with imaging and PVR; or sooner with any issues, concerns, and or questions. Orders: Orders US renal BI 6 Months N28.1 - Cyst of kidney, acquired AMB Urinalysis Automated Today Z13.9 - Encounter for screening, unspecified Patient Instructions: The patient had an opportunity to ask questions regarding the treatment plan. All questions were answered. Physical exam, labs, and imaging were discussed and reviewed in detail. As well as risks, benefits, and discussion of treatment choices. No major barriers to understanding were identified. The patient expressed understanding and agreement with the above treatment plan. The patient was made aware they should contact our office by phone for worsening of their current condition, the appearance of new symptoms, or with any questions or concerns. Compliance is encouraged with any medications and follow up testing that is ordered. It is a privilege to be allowed the opportunity to participate in? your urological care.? Again, if you have any questions or concerns If you have any questions or concerns please do not hesitate to contact me. The office is [phone]. This note is constructed using voice recognition software. While every effort has been made to ensure accuracy senior group manager errors may have been included. Yours sincerely, WAYNE Livingston Coding Level of Care Code New Pt Level 3 (20360) Diagnoses Renal cyst N28.1
== END 2025-02-14 09:38 | disposition home or self-care (01) ==
LOC: HO.HUSH 08:25
PROVIDERS: PCP Family Medicine; Visit Provider Nurse Practitioner Family
DX: Z13.9 Encounter for screening, unspecified (principal); N28.1 Cyst of kidney, acquired
CPT/HCPCS: 99203

== ENCOUNTER → 2025-02-14 08:24 | Outpatient (BNVA) | payer OTHER, SELFPAY | PROVIDERS: PCP Family Medicine; Visit Provider Nurse Practitioner Family | DX: N28.1 Cyst of kidney, acquired (principal) | CPT/HCPCS: 81003; 99202 ==

== ENCOUNTER 2025-02-28 13:04 | Outpatient (AMB) | payer OTHER, SELFPAY ==
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
--- OUTSIDE RECORDS SUMMARY | 2025-02-28 14:13 | XMS_ITS | Data Portability ---
Author Organization [facility] [facility] Address [address] [place] [address] Care Team Providers Care Surgery Aide Name Role Phone [facility] PRIMARY CARE Referring Provider [phone] Assessment Encounter Date Assessment Date Assessment LastModified by Organization Details LastModified Time 10/15/2023 10/15/2023 I have reviewed and agree with the assessment and plan as documented by the sas developer. I provided real time medical direction for this encounter and was immediately available to provide additional phone based assistance as needed. History as noted by sas developer. Pt reports 2-3 weeks of a cough [...] doxycycline hyclate 100 mg tablet 2022 023 [id number], [address], [place], [place], [phone], 10:46:47 guaifenesin ER 600 mg tablet, extended release 12 hr [address] [id number], [address], [place], [phone], 3 10:46:44 albuterol sulfate HFA 90 mcg/actuati on aerosol inhaler [address] [facility] #[id number], [address] [place], [place], [phone], 3 10:46:44 Patient TargetsNo targets recorded. Patient [...] SNOMED-CT Code Diagnosis ICD10 Code Diagnosis Note [id number] Storm Hutchinson MD Main - [facility] [address] [place] [address] 10/15/2023 10:37:19 10/15/2023 17:33:51 Acute bronchitis [id number] J20.9 Health Concerns Section Related Observation LastModified by Organization Detai ls LastModified Time None Recorded Concern Status LastModified by Organization Details LastModified Time None Recorded Advance Directives Directive None Recorded Payers Insurance Date Sequence Insurance Name Policy Number Policy Titus Covered Member ID Titus Member ID Guarantor Name 12/28/2023 1 [facility] - DOS ON OR AFTER 2023 - DUAL ELIGIBLE - DETENTION OPTIONS AND ONE CARE (MEDICARE REPLACEMENT/ADV ANTAGE - HMO) Kiara Pastrana [id number] Kiara Pastrana Notes Date Note Type Note Provider Name and Address Organization Details Recorded Time 10/15/2023 text/html This was a supervised home visit with sas developer Naye Yi. [facility] Nurse Triage Notes (Denilson Cedeno): Chief Complaints: URI Allergies: Unknown Comments: Cough/cold/congest ion/fever -s/s for few weeks - SOB of times - Wellness check - Coreen RN .................. .................. .................. .................. .................. .................. .................. ............... Spooler Operator Note From Naye Yi: Community Spooler Operator Angelic Yi CCA1 dispatched to a [facility] for a 73 yof C/O a [...] ............... Disposition: Fulfilled Storm Hutchinson MD [address] [facility],[address], [place], [address], [facility] 10/15/2023 11:33:52 OBGyn Episode No OBEpisode recorded.
--- OUTSIDE RECORDS SUMMARY | 2025-02-28 14:13 | XMS_ITS | Clinical Summary ---
Author Organization [facility] Address [address] [place] [address] Care Team Providers Care Land Agent Name Role Phone Magda Garsia DMD Primary Care Provider [phone] Source Comments PLEASE NOTE, if this patient [...] NET DENT[place] MEDICAID DENTAL Care Teams Land Agent Relationship Specialty Start Date End Date Magda Garsia DMD [address] [place] [address] PCP - General 07/05/19
== END 2025-02-28 14:17 | disposition home or self-care (01) ==
LOC: HO.HMCFM 13:05
PROVIDERS: PCP Family Medicine; Visit Provider Family Medicine
DX: S06.0X0A Concussion without loss of consciousness, initial encounter (principal); Z91.81 History of falling; R51.9 Headache, unspecified; E06.3 Autoimmune thyroiditis

== ENCOUNTER → 2025-02-28 13:04 | Outpatient (BNVA) | payer OTHER, SELFPAY | PROVIDERS: PCP Family Medicine; Visit Provider Family Medicine | DX: S06.0X0D Concussion without loss of consciousness, subsequent encounter (principal); G89.29 Other chronic pain; R51.9 Headache, unspecified; E06.3 Autoimmune thyroiditis; W19.XXXD Unspecified fall, subsequent encounter; Z91.81 History of falling; Z79.891 Long term (current) use of opiate analgesic; Z79.899 Other long term (current) drug therapy | CPT/HCPCS: 96127; 99212 ==

== ENCOUNTER 2025-04-23 14:12 | Outpatient (AMB) | payer OTHER, SELFPAY ==
--- NOTE | 2025-04-23 14:29 | MHC.PC.OV ---
Vital Signs 04/23/25 14:45 Height 5 ft Weight 122 lb 4 oz BMI 23.9 BP 110/58 L Blood Pressure Location Lt brachial Position Sitting Respiration 14 Pulse 102 H Pulse Source Pulse Oximeter Temp 98 F Temp Source Oral Pulse Oximetry (%) 97 Oxygen Delivery Method Room Air Intake Visit Reasons: pre-op for eye surgery Intake Note: Cataract surgery with Dr Dao. Needs refill on Carisoprodol. Requesting mediation to relax for the cataracts surgery, day before and day of. Respiratory Coordinator Required: No Allergies carbamazepine (From Tegretol) Allergy (Intermediate, Verified 04/23/25 14:39) MOUTH SORES spider venom (SPIDER BITES) Allergy (Intermediate, Verified 04/23/25 14:39) BLISTERS Sulfa (Sulfonamide Antibiotics) Allergy (Intermediate, Verified 04/23/25 14:39) DISORIENTATION/RASH tizanidine (Tizanidine) Allergy (Intermediate, Verified 04/23/25 14:39) NIGHTMARES horton Adverse Reaction (Severe, Verified 04/23/25 14:39) SEVERE VOMITING Shellfish Allergy (Severe, Uncoded 04/23/25 14:39) TONGUE SWELLING, SHORTNESS OF BREATH spider bites Allergy (Intermediate, Uncoded 04/23/25 14:39) swelling, anaphylaxis cherries Allergy (Unknown, Uncoded 04/23/25 14:39) Nausea and Vomiting mold Allergy (Unknown, Uncoded 04/23/25 14:39) congestion SUGAR SUBSTITUTES Allergy (Unknown, Uncoded 04/23/25 14:39) SORE THROAT - LARYNGITIS Tobacco use date assessed: 04/23/25 Fall risk assessment: 2 + Falls in past year Last assessed Fall Risk: 04/23/25 Dental Screening Dental Screen Date: 02/28/25 HPI HPI Comments History of Present Illness Details The patient is a 74 year old female with a past medical history of hypertension, hyperlipidemia, lupus, chronic back pain, anxiety, IBS, hypothyroidism, migraines, neuropathy, chronic kidney disease, osteoporosis, anemia, and Raynaud's presenting for preoperative cardiac assessment-cataract & Dr Whitehead She is terrified of getting eye injections/procedures Tolerated anesthesia in the past. She has had left rotator cuff surgery in the past, colonoscopy etc She is able to walk 1/2 mile without difficulty CV:Hypertension, hyperlipidemia CKD stage 3A-last cr 12/2024 0.95 Immune: On HCQ ROS CONSTITUTIONAL: Denies weight loss, fever and chills. HEENT: Denies changes in vision and hearing. RESPIRATORY: Denies SOB and cough. CV: Denies palpitations and CP GI: Denies abdominal pain, nausea, vomiting and diarrhea. : Denies dysuria and urinary frequency. MSK: Denies new myalgia and joint pain. SKIN: Denies rash and pruritus. NEUROLOGICAL: Denies headache PSYCHIATRIC: Denies recent changes in mood. PHYSICAL EXAM: GENERAL: Alert and oriented x 3. NAD EYES: EOMI. Anicteric. HENT: Moist mucous membranes. No scleral icterus. No cervical lymphadenopathy. LUNGS: Clear to auscultation bilaterally. CARDIOVASCULAR: Regular rate and rhythm. No murmur. No JVD. ABDOMEN: Soft, non-tender +bs EXTREMITIES: No edema. Non-tender. SKIN: No rashes or lesions. Warm. NEUROLOGIC: No focal neurological deficits. CN II-XII grossly intact PSYCHIATRIC: Cooperative. Appropriate mood and affect [facility] Medical History Nephrolithiasis Perennial allergic rhinitis Surgical History History of colonoscopy (~2019) Social History Housing: Apartment Patient Tobacco Use Status: Former Tobacco user Cigarettes Per Day: 10 Years Smoked: 20 e-Cigarette/Vaping Use: Currently Using service: No Current occupational status: retired and disabled Current occupational exposures/hazards: No Cognitive needs: No Hearing needs: No Vision needs: Yes Questionnaire Thrive Questionnaire Date Thrive assessed: 10/29/24 I am a: Patient What is your living situation today?: I have a steady place to live Within the past 12 months, did the food you bought not last and you didn't have the money to get more?: Never true Within the past 12 months, did you worry whether your food would run out before you got money to buy more?: Never true Do you have trouble paying for medicines?: No Do you have trouble getting transportation to medical appointments?: Yes Do you have trouble paying your heating and electricity bill?: No Do you have trouble taking care of your child, family member or friend?: No Do you have trouble with day-to-day activities such as bathing, preparing meals, shopping, managing finances, etc.?: Yes Are you currently unemployed and looking for a job?: Yes Are you interested in more education?: No Please select the resources that you would like help with: Transportation Currently or been in a relationship where the following occur: Controlled Emotionally THRIVE Score: 2 AUDIT C Alcohol Use Questionnaire (AUDIT-C) 1. How often do you have a drink containing alcohol?: Monthly or less 2. How many drinks containing alcohol do you have on a typical day when you are drinking?: 1 or 2 3. How often do you have six or more drinks on one occasion?: Never Total Score: 1 FERMIN-7 AMB Questionnaire FERMIN-7 Date FERMIN - 7 assessed: 02/28/25 Source: Developed by Drs. Eric Pineda, Judy Martinez, Anup Bahena and colleagues, with an educational malu from the grafter. Physical exam (Primary Care) Vital Signs: Last Vital Signs Temp 98 F 04/23/25 14:45 Pulse 102 H 04/23/25 14:45 Resp 14 04/23/25 14:45 BP 110/58 L 04/23/25 14:45 Pulse Ox 97 04/23/25 14:45 Oxygen Delivery Method Room Air 04/23/25 14:45 BMI result Body Mass Index 23.9 Tobacco/Smoking Status: Tobacco use Status Tobacco use date assessed 04/23/25 04/23/25 14:48 Patient Tobacco Use Status Former Tobacco user 04/23/25 14:30 e-Cigarette/Vaping Use Currently Using 04/23/25 14:30 Thrive Assessment: Date of Thrive Assessment Date Thrive assessed 10/29/24 04/23/25 14:30 Currently or been in a relationship where the following occur: Controlled Emotionally Coding Level of Care Code Est Pt Level 4 (53004) Diagnoses Preop cardiovascular exam Z01.810 Mixed hyperlipidemia E78.2 Hyperlipidemia type: mixed hyperlipidemia Anxiety F41.9 CKD stage 3a, GFR 45-59 ml/min N18.31 Other forms of systemic lupus erythematosus, unspecified organ involvement status M32.8 Systemic lupus erythematosus type: other Systemic lupus erythematosus organ involvement: unspecified Assessment & Plan Assessment & Plan (1) Preop cardiovascular exam: Code(s): Z01.810 - Encounter for preprocedural cardiovascular examination Category: Medical (2) HLD (hyperlipidemia): Code(s): E78.5 - Hyperlipidemia, unspecified Category: Medical Qualifiers: Hyperlipidemia type: mixed hyperlipidemia Qualified Code(s): E78.2 - Mixed hyperlipidemia (3) Anxiety: Code(s): F41.9 - Anxiety disorder, unspecified Category: Medical (4) CKD stage 3a, GFR 45-59 ml/min: Code(s): N18.31 - Chronic kidney disease, stage 3a Category: Medical (5) Lupus (systemic lupus erythematosus): Code(s): M32.9 - Systemic lupus erythematosus, unspecified Category: Medical Qualifiers: Systemic lupus erythematosus type: other Systemic lupus erythematosus organ involvement: unspecified Qualified Code(s): M32.8 - Other forms of systemic lupus erythematosus Plan 74 year old female for preoperative assessment She has CKD stage 3a -stable She has no significant cardiopulmonary issues METS>/=4 EKG reviewed Patient is average risk for low risk procedure She can proceed without further cardiac testing Medications: New lorazepam 0.5 mg (1/2 x 1 mg) PO BID PRN 30 tabs 0RF anxiety Refilled carisoprodol 350 mg PO TID PRN 90 tabs 0RF muscle pain/spasm 30 days
[2025-04-23 14:45] VITALS: BP 110/58; PULSE 102; RESP 14; TEMP 36.6; O2SAT 97; BMI 23.9
--- OUTSIDE RECORDS SUMMARY | 2025-04-23 15:26 | XMS_ITS | Data Portability ---
Author Organization [place] [facility] Address [address] [place] [id number] Care Team Providers Care Track Service Worker Name Role Phone DEEPA FONSECA Primary Care [...] questions were answered prior to team departure. [email or web address] Not available 07/29/2022 09:50:43 Plan of Treatment [...] By Organization Details Last Modified Time 07/29/2022 [id number] Thank you for yo ur visit with [facility] today. We cannot always find the exact cause of your symptoms during your initial visit. Please follow up with your primary care provider or specialist within 2-3 days to be rechecked or seek medical attention if your symptoms do not go away or get worse. If you develop any new or worsening symptoms and need after hours care, please go to nearest ER and/or call 911. If you have additional concerns or develop a change in your condition between 8am-10pm, please call [facility] at [phone] to help navigate your care. [email or web address] Not available 07/29/2022 09:35:09 Reason for Referral None Reported. Medical Equipment None Reported. Allergies Allergen ID Allergen Name Allergen Category Reaction Reaction Severity Criticality Documentation Date Start Date Code Code System Note Provider Name and Address Organization Details Recorded Time [id number] Substance with sulfonami de structure and antibacte rial mechanism of action (substanc e) medicatio n Not available Not available Not available 07/29/2022 39027 8003 SNOMED April HUGO Guerrero [address] [place], [address], [place] [facility] 09:12:58 [id number] Tegretol medicatio n Not available Not available Not available 07/29/202220292 9 RxNorm April HUGO Guerrero [address] [place], [address], [place] [facility] 09:13:07 [id number] gabapenti n medicatio n Not available Not available Not available 07/29/2022 81804 RxNorm April HUGO Guerrero [address] [place], [address], [place] [facility] 09:13:15 [id number] tizanidin e medicatio n Not available Not available Not available 07/29/2022 53221 RxNorm Josseline Cesar , HUGO [address], [place], [place], [address], [place] [facility] 09:13:24 [id number] shellfish derived food,medi cation Not available Not available Not available 07/29/2022 [id number] UNK Josseline HUGO Guerrero [address], [place], [place], [address], [place] [facility] 2 09:13:37 Medications [...] Smoker April HUGO Guerrero [address], [place], [address], [place] [facility] 07/29/2022 09:32:30 Do You Have An Advance Directive? Yes [email or web address] Information not available 07/29/2022 Is Blood Transfusion Acceptable In An Emergency? Yes [email or web address] Information not available 07/29/2022 What Is Your Code Status? Full Code [email or web address] Information not available 07/29/2022 Do You Have A Directive To Physicians? No [email or web address] Information not available 07/29/2022 When Did You Quit Smoking? 16+yearssince lastcigarette [email or web address] Information not available 07/29/2022 Within The Past 12 Months, Has It Happened That The Food You Bought Just Didn't Last And You Didn't Have Money To Get More. No [email or web address] Information not available 07/29/2022 Within The Past 12 Months, Have You Worried That Your Food Would Run Out Before You Got Money To Buy More. No [email or web address] Information not available 07/29/2022 Fall Risk: Do You Feel Unsteady When Standing Or Walking? No [email or web address] Information not available 07/29/2022 We Know That How And When People Interact With Friends And Family Can Be Very Different From Person To Person. How Often Do You Have The Opportunity To See Or Talk To People That You Care About And Feel Close To? (Ex: Talking To Friends On The Phone Or Visiting Friends Or Family Or Going To Restorationist Or Club Meetings) Choose Not To Answer This Question [email or web address] Information not available 07/29/2022 Excessive Alcohol Or Drug Use No [email or web address] Information not available 07/29/2022 Does This Patient Have A PCP? Yes [email or web address] Information not available 07/28/2022 Has The Patient Seen Their PCP In The Past 6 Months? Yes [email or web address] Information not available 07/28/2022 Is This Patient In Hospice? No [email or web address] Information not available 07/29/2022 We Know From Many Of Our Patients That Covering All Of Their Costs Can Be Difficult At Times. This Can Cause Stress And Impact Health. In The Past Year, Have You Been Unable To Get Any Of The Following When It Was Really Needed? No [email or web address] Information not available 07/29/2022 What Is Your Housing Situation Today? I Have Housing [email or web address] Information not available 07/29/2022 Would You Like Help Connecting To Resources? None [email or web address] Information not available 07/29/2022 Do You Have A Medical Power Of Senior Loan Officer? No [email or web address] Information not available 07/29/2022 Do You Have An Out Of Hospital DNR? No [email or web address] Information not available 07/29/2022 Do You Have A Patient Advocate? No [email or web address] Information not available 07/29/2022 Sex: Unknown Functional Status Question Answer Note LastModified by Organizat ion Details LastModified Time Do you use any illicit or recreational drugs? No [email or web address] Information not available 07/29/2022 What is your level of alcohol consumption? Occasional Information not available 07/29/2022 Mental Status None recorded. Family History Nothing Reported. Medical History Condition Response Coronary Artery Disease N Parkinson's Disease N COPD N Depression N Hypothyroidism Y A-fib N Diabetes N CHF N Cancer N Dementia N Stroke N Asthma N High Cholesterol Y Rheumatoid Arthritis N Pulmonary Embolism N Hypertension N Osteoporosis Y Kidney Disease N Gynecological HistoryNo gynecological history recorded. Obstetrics History GPAL:G 0 P 0 0 0 0 Past Encounters Encounter ID Performer Location Encounter Start Date Encounter Closed Date Diagnosis/Indication Diagnosis SNOMED-CT Code Diagnosis ICD10 Code Diagnosis Note [id number] April HUGO Guerrero [facility] [address] [facility] [place] [address] 07/29/2022 09:11:05 07/29/2022 11:15:33 Health Concerns Section Related Observation LastModified by Organization Detai ls LastModified Time None Recorded Concern Status LastModified by Organization Details LastModified Time None Recorded Advance Directives Directive Y: Payers Insurance Date Sequence Insurance Name Policy Number Policy Titus Covered Member ID Titus Member ID Guarantor Name 08/09/2022 1 [place]ARE [place] [employer] Kiara Pastrana [id number] Ashely Pastrana 08/09/2022 1 *SELF PAY* Ashely Pastrana [id number] Ashely Pastrana 08/09/2022 2 [place] [facility] Ashely Pastrana [id number] Ashely Pastrana Notes Date Note Type Note [...] her neuropathy. April HUGO Guerrero [address] [place], [address], [place] [facility] 07/29/2022 09:50:54 OBGyn Episode No OBEpisode recorded.
--- OUTSIDE RECORDS SUMMARY | 2025-04-23 15:26 | XMS_ITS | Clinical Summary ---
Author Organization [facility] Address [address] [place] [address] Care Team Providers Care Prisoner Classification Interviewer Name Role Phone Magda Garsia DMD Primary Care Provider [phone] Source Comments PLEASE NOTE, if this patient [...] on file Insurance [employer] D[place]ENT[place] Care Teams Prisoner Classification Interviewer Relationship Specialty Start Date End Date Magda Garsia DMD [address] [place] [address] PCP - General 07/05/19
== END 2025-04-23 15:14 | disposition home or self-care (01) ==
LOC: HO.HMCFM 14:13
PROVIDERS: PCP Family Medicine; Visit Provider Internal Medicine
DX: E78.2 Mixed hyperlipidemia (principal); N18.31 Chronic kidney disease, stage 3a; M32.8 Other forms of systemic lupus erythematosus; Z01.810 Encounter for preprocedural cardiovascular examination; F41.9 Anxiety disorder, unspecified

== ENCOUNTER → 2025-04-23 14:12 | Outpatient (BNVA) | payer OTHER, SELFPAY | PROVIDERS: PCP Family Medicine; Visit Provider Internal Medicine | DX: Z01.810 Encounter for preprocedural cardiovascular examination (principal); I10 Essential (primary) hypertension; E78.5 Hyperlipidemia, unspecified; N18.31 Chronic kidney disease, stage 3a; F41.9 Anxiety disorder, unspecified; M32.9 Systemic lupus erythematosus, unspecified | CPT/HCPCS: 99212 ==

== ENCOUNTER 2025-05-29 13:57 | Outpatient (AMB) | payer OTHER, SELFPAY ==
--- NOTE | 2025-05-29 14:10 | MHC.PC.OV ---
Vital Signs 05/29/25 14:17 05/29/25 14:36 05/29/25 14:36 05/29/25 14:37 Height 5 ft Weight 123 lb 4 oz BMI 24.1 BP 150/72 H 151/81 H 122/67 154/70 H Blood Pressure Location Rt brachial Rt brachial Rt brachial Rt brachial Position Sitting Sitting Standing Supine Respiration 13 Pulse 82 Pulse Source Pulse Oximeter Temp 97.3 F Temp Source Oral Pulse Oximetry (%) 100 Oxygen Delivery Method Room Air Intake Visit Reasons: D/C [facility] Intake Note: Discharge follow up from [facility]. Patient c/o BP dropped when standing up. Tourist Home Keeper Required: No Allergies carbamazepine (From Tegretol) Allergy (Intermediate, Verified 05/29/25 14:11) MOUTH SORES spider venom (SPIDER BITES) Allergy (Intermediate, Verified 05/29/25 14:11) BLISTERS Sulfa (Sulfonamide Antibiotics) Allergy (Intermediate, Verified 05/29/25 14:11) DISORIENTATION/RASH tizanidine (Tizanidine) Allergy (Intermediate, Verified 05/29/25 14:11) NIGHTMARES horton Adverse Reaction (Severe, Verified 05/29/25 14:11) SEVERE VOMITING Shellfish Allergy (Severe, Uncoded 05/29/25 14:11) TONGUE SWELLING, SHORTNESS OF BREATH spider bites Allergy (Intermediate, Uncoded 05/29/25 14:11) swelling, anaphylaxis cherries Allergy (Unknown, Uncoded 05/29/25 14:11) Nausea and Vomiting mold Allergy (Unknown, Uncoded 05/29/25 14:11) congestion SUGAR SUBSTITUTES Allergy (Unknown, Uncoded 05/29/25 14:11) SORE THROAT - LARYNGITIS Medication List - Last Reconciled 05/29/25 by Ricardo You MD amlodipine 10 mg PO DAILY aspirin 81 mg PO DAILY atorvastatin 20 mg PO BEDTIME bupropion HCl XL 150 mg PO QAM [calciuum citrate plus d 1 tab PO DAILY] carisoprodol 350 mg PO TID PRN 30 days diclofenac sodium 1% 1 ea topical BID PRN dicyclomine 10 mg PO TID PRN docusate calcium 240 mg PO DAILY PRN epinephrine 0.3 mL IM ONCE PRN gabapentin (Neurontin) 800 mg PO QID hydroxychloroquine 300 mg PO DAILY levothyroxine 100 mcg (2 x 50 mcg) PO DAILY 90 days linaclotide (Linzess) 290 mcg PO DAILY lorazepam 0.5 mg (1/2 x 1 mg) PO BID PRN meclizine 25 mg PO TID PRN meloxicam 15 mg PO DAILY 30 days mirtazapine 45 mg PO BEDTIME montelukast 10 mg PO BEDTIME nortriptyline 50 mg PO BEDTIME pantoprazole 40 mg PO DAILY 90 days pen needle, diabetic (BD Ultra-Fine Mini Pen Needle) As directed sumatriptan succinate 100 mg PO DAILY PRN teriparatide 20 mcg subcut DAILY triamcinolone acetonide 0.1% 1 appl topical BID-TID PRN Tobacco use date assessed: 05/29/25 Fall risk assessment: 2 + Falls in past year Last assessed Fall Risk: 05/29/25 Dental Screening Dental Screen Date: 05/29/25 Did you have a dental visit in the last 12 months?: Yes Did you have a dental problem in the last 6 months where you did not have access to dental care?: No Was dental information given to patient?: Patient has dentist HPI D/C [facility] HPI Details Hospital Admission Discharged 05/07/2025 Patient was hospitalized for vertigo, fall, laceration of scalp and subdural hematoma. Also incidental finding of left adnexal mass. Patient with history of lupus, Raynaud's disease, Najma's thyroiditis, chronic migraine, vertigo and hypertension, had felt dizzy prior to standing up and when she stood up, she tripped over her dog and fell backwards, hitting her head. Amlodipine has been stopped due to low blood pressures. At hospital, workup included head CT which showed a subdural hematoma. Repeat CT showed interval improvement. Physical therapy had recommended rehab and she was discharged to a custodial facility. Custodial Facility Discharge 05/22/2025 Mild anemia H&H 10.7/34.2 Mildly elevated CRP with normal sed rate Otherwise unremarkable labs Review of med list: Patient is off amlodipine. Her blood pressure today is 154/70. Will get ultrasound to evaluate adnexal mass. They note they have an appt. with ObGyn. Pt states she described an episode of not feeling right after standing up and feeling dizzy. [facility] Medical History Nephrolithiasis Perennial allergic rhinitis Surgical History History of colonoscopy (~2019) Social History Housing: Apartment Are you a primary career center advisor to a significant other at home: No Do you presently have visiting nurse or other home services: No Patient Tobacco Use Status: Former Tobacco user Cigarettes Per Day: 10 Years Smoked: 20 e-Cigarette/Vaping Use: Currently Using Second Hand Smoke Exposure: No service: No Current occupational status: retired and disabled Current occupational exposures/hazards: No Cognitive needs: No Hearing needs: No Vision needs: Yes Questionnaire Thrive Questionnaire Date Thrive assessed: 10/29/24 I am a: Patient What is your living situation today?: I have a steady place to live Within the past 12 months, did the food you bought not last and you didn't have the money to get more?: Never true Within the past 12 months, did you worry whether your food would run out before you got money to buy more?: Never true Do you have trouble paying for medicines?: No Do you have trouble getting transportation to medical appointments?: Yes Do you have trouble paying your heating and electricity bill?: No Do you have trouble taking care of your child, family member or friend?: No Do you have trouble with day-to-day activities such as bathing, preparing meals, shopping, managing finances, etc.?: Yes Are you currently unemployed and looking for a job?: Yes Are you interested in more education?: No Please select the resources that you would like help with: Transportation Currently or been in a relationship where the following occur: Controlled Emotionally THRIVE Score: 2 FERMIN-7 AMB Questionnaire FERMIN-7 Date FERMIN - 7 assessed: 02/28/25 Source: Developed by Drs. Eric Pineda, Judy Martinez, Anup Bahena and colleagues, with an educational malu from [employer]. Review of Systems Const Denies chills, Denies fatigue, Denies fever(s), Denies headache(s) and Denies weakness ENT Denies dizziness and Denies headache(s) Card Denies dyspnea Resp Denies cough, Denies dyspnea, Denies wheezing and Denies other (shortness of breath) Musc Denies numbness and Denies tingling Neuro Denies dizziness, Denies headache(s), Denies numbness, Denies tingling and Denies weakness Psych Denies anxiety and Denies depression Endo Denies fatigue Aller/Immun Denies wheezing Physical exam (Primary Care) Vital Signs: Last Vital Signs Temp 97.3 F 05/29/25 14:17 Pulse 82 05/29/25 14:17 Resp 13 05/29/25 14:17 BP 154/70 H 05/29/25 14:37 Pulse Ox 100 05/29/25 14:17 Oxygen Delivery Method Room Air 05/29/25 14:17 BMI result Body Mass Index 24.1 Tobacco/Smoking Status: Tobacco use Status Tobacco use date assessed 05/29/25 05/29/25 14:13 Patient Tobacco Use Status Former Tobacco user 05/29/25 14:13 e-Cigarette/Vaping Use Currently Using 05/29/25 14:13 Thrive Assessment: Date of Thrive Assessment Date Thrive assessed 10/29/24 05/29/25 14:13 Currently or been in a relationship where the following occur: Controlled Emotionally Const General: well developed; No acute distress Nutritional Appearance: well nourished Orientation/consciousness: patient oriented x3 HENMT Head: Yes normocephalic and Yes atraumatic Eyes General: appearance normal, both eyes and all related structures Pupils: Equal, round and reactive pupils present EOM: EOMs intact bilaterally Resp Effort & Inspection: normal respiratory effort Auscultation: clear to auscultation bilaterally Cardio Rate: regular rate Rhythm: regular rhythm Heart sounds: S1 normal heart sound present, S2 normal heart sound present, no gallops, no murmurs and no rubs Neuro General: patient oriented x3 and gait normal Cranial nerves: Yes Equal, round and reactive pupils present Psych Affect: normal affect Coding Level of Care Code Est Pt Level 5 (38726) Diagnoses Syncope R55 Orthostatic hypotension I95.1 Status post fall Z91.81 Vertigo R42 Hypertension I10 Adnexal mass N94.89 Mild anemia D64.9 Concussion without loss of consciousness, initial encounter S06.0X0A Encounter type: initial encounter Loss of consciousness presence/duration: without LOC Assessment & Plan Assessment & Plan (1) Syncope: Code(s): R55 - Syncope and collapse Category: Medical (2) Orthostatic hypotension: Code(s): I95.1 - Orthostatic hypotension Category: Medical (3) Status post fall: Code(s): Z91.81 - History of falling Category: Medical (4) Vertigo: Code(s): R42 - Dizziness and giddiness Category: Medical (5) Hypertension: Code(s): I10 - Essential (primary) hypertension Category: Medical (6) Adnexal mass: Code(s): N94.89 - Other specified conditions associated with female genital organs and menstrual cycle Category: Medical (7) Mild anemia: Code(s): D64.9 - Anemia, unspecified Category: Medical (8) Concussion: Code(s): S06.0XAA - Concussion with loss of consciousness status unknown, initial encounter Category: Medical Qualifiers: Encounter type: initial encounter Loss of consciousness presence/duration: without LOC Qualified Code(s): S06.0X0A - Concussion without loss of consciousness, initial encounter (9) Syncope: Code(s): R55 - Syncope and collapse Category: Medical Plan Hospital Admission 05/05/2025 Discharged 05/07/2025 Physical therapy had recommended rehab and she was discharged to a custodial facility. D/c from rehab 05/22/25 Patient was hospitalized for vertigo, fall, laceration of scalp and subdural hematoma. Also incidental finding of left adnexal mass. Patient with history of lupus, Raynaud's disease, Najma's thyroiditis, chronic migraine, vertigo and hypertension, had felt dizzy prior to standing up and when she stood up, she became more dizzy and reached for a railing but fell backwards, hitting her head. At hospital, workup included head CT which showed a subdural hematoma. Repeat CT showed interval improvement. Amlodipine has been stopped due to low blood pressures. Patient was taking his medication for Raynaud's phenomenon. She says that orthostasis did not improve with holding the medications so she has resumed. Blood pressure today: consistently SBP 150s however systolic blood pressure drops 30 points with standing. Recommend that she hydrate well and squeeze muscles in lower extremities prior to standing up. She will stands slowly and evaluate for dizziness and she will sit down if she is dizzy or lightheaded. Blood pressure otherwise is too high. Cont Amlodipine. May need small dose of lisinopril - will recheck in 1 week. Maintain vigilance for orthostasis. Concern for possible arrhythmia and will check Holter monitor test Referring her to Cardiology for orthostasis and syncope Patient had had impact with subdural hematoma and has concussion. Recommend mental and physical rest Will follow-up in a week Adnexal mass was found incidentally. She has an appointment with her obgyn specialist and an ultrasound is already scheduled. Mild anemia H&H 10.7/34.2 Mildly elevated CRP with normal sed rate Otherwise unremarkable labs Will recheck CBC Orders: Orders Complete Blood Count Auto Diff Today R55 - Syncope and collapse, Z00.00 - Encounter for general adult medical examination without abnormal findings ECG holter monitor 48 hour Today R55 - Syncope and collapse Comprehensive Met. Panel Today R55 - Syncope and collapse TSH reflex Free T4 Today R55 - Syncope and collapse, Z00.00 - Encounter for general adult medical examination without abnormal findings Referrals Cardiology Referral I10 - Essential (primary) hypertension, I95.1 - Orthostatic hypotension, R55 - Syncope and collapse
[2025-05-29 14:17] VITALS: BP 150/72; PULSE 82; RESP 13; TEMP 36.3; O2SAT 100; BMI 24.1
--- OUTSIDE RECORDS SUMMARY | 2025-05-29 14:31 | XMS_ITS | Clinical Summary ---
Author Organization [facility] Address [address] [place] [address] Care Team Providers Care Swatch Checker Name Role Phone Magda Garsia DMD Primary Care Provider [phone] Source Comments PLEASE NOTE, if this patient [...] NET DENTAL [place] MEDICAID DENTAL Care Teams Swatch Checker Relationship Specialty Start Date End Date Magda Garsia DMD [address] [place] [address] PCP - General 07/05/19
--- OUTSIDE RECORDS SUMMARY | 2025-05-29 14:31 | XMS_ITS | Clinical Summary ---
Author Organization 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 Active dicyclomine (BENTYL) 10 MG capsuleIndications :as needed Take 10 mg by mouth. 2 tabs Indications: as needed Active SUMAtriptan (IMITREX) 50 MG tablet Take 100 mg by mouth daily as needed. Active topiramate (TOPAMAX) 100 MG tablet Take 100 mg by mouth daily. Active meclizine (ANTIVERT) 25 mg tabletIndications: Chronic vertigo TAKE 1 TABLET BY MOUTH THREE TIMES DAILY NEEDED 30 tablet 3 07/07/20 21 Active NEURONTIN 800 mg tablet Take 1 tablet (800 mg total) by mouth 4 (four) times a day. 120 tablet 1 01/08/20 23 Active Additional Information Patient taking differently:800 mg Oral 4 times daily,Generic states takes 800 qid, Informant: Self, Reported on 04/24/2025 docusate sodium (COLACE) 100 MG capsule TAKE 1 CAPSULE BY MOUTH TWICE DAILY 180 capsule 3 04/04/20 23 Active magnesium oxide (MAG-OX) 400 mg (241.3 mg elemental) tablet TAKE 1 TABLET(400 MG) BY MOUTH DAILY 30 tablet 11 04/14/20 23 Active montelukast (SINGULAIR) 10 mg tablet TAKE 1 TABLET(10 MG) BY MOUTH EVERY NIGHT AT BEDTIME 90 tablet 3 05/10/20 23 Active pantoprazole (PROTONIX) 40 MG tablet TAKE 1 TABLET BY MOUTH DAILY TAKE 30-60 MINUTES BEFORE BREAKFAST 30 tablet 11 06/09/20 23 Active Additional Information Patient taking differently: As needed, Reported on 04/24/2025 aspirin 81 MG EC tabletIndications: Systemic lupus erythematosus with organ system involvement TAKE 1 TABLET BY MOUTH EVERY DAY AT LUNCH 90 tablet 3 08/15/20 23 Active nortriptyline (PAMELOR) 50 MG capsuleIndications :Small fiber neuropathy Take 1 capsule (50 mg total) by mouth nightly at bedtime. 90 capsule 3 09/08/20 23 Active atorvastatin (LIPITOR) 20 MG tablet take 1 tablet by mouth at bedtime 90 tablet 3 10/10/20 23 Active polyethylene glycol (MIRALAX) 17 gram/dose powder DISSOLVE 17G IN 8OZ WATER AND DRINK NEEDED FOR CONSTIPATION 510 g 3 12/07/19 24 Active EPINEPHrine 0.3 mg/0.3 mL auto-injector INJECT INTO THE MUSCLE NEEDED FOR AMAPHYLAXIS 2 each 12/08/19 24 Active triamcinolone acetonide 0.1 % cream APPLY TWICE DAILY TWICE DAILY NEEDED. SKIP EVERY 3RD WEEK. 30 g 1 12/14/19 24 Active levothyroxine (SYNTHROID, LEVOTHROID) 50 MCG tabletIndications: Acquired hypothyroidism TAKE 1 TABLET BY MOUTH EVERY DAY FOR 5 DAYS AND TAKE 2 TABLET BY MOUTH EVERY DAY ON 2 DAYS A WEEK 108 tablet 3 12/14/19 24 Active mirtazapine (REMERON) 45 MG tablet Take 1 tablet (45 mg total) by mouth nightly at bedtime. 30 tablet 1 01/16/20 24 Active buPROPion (WELLBUTRIN XL) 150 MG ER 24 hr tablet Take 150 mg by mouth daily. Active amLODIPine (NORVASC) 10 MG tabletIndications: Essential hypertension TAKE 1 TABLET(10 MG) BY MOUTH DAILY 90 tablet 3 06/14/20 24 Active carisoprodol (SOMA) 350 MG tabletIndications: Muscle spasm TAKE 1 TABLET BY MOUTH UP TO TWICE DAILY NEEDED 60 tablet 3 09/13/20 24 Active teriparatide (FORTEO) 20 mcg/dose (600mcg/2.4mL) PnIj Inject 20 mcg under the skin daily. Active lamoTRIgine (LAMICTAL) 25 MG IMMEDIATE release tablet Take 25 mg by mouth daily. Active calcium citrate/vitamin D3 (CALCIUM CITRATE + D ORAL) Take 1 tablet by mouth daily. 630 mg , D3 12.5 MCG Active meloxicam (MOBIC) 15 MG tablet Take 15 mg by mouth daily. Active LORazepam (ATIVAN) 0.5 MG tablet Take 0.5 mg by mouth 2 (two) times a day. Active diclofenac sodium (VOLTAREN) 1 % Gel 2-4 gm TID PRN to left hip 200 g 2 04/24/20 25 Active hydroxychloroquine (PLAQUENIL) 200 mg tabletIndications: Systemic lupus erythematosus with organ system involvement TAKE 1 TABLET BY MOUTH EVERY MORNING AN TAKE 1/2 EVERY NIGHT AT BEDTIME 135 tablet 3 04/24/20 25 Active Active Problems Problem Noted Date Diagnosed Date Anemia in other chronic diseases classified else where 09/13/2024 Assessment & Plan (01/15/2025 4:36 PM EDT): Well-balanced nutritionally diet, rich in iron, vitamin C, vitamin B12 and optimizing treatment for her underlying systemic lupus erythematosus. Primary osteoarthritis involving multiple joints 06/14/2024 Assessment & Plan (04/24/2025 10:23 AM EDT): Joint protection, energy conservation. Gentle, regular exercise routine. Avoid falls, injuries, overuse. Keep body weight in ideal range for her height. She may benefit from topical cream such as Arnica, Biofreeze, Aspercreme versus medicated patches such as salonpas, icy hot patch 2-3 times daily and if necessary at bedtime x 3 weeks. Assessment & Plan (12/21/2024 11:41 AM EST): Joint protection, energy conservation. Gentle, regular exercise routine. Avoid falls, injuries, overuse. Keep body weight in ideal range for her height. She may benefit from topical cream such as Arnica, Biofreeze, Aspercreme versus medicated patches such as salonpas, icy hot patch 2-3 times daily and if necessary at bedtime x 3 weeks. Assessment & Plan (09/13/2024 11:48 AM EST): Joint protection, energy conservation. Gentle, regular exercise routine. Avoid falls, injuries, overuse. Keep body weight in ideal range for her height. She may benefit from topical cream such as Arnica, Biofreeze, Aspercreme versus medicated patches such as salonpas, icy hot patch 2-3 times daily and if necessary at bedtime x 3 weeks. Assessment & Plan (06/14/2024 10:53 AM EDT): Joint protection, energy conservation. Gentle, regular exercise routine. Avoid falls, injuries, overuse. Keep body weight in ideal range for her height. She may benefit from topical cream such as Arnica, Biofreeze, Aspercreme versus medicated patches such as salonpas, icy hot patch 2-3 times daily and if necessary at bedtime x 3 weeks. Anemia 12/14/2023 Assessment & Plan (12/17/2023 8:00 PM EST): To make sure that she does not have iron deficiency or GI loss I requested additional iron studies and fecal immunochemical test. Status post fall 08/12/2023 Assessment & Plan (01/15/2025 4:34 PM EDT): Luckily no bony fractures though whiplash and minor concussion secondary to Tuesday-12/17/2024 fall. Continue watchful daily walking, gentle stretching and muscle strengthening exercises. Balance activity and rest. Assessment & Plan (08/13/2023 5:58 PM EDT): Since she has ongoing pain within her left hand and wrist region with soreness to gentle palpation and appreciable swelling I asked her to get an x-ray to make sure that she does not have fracture there. She went to [facility] radiology and I was paged at 12:55 PM due to x-rays revealing mildly displaced fracture of base of the fifth metacarpal involving the articular surface. With the help of my triage nurse she was advised to see orthopedic hand surgeon. She is scheduled to see Dr. Infante 11 AM on 08/15/2023. In the meantime I advised her to go to urgent care for proper splinting. Concussion with loss of consciousness of 30 purvi cesar or less 08/12/2023 Assessment & Plan (08/13/2023 5:52 PM EDT): I have explained to Ashely that as long as she is not getting worsening symptoms it is not unusual that she may experience low-grade headaches for up to 12 weeks following injury causing concussion. Muscle spasm 08/12/2023 Assessment & Plan (12/21/2024 11:42 AM EST): Due to a loss of her prescribing neurologist and inability to get prescription for Soma (carisoprodol) previously prescribed by him I agreed to provide the prescription until she finds another neurologist. It helps her with recurrent severe muscle spasms. I reviewed with her most frequent side effects including sleepiness, decreased response reaction and need to refrain from driving after taking Soma for at least 8 hours. Assessment & Plan (09/13/2024 12:59 PM EST): Due to a loss of her prescribing neurologist and inability to get prescription for Soma (carisoprodol) previously prescribed by him I agreed to provide the prescription until she finds another neurologist. It helps her with recurrent severe muscle spasms. I reviewed with her most frequent side effects including sleepiness, decreased response reaction and need to refrain from driving after taking Soma for at least 8 hours. Assessment & Plan (08/13/2023 5:59 PM EDT): Due to a loss of her prescribing neurologist and inability to get prescription for Soma (carisoprodol) previously prescribed by him I agreed to provide the prescription until she finds another neurologist. It helps her with recurrent severe muscle spasms. I reviewed with her most frequent side effects including sleepiness, decreased response reaction and need to refrain from driving after taking Soma for at least 8 hours. Abnormal CBC 07/20/2023 Assessment & Plan (07/20/2023 11:43 AM EDT): Was mildly anemia last check- will do labs to reassess History of suicide attempt 07/20/2023 Assessment & Plan (07/20/2023 11:49 AM EDT): She admits to three attempts Of suicide at age [age]yr. Reports once she had her daughter this resolved- as she had her to live for denies SI/HI at present- I am referring to psychiatry To eval medication therapies as her s/s of depression and anxiety are not improved. She was given suicide hotline today in AVS- I enc her to put the number in her cell phone Generalized anxiety disorder with panic attacks 05/04/2023 Assessment & Plan (07/20/2023 11:38 AM EDT): She is having worsening anxiety symptoms going back to January. Any change to her medications have resulted in only brief improvements- . She is agreeable to see psychiatry as a consult- to help guide her care- she is in talk therapy once weekly with [facility] counselor Kristy Lomeli-will not make any more changes at this time- await psych recommendations Recurrent major depressive disorder, in partial remission 05/04/2023 Assessment & Plan (07/20/2023 11:41 AM EDT): Her depression is severe. She is currently taking sertraline 150mg po qd and Wellbutrin XL 150mg po qd- PHQ9 score 24 today. Medications have been adjusted Q other month since January by pcp- with brief improvements only- She denies suicidal ideation/ states feels safe. Is agreeable to see psychiatry as a consult to help guide her care. She will continue talk therapy with [facility] counselor 1 x a week. Suicide hotline info provided in AVS- She will call us if she has not heard About referral or if there is any changes to her s/s Vitamin B12 deficiency 06/21/2022 Assessment & Plan (12/17/2023 7:59 PM EST): Continue daily supplementation to replace the deficit Assessment & Plan (08/13/2023 5:50 PM EDT): Continue daily supplementation to replace the deficit Assessment & Plan (02/06/2023 9:31 PM EDT): Continue daily supplementation to replace the deficit NSAID long-term use 06/21/2022 Assessment & Plan (04/24/2025 10:24 AM EDT): Take the lowest dose, with least frequency, for shortest time. Remember to take it always with food. Favor topical over oral preparations. Assessment & Plan (06/14/2024 10:43 AM EDT): Take the lowest dose, with least frequency, for shortest time. Remember to take it always with food. Favor topical over oral preparations. Assessment & Plan (12/17/2023 7:59 PM EST): Take the lowest dose, with least frequency, for shortest time. Remember to take it always with food. Favor topical over oral preparations. Assessment & Plan (08/13/2023 5:53 PM EDT): Take the lowest dose, with least frequency, for shortest time. Remember to take it always with food. Favor topical over oral preparations. Assessment & Plan (01/26/2023 9:10 AM EDT): Take the lowest dose, with least frequency, for shortest time. Remember to take it always with food. Favor topical over oral preparations. Assessment & Plan (06/21/2022 12:29 PM EDT): Take the lowest dose, with least frequency, for shortest time. Remember to take it always with food. Favor topical over oral preparations. Ganglion cyst of tendon sheath of left hand 11/24 Medial epicondylitis of right elbow 12/04/2021 Assessment & Plan (12/04/2021 11:05 AM EST): Joint protection, energy conservation techniques reviewed and strongly encouraged. Use warm packs and topical cream versus patch 2-3 times daily and if needed at bedtime. Examples of exercises with pictures and detailed instructions printed for home use today. May need to consider formal OT if not better with above measures. Trochanteric bursitis of left hip 06/05/2021 Assessment & Plan (09/20/2021 8:54 PM EST): Continue PT guided regular exercises and participate in formal sessions as scheduled twice a week. Avoid falls, injuries, overuse. Assessment & Plan (06/05/2021 11:46 AM EDT): Procedure: After an informed oral consent, under sterile conditions using Ethyl chloride spray for local anesthesia I have injected 40 mg DepoMedrol and 2 cc 1% Lidocaine into Left trochanteric uneventfully. Details of post-procedure care were explained to the patient in the office and given in writing. Provider: Francisca Tony MD Patient: Ashely Pastrana : 1950 Date: 06/05/2021 Hypercalcemia 03/07/2021 Assessment & Plan (03/07/2021 8:41 PM EDT): Provide enough calcium through the diet and if unable to achieve optimal 1200 mg daily take supplement but skip it once a week to reduce slightly elevated serum level. Lichen sclerosus 08/13/2020 Post concussion syndrome 10/01/2019 Assessment & Plan (10/02/2019 7:35 PM EST): She is aware about prolonged recovery and understands the need for avoiding any injuries, falls or stresses. Close follow-up with treating neurologist as scheduled. Long-term use of Plaquenil 10/01/2019 Assessment & Plan (04/24/2025 10:23 AM EDT): Take exactly as prescribed. Follow closely with chair caner at least every 12 months-she is due for yearly checkup later in spring 2024. Daily sun protection all year round. Assessment & Plan (01/15/2025 4:31 PM EDT): Take exactly as prescribed. Follow closely with chair caner at least every 12 months-she is due for yearly checkup later in spring 2024. Daily sun protection all year round. Assessment & Plan (09/13/2024 11:48 AM EST): Take exactly as prescribed. Follow closely with chair caner at least every 12 months. Daily sun protection all year round. Assessment & Plan (06/14/2024 10:42 AM EDT): Take exactly as prescribed. Follow closely with chair caner at least every 12 months. Daily sun protection all year round. Assessment & Plan (12/17/2023 7:59 PM EST): Take exactly as prescribed. Follow closely with chair caner at least every 12 months. Daily sun protection all year round. Assessment & Plan (08/13/2023 5:53 PM EDT): Take exactly as prescribed. Follow closely with chair caner at least every 12 months. Daily sun protection all year round. Assessment & Plan (01/26/2023 9:10 AM EDT): Take exactly as prescribed. Follow closely with chair caner at least every 12 months. Daily sun protection all year round. Assessment & Plan (06/21/2022 12:28 PM EDT): Take exactly as prescribed. Follow closely with chair caner at least every 12 months. Daily sun protection all year round. Assessment & Plan (03/01/2022 11:12 AM EDT): Take exactly as prescribed. Follow closely with chair caner at least every 12 months. Daily sun protection all year round. Assessment & Plan (12/04/2021 10:47 AM EST): Take exactly as prescribed. Follow closely with chair caner at least every 12 months. Daily sun protection all year round. Assessment & Plan (09/04/2021 2:46 PM EST): Take exactly as prescribed. Follow closely with chair caner at least every 12 months. Daily sun protection all year round. Assessment & Plan (06/05/2021 11:31 AM EDT): Take exactly as prescribed. Follow closely with chair caner at least every 12 months. Daily sun protection all year round. Assessment & Plan (04/09/2021 9:57 AM EDT): Take exactly as prescribed. Follow closely with chair caner at least every 12 months. Daily sun protection all year round. Assessment & Plan (02/26/2021 9:29 AM EDT): Take exactly as prescribed. Follow closely with chair caner at least every 12 months. Daily sun protection all year round. Assessment & Plan (12/04/2020 9:21 AM EST): Take exactly as prescribed. Follow closely with chair caner at least every 12 months. Daily sun protection all year round. Assessment & Plan (09/29/2020 12:18 PM EST): Take exactly as prescribed. Follow closely with chair caner at least every 12 months. Daily sun protection all year round. Assessment & Plan (04/21/2020 10:31 AM EDT): Take exactly as prescribed. Follow closely with chair caner at least every 12 months. Daily sun protection all year round. Assessment & Plan (12/05/2019 10:33 AM EST): Take exactly as prescribed. Follow closely with chair caner at least every 12 months. Daily sun protection all year round. Assessment & Plan (10/02/2019 7:38 PM EST): Take exactly as prescribed. Follow closely with chair caner at least every 12 months. Daily sun protection all year round. On statin therapy 10/01/2019 Assessment & Plan (04/24/2025 10:24 AM EDT): Monitor for muscle tenderness, swelling and weakness Assessment & Plan (06/14/2024 10:42 AM EDT): Monitor for muscle tenderness, swelling and weakness Assessment & Plan (01/26/2023 9:10 AM EDT): Monitor for muscle tenderness, swelling and weakness Assessment & Plan (03/01/2022 11:13 AM EDT): Monitor for muscle tenderness, swelling and weakness Assessment & Plan (12/04/2021 10:47 AM EST): Monitor for muscle tenderness, swelling and weakness Assessment & Plan (09/04/2021 2:46 PM EST): Monitor for muscle tenderness, swelling and weakness Assessment & Plan (06/05/2021 11:31 AM EDT): Monitor for muscle tenderness, swelling and weakness Assessment & Plan (02/26/2021 9:29 AM EDT): Monitor for muscle tenderness, swelling and weakness Assessment & Plan (12/04/2020 9:20 AM EST): Monitor for muscle tenderness, swelling and weakness Assessment & Plan (09/29/2020 12:17 PM EST): Monitor for muscle tenderness, swelling and weakness Assessment & Plan (12/05/2019 10:34 AM EST): Monitor for muscle tenderness, swelling and weakness Assessment & Plan (10/02/2019 7:38 PM EST): Monitor for muscle tenderness, swelling and weakness Aspirin long-term use 10/01/2019 Assessment & Plan (04/24/2025 10:24 AM EDT): Avoid falls, injuries and cuts. Monitor for excessive bruising and bleeding. Assessment & Plan (12/21/2024 11:42 AM EST): Avoid falls, injuries and cuts. Monitor for excessive bruising and bleeding. Assessment & Plan (09/13/2024 11:48 AM EST): Avoid falls, injuries and cuts. Monitor for excessive bruising and bleeding. Assessment & Plan (12/17/2023 7:59 PM EST): Avoid falls, injuries and cuts. Monitor for excessive bruising and bleeding. Assessment & Plan (08/13/2023 5:53 PM EDT): Avoid falls, injuries and cuts. Monitor for excessive bruising and bleeding. Assessment & Plan (01/26/2023 9:10 AM EDT): Avoid falls, injuries and cuts. Monitor for excessive bruising and bleeding. Assessment & Plan (06/21/2022 12:28 PM EDT): Avoid falls, injuries and cuts. Monitor for excessive bruising and bleeding. Assessment & Plan (03/01/2022 11:10 AM EDT): Avoid falls, injuries and cuts. Monitor for excessive bruising and bleeding. Assessment & Plan (12/04/2021 10:46 AM EST): Avoid falls, injuries and cuts. Monitor for excessive bruising and bleeding. Assessment & Plan (09/04/2021 2:47 PM EST): Avoid falls, injuries and cuts. Monitor for excessive bruising and bleeding. Assessment & Plan (06/05/2021 11:32 AM EDT): Avoid falls, injuries and cuts. Monitor for excessive bruising and bleeding. Assessment & Plan (04/09/2021 9:56 AM EDT): Avoid falls, injuries and cuts. Monitor for excessive bruising and bleeding. Assessment & Plan (02/26/2021 9:21 AM EDT): Avoid falls, injuries and cuts. Monitor for excessive bruising and bleeding. Assessment & Plan (09/29/2020 12:18 PM EST): Avoid falls, injuries and cuts. Monitor for excessive bruising and bleeding. Assessment & Plan (04/21/2020 10:28 AM EDT): Avoid falls, injuries and cuts. Monitor for excessive bruising and bleeding. Assessment & Plan (12/05/2019 10:32 AM EST): Avoid falls, injuries and cuts. Monitor for excessive bruising and bleeding. Assessment & Plan (10/02/2019 7:38 PM EST): Avoid falls, injuries and cuts. Monitor for excessive bruising and bleeding. Tachycardia 10/01/2019 Assessment & Plan (03/16/2022 12:07 PM EDT): Encouraged to use deep breathing techniques, relaxation and meditation on a regular basis. If symptoms persist consider formal EKG and if abnormal further cardiac work-up. Assessment & Plan (10/02/2019 7:28 PM EST): I have asked her to keep a diary of her accelerated heartbeat and accompanying/modifying factors address length of the episodes, time of the day and activity etc. If symptoms recurrent may need to get EKG and if documented further cardiac work-up. Pain of joint of left ankle and foot 12/29/2018 Small fiber neuropathy 05/24/2018 Overview (03/08/2019): Overview: Sees Dr. Jc Assessment & Plan (04/24/2025 10:24 AM EDT): Generally managed with submaximal doses of gabapentin. Since she reports most of the discomfort at night I suggested her to discuss with prescribing doctor consideration for increasing bedtime dose from 800 mg to 1200 mg. She may benefit additionally from regular meditation/relaxation, CBT, DNRS, acupuncture, acupressure, positive imagery etc. Assessment & Plan (12/21/2024 11:42 AM EST): Generally managed with submaximal doses of gabapentin. Since she reports most of the discomfort at night I suggested her to discuss with prescribing doctor consideration for increasing bedtime dose from 800 mg to 1200 mg. She may benefit additionally from regular meditation/relaxation, CBT, DNRS, acupuncture, acupressure, positive imagery etc. Assessment & Plan (09/13/2024 11:49 AM EST): Generally managed with submaximal doses of gabapentin. Since she reports most of the discomfort at night I suggested her to discuss with prescribing doctor consideration for increasing bedtime dose from 800 mg to 1200 mg. She may benefit additionally from regular meditation/relaxation, CBT, DNRS, acupuncture, acupressure, positive imagery etc. Assessment & Plan (06/14/2024 10:41 AM EDT): Generally managed with submaximal doses of gabapentin. Since she reports most of the discomfort at night I suggested her to discuss with prescribing doctor consideration for increasing bedtime dose from 800 mg to 1200 mg. She may benefit additionally from regular meditation/relaxation, CBT, DNRS, acupuncture, acupressure, positive imagery etc. Assessment & Plan (01/26/2023 9:11 AM EDT): Generally managed with submaximal doses of gabapentin. Since she reports most of the discomfort at night I suggested her to discuss with prescribing doctor consideration for increasing bedtime dose from 800 mg to 1200 mg. She may benefit additionally from regular meditation/relaxation, CBT, DNRS, acupuncture, acupressure, positive imagery etc. Assessment & Plan (06/21/2022 12:30 PM EDT): Generally managed with submaximal doses of gabapentin. Since she reports most of the discomfort at night I suggested her to discuss with prescribing doctor consideration for increasing bedtime dose from 800 mg to 1200 mg. She may benefit additionally from regular meditation/relaxation, CBT, DNRS, acupuncture, acupressure, positive imagery etc. Assessment & Plan (03/16/2022 12:10 PM EDT): Generally managed with submaximal doses of gabapentin. Since she reports most of the discomfort at night I suggested her to discuss with prescribing doctor consideration for increasing bedtime dose from 800 mg to 1200 mg. She may benefit additionally from regular meditation/relaxation, CBT, DNRS, acupuncture, acupressure, positive imagery etc. Assessment & Plan (02/26/2021 9:28 AM EDT): Generally managed with submaximal doses of gabapentin. Since she reports most of the discomfort at night I suggested her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 up-to-date with age-appropriate screenings and preventive strategies. Daily sun protection all year round. Call if questions or problems. Assessment & Plan (12/04/2021 10:43 AM EST): Carefully continue Plaquenil as prescribed and follow with chair caner as scheduled at least once every 12 months. Balance rest and activity. Avoid sick contacts. Keep up-to-date with age-appropriate screenings and preventive strategies. Daily sun protection all year round. Call if questions or problems. Assessment & Plan (09/04/2021 2:40 PM EST): Carefully continue Plaquenil as prescribed and follow with chair caner as scheduled at least once every 12 months. Balance rest and activity. Avoid sick contacts. Keep up-to-date with age-appropriate screenings and preventive strategies. Daily sun protection all year round. Call if questions or problems. Assessment & Plan (06/05/2021 11:29 AM EDT): Carefully continue Plaquenil as prescribed and follow with chair caner as scheduled at least once every 12 months. Balance rest and activity. Avoid sick contacts. Keep up-to-date with age-appropriate screenings and preventive strategies. Daily sun protection all year round. Call if questions or problems. Assessment & Plan (04/09/2021 9:58 AM EDT): Carefully continue Plaquenil as prescribed and follow with chair caner as scheduled at least once every 12 months. Balance rest and activity. Avoid sick contacts. Keep up-to-date with age-appropriate screenings and preventive strategies. Daily sun protection all year round. Call if questions or problems. Assessment & Plan (02/26/2021 9:24 AM EDT): Carefully continue Plaquenil as prescribed and follow with chair caner as scheduled at least once every 12 months. Balance rest and activity. Avoid sick contacts. Keep up-to-date with age-appropriate screenings and preventive strategies. Daily sun protection all year round. Call if questions or problems. Assessment & Plan (12/04/2020 9:11 AM EST): Carefully continue Plaquenil as prescribed and follow with chair caner as scheduled at least once every 12 months. Balance rest and activity. Avoid sick contacts. Keep up-to-date with age-appropriate screenings and preventive strategies. Daily sun protection all year round. Call if questions or problems. Assessment & Plan (09/30/2020 8:12 PM EST): Carefully continue Plaquenil as prescribed and follow with chair caner as scheduled at least once every 12 months. Balance rest and activity. Avoid sick contacts. Keep up-to-date with age-appropriate screenings and preventive strategies. Daily sun protection all year round. Call if questions or problems. Assessment & Plan (04/21/2020 10:27 AM EDT): Based on her clinical examination and recent history there are no significant signs of active inflammation however I took the liberty of getting a new set of lab work to make sure that there are no subclinical abnormalities requiring specific attention. Balance rest and activity. Avoid sick contacts. Keep up-to-date with age-appropriate screenings and preventive strategies. Carefully continue Plaquenil as prescribed and follow with chair caner as scheduled at least once every 12 months. Daily sun protection all year round. Assessment & Plan (12/31/2019 3:05 PM EDT): Based on her clinical examination and recent history there are no significant signs of active inflammation however I took the liberty of getting a new set of lab work to make sure that there are no subclinical abnormalities requiring specific attention. Balance rest and activity. Avoid sick contacts. Keep up-to-date with age-appropriate screenings and preventive strategies. Carefully continue Plaquenil as prescribed and follow with chair caner as scheduled at least once every 12 months. Daily sun protection all year round. Assessment & Plan (10/02/2019 7:29 PM EST): Based on her clinical examination and recent history there are no significant signs of active however I took the liberty of getting a new set of lab work to make sure that there are no subclinical abnormalities requiring specific attention. Balance rest and activity. Avoid sick contacts. Keep up-to-date with age-appropriate screenings and preventive strategies. Carefully continue Plaquenil as prescribed and follow with chair caner as scheduled at least once every 12 months. Daily sun protection all year round. Allergy to shellfish 09/30/2017 Overview (02/06/2018): swelling Allergy to mold 09/30/2017 Overview (02/06/2018): congested Resolved Problems Problem Noted Date Diagnosed Date Resolved Date Age-related osteoporosis wit hout current pathological fracture 06/05/2021 06/05/2021 Osteopenia of hip 06/05/2021 03/16/2022 Assessment & Plan (06/16/2021 3:47 PM EDT): Daily weightbearing exercises 45-60 minutes. Fall and fracture prevention strategies. She is afraid of injectable bone preserving medications and took Fosamax for longer than 5 years. Interval bone density requested to make sure that she does not require additional bone preserving therapy. Chronic tension-type headach e, not intractable 09/30/2017 12/14/2023 Assessment & Plan (03/16/2022 12:09 PM EDT): Proper hydration. Sleep hygiene. Continue migraine medications exactly as prescribed by her neurologist. Keep a diary of migraine headaches and modifying factors to review upcoming visit with neurologist as scheduled. Call if problems or questions. Assessment & Plan (06/05/2021 11:32 AM EDT): Proper hydration. Sleep hygiene. Continue migraine medications exactly as prescribed by her neurologist. Keep a diary of migraine headaches and modifying factors to review upcoming visit with neurologist as scheduled. Call if problems or questions. Assessment & Plan (04/20/2021 8:37 AM EDT): Proper hydration. Sleep hygiene. Continue migraine medications exactly as prescribed by her neurologist. Keep a diary of migraine headaches and modifying factors to review upcoming visit with neurologist as scheduled. Call if problems or questions. Assessment & Plan (04/21/2020 10:29 AM EDT): Continue medications as prescribed and close follow-up with treating neurologist as scheduled Assessment & Plan (12/05/2019 10:33 AM EST): Continue medications as prescribed and close follow-up with treating neurologist as scheduled Assessment & Plan (10/02/2019 7:30 PM EST): Continue medications as prescribed and close follow-up with treating neurologist as scheduled Essential hypertension 09/30/201704/21 Mild intermittent asthma without complication 09/30/20 17 11/08/2017 Encounters Date Type Department Care Team Description 04/24/2025 10:00 AM EDT Office Visit [facility] Rheumatology [address] [place] [address] Francisca Tony MD Systemic lupus erythematosus with organ system involvement (Primary Dx); Raynaud's disease without gangrene; Long-term use of Plaquenil; Age-related osteoporosis without current pathological fracture; Primary osteoarthritis involving multiple joints; Gastroesophageal reflux disease without esophagitis; Aspirin long-term use; Small fiber neuropathy; On statin therapy; NSAID long-term use 04/24/2025 9:04 AM EDT - 04/24/2025 11:59 PM EDT Hospital Encounter [facility] Laboratory [address] [place] [address] Francisca Tony MD Discharge Disposition: Home or Self Care 03/01/2025 Orders Only [facility] Health Info Management Virtual Department [address] [place] [address] ProviderRemi MD from Last 3 Months Immunizations Immunization Administration Dates Next Due INFLUENZA, SPLIT VIRUS, TRIVALENT PF 07/04/2020, 06/18/2016 INFLUENZA, SPLIT VIRUS, TRIV ALENT W/ PRESERVATIVE IM 06/07/2021,06/24/2017,06/30/2016,07/06,06/19/2014,06/24/2011,07/05/2010 Influenza High-Dose Quadriva lent Preservative Free IM 06/14/2023,06/09/2022 Influenza, Unspecified Formulation 06/18/2019, PPD Test 01/04/2018 Pneumococcal conjugate PCV13 06/25/2018 Pneumococcal polysaccharide PPSV23 07/31/2019, Tdap 05/21/2015 Zoster live 03/31/2016 Zoster recombinant 07/02/2019,05/01/2019 Family History Medical History Relation Comments No Known Problems Brother No Known Problems Daughter 1 No Known Problems Daughter 2 Heart disease Father Lung cancer Father Lung cancer Mother Depression Sister 2 No Known Problems Sister 3 Relation Status Comments Brother Alive Daughter 1 Alive Daughter 2 Alive Father (Age 54) Mother (Age 82) Sister 1 (Age 54) Sister 2 Alive Sister 3 Alive Social History Tobacco Use Types Packs/Day Years Used Date Smoking Tobacco: Former Cigarettes 1 14 1 980 - 02/21/1993 Passive Smoke Exposure: Current Smokeless Tobacco: Never Tobacco Cessation:Counseling Given: Not Answered Comments:off and on Alcohol Use Standard Drinks/Week Comments Yes 0 (1 standard drink = 0.6 oz pur e alcohol) couple times a year Education Answer Date Recorded Are you interested in more education? Not on annette e 02/18/2023 Are you concerned about learning? Not on file 02/18/2023 No 02/18/2023 No 02/18/2023 Digital Access Answer Date Recorded No 03/17/2023 No 03/17/2023 Reliable internet access at home? Not on file 03/17/2023 Device with a working camera? Not on file Intimate Partner Violence Answer Date R ecorded Denied Basic Needs Not on file 02/04/2023 In the past 12 months have y ou been in a relationship with a person who hurts, threatens, or tries to control you? No 02/04/2023 Worried food would run out Not on file 02/04 In the past 12 months have y ou been in a relationship with a person who hurts, threatens, or tries to control you? No 02/04/2023 Comments Unknown Sex and Gender Information Value Date Recorded Sex Assigned at Not on file Legal Sex Female 9:59 PM EDT Gender Identity Not on file Sexual Orientation Not on file Last Filed Vital Signs Vital Sign Reading Time Taken Comments Blood Pressure 102/64 04/24/2025 10:04 AM EDT Pulse 81 04/24/2025 10:04 AM EDT Temperature 36.4 C (97.5 F) 07/20/2023 10:30 AM EDT Respiratory Rate 16 12/08/2023 11:2 7 AM EST Oxygen Saturation 99% 04/24/2025 10: 04 AM EDT Inhaled Oxygen Concentration - - Weight 55.7 kg (122 lb 12.8 oz) 025 10:04 AM EDT Height 152.4 cm (5') 04/24/2025 10:04 AM EDT Body Mass Index 23.98 04/24/2025 10:04 AM EDT Plan of Treatment Upcoming Encounters Date Type Department Care Team (Late st Contact Info) Description 08/26/2025 10:00 AM EST Office Visit [facility] Rheumatology [address] [place] [address] Francisca Tony MD [address] [facility], [address] [place] [address] [email or web address] Health Maintenance Due Date Last Done Comments COLOGUARD 1997 FIT TEST 1997 FOBT 1997 SIGMOIDOSCOPY 1997 VIRTUAL COLONOSCOPY 1997 FOLLOW UP BONE DENSITY TESTING 12/08/2023 12/08/2021, 08/17/2019, 07/24/2013 TSH LEVEL 08/12/2024 08/12/2023, 05/24, 08/24/2021, Additional history exists DEPRESSION SCREENING 12/08/2024 12/08/2023, 12/08/19 24 COVID-19 VACCINE ( season) 2024 06/29/2024, 08/04/2023, 05/28/2023, Additional history exists MAMMOGRAM 12/08/2025 12/08/2023, 11/24, 08/17/2019, Additional history exists LIPID PANEL 02/05/2028 02/04/2023, 07/25, 08/13/2022, Additional history exists COLONOSCOPY 07/06/2033 07/06/2023, 10/19/2012 COLORECTAL CANCER SCREENING 07/06/2033 Adult Td,Tdap Booster 01/29/2035 01/29/2025, 015 PNEUMOCOCCAL VACCINES (50+ years) Completed 07/31/2019, 06/25/2018, 09/20/2012 HEPATITIS C SCREENING Completed 08/01/2019, 019 OSTEOPOROSIS SCREENING INITIAL (ONE-TIME) Completed 12/08/2021, 08/17/2019, 07/24/2013 RSV VACCINE Completed 12/26/2023 ZOSTER VACCINES Completed 12/30/2023, 0906/2019, 05/01/2019, Additional history exists SMOKING STATUS SCREENING (Once After 26 Yrs) Completed 04/24/2025 HEPATITIS A VACCINES Aged Out No long er eligible based on patient's age to complete this topic HIB VACCINES Aged Out No longer eligi ble based on patient's age to complete this topic MENINGOCOCCAL VACCINES (ACWY) Aged Out No longer eligible based on patient's age to complete this topic MENINGOCOCCAL VACCINES (B) Aged Out N o longer eligible based on patient's age to complete this topic Medical Devices Not on file Procedures Procedure Name Priority Date/Time Associated Diagnosis Comments TOTAL PROTEIN CREATININE RATIO, RANDOM URINE Routine 04/24/2025 11:05 AM EDT Systemic lupus erythematosus with organ system involvement Long-term use of Plaquenil COMPREHENSIVE METABOLIC PANEL Routine 04/24/2025 9:22 AM EDT Systemic lupus erythematosus with organ system involvement Long-term use of Plaquenil C-REACTIVE PROTEIN Routine 04/24/2025 9: 22 AM EDT Systemic lupus erythematosus with organ system involvement Long-term use of Plaquenil SEDIMENTATION RATE (ESR) Routine 04/24/2025 9:22 AM EDT Systemic lupus erythematosus with organ system involvement Long-term use of Plaquenil CBC AND DIFFERENTIAL Routine 04/24/2025 9:22 AM EDT Systemic lupus erythematosus with organ system involvement Long-term use of Plaquenil COMPLEMENT C3 Routine 04/24/2025 9:22 AM EDT Systemic lupus erythematosus with organ system involvement Long-term use of Plaquenil COMPLEMENT C4 Routine 04/24/2025 9:22 AM EDT Systemic lupus erythematosus with organ system involvement Long-term use of Plaquenil CPK (CREATINE KINASE) Routine 04/24/2025 9:22 AM EDT Systemic lupus erythematosus with organ system involvement Long-term use of Plaquenil DOUBLE STRANDED DNA ANTIBODIES Routine 04/24/2025 9:22 AM EDT Systemic lupus erythematosus with organ system involvement Long-term use of Plaquenil BI MAMMOGRAM SCREENING (BILATERAL) Routine 12/08/2023 12:00 PM EST Encounter for screening mammogram for malignant neoplasm of breast TSH WITH REFLEX Routine 08/12/2023 11:20 AM EDT Acquired hypothyroidism HM COLONOSCOPY FOR RESULT ENTRY ONLY Routine 07/06/2023 LIPID PANEL Routine 02/04/2023 10:10 AM EDT Mixed hyperlipidemia OUTSIDE BONE DENSITY SCREENING Routine 12/08/2021 HEPATITIS C ANTIBODY, QUALITATIVE Routine 08/01/2019 9:35 AM EDT Routine general medical examination at a health care facility from Last 3 Months or Most Recently Relevant to Health Maintenance Results * TOTAL PROTEIN CREATININE RATIO, RANDOM URINE (04/24/2025 11:05 AM EDT) Pathologist [facility] URINE TOTAL PROTEIN 5.0 mg/dL [facility] URINE CREATININE 35 mg/dL [facility] URINE TP CRE RATIO 0.14 0 - 0.19 [facility] Urine (Urine) 04/24/2025 11: 05 AM EDT 04/24/2025 11:06 AM EDT us Francisca Tony MD URINE ORDERABLES Final R esult Performing Organization Address City/State/[facility] Co de Phone Number [facility] [address], [place] [id number] * Comprehensive metabolic panel (04/24/2025 9:22 AM EDT) Pathologist [facility] SODIUM 135 133 - 146 mmol/L [facility] POTASSIUM 4.4 3.3 - 5.1 mmol/L [facility] CHLORIDE 102 96 - 108 mmol/L [facility] CO2 25 21 - 35 mmol/L [facility] BUN 15 6 - 19 mg/dL [facility] CREATININE 0.90 0.5 - 1.5 mg/dL [facility] GLUCOSE 99 70 - 99 mg/dL [facility] ALBUMIN 4.2 3.9 - 4.8 g/dL [facility] TOTAL PROTEIN 7.5 6.5 - 8.0 g/dL [facility] CALCIUM 10.3 8.4 - 10.3 mg/dL [facility] ALKALINE PHOSPHATASE 97 39 - 117 U/L [facility] TOTAL BILIRUBIN <0.2 0.0 - 1.2 mg/dL [facility] AST 26 0 - 37 U/L [facility] ALT 15 0 - 40 U/L [facility] GLOBULIN 3.3 1 - 4.8 g/dL [facility] EGFR 68 >59 mL/min/1.7 3m2 [facility] Comment:Estimated glomerular filtration rate calculated using the CKD-EPI refit equation. ANION GAP 12 10 - 20 mmol/L [facility] Blood 04/24/2025 9:22 AM EDT 04/24/2025 9:36 AM EDT Francisca Tony MD LAB BLOOD ORDERABLES Fin al Result Performing Organization Address [facility] Co de Phone Number [address] [address] * Double stranded DNA antibodies (04/24/2025 9:22 AM EDT) ANTI DSDNA ANTIBODY Negative at 1:10 [facility] Comment: Performing Physician, Bunny Patiño M.D., [id number] Normal: Negative at 1:10 To interpret a negative test for anti-[place] or double stranded DNA antibodies in a patient suspected of having systemic lupus erythematosus, the following limitation should be noted. Anti-double stranded DNA antibodies are usually detected in SLE patients with active disease, especially in those with active renal disease. Anti-DNA antibodies are usually not detected in SLE patients with spontaneous or drug-induced remissions. Blood 04/24/2025 9:22 AM EDT 04/24/2025 9:36 AM EDT us Francisca Tony MD LAB BLOOD ORDERABLES Fin al Result [address] [address] * Sedimentation rate (ESR) (04/24/2025 9:22 AM EDT) ESR 12 0 - 30 mm/h [facility] Blood 04/24/2025 9:22 AM EDT 04/24/2025 9:36 AM EDT us Francisca Tony MD LAB BLOOD ORDERABLES Fin al Result [facility] [address], [place] [id number] * (ABNORMAL) CBC and differential (04/24/2025 9:22 AM EDT) WBC 7.45 4.00 - 11.00 K/uL [facility] RBC 3.70(L) 4.00 - 5.20 M/uL [facility] HGB 10.7(L) 12.0 - 16.0 g/dL [facility] HCT 34.2(L) 36.0 - 46.0 % [facility] PLT 266 150 - 450 K/uL [facility] MCV 92.4 80.0 - 100.0 fL [facility] MCH 28.9 27.0 - 31.0 pg [facility] MCHC 31.3(L) 32.0 - 36.0 g/dL [facility] RDW 14.8(H) 11.5 - 14.5 % [facility] MPV 9.3 8.4 - 12.0 fL [facility] NRBC 0.00 0.00 /100 WBCs [facility] ABSOLUTE NRBC 0.00 0.00 K/uL [facility] DIFF METHOD Auto [facility] NEUTS 68.7 48.0 - 76.0 % [facility] LYMPHS 19.9 18.0 - 41.0 % [facility] MONOS 9.5 4.0 - 11.0 % [facility] EOS 1.1 0.0 - 5.0 % [facility] BASOS 0.4 0.0 - 1.5 % [facility] Granulocytes, immature (%) 0.4 0.0 - 0.9 % [facility] ABSOLUTE NEUTS 5.12 1.92 - 7.60 K/uL [facility] ABSOLUTE LYMPHS 1.48 0.72 - 4.10 K/uL [facility] ABSOLUTE MONOS 0.71 0.16 - 1.10 K/uL [facility] ABSOLUTE EOS 0.08 0.00 - 0.50 K/uL [facility] ABSOLUTE BASOS 0.03 0.00 - 0.15 K/uL [facility] Granulocytes, immature 0.03 0.00 - 0.09 K/uL [facility] Blood 04/24/2025 9:22 AM EDT 04/24/2025 9:36 AM EDT us Francisca Tony MD LAB BLOOD ORDERABLES Fin al Result [facility] [address] [place] [address] * Complement C3 (04/24/2025 9:22 AM EDT) C3 150 81 - 157 mg/dl [facility] Blood 04/24/2025 9:22 AM EDT 04/24/2025 9:36 AM EDT Francisca Tony MD LAB BLOOD ORDERABLES Fin al Result Performing Organization Address City/[facility] Co de Phone Number [address] [address] * Complement C4 (04/24/2025 9:22 AM EDT) C4 32 12 - 39 mg/dL [facility] Blood 04/24/2025 9:22 AM EDT 04/24/2025 9:36 AM EDT Francisca Tony MD LAB BLOOD ORDERABLES Fin al Result [address] [address] * (ABNORMAL) C-Reactive Protein (04/24/2025 9:22 AM EDT) C REACTIVE PROTEIN 6.3(H) 0.0 - 4.0 mg/L [facility] Blood 04/24/2025 9:22 AM EDT 04/24/2025 9:36 AM EDT Francisca Tony MD LAB BLOOD ORDERABLES Fin al Result Performing Organization Address [facility]/ZIP Co de Phone Number [address] [address] * (ABNORMAL) CPK (creatine kinase) (04/24/2025 9:22 AM EDT) CREATINE KINASE 231(H) 21 - 215 U/L [facility] Blood 04/24/2025 9:22 AM EDT 04/24/2025 9:36 AM EDT Francisca Tony MD LAB BLOOD ORDERABLES Fin al Result Performing Organization Address [facility] de Phone Number [address] [address] * (ABNORMAL) TSH with reflex (08/12/2023 11:20 AM EDT) TSH 5.03(H) 0.27 - 4.20 uIU/mL [facility] Blood 08/12/2023 11:2 0 AM EDT 08/12/2023 11:23 AM EDT us Ashley Pichardo NP LAB BLOOD ORDERABLES Final R esult Performing Organization Address [facility]/ZIP Co de Phone Number [address] [address] * HM COLONOSCOPY FOR RESULT ENTRY ONLY (07/06/2023) us Historical Provider HEALTH MAINTENANCE Edited Result - Final * (ABNORMAL) Lipid panel (02/04/2023 10:10 AM EDT) HDL 76 mg/dL [facility] Comment: Interpretation <40 mg/dL: Low HDL cholesterol (major risk factor for CHD) Greater than or equal to 60 mg/dL: High HDL cholesterol ( negative risk factor for CHD) HDL - cholesterol is affected by a number of factors, e.g. smoking, excerise, hormones, sex and age. CHOLESTEROL 188 0 - 240 mg/dL [facility] TRIGLYCERIDES 130 30 - 160 mg/dL [facility] LDL 86 50 - 129 mg/dL [facility] Comment: LDL levels in terms of risk for coronary heart disease: <100 mg/dL: Optimal 100-129 mg/dL: Near or above optimal 130-159 mg/dL: Borderline high 160-189 mg/dL: High >190 mg/dL: Very High CARDIAC RISK RATIO 2.5(L) 3.3 - 4.4 C [facility] Blood 02/04/2023 10:1 0 AM EDT 02/04/2023 10:13 AM EDT Isadora Contreras NP LAB BLOOD ORDERABLES Final Resu lt Performing Organization Address City/[facility]/ZIP Co de Phone Number [address] [address] * OUTSIDE BONE DENSITY SCREENING (12/08/2021) Pathologist [facility] BONE DENSITY SCREENING - EXTERNAL osteoporosis Historical Provider HEALTH MAINTENANCE Final Result * HM MAMMOGRAPHY FOR RESULT ENTRY ONLY (12/08/2021) Historical Provider HEALTH MAINTENANCE Edited Result - Final * Hepatitis C antibody, qualitative (08/01/2019 9:35 AM EDT) HCV NON-REACTIV E NON-REACTI VE [facility] Blood 08/01/2019 9:35 AM EDT 08/01/2019 9:38 AM EDT Isadora Contreras NP LAB BLOOD ORDERABLES Final Resu lt Performing Organization Address City/[facility]/ZIP Co de Phone Number [address] [address] from Last 3 Months or Most Recently Relevant to Health Maintenance Insurance MEDICARE REPLACEMENT MEDICARE REPLACEMENT MEDICARE REPLACEMENT MEDICARE REPLACEMENT MEDICARE REPLACEMENT MEDICARE REPLACEMENT Care Teams Patient Accounts Clerk Relationship Specialty Start Date End Date Ricardo You MD [address] [place] [address] PCP - General Family Medicine 06/18/24 Additional Source Comments The information contained in this document represents components of the legal health record. It is not the complete legal health record.[facility]
--- OUTSIDE RECORDS SUMMARY | 2025-05-29 14:31 | XMS_ITS | Patient Health Record ---
Author Organization [facility] Address [address] [place] [id number] Care Team Providers Care Cyber Special Agent Name Role Phone Eric Chester Unavailable [phone] Reason For Referral No Information Plan Of Treatment No Information
[2025-05-29 14:36] VITALS: BP 122/67; BP 151/81
[2025-05-29 14:37] VITALS: BP 154/70
== END 2025-05-29 15:12 | disposition home or self-care (01) ==
LOC: HO.HMCFM 13:58
PROVIDERS: PCP Family Medicine; Visit Provider Family Medicine
DX: R55 Syncope and collapse (principal); I95.1 Orthostatic hypotension; Z91.81 History of falling; R42 Dizziness and giddiness; I10 Essential (primary) hypertension; N94.89 Other specified conditions associated with female genital organs and menstrual cycle; D64.9 Anemia, unspecified; S06.0X0A Concussion without loss of consciousness, initial encounter

== ENCOUNTER → 2025-05-29 13:57 | Outpatient (BNVA) | payer OTHER, SELFPAY | PROVIDERS: PCP Family Medicine; Visit Provider Family Medicine | DX: I73.00 Raynaud's syndrome without gangrene (principal); E06.3 Autoimmune thyroiditis; G43.909 Migraine, unspecified, not intractable, without status migrainosus; R42 Dizziness and giddiness; I10 Essential (primary) hypertension; I95.1 Orthostatic hypotension; N94.89 Other specified conditions associated with female genital organs and menstrual cycle; D64.9 Anemia, unspecified; S06.0X0A Concussion without loss of consciousness, initial encounter; X58.XXXA Exposure to other specified factors, initial encounter; Y93.9 Activity, unspecified; Y92.9 Unspecified place or not applicable; Y99.9 Unspecified external cause status; Z91.81 History of falling | CPT/HCPCS: 99212 ==

== ENCOUNTER 2025-06-05 08:28 | Outpatient (AMB) | payer OTHER, SELFPAY ==
--- OUTSIDE RECORDS SUMMARY | 2025-06-05 08:40 | XMS_ITS | Clinical Summary ---
Author Organization [facility] Address [address] [place] [phone] Phone Care Team Providers Care Telecom Coordinator Name Role Phone Ricardo You MD Primary Care Provider Allergies Active Allergy Reactions Criticality Noted Date Comments Horne Other (See Comments) 09/30/2017 sick to stomach Mold Other 09/30/2017 Metal Shellfish Derived Soy Diarrhea Medium 10/07/2017 [id number] Other (See Comments) 09/30 Sugar substitutes-sick to [...] not have fracture there. She went to [facility] radiology and I was paged at 12:55 [...] in talk therapy once weekly with [facility] counselor Kristy Lomeli-will not make any more [...] care. She will continue talk therapy with [facility] counselor 1 x a week. Suicide hotline [...] Take exactly as prescribed. Follow closely with passenger attendant at least every 12 months-she is due for yearly checkup later in spring 2024. Daily sun protection all year round. Assessment & Plan (01/15/2025 4:31 PM EDT): Take exactly as prescribed. Follow closely with passenger attendant at least every 12 months-she is due for yearly checkup later in spring 2024. Daily sun protection all year round. Assessment & Plan (09/13/2024 11:48 AM EST): Take exactly as prescribed. Follow closely with passenger attendant at least every 12 months. Daily sun protection all year round. Assessment & Plan (06/14/2024 10:42 AM EDT): Take exactly as prescribed. Follow closely with passenger attendant at least every 12 months. Daily sun protection all year round. Assessment & Plan (12/17/2023 7:59 PM EST): Take exactly as prescribed. Follow closely with passenger attendant at least every 12 months. Daily sun protection all year round. Assessment & Plan (08/13/2023 5:53 PM EDT): Take exactly as prescribed. Follow closely with passenger attendant at least every 12 months. Daily sun protection all year round. Assessment & Plan (01/26/2023 9:10 AM EDT): Take exactly as prescribed. Follow closely with passenger attendant at least every 12 months. Daily sun protection all year round. Assessment & Plan (06/21/2022 12:28 PM EDT): Take exactly as prescribed. Follow closely with passenger attendant at least every 12 months. Daily sun protection all year round. Assessment & Plan (03/01/2022 11:12 AM EDT): Take exactly as prescribed. Follow closely with passenger attendant at least every 12 months. Daily sun protection all year round. Assessment & Plan (12/04/2021 10:47 AM EST): Take exactly as prescribed. Follow closely with passenger attendant at least every 12 months. Daily sun protection all year round. Assessment & Plan (09/04/2021 2:46 PM EST): Take exactly as prescribed. Follow closely with passenger attendant at least every 12 months. Daily sun protection all year round. Assessment & Plan (06/05/2021 11:31 AM EDT): Take exactly as prescribed. Follow closely with passenger attendant at least every 12 months. Daily sun protection all year round. Assessment & Plan (04/09/2021 9:57 AM EDT): Take exactly as prescribed. Follow closely with passenger attendant at least every 12 months. Daily sun protection all year round. Assessment & Plan (02/26/2021 9:29 AM EDT): Take exactly as prescribed. Follow closely with passenger attendant at least every 12 months. Daily sun protection all year round. Assessment & Plan (12/04/2020 9:21 AM EST): Take exactly as prescribed. Follow closely with passenger attendant at least every 12 months. Daily sun protection all year round. Assessment & Plan (09/29/2020 12:18 PM EST): Take exactly as prescribed. Follow closely with passenger attendant at least every 12 months. Daily sun protection all year round. Assessment & Plan (04/21/2020 10:31 AM EDT): Take exactly as prescribed. Follow closely with passenger attendant at least every 12 months. Daily sun protection all year round. Assessment & Plan (12/05/2019 10:33 AM EST): Take exactly as prescribed. Follow closely with passenger attendant at least every 12 months. Daily sun protection all year round. Assessment & Plan (10/02/2019 7:38 PM EST): Take exactly as prescribed. Follow closely with passenger attendant at least every 12 months. Daily sun [...] D supplementation. She decided to meet with metal alloy scientist at [facility] in October 2024 and pursue Evenity [...] D supplementation. She decided to meet with metal alloy scientist at [facility] in October 2024 and pursue Evenity [...] D supplementation. She got bone density at [facility] but I do not have the copy [...] D supplementation. She got bone density at [facility] but I do not have the copy [...] D supplementation. She got bone density at [facility] but I do not have the copy [...] supplementation. She is getting bone density at [facility] within the next week. Assessment & Plan [...] from earlier this morning -standing orders in [facility]. Carefully continue Plaquenil as prescribed and follow with passenger attendant as scheduled at least once every 12 months. . Balance rest and activity. Avoid sick contacts. Keep up-to-date with age-appropriate screenings and preventive strategies. Daily sun protection all year round. Call if questions or problems. Assessment & Plan (12/21/2024 11:41 AM EST): Clinically appears stable-new set of lab work requested-standing orders in [facility]. Carefully continue Plaquenil as prescribed and follow with passenger attendant as scheduled at least once every 12 months. She already received yearly influenza vaccination the newest COVID-19 vaccine booster . Balance rest and activity. Avoid sick contacts. Keep up-to-date with age-appropriate screenings and preventive strategies. Daily sun protection all year round. Call if questions or problems. Assessment & Plan (09/13/2024 12:57 PM EST): Clinically appears stable-new set of lab work requested-standing orders in [facility]. Carefully continue Plaquenil as prescribed and follow with passenger attendant as scheduled at least once every 12 months. She already received yearly influenza vaccination the newest COVID-19 vaccine booster . Balance rest and activity. Avoid sick contacts. Keep up-to-date with age-appropriate screenings and preventive strategies. Daily sun protection all year round. Call if questions or problems. Assessment & Plan (06/14/2024 10:52 AM EDT): Clinically appears stable-new set of lab work requested-standing orders in [facility]. Carefully continue Plaquenil as prescribed and follow with passenger attendant as scheduled at least once every 12 [...] continue Plaquenil as prescribed and follow with passenger attendant as scheduled at least once every 12 months. Balance rest and activity. Avoid sick contacts. Keep up-to-date with age-appropriate screenings and preventive strategies. Daily sun protection all year round. Call if questions or problems. Assessment & Plan (08/13/2023 5:51 PM EDT): Carefully continue Plaquenil as prescribed and follow with passenger attendant as scheduled at least once every 12 months. Balance rest and activity. Avoid sick contacts. Keep up-to-date with age-appropriate screenings and preventive strategies. Daily sun protection all year round. Call if questions or problems. Assessment & Plan (01/26/2023 9:09 AM EDT): Carefully continue Plaquenil as prescribed and follow with passenger attendant as scheduled at least once every 12 months. Balance rest and activity. Avoid sick contacts. Keep up-to-date with age-appropriate screenings and preventive strategies. Daily sun protection all year round. Call if questions or problems. Assessment & Plan (06/21/2022 12:27 PM EDT): Carefully continue Plaquenil as prescribed and follow with passenger attendant as scheduled at least once every 12 months. Balance rest and activity. Avoid sick contacts. Keep up-to-date with age-appropriate screenings and preventive strategies. Daily sun protection all year round. Call if questions or problems. Assessment & Plan (03/01/2022 11:09 AM EDT): Carefully continue Plaquenil as prescribed and follow with passenger attendant as scheduled at least once every 12 months. Balance rest and activity. Avoid sick contacts. Keep up-to-date with age-appropriate screenings and preventive strategies. Daily sun protection all year round. Call if questions or problems. Assessment & Plan (12/04/2021 10:43 AM EST): Carefully continue Plaquenil as prescribed and follow with passenger attendant as scheduled at least once every 12 months. Balance rest and activity. Avoid sick contacts. Keep up-to-date with age-appropriate screenings and preventive strategies. Daily sun protection all year round. Call if questions or problems. Assessment & Plan (09/04/2021 2:40 PM EST): Carefully continue Plaquenil as prescribed and follow with passenger attendant as scheduled at least once every 12 months. Balance rest and activity. Avoid sick contacts. Keep up-to-date with age-appropriate screenings and preventive strategies. Daily sun protection all year round. Call if questions or problems. Assessment & Plan (06/05/2021 11:29 AM EDT): Carefully continue Plaquenil as prescribed and follow with passenger attendant as scheduled at least once every 12 months. Balance rest and activity. Avoid sick contacts. Keep up-to-date with age-appropriate screenings and preventive strategies. Daily sun protection all year round. Call if questions or problems. Assessment & Plan (04/09/2021 9:58 AM EDT): Carefully continue Plaquenil as prescribed and follow with passenger attendant as scheduled at least once every 12 months. Balance rest and activity. Avoid sick contacts. Keep up-to-date with age-appropriate screenings and preventive strategies. Daily sun protection all year round. Call if questions or problems. Assessment & Plan (02/26/2021 9:24 AM EDT): Carefully continue Plaquenil as prescribed and follow with passenger attendant as scheduled at least once every 12 months. Balance rest and activity. Avoid sick contacts. Keep up-to-date with age-appropriate screenings and preventive strategies. Daily sun protection all year round. Call if questions or problems. Assessment & Plan (12/04/2020 9:11 AM EST): Carefully continue Plaquenil as prescribed and follow with passenger attendant as scheduled at least once every 12 months. Balance rest and activity. Avoid sick contacts. Keep up-to-date with age-appropriate screenings and preventive strategies. Daily sun protection all year round. Call if questions or problems. Assessment & Plan (09/30/2020 8:12 PM EST): Carefully continue Plaquenil as prescribed and follow with passenger attendant as scheduled at least once every 12 [...] continue Plaquenil as prescribed and follow with passenger attendant as scheduled at least once every 12 [...] continue Plaquenil as prescribed and follow with passenger attendant as scheduled at least once every 12 [...] continue Plaquenil as prescribed and follow with passenger attendant as scheduled at least once every 12 [...] Description 04/24/2025 10:00 AM EDT Office Visit [facility] [address] [place] [address] Francisca Tony MD Systemic lupus erythematosus with organ system involvement (Primary Dx); Raynaud's disease without gangrene; Long-term use of Plaquenil; Age-related osteoporosis without current pathological fracture; Primary osteoarthritis involving multiple joints; Gastroesophageal reflux disease without esophagitis; Aspirin long-term use; Small fiber neuropathy; On statin therapy; NSAID long-term use 04/24/2025 9:04 AM EDT - 04/24/2025 11:59 PM EDT Hospital Encounter [facility] [address] [place] [address] Francisca Tony MD Discharge Disposition: Home or Self Care from Last 3 Months Immunizations Immunization Administration [...] Description 08/26/2025 10:00 AM EST Office Visit [facility] [address] [place] [address] Francisca Tony MD [address] [place] [address], [address] [place] [address] Health Maintenance Due Date Last Done Comments [...] VACCINE Completed 12/26/2023 ZOSTER VACCINES Completed 12/30/2023, 06/2019, 05/01/2019, Additional history exists SMOKING STATUS SCREENING [...] RATIO, RANDOM URINE (04/24/2025 11:05 AM EDT) URINE TOTAL PROTEIN 5.0 mg/dL [facility] URINE CREATININE 35 mg/dL [facility] URINE TP CRE RATIO 0.14 0 - 0.19 [facility] Urine (Urine) 04/24/2025 11: 05 AM EDT 04/24/2025 11:06 AM EDT us Francisca Tony MD URINE ORDERABLES Final R esult [facility] [address] [place], [place] [id number] * Comprehensive metabolic panel (04/24/2025 9:22 AM EDT) SODIUM 135 133 - 146 mmol/L [facility] POTASSIUM 4.4 3.3 - 5.1 mmol/L [facility] CHLORIDE 102 96 - 108 mmol/L [facility] CO2 25 21 - 35 mmol/L [facility] BUN 15 6 - 19 mg/dL [facility] CREATININE 0.90 0.5 - 1.5 mg/dL [facility] GLUCOSE 99 70 - 99 mg/dL [facility] ALBUMIN 4.2 3.9 - 4.8 g/dL [facility] TOTAL PROTEIN 7.5 6.5 - 8.0 g/dL [facility] CALCIUM 10.3 8.4 - 10.3 mg/dL [facility] ALKALINE PHOSPHATASE 97 39 - 117 U/L [facility] TOTAL BILIRUBIN <0.2 0.0 - 1.2 mg/dL [facility] AST 26 0 - 37 U/L [facility] ALT 15 0 - 40 U/L [facility] GLOBULIN 3.3 1 - 4.8 g/dL [facility] EGFR 68 >59 mL/min/1.7 3m2 [facility] Comment:Estimated glomerular filtration rate calculated using the CKD-EPI refit equation. ANION GAP 12 10 - 20 mmol/L [facility] Blood 04/24/2025 9:22 AM EDT 04/24/2025 9:36 AM EDT Francisca Tony MD LAB BLOOD ORDERABLES Fin al Result Performing Organization Address City/[facility] Co de Phone Number [address] [phone] * Double stranded DNA antibodies (04/24/2025 9:22 AM EDT) ANTI DSDNA ANTIBODY Negative at 1:10 [facility] Comment: Performing Physician, Bunny Patiño M.D., [id number] Normal: Negative at 1:10 To interpret a negative test for anti-anvik or double stranded DNA antibodies in a [...] MD LAB BLOOD ORDERABLES Fin al Result [address] [address] * Sedimentation rate (ESR) (04/24/2025 9:22 AM EDT) ESR 12 0 - 30 mm/h [facility] Blood 04/24/2025 9:22 AM EDT 04/24/2025 9:36 AM EDT us Francisca Tony MD LAB BLOOD ORDERABLES Fin al Result [address] [address] * (ABNORMAL) CBC and differential (04/24/2025 9:22 AM EDT) WBC 7.45 4.00 - 11.00 K/uL [facility] RBC 3.70(L) 4.00 - 5.20 M/uL [facility] HGB 10.7(L) 12.0 - 16.0 g/dL [facility] HCT 34.2(L) 36.0 - 46.0 % [facility] PLT 266 150 - 450 K/uL [facility] MCV 92.4 80.0 - 100.0 fL [facility] MCH 28.9 27.0 - 31.0 pg [facility] MCHC 31.3(L) 32.0 - 36.0 g/dL [facility] RDW 14.8(H) 11.5 - 14.5 % [facility] MPV 9.3 8.4 - 12.0 fL [facility] NRBC 0.00 0.00 /100 WBCs [facility] ABSOLUTE NRBC 0.00 0.00 K/uL [facility] DIFF METHOD Auto [facility] NEUTS 68.7 48.0 - 76.0 % [facility] LYMPHS 19.9 18.0 - 41.0 % [facility] MONOS 9.5 4.0 - 11.0 % [facility] EOS 1.1 0.0 - 5.0 % [facility] BASOS 0.4 0.0 - 1.5 % [facility] Granulocytes, immature (%) 0.4 0.0 - 0.9 % [facility] ABSOLUTE NEUTS 5.12 1.92 - 7.60 K/uL [facility] ABSOLUTE LYMPHS 1.48 0.72 - 4.10 K/uL [facility] ABSOLUTE MONOS 0.71 0.16 - 1.10 K/uL [facility] ABSOLUTE EOS 0.08 0.00 - 0.50 K/uL [facility] ABSOLUTE BASOS 0.03 0.00 - 0.15 K/uL [facility] Granulocytes, immature 0.03 0.00 - 0.09 K/uL [facility] Blood 04/24/2025 9:22 AM EDT 04/24/2025 9:36 AM EDT Francisca Tony MD LAB BLOOD ORDERABLES Fin al Result [facility] [address] [place] [address] * Complement C3 (04/24/2025 9:22 AM EDT) C3 150 81 - 157 mg/dl [facility] Blood 04/24/2025 9:22 AM EDT 04/24/2025 9:36 AM EDT Francisca Tony MD LAB BLOOD ORDERABLES Fin al Result [address] [address] * Complement C4 (04/24/2025 9:22 AM EDT) C4 32 12 - 39 mg/dL [facility] Blood 04/24/2025 9:22 AM EDT 04/24/2025 9:36 AM EDT Francisca Tony MD LAB BLOOD ORDERABLES Fin al Result [address] [address] * (ABNORMAL) C-Reactive Protein (04/24/2025 9:22 AM EDT) C REACTIVE PROTEIN 6.3(H) 0.0 - 4.0 mg/L [facility] Blood 04/24/2025 9:22 AM EDT 04/24/2025 9:36 AM EDT us Francisca Tony MD LAB BLOOD ORDERABLES Fin al Result Performing Organization Address City/[facility]/ZIP Co de Phone Number [address] [address] * (ABNORMAL) CPK (creatine kinase) (04/24/2025 9:22 AM EDT) CREATINE KINASE 231(H) 21 - 215 U/L [facility] Blood 04/24/2025 9:22 AM EDT 04/24/2025 9:36 AM EDT Francisca Tony MD LAB BLOOD ORDERABLES Fin al Result Performing Organization Address [facility] Co de Phone Number [address] [address] * (ABNORMAL) TSH with reflex (08/12/2023 11:20 AM EDT) TSH 5.03(H) 0.27 - 4.20 uIU/mL [facility] Blood 08/12/2023 11:2 0 AM EDT 08/12/2023 11:23 AM EDT us Ashley Pichardo NP LAB BLOOD ORDERABLES Final R esult Performing Organization Address [facility] Co de Phone Number [address] [address] * HM COLONOSCOPY FOR RESULT ENTRY ONLY (07/06/2023) us Historical Provider HEALTH MAINTENANCE Edited Result - Final * (ABNORMAL) Lipid panel (02/04/2023 10:10 AM EDT) HDL 76 mg/dL [facility] Comment: Interpretation <40 mg/dL: Low HDL cholesterol (major risk factor for CHD) Greater than or equal to 60 mg/dL: High HDL cholesterol ( negative risk factor for CHD) HDL - cholesterol is affected by a number of factors, e.g. smoking, excerise, hormones, sex and age. CHOLESTEROL 188 0 - 240 mg/dL [facility] TRIGLYCERIDES 130 30 - 160 mg/dL [facility] LDL 86 50 - 129 mg/dL [facility] Comment: LDL levels in terms of risk for coronary heart disease: <100 mg/dL: Optimal 100-129 mg/dL: Near or above optimal 130-159 mg/dL: Borderline high 160-189 mg/dL: High >190 mg/dL: Very High CARDIAC RISK RATIO 2.5(L) 3.3 - 4.4 [facility] Blood 02/04/2023 10:1 0 AM EDT 02/04/2023 10:13 AM EDT Isadora Contreras NP LAB BLOOD ORDERABLES Final Resu lt Performing Organization Address [facility] de Phone Number [address] [address] * OUTSIDE BONE DENSITY SCREENING (12/08/2021) BONE DENSITY SCREENING - EXTERNAL osteoporosis Historical Provider HEALTH MAINTENANCE Final Result * MAMMOGRAPHY FOR RESULT ENTRY ONLY (12/08/2021) Historical Provider HEALTH MAINTENANCE Edited Result - Final * Hepatitis C antibody, qualitative (08/01/2019 9:35 AM EDT) HCV NON-REACTIV E NON-REACTI VE [facility] Blood 08/01/2019 9:35 AM EDT 08/01/2019 9:38 AM EDT Isadora Contreras NP LAB BLOOD ORDERABLES Final Resu lt Performing Organization Address [facility] Co de Phone Number [address] [address] from Last 3 Months or Most Recently Relevant to Health Maintenance [place] [address] [place] [address] MEDICARE REPLACEMENT MEDICARE REPLACEMENT [facility] MEDICARE REPLACEMENT [facility] MEDICARE REPLACEMENT [facility] MEDICARE REPLACEMENT [facility] MEDICARE REPLACEMENT Care Teams Telecom Coordinator Relationship Specialty Start Date End Date Ricardo You MD [address] [place] [address] PCP - General Family Medicine 06/18/24 Additional Source Comments The information contained in this document represents components of the legal health record. It is not the complete legal health record.[facility]
--- OUTSIDE RECORDS SUMMARY | 2025-06-05 08:40 | XMS_ITS | Clinical Summary ---
Author Organization [facility] Address [address] [place] [address] Care Team Providers Care Wrap Checker Name Role Phone Magda Garsia DMD Primary Care Provider [phone] Source Comments PLEASE NOTE, if this patient [...] on file Insurance HE[employer] SAF[employer]Y [place] DENT[place] Care Teams Wrap Checker Relationship Specialty Start Date End Date Magda Garsia DMD [address] [place] [address] PCP - General 07/05/19
--- OUTSIDE RECORDS SUMMARY | 2025-06-05 08:40 | XMS_ITS | Patient Health Record ---
Author Organization [facility] Address [address] [place] [id number] Care Team Providers Care Type Bar And Segment Assembler Name Role Phone Eric Chester Unavailable [phone] Reason For Referral No Information Plan Of Treatment No Information
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
[2025-06-05 09:19] VITALS: BP 129/85; PULSE 82; RESP 12; TEMP 35.9; O2SAT 99; BMI 23.8
== END 2025-06-05 10:23 | disposition home or self-care (01) ==
LOC: HO.HMCFM 08:28
PROVIDERS: PCP Family Medicine; Visit Provider Family Medicine
DX: I10 Essential (primary) hypertension (principal); S06.0X0A Concussion without loss of consciousness, initial encounter; R42 Dizziness and giddiness

== ENCOUNTER → 2025-06-05 08:28 | Outpatient (BNVA) | payer OTHER, SELFPAY | PROVIDERS: PCP Family Medicine; Visit Provider Family Medicine | DX: I10 Essential (primary) hypertension (principal); R42 Dizziness and giddiness; S06.0X0A Concussion without loss of consciousness, initial encounter; X58.XXXA Exposure to other specified factors, initial encounter; Y93.9 Activity, unspecified; Y92.9 Unspecified place or not applicable; Y99.9 Unspecified external cause status; Z79.899 Other long term (current) drug therapy | CPT/HCPCS: 99212 ==

== ENCOUNTER → 2025-06-07 23:59 | Outpatient (BNV) | payer OTHER, SELFPAY | PROVIDERS: PCP Family Medicine; Visit Provider Family Medicine | DX: R42 Dizziness and giddiness (principal); R26.81 Unsteadiness on feet; E78.5 Hyperlipidemia, unspecified | CPT/HCPCS: G0180 ==

== ENCOUNTER → 2025-06-17 13:15 | Outpatient (REF) | payer OTHER, SELFPAY ==
--- NOTE | 2025-06-17 13:18 | HM_ITS ---
Conclusion: 1. Patient was monitored for total period of 2 days 2. Baseline was normal sinus rhythm with average heart of 82 beats per minute 3. No significant pauses noted 4. Occasional PVCs noted with total burden of 0.55% 5. No patient reported events MTDD
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
--- OUTSIDE RECORDS SUMMARY | 2025-06-17 14:34 | XMS_ITS | Clinical Summary ---
Author Organization [facility] Address [address] [place] [phone] Phone Care Team Providers Care Spindle Frame Carver Name Role Phone Ricardo You MD Primary Care Provider Allergies Active Allergy Reactions Criticality Noted Date Comments Horne Other (See Comments) 09/30/2017 sick to stomach Mold Other 09/30/2017 Metal Shellfish Derived Soy Diarrhea Medium 10/07/2017 [id number] Other (See Comments) 09/30 Sugar substitutes-sick to [...] not have fracture there. She went to [facility] radiology and I was paged [...] is in talk therapy once weekly with [facility] counselor Kristy Lomeli-will not make [...] care. She will continue talk therapy with [facility] counselor 1 x a week. Suicide hotline [...] Take exactly as prescribed. Follow closely with fagot heater helper at least every 12 months-she is due for yearly checkup later in spring 2024. Daily sun protection all year round. Assessment & Plan (01/15/2025 4:31 PM EDT): Take exactly as prescribed. Follow closely with fagot heater helper at least every 12 months-she is due for yearly checkup later in spring 2024. Daily sun protection all year round. Assessment & Plan (09/13/2024 11:48 AM EST): Take exactly as prescribed. Follow closely with fagot heater helper at least every 12 months. Daily sun protection all year round. Assessment & Plan (06/14/2024 10:42 AM EDT): Take exactly as prescribed. Follow closely with fagot heater helper at least every 12 months. Daily sun protection all year round. Assessment & Plan (12/17/2023 7:59 PM EST): Take exactly as prescribed. Follow closely with fagot heater helper at least every 12 months. Daily sun protection all year round. Assessment & Plan (08/13/2023 5:53 PM EDT): Take exactly as prescribed. Follow closely with fagot heater helper at least every 12 months. Daily sun protection all year round. Assessment & Plan (01/26/2023 9:10 AM EDT): Take exactly as prescribed. Follow closely with fagot heater helper at least every 12 months. Daily sun protection all year round. Assessment & Plan (06/21/2022 12:28 PM EDT): Take exactly as prescribed. Follow closely with fagot heater helper at least every 12 months. Daily sun protection all year round. Assessment & Plan (03/01/2022 11:12 AM EDT): Take exactly as prescribed. Follow closely with fagot heater helper at least every 12 months. Daily sun protection all year round. Assessment & Plan (12/04/2021 10:47 AM EST): Take exactly as prescribed. Follow closely with fagot heater helper at least every 12 months. Daily sun protection all year round. Assessment & Plan (09/04/2021 2:46 PM EST): Take exactly as prescribed. Follow closely with fagot heater helper at least every 12 months. Daily sun protection all year round. Assessment & Plan (06/05/2021 11:31 AM EDT): Take exactly as prescribed. Follow closely with fagot heater helper at least every 12 months. Daily sun protection all year round. Assessment & Plan (04/09/2021 9:57 AM EDT): Take exactly as prescribed. Follow closely with fagot heater helper at least every 12 months. Daily sun protection all year round. Assessment & Plan (02/26/2021 9:29 AM EDT): Take exactly as prescribed. Follow closely with fagot heater helper at least every 12 months. Daily sun protection all year round. Assessment & Plan (12/04/2020 9:21 AM EST): Take exactly as prescribed. Follow closely with fagot heater helper at least every 12 months. Daily sun protection all year round. Assessment & Plan (09/29/2020 12:18 PM EST): Take exactly as prescribed. Follow closely with fagot heater helper at least every 12 months. Daily sun protection all year round. Assessment & Plan (04/21/2020 10:31 AM EDT): Take exactly as prescribed. Follow closely with fagot heater helper at least every 12 months. Daily sun protection all year round. Assessment & Plan (12/05/2019 10:33 AM EST): Take exactly as prescribed. Follow closely with fagot heater helper at least every 12 months. Daily sun protection all year round. Assessment & Plan (10/02/2019 7:38 PM EST): Take exactly as prescribed. Follow closely with fagot heater helper at least every 12 months. Daily sun [...] D supplementation. She decided to meet with blower feeder dyed raw stock at [facility] in October 2024 and pursue Evenity [...] D supplementation. She decided to meet with blower feeder dyed raw stock at [facility] in October 2024 and pursue Evenity [...] D supplementation. She got bone density at [facility] but I do not have the copy [...] D supplementation. She got bone density at [facility] but I do not have the copy [...] D supplementation. She got bone density at [facility] but I do not have the copy [...] supplementation. She is getting bone density at [facility] within the next week. Assessment & Plan [...] from earlier this morning -standing orders in [facility]. Carefully continue Plaquenil as prescribed and follow with fagot heater helper as scheduled at least once every 12 months. . Balance rest and activity. Avoid sick contacts. Keep up-to-date with age-appropriate screenings and preventive strategies. Daily sun protection all year round. Call if questions or problems. Assessment & Plan (12/21/2024 11:41 AM EST): Clinically appears stable-new set of lab work requested-standing orders in [facility]. Carefully continue Plaquenil as prescribed and follow with fagot heater helper as scheduled at least once every 12 months. She already received yearly influenza vaccination the newest COVID-19 vaccine booster . Balance rest and activity. Avoid sick contacts. Keep up-to-date with age-appropriate screenings and preventive strategies. Daily sun protection all year round. Call if questions or problems. Assessment & Plan (09/13/2024 12:57 PM EST): Clinically appears stable-new set of lab work requested-standing orders in [facility]. Carefully continue Plaquenil as prescribed and follow with fagot heater helper as scheduled at least once every 12 months. She already received yearly influenza vaccination the newest COVID-19 vaccine booster . Balance rest and activity. Avoid sick contacts. Keep up-to-date with age-appropriate screenings and preventive strategies. Daily sun protection all year round. Call if questions or problems. Assessment & Plan (06/14/2024 10:52 AM EDT): Clinically appears stable-new set of lab work requested-standing orders in [facility]. Carefully continue Plaquenil as prescribed and follow with fagot heater helper as scheduled at least once every 12 [...] continue Plaquenil as prescribed and follow with fagot heater helper as scheduled at least once every 12 months. Balance rest and activity. Avoid sick contacts. Keep up-to-date with age-appropriate screenings and preventive strategies. Daily sun protection all year round. Call if questions or problems. Assessment & Plan (08/13/2023 5:51 PM EDT): Carefully continue Plaquenil as prescribed and follow with fagot heater helper as scheduled at least once every 12 months. Balance rest and activity. Avoid sick contacts. Keep up-to-date with age-appropriate screenings and preventive strategies. Daily sun protection all year round. Call if questions or problems. Assessment & Plan (01/26/2023 9:09 AM EDT): Carefully continue Plaquenil as prescribed and follow with fagot heater helper as scheduled at least once every 12 months. Balance rest and activity. Avoid sick contacts. Keep up-to-date with age-appropriate screenings and preventive strategies. Daily sun protection all year round. Call if questions or problems. Assessment & Plan (06/21/2022 12:27 PM EDT): Carefully continue Plaquenil as prescribed and follow with fagot heater helper as scheduled at least once every 12 months. Balance rest and activity. Avoid sick contacts. Keep up-to-date with age-appropriate screenings and preventive strategies. Daily sun protection all year round. Call if questions or problems. Assessment & Plan (03/01/2022 11:09 AM EDT): Carefully continue Plaquenil as prescribed and follow with fagot heater helper as scheduled at least once every 12 months. Balance rest and activity. Avoid sick contacts. Keep up-to-date with age-appropriate screenings and preventive strategies. Daily sun protection all year round. Call if questions or problems. Assessment & Plan (12/04/2021 10:43 AM EST): Carefully continue Plaquenil as prescribed and follow with fagot heater helper as scheduled at least once every 12 months. Balance rest and activity. Avoid sick contacts. Keep up-to-date with age-appropriate screenings and preventive strategies. Daily sun protection all year round. Call if questions or problems. Assessment & Plan (09/04/2021 2:40 PM EST): Carefully continue Plaquenil as prescribed and follow with fagot heater helper as scheduled at least once every 12 months. Balance rest and activity. Avoid sick contacts. Keep up-to-date with age-appropriate screenings and preventive strategies. Daily sun protection all year round. Call if questions or problems. Assessment & Plan (06/05/2021 11:29 AM EDT): Carefully continue Plaquenil as prescribed and follow with fagot heater helper as scheduled at least once every 12 months. Balance rest and activity. Avoid sick contacts. Keep up-to-date with age-appropriate screenings and preventive strategies. Daily sun protection all year round. Call if questions or problems. Assessment & Plan (04/09/2021 9:58 AM EDT): Carefully continue Plaquenil as prescribed and follow with fagot heater helper as scheduled at least once every 12 months. Balance rest and activity. Avoid sick contacts. Keep up-to-date with age-appropriate screenings and preventive strategies. Daily sun protection all year round. Call if questions or problems. Assessment & Plan (02/26/2021 9:24 AM EDT): Carefully continue Plaquenil as prescribed and follow with fagot heater helper as scheduled at least once every 12 months. Balance rest and activity. Avoid sick contacts. Keep up-to-date with age-appropriate screenings and preventive strategies. Daily sun protection all year round. Call if questions or problems. Assessment & Plan (12/04/2020 9:11 AM EST): Carefully continue Plaquenil as prescribed and follow with fagot heater helper as scheduled at least once every 12 months. Balance rest and activity. Avoid sick contacts. Keep up-to-date with age-appropriate screenings and preventive strategies. Daily sun protection all year round. Call if questions or problems. Assessment & Plan (09/30/2020 8:12 PM EST): Carefully continue Plaquenil as prescribed and follow with fagot heater helper as scheduled at least once every 12 [...] continue Plaquenil as prescribed and follow with fagot heater helper as scheduled at least once every 12 [...] continue Plaquenil as prescribed and follow with fagot heater helper as scheduled at least once every 12 [...] continue Plaquenil as prescribed and follow with fagot heater helper as scheduled at least once every 12 [...] Description 04/24/2025 10:00 AM EDT Office Visit [facility] [address] [place] [address] Francisca Tony MD Systemic lupus erythematosus with organ system involvement (Primary Dx); Raynaud's disease without gangrene; Long-term use of Plaquenil; Age-related osteoporosis without current pathological fracture; Primary osteoarthritis involving multiple joints; Gastroesophageal reflux disease without esophagitis; Aspirin long-term use; Small fiber neuropathy; On statin therapy; NSAID long-term use 04/24/2025 9:04 AM EDT - 04/24/2025 11:59 PM EDT Hospital Encounter [facility] [address] [place] [address] Francisca Tony MD Discharge Disposition: Home or [...] Description 08/26/2025 10:00 AM EST Office Visit [facility] [address] [place] [address] Francisca Tony MD [address] [place] [address], [address] [place] [address] [email or web address] Health Maintenance Due Date Last Done Comments [...] AM EDT) URINE TOTAL PROTEIN 5.0 mg/dL [facility] URINE CREATININE 35 mg/dL [facility] URINE TP CRE RATIO 0.14 0 - 0.19 [facility] Urine (Urine) 04/24/2025 11: 05 AM EDT 04/24/2025 11:06 AM EDT us Francisca Tony MD URINE ORDERABLES Final R esult [facility] [address] [place], [place] [id number] * Comprehensive metabolic panel (04/24/2025 9:22 AM EDT) SODIUM 135 133 - 146 mmol/L [facility] POTASSIUM 4.4 3.3 - 5.1 mmol/L [facility] CHLORIDE 102 96 - 108 mmol/L [facility] CO2 25 21 - 35 mmol/L [facility] BUN 15 6 - 19 mg/dL [facility] CREATININE 0.90 0.5 - 1.5 mg/dL [facility] GLUCOSE 99 70 - 99 mg/dL [facility] ALBUMIN 4.2 3.9 - 4.8 g/dL [facility] TOTAL PROTEIN 7.5 6.5 - 8.0 g/dL [facility] CALCIUM 10.3 8.4 - 10.3 mg/dL [facility] ALKALINE PHOSPHATASE 97 39 - 117 U/L [facility] TOTAL BILIRUBIN <0.2 0.0 - 1.2 mg/dL [facility] AST 26 0 - 37 U/L [facility] ALT 15 0 - 40 U/L [facility] GLOBULIN 3.3 1 - 4.8 g/dL [facility] EGFR 68 >59 mL/min/1.7 3m2 [facility] Comment:Estimated glomerular filtration rate calculated using the CKD-EPI refit equation. ANION GAP 12 10 - 20 mmol/L [facility] Blood 04/24/2025 9:22 AM EDT 04/24/2025 9:36 AM EDT Francisca Tony MD LAB BLOOD ORDERABLES Fin al Result Performing Organization Address City/[facility] Co de Phone Number [address] [address] * Double stranded DNA antibodies (04/24/2025 9:22 AM EDT) ANTI DSDNA ANTIBODY Negative at 1:10 [facility] Comment: Performing Physician, Bunny Patiño M.D., [id number] Normal: Negative at 1:10 To interpret a negative test for anti-yakutat or double stranded DNA antibodies in a [...] MD LAB BLOOD ORDERABLES Fin al Result [address] [address] * Sedimentation rate (ESR) (04/24/2025 9:22 AM EDT) ESR 12 0 - 30 mm/h [facility] Blood 04/24/2025 9:22 AM EDT 04/24/2025 9:36 AM EDT us Francisca Tony MD LAB BLOOD ORDERABLES Fin al Result [address] [address] * (ABNORMAL) CBC and differential (04/24/2025 9:22 AM EDT) WBC 7.45 4.00 - 11.00 K/uL [facility] RBC 3.70(L) 4.00 - 5.20 M/uL [facility] HGB 10.7(L) 12.0 - 16.0 g/dL [facility] HCT 34.2(L) 36.0 - 46.0 % [facility] PLT 266 150 - 450 K/uL [facility] MCV 92.4 80.0 - 100.0 fL [facility] MCH 28.9 27.0 - 31.0 pg [facility] MCHC 31.3(L) 32.0 - 36.0 g/dL [facility] RDW 14.8(H) 11.5 - 14.5 % [facility] MPV 9.3 8.4 - 12.0 fL [facility] NRBC 0.00 0.00 /100 WBCs [facility] ABSOLUTE NRBC 0.00 0.00 K/uL [facility] DIFF METHOD Auto [facility] NEUTS 68.7 48.0 - 76.0 % [facility] LYMPHS 19.9 18.0 - 41.0 % [facility] MONOS 9.5 4.0 - 11.0 % [facility] EOS 1.1 0.0 - 5.0 % [facility] BASOS 0.4 0.0 - 1.5 % [facility] Granulocytes, immature (%) 0.4 0.0 - 0.9 % [facility] ABSOLUTE NEUTS 5.12 1.92 - 7.60 K/uL [facility] ABSOLUTE LYMPHS 1.48 0.72 - 4.10 K/uL [facility] ABSOLUTE MONOS 0.71 0.16 - 1.10 K/uL [facility] ABSOLUTE EOS 0.08 0.00 - 0.50 K/uL [facility] ABSOLUTE BASOS 0.03 0.00 - 0.15 K/uL [facility] Granulocytes, immature 0.03 0.00 - 0.09 K/uL [facility] Blood 04/24/2025 9:22 AM EDT 04/24/2025 9:36 AM EDT Francisca Tony MD LAB BLOOD ORDERABLES Fin al Result [facility] [address] [place] [address] * Complement C3 (04/24/2025 9:22 AM EDT) C3 150 81 - 157 mg/dl [facility] Blood 04/24/2025 9:22 AM EDT 04/24/2025 9:36 AM EDT Francisca Tony MD LAB BLOOD ORDERABLES Fin al Result [address] [address] * Complement C4 (04/24/2025 9:22 AM EDT) C4 32 12 - 39 mg/dL [facility] Blood 04/24/2025 9:22 AM EDT 04/24/2025 9:36 AM EDT Francisca Tony MD LAB BLOOD ORDERABLES Fin al Result [address] [address] * (ABNORMAL) C-Reactive Protein (04/24/2025 9:22 AM EDT) C REACTIVE PROTEIN 6.3(H) 0.0 - 4.0 mg/L [facility] Blood 04/24/2025 9:22 AM EDT 04/24/2025 9:36 AM EDT us Francisca Tony MD LAB BLOOD ORDERABLES Fin al Result Performing Organization Address City/[facility]/ZIP Co de Phone Number [address] [address] * (ABNORMAL) CPK (creatine kinase) (04/24/2025 9:22 AM EDT) CREATINE KINASE 231(H) 21 - 215 U/L [facility] Blood 04/24/2025 9:22 AM EDT 04/24/2025 9:36 AM EDT Francisca Tony MD LAB BLOOD ORDERABLES Fin al Result Performing Organization Address [facility] Co de Phone Number [address] [address] * (ABNORMAL) TSH with reflex (08/12/2023 11:20 AM EDT) TSH 5.03(H) 0.27 - 4.20 uIU/mL [facility] Blood 08/12/2023 11:2 0 AM EDT 08/12/2023 11:23 AM EDT us Ashley Pichardo NP LAB BLOOD ORDERABLES Final R esult Performing Organization Address [facility] Co de Phone Number [address] [address] * HM COLONOSCOPY FOR RESULT ENTRY ONLY (07/06/2023) us Historical Provider HEALTH MAINTENANCE Edited Result - Final * (ABNORMAL) Lipid panel (02/04/2023 10:10 AM EDT) HDL 76 mg/dL [facility] Comment: Interpretation <40 mg/dL: Low HDL cholesterol (major risk factor for CHD) Greater than or equal to 60 mg/dL: High HDL cholesterol ( negative risk factor for CHD) HDL - cholesterol is affected by a number of factors, e.g. smoking, excerise, hormones, sex and age. CHOLESTEROL 188 0 - 240 mg/dL [facility] TRIGLYCERIDES 130 30 - 160 mg/dL [facility] LDL 86 50 - 129 mg/dL [facility] Comment: LDL levels in terms of risk for coronary heart disease: <100 mg/dL: Optimal 100-129 mg/dL: Near or above optimal 130-159 mg/dL: Borderline high 160-189 mg/dL: High >190 mg/dL: Very High CARDIAC RISK RATIO 2.5(L) 3.3 - 4.4 C [facility] Blood 02/04/2023 10:1 0 AM EDT 02/04/2023 10:13 AM EDT Isadora Contreras NP LAB BLOOD ORDERABLES Final Resu lt Performing Organization Address [facility] de Phone Number [address] [address] * OUTSIDE BONE DENSITY SCREENING (12/08/2021) BONE DENSITY SCREENING - EXTERNAL osteoporosis Historical Provider HEALTH MAINTENANCE Final Result * MAMMOGRAPHY FOR RESULT ENTRY ONLY (12/08/2021) Historical Provider HEALTH MAINTENANCE Edited Result - Final * Hepatitis C antibody, qualitative (08/01/2019 9:35 AM EDT) HCV NON-REACTIV E NON-REACTI VE [facility] Blood 08/01/2019 9:35 AM EDT 08/01/2019 9:38 AM EDT Isadora Contreras NP LAB BLOOD ORDERABLES Final Resu lt Performing Organization Address [facility] Co de Phone Number [address] [address] from Last 3 Months or Most Recently Relevant to Health Maintenance [place] [address] [place] [address] MEDICARE REPLACEMENT MEDICARE REPLACEMENT [facility] MEDICARE REPLACEMENT [facility] MEDICARE REPLACEMENT [facility] MEDICARE REPLACEMENT [facility] MEDICARE REPLACEMENT Care Teams Spindle Frame Carver Relationship Specialty Start Date End Date Ricardo You MD [address] [place] [address] PCP - General Family Medicine 06/18/24 Additional Source Comments The information contained in this document represents components of the legal health record. It is not the complete legal health record.[facility]
--- OUTSIDE RECORDS SUMMARY | 2025-06-17 14:34 | XMS_ITS | Patient Health Record ---
Author Organization [facility] Address [address] [place] [id number] Care Team Providers Care Board Setter Name Role Phone Eric Chester Unavailable [phone] Reason For Referral No Information Plan Of Treatment No Information
== END ==
LOC: HO.CARD 13:15
PROVIDERS: PCP Family Medicine; Visit Provider Family Medicine
DX: R55 Syncope and collapse (principal)
CPT/HCPCS: 93225

== ENCOUNTER → 2025-06-17 13:18 | Outpatient (BNV) | payer OTHER, SELFPAY | PROVIDERS: PCP Family Medicine; Visit Provider Internal Medicine Cardiovascular Disease | DX: I49.3 Ventricular premature depolarization (principal) | CPT/HCPCS: 93227 ==

== ENCOUNTER 2025-08-06 11:49 | Outpatient (REF) | payer OTHER, SELFPAY ==
--- NOTE | ~2025-08-06 | US_ITS ---
CLINICAL HISTORY: N28.1 - Cyst of kidney, acquired US Renal Comparison: US - US RETROPERITONEAL COMP - 01/11/25 10:51 EDT Findings: Right kidney normal size and echotexture, 10.6 x 5.2 x 4.1 cm length. Left kidney normal size and echotexture, 10.5 x 4.3 x 5.6 cm length. Lower pole anechoic focus with posterior acoustic enhancement, 1 cm; simple cysts. No hydronephrosis of either kidney. Normal color Doppler. The bladder was not imaged on present exam. IMPRESSION: 1. Normal kidneys. This document has been electronically signed by: Tomasz Good MD on 08/07/2025 18:58:16
--- OUTSIDE RECORDS SUMMARY | 2025-08-06 14:31 | XMS_ITS | Encounter Summary ---
Author Organization [facility] Address [address] [place] [address] Care Team Providers Care Senior Technical Support Engineer Name Role Phone Darwin Costa MD Primary Care Provider [phone] Encounter Details Date Type Department Care Team (Late st Contact Info) Description 05/12/2025 Lab Requisition [facility] - Main Lab 299 [facility] [place] [address] Darwin Costa MD [address] [place] [address] Systemic lupus erythematosus, unspecified (CMS/HCC V24, CMS/HCC V28) Social History Tobacco Use Types Packs/Day Years Used Date Smoking Tobacco: Former Smokeless Tobacco: Never Alcohol Use Standard Drinks/Week Comments Yes 0.8 (1 standard drink = 0.6 oz p ure alcohol) Comments Unknown Sex and Gender Information Value Date Recorded Sex Assigned at Not on file Legal Sex Female 2:21 AM EST Gender Identity Not on file Sexual Orientation Not on file documented as of this encounter Plan of Treatment Not on file documented as of this encounter Procedures Procedure Name Priority Date/Time Associated Diagnosis Comments COMPLETE BLOOD COUNT Routine 05/13/2025 7:13 AM EDT Systemic lupus erythematosus, unspecified (CMS/HCC V24, CMS/HCC V28) COMPREHENSIVE METABOLIC PANEL Routine 05/13/2025 7:13 AM EDT Systemic lupus erythematosus, unspecified (CMS/HCC V24, CMS/HCC V28) BASIC METABOLIC PANEL Routine 05/13/2025 7:13 AM EDT Systemic lupus erythematosus, unspecified ([facility] V24, [facility] V28) documented in this encounter Results * (ABNORMAL) Comprehensive metabolic panel (05/13/2025 7:13 AM EDT) Sodium 139 133 - 145 mmol/L LAB CHEMISTRY METHOD 05/13/2025 12:20 PM [facility] Potassium 4.1 3.5 - 5.5 mmol/L LAB CHEMISTRY METHOD 05/13/2025 12:20 PM [facility] Chloride 110 96 - 110 mmol/L LAB CHEMISTRY METHOD 05/13/2025 12:20 PM [facility] CO2 23 21 - 32 mmol/L LAB CHEMISTRY METHOD 05/13/2025 12:20 PM [facility] Anion Gap 6 3 - 11 LAB CHEMISTRY METHOD 05/13/2025 12:20 PM [facility] Glucose 67(L) 70 - 100 mg/dL LAB CHEMISTRY METHOD 05/13/2025 12:20 PM [facility] BUN 19 5 - 25 mg/dL LAB CHEMISTRY METHOD 05/13/2025 12:20 PM [facility] Creatinine 0.83 0.50 - 1.10 mg/dL LAB CHEMISTRY METHOD 05/13/2025 12:20 PM [facility] eGFR 75 >=60 mL/min/1. 73m2 LAB CHEMISTRY METHOD 05/13/2025 12:20 PM [facility] Comment:Calculation based on the Chronic Kidney Disease Epidemiology Collaboration (CKD-EPI) equation refit without adjustment for race. BUN/Creatinine Ratio 22.9 LAB CHEMISTRY METHOD 05/13/2025 12:20 PM [facility] Calcium 9.4 8.5 - 10.5 mg/dL LAB CHEMISTRY METHOD 05/13/2025 12:20 PM EDT [facility] AST (SGOT) 20 10 - 42 unit/L LAB CHEMISTRY METHOD 05/13/2025 12:20 PM [facility] ALT (SGPT) 20 10 - 60 unit/L LAB CHEMISTRY METHOD 05/13/2025 12:20 PM [facility] Alkaline Phosphatase 92 42 - 121 unit/L LAB CHEMISTRY METHOD 05/13/2025 12:20 PM [facility] Total Protein 7.0 6.0 - 8.0 g/dL LAB CHEMISTRY METHOD 05/13/2025 12:20 PM [facility] Albumin 3.6 3.2 - 5.0 g/dL LAB CHEMISTRY METHOD 05/13/2025 12:20 PM [facility] Total Bilirubin 0.2 0.0 - 1.4 mg/dL LAB CHEMISTRY METHOD 05/13/2025 12:20 PM [facility] Blood Venous blood specimen / Unknown Venipuncture / Unknown 05/13/2025 7:13 AM EDT 05/13/2025 9:55 AM EDT us Darwin Costa MD LAB BLOOD ORDERABLES Final Resul t [facility] [address] [place] [address], * (ABNORMAL) Basic metabolic panel (05/13/2025 7:13 AM EDT) Sodium 139 133 - 145 mmol/L LAB CHEMISTRY METHOD 05/13/2025 12:20 PM [facility] Potassium 4.1 3.5 - 5.5 mmol/L LAB CHEMISTRY METHOD 05/13/2025 12:20 PM [facility] Chloride 110 96 - 110 mmol/L LAB CHEMISTRY METHOD 05/13/2025 12:20 PM [facility] CO2 23 21 - 32 mmol/L LAB CHEMISTRY METHOD 05/13/2025 12:20 PM [facility] Anion Gap 6 3 - 11 LAB CHEMISTRY METHOD 05/13/2025 12:20 PM [facility] Glucose 67(L) 70 - 100 mg/dL LAB CHEMISTRY METHOD 05/13/2025 12:20 PM [facility] BUN 19 5 - 25 mg/dL LAB CHEMISTRY METHOD 05/13/2025 12:20 PM [facility] Creatinine 0.83 0.50 - 1.10 mg/dL LAB CHEMISTRY METHOD 05/13/2025 12:20 PM [facility] eGFR 75 >=60 mL/min/1. 73m2 LAB CHEMISTRY METHOD 05/13/2025 12:20 PM [facility] Comment: Calculation based on the Chronic Kidney Disease Epidemiology Collaboration (CKD- EPI) equation refit without adjustment for race. Calculation based on the Chronic Kidney Disease Epidemiology Collaboration (CKD- EPI) equation refit without adjustment for race. BUN/Creatinine Ratio 22.9 LAB CHEMISTRY METHOD 05/13/2025 12:20 PM [facility] Calcium 9.4 8.5 - 10.5 mg/dL LAB CHEMISTRY METHOD 05/13/2025 12:20 PM [facility] Blood Venous blood specimen / Unknown Venipuncture / Unknown 05/13/2025 7:13 AM EDT 05/13/2025 9:55 AM EDT us Darwin Costa MD LAB BLOOD ORDERABLES Final Resul t [facility] [address] [place] [address], * (ABNORMAL) Complete blood count (05/13/2025 7:13 AM EDT) WBC 4.9 4.8 - 10.8 K/mcL LAB HEMETOLOGY METHOD 05/13/2025 10:53 AM [facility] RBC 3.80 3.80 - 4.80 M/[facility] LAB HEMETOLOGY METHOD 05/13/2025 10:53 AM [facility] Hemoglobin 10.4(L) 11.5 - 16.0 g/dL LAB HEMETOLOGY METHOD 05/13/2025 10:53 AM [facility] Hematocrit 34.2(L) 35.0 - 47.0 % LAB HEMETOLOGY METHOD 05/13/2025 10:53 AM [facility] MCV 90.7 79.0 - 98.0 FL LAB HEMETOLOGY METHOD 05/13/2025 10:53 AM [facility] MCH 27.6 27.0 - 32.0 pcg LAB HEMETOLOGY METHOD 05/13/2025 10:53 AM [facility] MCHC 30.4(L) 32.0 - 37.0 g/dL LAB HEMETOLOGY METHOD 05/13/2025 10:53 AM [facility] RDW 15.6(H) 11.0 - 15.0 % LAB HEMETOLOGY METHOD 05/13/2025 10:53 AM [facility] Platelets 299 130 - 400 K/[facility] LAB HEMETOLOGY METHOD 05/13/2025 10:53 AM [facility] MPV 9.3 7.0 - 11.0 FL LAB HEMETOLOGY METHOD 05/13/2025 10:53 AM [facility] NRBC 0.0 <1.0 % LAB HEMETOLOGY METHOD 05/13/2025 10:53 AM [facility] NRBC Absolute 0.00 <0.10 K/[facility] LAB HEMETOLOGY METHOD 05/13/2025 10:53 AM [facility] Blood Venous blood specimen / Unknown Venipuncture / Unknown 05/13/2025 7:13 AM EDT 05/13/2025 9:58 AM EDT Darwin Costa MD LAB BLOOD ORDERABLES Final Resul t [facility] [address] [place] [address], documented in this encounter Visit Diagnoses Diagnosis Systemic lupus erythematosus, unspecified (CMS/HCC V24, CMS/HCC V28) documented in this encounter Care Teams Senior Technical Support Engineer Relationship Specialty Start Date End Date Darwin Costa MD [address] [place] [address] [address] [place] [address] PCP - General Geriatric Medicine 05/08/25 documented as of this encounter
--- OUTSIDE RECORDS SUMMARY | 2025-08-06 14:31 | XMS_ITS | Encounter Summary ---
Author Organization [facility] Address [address] [place] [address] Care Team Providers Care Data Management Engineer Name Role Phone Darwin Costa MD Primary Care Provider [phone] Encounter Details Date Type Department Care Team (Late st Contact Info) Description 05/26/2025 Lab Requisition [facility] - Main Lab 299 [facility] [place] [address] Darwin Costa MD [address] [facility] [address] [place] [address] Systemic lupus erythematosus, unspecified (CMS/HCC V24, CMS/HCC [...] on file documented as of this encounter Visit Diagnoses Diagnosis Systemic lupus erythematosus, unspecified (CMS/HCC V24, CMS/HCC V28) documented in this encounter Care Teams Data Management Engineer Relationship Specialty Start Date End Date Darwin Costa MD [address] [facility] [address] [place], [place] [id number] PCP - General Geriatric Medicine 05/08/25 documented as of this encounter
--- OUTSIDE RECORDS SUMMARY | 2025-08-06 14:31 | XMS_ITS | Encounter Summary ---
Author Organization [facility] Address [address] [place] [address] Care Team Providers Care Lube Worker Name Role Phone Darwin Costa MD Primary Care Provider [phone] Encounter Details Date Type Department Care Team (Latest Contact Info) Description 07/05/2025 Lab Requisition [facility] - Main Lab [address] [place] [id number] Ricardo Arcos MD [address] [phone] Encounter for gynecological examination (general) (routine) without abnormal findings Social History Tobacco Use Types Packs/Day Years [...] Procedure Name Priority Date/Time Associated Diagnosis Comments PAP SMEAR Routine 07/04/2025 12:00 AM EDT Encounter for gynecological examination (general) (routine) without abnormal findings documented in this encounter Results * Pap smear (07/04/2025 12:00 AM EDT) Interpretation Negative for intraepithelial lesion or malignancy [facility] General Categorization Negative 07/09/2025 12:08 PM EDT [facility] Other Findings Atrophy 07/09/2025 12:08 PM [facility] Specimen Adequacy Satisfactory for evaluation [facility] Pap Methodology Liquid Based Pap Test 07/[facility]2025 [facility] Disclaimer Note: This pap test could not be imaged utilizing the [employer] System and required a manual review. The Pap test is a screening test which carries an inherent false negative rate. These test results should be correlated with the patient's clinical findings and history. This Pap test was processed using an automated screening system. Technical cytopathology services provided by [facility], at [address] [place] [address] (CLIA # [id number]/German Fields MD, Hygiene Coordinator.) 07/09/2025 12:08 PM [facility] Console Pap Interpretation Reported 07/09/2025 12:08 PM [facility] Brushing/Spatula Cervix uteri structure / Unknown 07/04/2025 07/05/2025 7:43 AM EDT us Ricardo Arcos MD LAB CYTOLOGY ORDERABLES Final Result [facility] [address] [place] [address], documented in this encounter Visit Diagnoses Diagnosis Encounter for gynecological examination (general) (routine) without abnormal findings documented in this encounter Care Teams Lube Worker Relationship Specialty Start Date End Date Darwin Costa MD 300 [facility] [address] [place] [address] PCP - General Geriatric Medicine 05/08/25 documented as of this encounter
--- OUTSIDE RECORDS SUMMARY | 2025-08-06 14:31 | XMS_ITS | Clinical Summary ---
Author Organization [facility] Address [address] [place] [address] Care Team Providers Care Defensive Line Coach Name Role Phone Magda Garsia DMD Primary [...] on file Insurance [employer] [place] Care Teams Defensive Line Coach Relationship Specialty Start Date End Date Magda Garsia DMD [address] [place] [address] PCP - General 07/05/19
--- OUTSIDE RECORDS SUMMARY | 2025-08-06 14:31 | XMS_ITS | Encounter Summary ---
Author Organization [facility] Address [address] [place] [address] Care Team Providers Care Temp Recruiter Name Role Phone Darwin Costa MD Primary Care Provider [phone] Encounter Details Date Type Department Care Team (Late st Contact Info) Description 05/08/2025 Lab Requisition [facility] - Main Lab 299 [facility] [place] [address] Darwin Costa MD [address] [place] [address] Systemic lupus erythematosus, unspecified (CMS/HCC V24, CMS/HCC V28); Chronic migraine without aura, not intractable, with status migrainosus; Anxiety disorder, unspecified Social History Tobacco Use Types Packs/Day Years [...] Procedure Name Priority Date/Time Associated Diagnosis Comments VITAMIN B12 AND FOLATE Routine 7:49 AM EDT Systemic lupus erythematosus, unspecified (CMS/HCC V24, CMS/HCC V28) Chronic migraine without aura, not intractable, with status migrainosus Anxiety disorder, unspecified COMPLETE BLOOD COUNT Routine 05/08/2025 7:49 AM EDT Systemic lupus erythematosus, unspecified (CMS/HCC V24, CMS/HCC V28) Chronic migraine without aura, not intractable, with status migrainosus Anxiety disorder, unspecified THYROID STIMULATING HORMONE Routine 05/08/2025 7:49 AM EDT Systemic lupus erythematosus, unspecified (CMS/HCC V24, CMS/HCC V28) Chronic migraine without aura, not intractable, with status migrainosus Anxiety disorder, unspecified COMPREHENSIVE METABOLIC PANEL Routine 05/08/2025 7:49 AM EDT Systemic lupus erythematosus, unspecified (CMS/HCC V24, CMS/HCC V28) Chronic migraine without aura, not intractable, with status migrainosus Anxiety disorder, unspecified documented in this encounter Results * Vitamin B12 and folate (05/08/2025 7:49 AM EDT) Vitamin B-12 699 250 - 900 pcg/mL LAB CHEMISTRY METHOD 05/08/2025 12:[address] [facility] Folate 12.8 2.8 - 17.0 ng/ml LAB CHEMISTRY METHOD 05/08/2025 12:[address] [facility] Blood Venous blood specimen / Unknown Venipuncture / Unknown 05/08/2025 7:49 AM EDT 05/08/2025 9:53 AM EDT us Darwin Cosat MD LAB BLOOD ORDERABLES Final Resul t [facility] [address] [place] [address], * (ABNORMAL) Thyroid stimulating hormone (05/08/2025 7:49 AM EDT) TSH 4.14(H) 0.40 - 4.00 mcIU/mL LAB CHEMISTRY METHOD 05/08/2025 12:[address] [facility] Blood Venous blood specimen / Unknown Venipuncture / Unknown 05/08/2025 7:49 AM EDT 05/08/2025 9:53 AM EDT Darwin Costa MD LAB BLOOD ORDERABLES Final Resul t [facility] [address] [place] [address], [place] [phone] * Comprehensive metabolic panel (05/08/2025 7:49 AM EDT) Sodium 137 133 - 145 mmol/L LAB CHEMISTRY METHOD 05/08/2025 12:08 PM [facility] Potassium 4.3 3.5 - 5.5 mmol/L LAB CHEMISTRY METHOD 05/08/2025 12:08 PM [facility] Chloride 106 96 - 110 mmol/L LAB CHEMISTRY METHOD 05/08/2025 12:08 PM [facility] CO2 24 21 - 32 mmol/L LAB CHEMISTRY METHOD 05/08/2025 12:08 PM [facility] Anion Gap 7 3 - 11 LAB CHEMISTRY METHOD 05/08/2025 12:08 PM [facility] Glucose 77 70 - 100 mg/dL LAB CHEMISTRY METHOD 05/08/2025 12:08 PM [facility] BUN 13 5 - 25 mg/dL LAB CHEMISTRY METHOD 05/08/2025 12:08 PM [facility] Creatinine 0.93 0.50 - 1.10 mg/dL LAB CHEMISTRY METHOD 05/08/2025 12:08 PM [facility] eGFR 65 >=60 mL/min/1. 73m2 LAB CHEMISTRY METHOD 05/08/2025 12:08 PM [facility] Comment:Calculation based on the Chronic Kidney Disease Epidemiology Collaboration (CKD-EPI) equation refit without adjustment for race. BUN/Creatinine Ratio 14.0 LAB CHEMISTRY METHOD 05/08/2025 12:08 PM [facility] Calcium 9.2 8.5 - 10.5 mg/dL LAB CHEMISTRY METHOD 05/08/2025 12:08 PM [facility] AST (SGOT) 21 10 - 42 unit/L LAB CHEMISTRY METHOD 05/08/2025 12:08 PM [facility] ALT (SGPT) 15 10 - 60 unit/L LAB CHEMISTRY METHOD 05/08/2025 12:08 PM [facility] Alkaline Phosphatase 91 42 - 121 unit/L LAB CHEMISTRY METHOD 05/08/2025 12:08 PM [facility] Total Protein 6.6 6.0 - 8.0 g/dL LAB CHEMISTRY METHOD 05/08/2025 12:08 PM [facility] Albumin 3.2 3.2 - 5.0 g/dL LAB CHEMISTRY METHOD 05/08/2025 12:08 PM [facility] Total Bilirubin 0.2 0.0 - 1.4 mg/dL LAB CHEMISTRY METHOD 05/08/2025 12:08 PM [facility] Blood Venous blood specimen / Unknown Venipuncture / Unknown 05/08/2025 7:49 AM EDT 05/08/2025 9:53 AM EDT us Darwin Costa MD LAB BLOOD ORDERABLES Final Resul t [facility] [address] [place] [address], * (ABNORMAL) Complete blood count (05/08/2025 7:49 AM EDT) WBC 4.8 4.8 - 10.8 K/mcL LAB HEMETOLOGY METHOD 05/08/2025 11:[address] [facility] RBC 3.70(L) 3.80 - 4.80 M/mcL LAB HEMETOLOGY METHOD 05/08/2025 11:03 AM [facility] Hemoglobin 10.5(L) 11.5 - 16.0 g/dL LAB HEMETOLOGY METHOD 05/08/2025 11:03 AM [facility] Hematocrit 33.3(L) 35.0 - 47.0 % LAB HEMETOLOGY METHOD 05/08/2025 11:03 AM [facility] MCV 89.5 79.0 - 98.0 FL LAB HEMETOLOGY METHOD 05/08/2025 11:03 AM [facility] MCH 28.2 27.0 - 32.0 pcg LAB HEMETOLOGY METHOD 05/08/2025 11:03 AM [facility] MCHC 31.5(L) 32.0 - 37.0 g/dL LAB HEMETOLOGY METHOD 05/08/2025 11:03 AM [facility] RDW 14.7 11.0 - 15.0 % LAB HEMETOLOGY METHOD 05/08/2025 11:03 AM [facility] Platelets 292 130 - 400 K/mcL LAB HEMETOLOGY METHOD 05/08/2025 11:03 AM [facility] MPV 9.0 7.0 - 11.0 FL LAB HEMETOLOGY METHOD 05/08/2025 11:03 AM [facility] NRBC 0.0 <1.0 % LAB HEMETOLOGY METHOD 05/08/2025 11:03 AM [facility] NRBC Absolute 0.00 <0.10 K/mcL LAB HEMETOLOGY METHOD 05/08/2025 11:03 AM [facility] Blood Venous blood specimen / Unknown Venipuncture / Unknown 05/08/2025 7:49 AM EDT 05/08/2025 9:53 AM EDT Darwin Costa MD LAB BLOOD ORDERABLES Final Resul t [facility] [address] [place] [address], documented in this encounter Visit Diagnoses Diagnosis Systemic lupus erythematosus, unspecified (CMS/HCC V24, CMS/HCC V28) Chronic migraine without aura, not intractable, with status migrainosus Anxiety disorder, unspecified documented in this encounter Care Teams Temp Recruiter Relationship Specialty Start Date End Date Darwin Costa MD [address] [facility] [address] [place] [address] PCP - General Geriatric Medicine 05/08/25 documented as of this encounter
--- OUTSIDE RECORDS SUMMARY | 2025-08-06 14:31 | XMS_ITS | Encounter Summary ---
Author Organization [facility] Address [address] [place] [address] Care Team Providers Care Betting Clerks Name Role Phone Darwin Costa MD Primary Care Provider [phone] Encounter Details Date Type Department Care Team (Late st Contact Info) Description 05/18/[address] [facility] - Main Lab 299 [facility] [place] [address] Darwin Costa MD [address] [place] [address] Systemic lupus erythematosus, unspecified (CMS/HCC V24, CMS/HCC [...] Associated Diagnosis Comments COMPLETE BLOOD COUNT Routine 05/20/2025 6:51 AM EDT Systemic lupus erythematosus, unspecified (CMS/HCC V24, CMS/HCC V28) BASIC METABOLIC PANEL Routine 05/20/2025 6:51 AM EDT Systemic lupus erythematosus, unspecified (CMS/HCC V24, CMS/HCC V28) documented in this encounter Results * Basic metabolic panel (05/20/2025 6:51 AM EDT) Sodium 139 133 - 145 mmol/L LAB CHEMISTRY METHOD 05/20/2025 11:[address] [facility] Potassium 4.1 3.5 - 5.5 mmol/L LAB CHEMISTRY METHOD 05/20/2025 11:[address] [facility] Chloride 109 96 - 110 mmol/L LAB CHEMISTRY METHOD 05/20/2025 11:[address] [facility] CO2 26 21 - 32 mmol/L LAB CHEMISTRY METHOD 05/20/2025 11:[address] [facility] Anion Gap 4 3 - 11 LAB CHEMISTRY METHOD 05/20/2025 11:[address] [facility] Glucose 96 70 - 100 mg/dL LAB CHEMISTRY METHOD 05/20/2025 11:[address] [facility] BUN 19 5 - 25 mg/dL LAB CHEMISTRY METHOD 05/20/2025 11:[address] [facility] Creatinine 0.88 0.50 - 1.10 mg/dL LAB CHEMISTRY METHOD 05/20/2025 11:[address] [facility] eGFR 70 >=60 mL/min/1. 73m2 LAB CHEMISTRY METHOD 05/20/2025 11:[address] [facility] Comment:Calculation based on the Chronic Kidney Disease Epidemiology Collaboration (CKD-EPI) equation refit without adjustment for race. BUN/Creatinine Ratio 21.6 LAB CHEMISTRY METHOD 05/20/2025 11:[address] [facility] Calcium 9.6 8.5 - 10.5 mg/dL LAB CHEMISTRY METHOD 05/20/2025 11:[address] [facility] Blood Venous blood specimen / Unknown Venipuncture / Unknown 05/20/2025 6:51 AM EDT 05/20/2025 9:53 AM EDT us Darwin Costa MD LAB BLOOD ORDERABLES Final Resul t [facility] [address] [place] [address], * (ABNORMAL) Complete blood count (05/20/2025 6:51 AM EDT) WBC 5.8 4.8 - 10.8 K/mcL LAB HEMETOLOGY METHOD 05/20/2025 10:26 AM EDT [facility] RBC 3.70(L) 3.80 - 4.80 M/mcL LAB HEMETOLOGY METHOD 05/20/2025 10:[address] [facility] Hemoglobin 10.2(L) 11.5 - 16.0 g/dL LAB HEMETOLOGY METHOD 05/20/2025 10:[address] [facility] Hematocrit 33.3(L) 35.0 - 47.0 % LAB HEMETOLOGY METHOD 05/20/2025 10[facility] MCV 91.0 79.0 - 98.0 FL LAB HEMETOLOGY METHOD 05/20/2025 10:26 [facility] MCH 27.9 27.0 - 32.0 pcg LAB HEMETOLOGY METHOD 05/20/2025 10:26 [facility] MCHC 30.6(L) 32.0 - 37.0 g/dL LAB HEMETOLOGY METHOD 05/20/2025 10:[address] [facility] RDW 15.9(H) 11.0 - 15.0 % LAB HEMETOLOGY METHOD 05/20/2025 10:[address] [facility] Platelets 309 130 - 400 K/mcL LAB HEMETOLOGY METHOD 05/20/2025 10:26 AM EDT [facility] MPV 9.2 7.0 - 11.0 FL LAB HEMETOLOGY METHOD 05/20/2025 10:26 AM EDT [facility] NRBC 0.0 <1.0 % LAB HEMETOLOGY METHOD 05/20/2025 10:26 AM EDT [facility] NRBC Absolute 0.00 <0.10 K/mcL LAB HEMETOLOGY METHOD 05/20/2025 10:26 AM EDT [facility] Blood Venous blood specimen / Unknown Venipuncture / Unknown 05/20/2025 6:51 AM EDT 05/20/2025 9:56 AM EDT Darwin Costa MD LAB BLOOD ORDERABLES Final Resul t [facility] [address] [place] [address], documented in this encounter Visit Diagnoses Diagnosis Systemic lupus erythematosus, unspecified (CMS/HCC V24, CMS/HCC V28) documented in this encounter Care Teams Betting Clerks Relationship Specialty Start Date End Date Darwin Costa MD [address] [place] [address] [address] [place] [address] PCP - General Geriatric Medicine 05/08/25 documented as of this encounter
--- OUTSIDE RECORDS SUMMARY | 2025-08-06 14:31 | XMS_ITS | Clinical Summary ---
Author Organization [address] [facility] Address [address] [place] [address] Phone Care Team Providers Care Loom Stop Checker Name Role Phone Darwin Costa MD Primary Care Provider [phone] Encounters Date Type Department Care Team Description 07/05/2025 Lab Requisition [facility] Lab [address] [place] [phone] Ricardo Arcos MD Encounter for gynecological examination (general) (routine) without abnormal findings 05/26/2025 Lab Requisition [facility] Lab [address] [place] [phone] Darwin Costa MD Systemic lupus erythematosus, unspecified (CMS/HCC V24, CMS/[facility] V28) 05/18/2025 Lab Requisition [facility] Lab [address] [place] [phone] Darwin Costa MD Systemic lupus erythematosus, unspecified (CMS/HCC V24, CMS/[facility] V28) 05/12/2025 Lab Requisition [facility] Lab [address] [place] [phone] Darwin Costa MD Systemic lupus erythematosus, unspecified (CMS/HCC V24, CMS/[facility] V28) 05/08/2025 Lab Requisition [facility] Lab [address] [place] [phone] Darwin Costa MD Systemic lupus erythematosus, unspecified ([facility] V24, [facility] V28); Chronic migraine without aura, not intractable, with status migrainosus; Anxiety disorder, unspecified from Last 3 Months Surgical History Surgery Date Site/Laterality Comments ELBOW SURGERY Bilateral PROCEDURE: HISTORICAL ELBOW SURGERY; COMMENT: for tendonitis ROTATOR CUFF REPAIR -2015 Left PROCEDURE: HISTORICAL ROTATOR CUFF REPAIR CARPAL TUNNEL RELEASE - 2013 Bilateral PROCEDURE: HISTORICAL CARPAL TUNNEL REL Medical History Medical History Date Comments Lupus DX:Lupus Raynaud's disease DX:Raynaud's d isease Najma's disease DX:Najma 's disease Neuropathy DX:Neuropathy Arthritis DX:Arthritis A-fib ([facility] V24, [facility] V28) DX:A-fib ([facility]) IBS (irritable bowel syndrome) D X:IBS (irritable bowel syndrome) Migraines DX:Migraines Chest pain, unspecified 11/07/2012 DX:Chest pain, unspecified Essential hypertension, benign 11/07/2012 D X:Essential hypertension, benign Other and unspecified hyperlipidemia 11/07/2012 DX:Other and unspecified hyperlipidemia Systemic lupus erythematosus ([facility] V24, [facility] V28) 11/07/2012 DX:Systemic lupus erythemato farzaneh ([facility]) Small fiber neuropathy 05/24/2018 DX:Small fiber neuropathy; COMMENT: Sees Dr. Jc Osteoporosis 05/24/2018 DX:Osteoporosis; COMMENT: On Fosamax - Hypothyroid 05/24/2018 DX:Hypothyroid Social History Tobacco Use Types Packs/Day Years Used Date Smoking Tobacco: Former Smokeless Tobacco: Never Alcohol Use Standard Drinks/Week Comments Yes 0.8 (1 standard drink = 0.6 oz p ure alcohol) Comments Unknown Sex and Gender Information Value Date Recorded Sex Assigned at Not on file Legal Sex Female 2:21 AM EST Gender Identity Not on file Sexual Orientation Not on file Obstetrics History Plan of Treatment Health Maintenance Due Date Last Done Comments Breast Cancer Screening 1950 Colorectal Cancer Screening: Colonoscopy 1950 Depression Screening 10/24/2024 Falls Risk Assessment 05/08/2025 Medicare Annual Wellness Visit 05/08/2025 Osteoporosis Screening (Bone Density Screening) 05/08/2025 Social Influencers of Health Screening 05/08/2025 DTaP,Tdap,and Td Vaccines (2 - Td or Tdap) 05/21/2025 05/21/2015 COVID-19 Vaccine (1 - season) 2025 Influenza Vaccine (#1) 2025 , 06/09/2022, 06/07/2021, Additional history exists Hypertension/CHF/CAD Annual BMP Blood Test 05/20/2026 05/20/2025, 05/13/2025, 05/13/2025, Additional history exists RSV Immunization Adult Patients (1 - 1-dose 75+ series) 2027 Cholesterol Screening (Lipid Panel) 02/05/2028 02/04/2023 Zoster Vaccines Completed 07/02/2019, 06/2019, 03/31/2016 Pneumococcal Vaccine: 50+ Years Completed 07/31/2019, 06/25/2018, 09/20/2012 Hepatitis C Screening Completed 08/01/2019 HIB Vaccines Aged Out No longer eligi ble based on patient's age to complete this topic HPV Vaccines Aged Out No longer eligi ble based on patient's age to complete this topic Hepatitis A Vaccines Aged Out No long er eligible based on patient's age to complete this topic Hepatitis B Vaccines Aged Out No long er eligible based on patient's age to complete this topic IPV Vaccines Aged Out No longer eligi ble based on patient's age to complete this topic MMR Vaccines Aged Out No longer eligi ble based on patient's age to complete this topic Meningococcal ACWY Vaccine Aged Out N o longer eligible based on patient's age to complete this topic Meningococcal B Vaccine Aged Out No l onger eligible based on patient's age to complete this topic RSV Immunization Patients Under 20 months Aged Out No longer eligible based on patient's age to complete this topic Varicella Vaccines Aged Out No longer eligible based on patient's age to complete this topic Procedures Procedure Name Priority Date/Time Associated Diagnosis Comments PAP SMEAR Routine 07/04/2025 12:00 AM EDT Encounter for gynecological examination (general) (routine) without abnormal findings BASIC METABOLIC PANEL Routine 05/20/2025 6:51 AM EDT Systemic lupus erythematosus, unspecified ([facility] V24, [facility] V28) COMPLETE BLOOD COUNT Routine 05/20/2025 6:51 AM EDT Systemic lupus erythematosus, unspecified (CMS/HCC V24, CMS/HCC V28) COMPREHENSIVE METABOLIC PANEL Routine 05/13/2025 7:13 AM EDT Systemic lupus erythematosus, unspecified (CMS/HCC V24, CMS/HCC V28) BASIC METABOLIC PANEL Routine 05/13/2025 7:13 AM EDT Systemic lupus erythematosus, unspecified (CMS/HCC V24, CMS/HCC V28) COMPLETE BLOOD COUNT Routine 05/13/2025 7:13 AM EDT Systemic lupus erythematosus, unspecified (CMS/HCC V24, CMS/HCC V28) VITAMIN B12 AND FOLATE Routine 05/08/2025 7:49 AM EDT Systemic lupus [...] intractable, with status migrainosus Anxiety disorder, unspecified from Last 3 Months Results * Pap smear (07/04/2025 12:00 AM EDT) Interpretation Negative for intraepithelial lesion or malignancy 07/09/2025 12:08 PM EDT [facility] General Categorization Negative 07/09/2025 12:08 PM EDT [facility] Other Findings Atrophy 07/09/2025 12:08 PM EDT [facility] Specimen Adequacy Satisfactory for evaluation 07/09/2025 12:08 PM EDT [facility] Pap Methodology Liquid Based Pap Test 07/09/2025 12:08 PM EDT [facility] Disclaimer Note: This pap test could not be imaged utilizing the [employer] and required a manual review. The Pap test is a screening test which carries an inherent false negative rate. These test results should be correlated with the patient's clinical findings and history. This Pap test was processed using an automated screening system. Technical cytopathology services provided by [facility], at [address] [place] [address] (CLIA # [id number]/German Fields MD, [employer].) 07/09/2025 12:08 PM [facility] Console Pap Interpretation Reported 07/09/2025 12:08 PM [facility] Brushing/Spatula Cervix uteri structure / Unknown 07/04/2025 07/05/2025 7:43 AM EDT us Ricardo Arcos MD LAB CYTOLOGY ORDERABLES Final Result [facility] [address] [place] [address], * (ABNORMAL) Complete blood count (05/20/2025 6:51 AM EDT) Only the most recent of3 resultswithin the time period is included. WBC 5.8 4.8 - 10.8 K/[facility] LAB HEMETOLOGY METHOD 05/20/2025 10:26 AM [facility] RBC 3.70(L) 3.80 - 4.80 M/mcL LAB HEMETOLOGY METHOD 05/20/2025 10:26 AM [facility] Hemoglobin 10.2(L) 11.5 - 16.0 g/dL LAB HEMETOLOGY METHOD 05/20/2025 10:26 AM [facility] Hematocrit 33.3(L) 35.0 - 47.0 % LAB HEMETOLOGY METHOD 05/20/2025 10:26 AM [facility] MCV 91.0 79.0 - 98.0 FL LAB HEMETOLOGY METHOD 05/20/2025 10:26 AM [facility] MCH 27.9 27.0 - 32.0 pcg LAB HEMETOLOGY METHOD 05/20/2025 10:26 AM [facility] MCHC 30.6(L) 32.0 - 37.0 g/dL LAB HEMETOLOGY METHOD 05/20/2025 10:26 AM [facility] RDW 15.9(H) 11.0 - 15.0 % LAB HEMETOLOGY METHOD 05/20/2025 10:26 AM [facility] Platelets 309 130 - 400 K/mcL LAB HEMETOLOGY METHOD 05/20/2025 10:26 AM [facility] MPV 9.2 7.0 - 11.0 FL LAB HEMETOLOGY METHOD 05/20/2025 10:26 AM [facility] NRBC 0.0 <1.0 % LAB HEMETOLOGY METHOD 05/20/2025 10:26 AM [facility] NRBC Absolute 0.00 <0.10 K/mcL LAB HEMETOLOGY METHOD 05/20/2025 10:26 AM [facility] Blood Venous blood specimen / Unknown Venipuncture / Unknown 05/20/2025 6:51 AM EDT 05/20/2025 9:56 AM EDT us Darwin Costa MD LAB BLOOD ORDERABLES Final Resul t [facility] [address] [place] [address], [place] [phone] * Basic metabolic panel (05/20/2025 6:51 AM EDT) Only the most recent of2 resultswithin the time period is included. Sodium 139 133 - 145 mmol/L LAB CHEMISTRY METHOD 05/20/2025 11:05 AM [facility] Potassium 4.1 3.5 - 5.5 mmol/L LAB CHEMISTRY METHOD 05/20/2025 11:05 AM [facility] Chloride 109 96 - 110 mmol/L LAB CHEMISTRY METHOD 05/20/2025 11:05 AM [facility] CO2 26 21 - 32 mmol/L LAB CHEMISTRY METHOD 05/20/2025 11:05 AM [facility] Anion Gap 4 3 - 11 LAB CHEMISTRY METHOD 05/20/2025 11:05 AM [facility] Glucose 96 70 - 100 mg/dL LAB CHEMISTRY METHOD 05/20/2025 11:05 AM [facility] BUN 19 5 - 25 mg/dL LAB CHEMISTRY METHOD 05/20/2025 11:05 AM [facility] Creatinine 0.88 0.50 - 1.10 mg/dL LAB CHEMISTRY METHOD 05/20/2025 11:05 AM [facility] eGFR 70 >=60 mL/min/1. 73m2 LAB CHEMISTRY METHOD 05/20/2025 11:05 AM [facility] Comment:Calculation based on the Chronic Kidney Disease Epidemiology Collaboration (CKD-EPI) equation refit without adjustment for race. BUN/Creatinine Ratio 21.6 LAB CHEMISTRY METHOD 05/20/2025 11:05 AM [facility] Calcium 9.6 8.5 - 10.5 mg/dL LAB CHEMISTRY METHOD 05/20/2025 11:05 AM [facility] Blood Venous blood specimen / Unknown Venipuncture / Unknown 05/20/2025 6:51 AM EDT 05/20/2025 9:53 AM EDT us Darwin Costa MD LAB BLOOD ORDERABLES Final Resul t [facility] [address] [place] [address], [place] [phone] * (ABNORMAL) Comprehensive metabolic panel (05/13/2025 7:13 AM EDT) Only the most recent of2 resultswithin the time period is included. Sodium 139 133 - 145 mmol/L LAB CHEMISTRY METHOD 05/13/2025 12:20 PM [facility] Potassium 4.1 3.5 - 5.5 mmol/L LAB CHEMISTRY METHOD 05/13/2025 12:20 PM [facility] Chloride 110 96 - 110 mmol/L LAB CHEMISTRY METHOD 05/13/2025 12:20 PM [facility] CO2 23 21 - 32 mmol/L LAB CHEMISTRY METHOD 05/13/2025 12:20 PM [facility] Anion Gap 6 3 - 11 LAB CHEMISTRY METHOD 05/13/2025 12:20 PM [facility] Glucose 67(L) 70 - 100 mg/dL LAB CHEMISTRY METHOD 05/13/2025 12:20 PM [facility] BUN 19 5 - 25 mg/dL LAB CHEMISTRY METHOD 05/13/2025 12:20 PM [facility] Creatinine 0.83 0.50 - 1.10 mg/dL LAB CHEMISTRY METHOD 05/13/2025 12:20 PM [facility] eGFR 75 >=60 mL/min/1. 73m2 LAB CHEMISTRY METHOD 05/13/2025 12:20 PM [facility] Comment:Calculation based on the Chronic Kidney Disease Epidemiology Collaboration (CKD-EPI) equation refit without adjustment for race. BUN/Creatinine Ratio 22.9 LAB CHEMISTRY METHOD 05/13/2025 12:20 PM T [facility] Calcium 9.4 8.5 - 10.5 mg/dL LAB CHEMISTRY METHOD 05/13/2025 12:20 PM [facility] AST (SGOT) 20 10 - 42 unit/L LAB CHEMISTRY METHOD 05/13/2025 12:20 PM [facility] ALT (SGPT) 20 10 - 60 unit/L LAB CHEMISTRY METHOD 05/13/2025 12:20 PM [facility] Alkaline Phosphatase 92 42 - 121 unit/L LAB CHEMISTRY METHOD 05/13/2025 12:20 PM [facility] Total Protein 7.0 6.0 - 8.0 g/dL LAB CHEMISTRY METHOD 05/13/2025 12:20 PM [facility] Albumin 3.6 3.2 - 5.0 g/dL LAB CHEMISTRY METHOD 05/13/2025 12:20 PM [facility] Total Bilirubin 0.2 0.0 - 1.4 mg/dL LAB CHEMISTRY METHOD 05/13/2025 12:20 PM [facility] Blood Venous blood specimen / Unknown Venipuncture / Unknown 05/13/2025 7:13 AM EDT 05/13/2025 9:55 AM EDT us Darwin Costa MD LAB BLOOD ORDERABLES Final Resul t [facility] [address] [place] [address], [place] [phone] * Vitamin B12 and folate (05/08/2025 7:49 AM EDT) Vitamin B-12 699 250 - 900 pcg/mL LAB CHEMISTRY METHOD 05/08/2025 12:08 PM EDT [facility] Folate 12.8 2.8 - 17.0 ng/ml LAB CHEMISTRY METHOD 05/08/2025 12:08 PM EDT [facility] Blood Venous blood specimen / Unknown Venipuncture / Unknown 05/08/2025 7:49 AM EDT 05/08/2025 9:53 AM EDT Darwin Costa MD LAB BLOOD ORDERABLES Final Resul t Performing Organization Address [facility]/ZIP Co de Phone Number [facility] [address] [place] [address], [place] [phone] * (ABNORMAL) Thyroid stimulating hormone (05/08/2025 7:49 AM EDT) TSH 4.14(H) 0.40 - 4.00 mcIU/mL LAB CHEMISTRY METHOD 05/08/2025 12:38 PM EDT [facility] Blood Venous blood specimen / Unknown Venipuncture / Unknown 05/08/2025 7:49 AM EDT 05/08/2025 9:53 AM EDT Darwin Costa MD LAB BLOOD ORDERABLES Final Resul t Performing Organization Address City/[facility]/ZIP Co de Phone Number [facility] [address] [place] [address], [place] [phone] from Last 3 Months Insurance [facility] [employer] Member Subscriber Plan / Payer (Ef fective 2022-Present) Name:Ashely Pastrana Relation to Subscriber:Self Name:Ashely Pastrana Payer ID:[id number] Group ID:Not on file Type:Not on file Address: [address] [address] Advance Directives Documents on File Type Date Recorded Patient Teacher'S Assistant Expl anation Health Care Decision (hx) 04/10/2010 AD FERRELL DIRECTIVE Health Care Decision (hx) 04/10/2010 AD FERRELL DIRECTIVE Care Teams Loom Stop Checker Relationship Specialty Start Date End Date Darwin Costa MD [address] [place] [address] [address] [place] [address] PCP - General Geriatric Medicine 05/08/25
== END 2025-08-06 11:50 | disposition home or self-care (01) ==
LOC: HO.US 11:49
PROVIDERS: PCP Family Medicine; Visit Provider Nurse Practitioner Family
DX: N28.1 Cyst of kidney, acquired (principal)
CPT/HCPCS: 76775

== ENCOUNTER → 2025-08-06 11:51 | Outpatient (BNV) | payer OTHER, SELFPAY | PROVIDERS: PCP Family Medicine; Visit Provider Radiology Diagnostic Radiology | DX: N28.1 Cyst of kidney, acquired (principal) | CPT/HCPCS: 76775 ==

== ENCOUNTER 2025-08-15 08:55 | Outpatient (AMB) | payer OTHER, SELFPAY ==
--- NOTE | 2025-08-15 09:00 | A.OFFVIS_ITS ---
Intake Visit Reasons: 6m/US/PVR Intake Note: Patient is present for 6M/US/PVR Urology Medication:NONE Antibiotic Allergy:SULFA Blood Thinner:ASPIRIN Todays PVR:154ML'S Information Technology Project Manager Required: No Allergies carbamazepine (From Tegretol) Allergy (Intermediate, Verified 08/15/25 10:10) MOUTH SORES spider venom (SPIDER BITES) Allergy (Intermediate, Verified 08/15/25 10:10) BLISTERS Sulfa (Sulfonamide Antibiotics) Allergy (Intermediate, Verified 08/15/25 10:10) DISORIENTATION/RASH tizanidine (Tizanidine) Allergy (Intermediate, Verified 08/15/25 10:10) NIGHTMARES horton Adverse Reaction (Severe, Verified 08/15/25 10:10) SEVERE VOMITING Shellfish Allergy (Severe, Uncoded 08/15/25 10:10) TONGUE SWELLING, SHORTNESS OF BREATH spider bites Allergy (Intermediate, Uncoded 08/15/25 10:10) swelling, anaphylaxis cherries Allergy (Unknown, Uncoded 08/15/25 10:10) Nausea and Vomiting mold Allergy (Unknown, Uncoded 08/15/25 10:10) congestion SUGAR SUBSTITUTES Allergy (Unknown, Uncoded 08/15/25 10:10) SORE THROAT - LARYNGITIS Medication List - Last Reconciled 08/15/25 by DAISHA Livingston- amlodipine 10 mg PO DAILY aspirin 81 mg PO DAILY atorvastatin 20 mg PO BEDTIME bupropion HCl XL 150 mg PO QAM [calciuum citrate plus d 1 tab PO DAILY] carisoprodol 350 mg PO TID PRN 30 days diclofenac sodium 1% 1 ea topical BID PRN dicyclomine 10 mg PO TID PRN docusate calcium 240 mg PO DAILY PRN gabapentin (Neurontin) 800 mg PO QID hydroxychloroquine 300 mg PO DAILY levothyroxine 100 mcg (2 x 50 mcg) PO DAILY 90 days linaclotide (Linzess) 290 mcg PO DAILY lorazepam 0.5 mg (1/2 x 1 mg) PO BID PRN meclizine 25 mg PO TID PRN 10 days meloxicam 15 mg PO DAILY 30 days montelukast 10 mg PO BEDTIME nortriptyline 50 mg PO BEDTIME pantoprazole 40 mg PO DAILY 90 days pen needle, diabetic (BD Ultra-Fine Mini Pen Needle) As directed sumatriptan succinate 100 mg PO DAILY PRN teriparatide 20 mcg subcut DAILY triamcinolone acetonide 0.1% 1 appl topical BID-TID PRN HPI Comments Details: Miranda is a very pleasant 74-year-old female patient of Dr. You. She has a past medical history of hypertension, hyperlipidemia, lupus, chronic back pain, anxiety, IBS, hypothyroidism, migraines, neuropathy, chronic kidney disease, osteoporosis, anemia, and Raynaud's. She presents to the office today for follow-up. Of note, patient was seen approximately 6 months ago as a new patient for renal cyst as well as incomplete bladder emptying at which time discussion regarding renal cysts and incomplete bladder emptying was had. In discussion with the patient today she reports to be doing and feeling well. She reports earlier this summer she fell however is recovering well. She reports chavez diane stopped her medication for her osteoporosis as she felt this was causing her to have balance issues. She reports having followed up with endocrinology regarding this issue. Recent renal imaging results reviewed with the patient today. 08/17 kidneys are normal in size and echotexture. Left lower pole simple cyst cyst measuring 1 cm. No hydronephrosis or renal calculi noted bilaterally. Normal kidney ultrasound per radiology report. In office urinalysis results reviewed with the patient today. PVR 154 mL. We did discuss increase in postvoid residual and incomplete bladder emptying. When asked she currently denies any bothersome urinary issues. She denies urinary urgency, urinary frequency, incontinence, nocturia, hematuria, dysuria, foul smelling urine, changes to urinary stream, flank pain, fever, and or chills. She is happy with her current voiding parameters. We discussed potential causes of renal cysts as well as classifications of renal cysts. We discussed surveillance monitoring. All questions were answered. She otherwise offers no other issues or concerns at this time. [facility], [facility] Medical History Nephrolithiasis Perennial allergic rhinitis Surgical History History of colonoscopy (~2019) Social History Housing: Apartment Are you a primary rn acute care to a significant other at home: No Do you presently have visiting nurse or other home services: No Patient Tobacco Use Status: Former Tobacco user Cigarettes Per Day: 10 Years Smoked: 20 e-Cigarette/Vaping Use: Currently Using Second Hand Smoke Exposure: No service: No Current occupational status: retired and disabled Current occupational exposures/hazards: No Cognitive needs: No Hearing needs: No Vision needs: Yes Review of Systems Const All systems reviewed & are unremarkable except as noted in HPI and below Physical Exam Const General: cooperative, healthy appearing, comfortable, no acute distress, well developed, alert and awake Orientation/consciousness: patient oriented x3 Limitations: ambulation with walker HEENT Head: Yes normal to inspection, Yes normocephalic and Yes atraumatic Ears: hearing grossly normal bilaterally Eyes General: appearance normal, both eyes and all related structures Neck Neck: Yes normal visual inspection and Yes trachea midline Chest Chest palpation & inspection: normal inspection of the chest Resp Effort & Inspection: normal respiratory effort and able to speak in complete sentences Cardio Rate: regular rate GI Inspection: Yes normal to inspection General: Yes no CVA tenderness Back/Spine/Pelvis Back: no CVA tenderness Skin General skin exam: no rashes or lesions noted Neuro General: patient oriented x3 Extrem General: Yes normal to inspection Psych Appearance: grossly normal and well kempt Mental Status: mental status grossly normal Speech and movement: Normal speech and movement present and Clear speech present Affect: normal affect Attitude: cooperative Thought process: Normal thought process present Thought content: Normal thought content present Insight: Fair insight present (Psych) Judgement: Fair judgement present (Psych) Office Procedures Post Void Residual Post Residual Void Post Void Residual (PVR): 154 16131-Tqel Void Residual by ultrasound Results AMB Urinalysis, Automated UA Leukoctes 0 Edvin/uL Last Edit by MONTANA Farias on 08/15/25 09:20 UA Nitrite Negative Last Edit by MONTANA Farias on 08/15/25 09:20 UA Urobilinogen 0.2 mg/dL Last Edit by MONTANA Farias on 08/15/25 09:2 0 UA Protein 15 mg/dL Last Edit by MONTANA Farias on 08/15/25 09:20 UA pH 6.0 Last Edit by MONTANA Farias on 08/15/25 09:20 UA Blood 0 Devaughn/uL Last Edit by MONTANA Farias on 08/15/25 09:20 UA Specific [place] 1.015 Last Edit by MONTANA Farias on 08/15/25 09: 20 UA Ketone Negative Last Edit by MONTANA Farias on 08/15/25 09:20 UA Bilirubin 0 mg/dL Last Edit by MONTANA Farias on 08/15/25 09:20 UA Glucose 0 mg/dL Last Edit by MONTANA Farias on 08/15/25 09:20 Results Reviewed Results Reviewed: Laboratory Last Values Urine pH (Auto) 6.0 08/15/25 09:19 Specific [place] (Auto) 1.015 08/15/25 09:19 Urine Protein (Auto) 15 mg/dL 08/15/25 09:19 Glucose (UA)(Auto) 0 mg/dL 08/15/25 09:19 Urine Ketones (Auto) Negative 08/15/25 09:19 Urine Blood (Auto) 0 Devaughn/uL 08/15/25 09:19 Urine Nitrite (Auto) Negative 08/15/25 09:19 Urine Bilirubin (Auto) 0 mg/dL 08/15/25 09:19 Urine Urobilinogen (Auto) 0.2 mg/dL 08/15/25 09:19 Leukocyte Esterase (Auto) 0 Edvin/uL 08/15/25 09:19 Date of Service: 08/06/25 Procedure(s): US renal BI Findings: Right kidney normal size and echotexture, 10.6 x 5.2 x 4.1 cm length. Left kidney normal size and echotexture, 10.5 x 4.3 x 5.6 cm length. Lower pole anechoic focus with posterior acoustic enhancement, 1 cm; simple cysts. No hydronephrosis of either kidney. Normal color Doppler. The bladder was not imaged on present exam. IMPRESSION: 1. Normal kidneys. Assessment & Plan Assessment & Plan (1) Renal cyst: Code(s): N28.1 - Cyst of kidney, acquired Category: Medical (2) Incomplete bladder emptying: Code(s): R33.9 - Retention of urine, unspecified Category: Medical Plan In office urinalysis results reviewed with the patient today; as noted above. PVR 154 mL. Recent renal imaging results reviewed with the patient today; as noted above. Will continue with surveillance monitoring. Patient currently denies any bothersome urinary issues or concerns. She reports be happy with current voiding parameters. We discussed potential causes of renal cysts as well as incomplete bladder emptying; we did discussed further treatment options and risks and benefits of these treatment options. We discussed healthy bathroom behaviors. Will obtain retroperitoneal ultrasound in 6 months Follow-up in 6 months with imaging and PVR; or sooner with any issues, concerns, and or questions. Orders: Orders AMB Urinalysis Automated Today Z13.9 - Encounter for screening, unspecified US retroperitoneal comp 6 Months N28.1 - Cyst of kidney, acquired, R33.9 - Retention of urine, unspecified, R39.14 - Feeling of incomplete bladder emptying Patient Instructions: The patient had an opportunity to ask questions regarding the treatment plan. All questions were answered. Physical exam, labs, and imaging were discussed and reviewed in detail. As well as risks, benefits, and discussion of treatment choices. No major barriers to understanding were identified. The patient express ed understanding and agreement with the above treatment plan. The patient was made aware they should contact our office by phone for worsening of their current condition, the appearance of new symptoms, or with any questions or concerns. Compliance is encouraged with any medications and follow up testing that is ordered. It is a privilege to be allowed the opportunity to participate in? your urological care.? Again, if you have any questions or concerns If you have any questions or concerns please do not hesitate to contact me. The office is [phone]. This note is constructed using voice recognition software. While every effort has been made to ensure accuracy fare register repairer errors may have been included. Yours sincerely, ALLIE Livingston Coding Level of Care Code Est Pt Level 3 (94715) Complex EM visit Add On G2211 Diagnoses Renal cyst N28.1 Incomplete bladder emptying R33.9 CPT Codes Post Residual Void - PVR CPT Code: 89729-Ptwi Void Residual by ultrasound ([id number])
--- OUTSIDE RECORDS SUMMARY | 2025-08-15 09:40 | XMS_ITS | Data Portability ---
Author Organization [employer], [facility] Address [address] [place] [address] Care Team Providers Care Spring Production Supervisor Name Role Phone [facility] Referring Provider Assessment Encounter Date Assessment Date Assessment LastModified by Organization Details LastModified Time 10/15/2023 10/15/2023 I have reviewed and agree with the assessment and plan as documented by the rack worker. I provided real time medical direction for this encounter and was immediately available to provide additional phone based assistance as needed. History as noted by rack worker. Pt reports 2-3 weeks of a cough [...] doxycycline hyclate 100 mg tablet 2022 023 [id number], [address], [place], [place], [phone], 10:46:47 guaifenesin ER 600 mg tablet, extended release hr 2022 023 [id number], [address], [place], [phone], 3 10:46:44 albuterol sulfate HFA 90 mcg/actuati on aerosol inhaler 2022 023 [facility] #[id number], [address], [place], [id number], 3 10:46:44 Patient TargetsNo targets recorded. Patient [...] blood by Pulse oximetry Heart rate Systolic And Diastolic Provider Name and Address Organization Details Last Updated DateTime 3 18 /min 96.8 [degF] 97 % 97 % 92 /min 130/80 mm[Hg] Not Available [facility] - production 3 [...] Diagnosis SNOMED-CT Code Diagnosis ICD10 Code Diagnosis IMO Codes Diagnosis Note [id number] Storm Hutchinson MD Main - [facility] [address] [place] [phone] 10/15/2023 10:37:19 10/15/2023 17:33:51 Acute bronchitis [id number] J20.9 Health Concerns Section Related Observation LastModified by Organization Detai ls LastModified Time None Recorded Concern Status LastModified by Organization Details LastModified Time None Recorded Advance Directives Directive None Recorded Payers Insurance Date Sequence Insurance Name Policy Number Policy Titus Covered Member ID Titus Member ID Guarantor Name 12/28/2023 1 [facility] - DOS ON OR AFTER 2023 - DUAL ELIGIBLE - [employer]PC OPTIONS AND ONE CARE (MEDICARE REPLACEMENT/ADV ANTAGE - HMO) Kiara Pastrana [id number] Kiara Pastrana Notes Date Note Type Note Provider Name and Address Organization Details Recorded Time 10/15/2023 text/html ROS as noted in the HPI This was a supervised home visit with rack worker Naye Yi. [facility] Nurse Triage Notes (Denilson Cedeno): Chief Complaints: URI Allergies: Unknown Comments: Cough/cold/congest ion/fever -s/s for few weeks - SOB of times - Wellness check - Coreen SAHNI .................. .................. .................. .................. .................. .................. .................. ............... Wrapping Machine Tender Note From Naye Yi: Community Wrapping Machine Tender Angelic Yi [facility] dispatched to a [facility] for a 73 yof C/O a cough [...] S/S. Lung sounds clear, no pedal edema. C consulted; pt was given rx for doxycycline, [...] .................. ............... Disposition: Fulfilled Storm Hutchinson MD [address] [place] [address],[address] [facility], [place], [phone], [employer] 10/15/2023 11:33:52 OBGyn Episode No OBEpisode recorded.
--- OUTSIDE RECORDS SUMMARY | 2025-08-15 09:40 | XMS_ITS | Clinical Summary ---
Author Organization [facility] Address [address] [place] [address] Phone Care Team Providers Care Automotive Service Professional Name Role Phone Ricardo You MD Primary Care Provider Allergies Active Allergy Reactions Criticality Noted Date Comments Horne Other (See Comments) 09/30/2017 sick to stomach Mold Other 09/30/2017 Metal Shellfish Derived Soy Diarrhea Medium 10/07/2017 [id number] Other (See Comments) 09/30 Sugar substitutes-sick to [...] not have fracture there. She went to [facility] radiology and I was paged at [...] is in talk therapy once weekly with [facility] counselor Kristy Lomeli-will not make any more [...] care. She will continue talk therapy with [facility] counselor 1 x a week. Suicide hotline [...] Take exactly as prescribed. Follow closely with fulfillment mail clerk at least every 12 months-she is due for yearly checkup later in spring 2024. Daily sun protection all year round. Assessment & Plan (01/15/2025 4:31 PM EDT): Take exactly as prescribed. Follow closely with fulfillment mail clerk at least every 12 months-she is due for yearly checkup later in spring 2024. Daily sun protection all year round. Assessment & Plan (09/13/2024 11:48 AM EST): Take exactly as prescribed. Follow closely with fulfillment mail clerk at least every 12 months. Daily sun protection all year round. Assessment & Plan (06/14/2024 10:42 AM EDT): Take exactly as prescribed. Follow closely with fulfillment mail clerk at least every 12 months. Daily sun protection all year round. Assessment & Plan (12/17/2023 7:59 PM EST): Take exactly as prescribed. Follow closely with fulfillment mail clerk at least every 12 months. Daily sun protection all year round. Assessment & Plan (08/13/2023 5:53 PM EDT): Take exactly as prescribed. Follow closely with fulfillment mail clerk at least every 12 months. Daily sun protection all year round. Assessment & Plan (01/26/2023 9:10 AM EDT): Take exactly as prescribed. Follow closely with fulfillment mail clerk at least every 12 months. Daily sun protection all year round. Assessment & Plan (06/21/2022 12:28 PM EDT): Take exactly as prescribed. Follow closely with fulfillment mail clerk at least every 12 months. Daily sun protection all year round. Assessment & Plan (03/01/2022 11:12 AM EDT): Take exactly as prescribed. Follow closely with fulfillment mail clerk at least every 12 months. Daily sun protection all year round. Assessment & Plan (12/04/2021 10:47 AM EST): Take exactly as prescribed. Follow closely with fulfillment mail clerk at least every 12 months. Daily sun protection all year round. Assessment & Plan (09/04/2021 2:46 PM EST): Take exactly as prescribed. Follow closely with fulfillment mail clerk at least every 12 months. Daily sun protection all year round. Assessment & Plan (06/05/2021 11:31 AM EDT): Take exactly as prescribed. Follow closely with fulfillment mail clerk at least every 12 months. Daily sun protection all year round. Assessment & Plan (04/09/2021 9:57 AM EDT): Take exactly as prescribed. Follow closely with fulfillment mail clerk at least every 12 months. Daily sun protection all year round. Assessment & Plan (02/26/2021 9:29 AM EDT): Take exactly as prescribed. Follow closely with fulfillment mail clerk at least every 12 months. Daily sun protection all year round. Assessment & Plan (12/04/2020 9:21 AM EST): Take exactly as prescribed. Follow closely with fulfillment mail clerk at least every 12 months. Daily sun protection all year round. Assessment & Plan (09/29/2020 12:18 PM EST): Take exactly as prescribed. Follow closely with fulfillment mail clerk at least every 12 months. Daily sun protection all year round. Assessment & Plan (04/21/2020 10:31 AM EDT): Take exactly as prescribed. Follow closely with fulfillment mail clerk at least every 12 months. Daily sun protection all year round. Assessment & Plan (12/05/2019 10:33 AM EST): Take exactly as prescribed. Follow closely with fulfillment mail clerk at least every 12 months. Daily sun protection all year round. Assessment & Plan (10/02/2019 7:38 PM EST): Take exactly as prescribed. Follow closely with fulfillment mail clerk at least every 12 months. Daily sun [...] D supplementation. She decided to meet with media center director school at [facility] in October 2024 and pursue Evenity [...] D supplementation. She decided to meet with media center director school at [facility] in October 2024 and pursue Evenity [...] D supplementation. She got bone density at [facility] but I do not have the copy [...] D supplementation. She got bone density at [facility] but I do not have the copy [...] D supplementation. She got bone density at [facility] but I do not have the copy [...] supplementation. She is getting bone density at [facility] within the next week. Assessment & Plan [...] from earlier this morning -standing orders in [facility]. Carefully continue Plaquenil as prescribed and follow with fulfillment mail clerk as scheduled at least once every 12 months. . Balance rest and activity. Avoid sick contacts. Keep up-to-date with age-appropriate screenings and preventive strategies. Daily sun protection all year round. Call if questions or problems. Assessment & Plan (12/21/2024 11:41 AM EST): Clinically appears stable-new set of lab work requested-standing orders in [facility]. Carefully continue Plaquenil as prescribed and follow with fulfillment mail clerk as scheduled at least once every 12 months. She already received yearly influenza vaccination the newest COVID-19 vaccine booster . Balance rest and activity. Avoid sick contacts. Keep up-to-date with age-appropriate screenings and preventive strategies. Daily sun protection all year round. Call if questions or problems. Assessment & Plan (09/13/2024 12:57 PM EST): Clinically appears stable-new set of lab work requested-standing orders in [facility]. Carefully continue Plaquenil as prescribed and follow with fulfillment mail clerk as scheduled at least once every 12 months. She already received yearly influenza vaccination the newest COVID-19 vaccine booster . Balance rest and activity. Avoid sick contacts. Keep up-to-date with age-appropriate screenings and preventive strategies. Daily sun protection all year round. Call if questions or problems. Assessment & Plan (06/14/2024 10:52 AM EDT): Clinically appears stable-new set of lab work requested-standing orders in [facility]. Carefully continue Plaquenil as prescribed and follow with fulfillment mail clerk as scheduled at least once every 12 [...] continue Plaquenil as prescribed and follow with fulfillment mail clerk as scheduled at least once every 12 months. Balance rest and activity. Avoid sick contacts. Keep up-to-date with age-appropriate screenings and preventive strategies. Daily sun protection all year round. Call if questions or problems. Assessment & Plan (08/13/2023 5:51 PM EDT): Carefully continue Plaquenil as prescribed and follow with fulfillment mail clerk as scheduled at least once every 12 months. Balance rest and activity. Avoid sick contacts. Keep up-to-date with age-appropriate screenings and preventive strategies. Daily sun protection all year round. Call if questions or problems. Assessment & Plan (01/26/2023 9:09 AM EDT): Carefully continue Plaquenil as prescribed and follow with fulfillment mail clerk as scheduled at least once every 12 months. Balance rest and activity. Avoid sick contacts. Keep up-to-date with age-appropriate screenings and preventive strategies. Daily sun protection all year round. Call if questions or problems. Assessment & Plan (06/21/2022 12:27 PM EDT): Carefully continue Plaquenil as prescribed and follow with fulfillment mail clerk as scheduled at least once every 12 months. Balance rest and activity. Avoid sick contacts. Keep up-to-date with age-appropriate screenings and preventive strategies. Daily sun protection all year round. Call if questions or problems. Assessment & Plan (03/01/2022 11:09 AM EDT): Carefully continue Plaquenil as prescribed and follow with fulfillment mail clerk as scheduled at least once every 12 months. Balance rest and activity. Avoid sick contacts. Keep up-to-date with age-appropriate screenings and preventive strategies. Daily sun protection all year round. Call if questions or problems. Assessment & Plan (12/04/2021 10:43 AM EST): Carefully continue Plaquenil as prescribed and follow with fulfillment mail clerk as scheduled at least once every 12 months. Balance rest and activity. Avoid sick contacts. Keep up-to-date with age-appropriate screenings and preventive strategies. Daily sun protection all year round. Call if questions or problems. Assessment & Plan (09/04/2021 2:40 PM EST): Carefully continue Plaquenil as prescribed and follow with fulfillment mail clerk as scheduled at least once every 12 months. Balance rest and activity. Avoid sick contacts. Keep up-to-date with age-appropriate screenings and preventive strategies. Daily sun protection all year round. Call if questions or problems. Assessment & Plan (06/05/2021 11:29 AM EDT): Carefully continue Plaquenil as prescribed and follow with fulfillment mail clerk as scheduled at least once every 12 months. Balance rest and activity. Avoid sick contacts. Keep up-to-date with age-appropriate screenings and preventive strategies. Daily sun protection all year round. Call if questions or problems. Assessment & Plan (04/09/2021 9:58 AM EDT): Carefully continue Plaquenil as prescribed and follow with fulfillment mail clerk as scheduled at least once every 12 months. Balance rest and activity. Avoid sick contacts. Keep up-to-date with age-appropriate screenings and preventive strategies. Daily sun protection all year round. Call if questions or problems. Assessment & Plan (02/26/2021 9:24 AM EDT): Carefully continue Plaquenil as prescribed and follow with fulfillment mail clerk as scheduled at least once every 12 months. Balance rest and activity. Avoid sick contacts. Keep up-to-date with age-appropriate screenings and preventive strategies. Daily sun protection all year round. Call if questions or problems. Assessment & Plan (12/04/2020 9:11 AM EST): Carefully continue Plaquenil as prescribed and follow with fulfillment mail clerk as scheduled at least once every 12 months. Balance rest and activity. Avoid sick contacts. Keep up-to-date with age-appropriate screenings and preventive strategies. Daily sun protection all year round. Call if questions or problems. Assessment & Plan (09/30/2020 8:12 PM EST): Carefully continue Plaquenil as prescribed and follow with fulfillment mail clerk as scheduled at least once every 12 [...] continue Plaquenil as prescribed and follow with fulfillment mail clerk as scheduled at least once every 12 [...] continue Plaquenil as prescribed and follow with fulfillment mail clerk as scheduled at least once every 12 [...] continue Plaquenil as prescribed and follow with fulfillment mail clerk as scheduled at least once every 12 [...] intermittent asthma without complication 09/30/20 17 11/08/2017 Immunizations Immunization Administration Dates Next Due INFLUENZA, [...] Description 08/26/2025 10:00 AM EST Office Visit [facility] Rheumatology [address] [place] [address] Francisca Tony MD [address] [place] [address], [address] [place] [address] [email or web address] Health Maintenance Due Date Last Done Comments COLOGUARD 1997 FIT TEST 1997 FOBT 1997 SIGMOIDOSCOPY 1997 VIRTUAL COLONOSCOPY 1997 FOLLOW UP BONE DENSITY TESTING 12/08/2023 12/08/2021, 08/17/2019, 07/24/2013 TSH LEVEL 08/12/2024 08/12/2023, 05/24, 08/24/2021, Additional history exists DEPRESSION SCREENING 12/08/2024 12/08/2023, 12/08/19 24 INFLUENZA VACCINE (#1) 2025 , 06/14/2023, 06/09/2022, Additional history exists COVID-19 VACCINE (9 - 2025- season) 2025 06/29/2024, 08/04/2023, 05/28/2023, Additional history exists MAMMOGRAM [...] Procedure Name Priority Date/Time Associated Diagnosis Comments BI MAMMOGRAM SCREENING (BILATERAL) Routine 12/08/2023 12:00 [...] Recently Relevant to Health Maintenance Results * (ABNORMAL) TSH with reflex (08/12/2023 11:20 AM EDT) TSH 5.03(H) 0.27 - 4.20 uIU/mL [facility] Blood 08/12/2023 11:2 0 AM EDT 08/12/2023 11:23 AM EDT Ashley Pichardo NP LAB BLOOD ORDERABLES Final R esult [address] [address] * COLONOSCOPY FOR RESULT ENTRY ONLY (07/06/2023) Historical Provider HEALTH MAINTENANCE Edited Result - Final * (ABNORMAL) Lipid panel (02/04/2023 10:10 AM EDT) HDL 76 mg/dL [facility] Comment: Interpretation <40 mg/dL: Low HDL cholesterol (major risk factor for CHD) Greater than or equal to 60 mg/dL: High HDL cholesterol ( negative risk factor for CHD) HDL - cholesterol is affected by a number of factors, e.g. smoking, excerise, hormones, sex and age. CHOLESTEROL 188 0 - 240 mg/dL [facility] TRIGLYCERIDES 130 30 - 160 mg/dL [facility] LDL 86 50 - 129 mg/dL [facility] Comment: LDL levels in terms of risk for coronary heart disease: <100 mg/dL: Optimal 100-129 mg/dL: Near or above optimal 130-159 mg/dL: Borderline high 160-189 mg/dL: High >190 mg/dL: Very High CARDIAC RISK RATIO 2.5(L) 3.3 - 4.4 [facility] Blood 02/04/2023 10:1 0 AM EDT 02/04/2023 10:13 AM EDT Isadora Contreras NP LAB BLOOD ORDERABLES Final Resu lt Performing Organization Address City/[facility]/ZIP Co de Phone Number [address] [address] * OUTSIDE BONE DENSITY SCREENING (12/08/2021) BONE DENSITY SCREENING - EXTERNAL osteoporosis Historical Provider HEALTH MAINTENANCE Final Result * HM MAMMOGRAPHY FOR RESULT ENTRY ONLY (12/08/2021) Historical Provider HEALTH MAINTENANCE Edited Result - Final * Hepatitis C antibody, qualitative (08/01/2019 9:35 AM EDT) Pathologist [facility] HCV NON-REACTIV E NON-REACTI VE [facility] Blood 08/01/2019 9:35 AM EDT 08/01/2019 9:38 AM EDT Isadora Contreras NP LAB BLOOD ORDERABLES Final Resu lt Performing Organization Address [facility]/ZIP Co de Phone Number [address] [address] from Last 3 Months or Most Recently Relevant to Health Maintenance Insurance [address] [place], [place] [id number] MEDICARE REPLACEMENT [employer] [facility] [place] [address] MEDICARE REPLACEMENT MEDICARE REPLACEMENT [facility] MEDICARE REPLACEMENT [employer] MEDICARE REPLAC[place] [address] MEDICARE REPLACEMENT Care Teams Automotive Service Professional Relationship Specialty Start Date End Date Ricardo You MD [address] [place] [address] PCP - General Family Medicine 06/18/24 Additional Source Comments The information contained in this document represents components of the legal health record. It is not the complete legal health record.[facility]
--- OUTSIDE RECORDS SUMMARY | 2025-08-15 09:40 | XMS_ITS | Clinical Summary ---
Author Organization [facility] Address [address] [place] [address] Phone Care Team Providers Care Corporate Vp Advertising & Online Name Role Phone Darwin Costa MD Primary Care Provider [phone] Encounters Date Type Department Care Team Description 07/05/2025 Lab Requisition [facility] Lab [address] [place] [phone] Ricardo Arcos MD Encounter for gynecological examination (general) (routine) without abnormal findings 05/26/2025 Lab Requisition [facility] Lab [address] [place] [phone] Darwin Costa MD Systemic lupus erythematosus, unspecified ([facility] V24, [facility] V28) 05/18/2025 Lab Requisition [facility] Lab [address] [place] [address] Darwin Costa MD Systemic lupus erythematosus, unspecified ([facility] V24, [facility] V28) from Last 3 Months Surgical History Surgery [...] 's disease Neuropathy DX:Neuropathy Arthritis DX:Arthritis A-fib (CMS/[facility] V24, [facility] V28) DX:A-fib (HCC) IBS (irritable bowel syndrome) D X:IBS (irritable bowel syndrome) Migraines DX:Migraines Chest pain, unspecified 11/07/2012 DX:Chest pain, unspecified Essential hypertension, benign 11/07/2012 D X:Essential hypertension, benign Other and unspecified hyperlipidemia 11/07/2012 DX:Other and unspecified hyperlipidemia Systemic lupus erythematosus ([facility] V24, [facility] V28) 11/07/2012 DX:Systemic lupus erythemato farzaneh ([facility]) Small fiber neuropathy 05/24/2018 DX:Small [...] Td or Tdap) 05/21/2025 05/21/2015 COVID-19 Vaccine ( - season) 2025 Influenza Vaccine (#1) 2025 , 06/09/2022, 06/07/2021, Additional history exists Hypertension/CHF/CAD Annual BMP Blood Test 05/20/2026 05/20/2025, 05/13/2025, 05/13/2025, Additional history exists RSV Immunization Adult Patients (1 - 1-dose 75+ series) 2027 Cholesterol Screening (Lipid Panel) 02/05/2028 02/04/2023 Zoster Vaccines Completed 07/02/2019, 07/0 06/2019, 03/31/2016 Pneumococcal Vaccine: 50+ Years Completed [...] 6:51 AM EDT Systemic lupus erythematosus, unspecified ([facility] V24, CMS/[facility] V28) COMPLETE BLOOD COUNT Routine 05/20/2025 6:51 AM EDT Systemic lupus erythematosus, unspecified (CMS/HCC V24, CMS/HCC V28) from Last 3 Months Results * Pap smear (07/04/2025 12:00 AM EDT) Interpretation Negative for intraepithelial lesion or malignancy 07/09/2025 12:08 PM EDT [facility] General Categorization Negative 07/09/2025 12:08 PM EDT [facility] Other Findings Atrophy 07/09/2025 12:08 PM EDT [facility] Specimen Adequacy Satisfactory for evaluation 07/09/2025 12[facility] Pap Methodology Liquid Based Pap Test 07/09/2025 12:08 PM EDT [facility] Disclaimer Note: This pap test could not be imaged utilizing the [employer] System and required a manual review. The Pap test is a screening test which carries an inherent false negative rate. These test results should be correlated with the patient's clinical findings and history. This Pap test was processed using an automated screening system. Technical cytopathology services provided by [facility], at [address] [place] [id number] (CLIA # [id number]/German Fields MD, Cleat Thrower.) 07/09/2025 12:[address] [facility] Console Pap Interpretation Reported 07/09/2025 12:[address] [facility] Brushing/Spatula Cervix uteri structure / Unknown 07/04/2025 07/05/2025 7:43 AM EDT Ricardo Arcos MD LAB CYTOLOGY ORDERABLES Final Result [facility] [address] [place] [address], * (ABNORMAL) Complete blood count (05/20/2025 6:51 AM EDT) WBC 5.8 4.8 - 10.8 K/[facility] LAB HEMETOLOGY METHOD 05/20/2025 10:26 AM EDT [facility] RBC 3.70(L) 3.80 - 4.80 M/[facility] LAB HEMETOLOGY METHOD 05/20/2025 10:26 AM EDT [facility] Hemoglobin 10.2(L) 11.5 - 16.0 g/dL LAB HEMETOLOGY METHOD 05/20/2025 10:26 AM EDT [facility] Hematocrit 33.3(L) 35.0 - 47.0 % LAB HEMETOLOGY METHOD 05/20/2025 10:26 AM EDT [facility] MCV 91.0 79.0 - 98.0 FL LAB HEMETOLOGY METHOD 05/20/2025 10:26 AM EDT [facility] MCH 27.9 27.0 - 32.0 pcg LAB HEMETOLOGY METHOD 05/20/2025 10:26 AM EDT [facility] MCHC 30.6(L) 32.0 - 37.0 g/dL LAB HEMETOLOGY METHOD 05/20/2025 10:[address] [facility] RDW 15.9(H) 11.0 - 15.0 % LAB HEMETOLOGY METHOD 05/20/2025 10:26 AM EDT [facility] Platelets 309 130 - 400 K/mcL LAB HEMETOLOGY METHOD 05/20/2025 10:26 AM T [facility] MPV 9.2 7.0 - 11.0 FL LAB HEMETOLOGY METHOD 05/20/2025 10:[address] [facility] NRBC 0.0 <1.0 % LAB HEMETOLOGY METHOD 05/20/2025 10:26 AM EDT [facility] NRBC Absolute 0.00 <0.10 K/mcL LAB HEMETOLOGY METHOD 05/20/2025 10:[address] [facility] Blood Venous blood specimen / Unknown Venipuncture / Unknown 05/20/2025 6:51 AM EDT 05/20/2025 9:56 AM EDT us Darwin Costa MD LAB BLOOD ORDERABLES Final Resul t [facility] [address] [place] [address], * Basic metabolic panel (05/20/2025 6:51 AM EDT) Sodium 139 133 - 145 mmol/L LAB CHEMISTRY METHOD 05/20/2025 11:[address] [facility] Potassium 4.1 3.5 - 5.5 mmol/L LAB CHEMISTRY METHOD 05/20/2025 11:[address] [facility] Chloride 109 96 - 110 mmol/L LAB CHEMISTRY METHOD 05/20/2025 11:[address] [facility] CO2 26 21 - 32 mmol/L LAB CHEMISTRY METHOD 05/20/2025 11:[address] [facility] Anion Gap 4 3 - 11 LAB CHEMISTRY METHOD 05/20/2025 11:[address] [facility] Glucose 96 70 - 100 mg/dL LAB CHEMISTRY METHOD 05/20/2025 11:[address] [facility] BUN 19 5 - 25 mg/dL LAB CHEMISTRY METHOD 05/20/2025 11:[address] [facility] Creatinine 0.88 0.50 - 1.10 mg/dL LAB CHEMISTRY METHOD 05/20/2025 11:[address] [facility] eGFR 70 >=60 mL/min/1. 73m2 LAB CHEMISTRY METHOD 05/20/2025 11:[address] [facility] Comment:Calculation based on the Chronic Kidney Disease Epidemiology Collaboration (CKD-EPI) equation refit without adjustment for race. BUN/Creatinine Ratio 21.6 LAB CHEMISTRY METHOD 05/20/2025 11:[address] [facility] Calcium 9.6 8.5 - 10.5 mg/dL LAB CHEMISTRY METHOD 05/20/2025 11:[address] [facility] Blood Venous blood specimen / Unknown Venipuncture / Unknown 05/20/2025 6:51 AM EDT 05/20/2025 9:53 AM EDT us Darwin Costa MD LAB BLOOD ORDERABLES Final Resul t [facility] [address] [place] [address], [place] [phone] from Last 3 Months Insurance [facility] [employer] Member Subscriber Plan / Payer (Ef fective 2022-Present) Name:Ashely Pastrana Relation to Subscriber:Self Name:Ashely Pastrana Payer ID:[id number] Group ID:Not on file Type:Not on file Address: [place] [address] [place] [id number] Advance Directives Documents on File Type Date Recorded 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
--- OUTSIDE RECORDS SUMMARY | 2025-08-15 09:40 | XMS_ITS | Encounter Summary ---
Author Organization [facility] Address [address] [place] [address] Care Team Providers Care Acid Washer Operator Name Role Phone Darwin Costa MD Primary Care Provider [phone] Encounter Details Date Type Department Care Team (Late st Contact Info) Description 05/12/2025 Lab Requisition [facility] - Main Lab [address] [facility] [place] [address] Darwin Costa MD [address] [place] [address] Systemic lupus erythematosus, unspecified (CMS/HCC V24, CMS/HCC [...] 7:13 AM EDT Systemic lupus erythematosus, unspecified ([facility] V24, [facility] V28) documented in this encounter Results * (ABNORMAL) Comprehensive metabolic panel (05/13/2025 7:13 AM EDT) Sodium 139 133 - 145 mmol/L LAB CHEMISTRY METHOD 05/13/2025 12:20 PM [facility] Potassium 4.1 3.5 - 5.5 mmol/L LAB CHEMISTRY METHOD 05/13/2025 12:20 PM [facility] Chloride 110 96 - 110 mmol/L LAB CHEMISTRY METHOD 05/13/2025 12:20 PM [facility] CO2 23 21 - 32 mmol/L LAB CHEMISTRY METHOD 05/13/2025 12:20 PM [facility] Anion Gap 6 3 - 11 LAB CHEMISTRY METHOD 05/13/2025 12:20 PM [facility] Glucose 67(L) 70 - 100 mg/dL LAB CHEMISTRY METHOD 05/13/2025 12:20 PM [facility] BUN 19 5 - 25 mg/dL LAB CHEMISTRY METHOD 05/13/2025 12:20 PM [facility] Creatinine 0.83 0.50 - 1.10 mg/dL LAB CHEMISTRY METHOD 05/13/2025 12:20 PM [facility] eGFR 75 >=60 mL/min/1. 73m2 LAB CHEMISTRY METHOD 05/13/2025 12:20 PM [facility] Comment:Calculation based on the Chronic Kidney Disease Epidemiology Collaboration (CKD-EPI) equation refit without adjustment for race. BUN/Creatinine Ratio 22.9 LAB CHEMISTRY METHOD 05/13/2025 12:20 PM [facility] Calcium 9.4 8.5 - 10.5 mg/dL LAB CHEMISTRY METHOD 05/13/2025 12:20 PM EDT [facility] AST (SGOT) 20 10 - 42 unit/L LAB CHEMISTRY METHOD 05/13/2025 12:20 PM [facility] ALT (SGPT) 20 10 - 60 unit/L LAB CHEMISTRY METHOD 05/13/2025 12:20 PM [facility] Alkaline Phosphatase 92 42 - 121 unit/L LAB CHEMISTRY METHOD 05/13/2025 12:20 PM [facility] Total Protein 7.0 6.0 - 8.0 g/dL LAB CHEMISTRY METHOD 05/13/2025 12:20 PM [facility] Albumin 3.6 3.2 - 5.0 g/dL LAB CHEMISTRY METHOD 05/13/2025 12:20 PM [facility] Total Bilirubin 0.2 0.0 - 1.4 mg/dL LAB CHEMISTRY METHOD 05/13/2025 12:20 PM [facility] Blood Venous blood specimen / Unknown Venipuncture / Unknown 05/13/2025 7:13 AM EDT 05/13/2025 9:55 AM EDT us Darwin Costa MD LAB BLOOD ORDERABLES Final Resul t [facility] [address] [place] [address], * (ABNORMAL) Basic metabolic panel (05/13/2025 7:13 AM EDT) Sodium 139 133 - 145 mmol/L LAB CHEMISTRY METHOD 05/13/2025 12:20 PM [facility] Potassium 4.1 3.5 - 5.5 mmol/L LAB CHEMISTRY METHOD 05/13/2025 12:20 PM [facility] Chloride 110 96 - 110 mmol/L LAB CHEMISTRY METHOD 05/13/2025 12:20 PM [facility] CO2 23 21 - 32 mmol/L LAB CHEMISTRY METHOD 05/13/2025 12:20 PM [facility] Anion Gap 6 3 - 11 LAB CHEMISTRY METHOD 05/13/2025 12:20 PM [facility] Glucose 67(L) 70 - 100 mg/dL LAB CHEMISTRY METHOD 05/13/2025 12:20 PM [facility] BUN 19 5 - 25 mg/dL LAB CHEMISTRY METHOD 05/13/2025 12:20 PM [facility] Creatinine 0.83 0.50 - 1.10 mg/dL LAB CHEMISTRY METHOD 05/13/2025 12:20 PM [facility] eGFR 75 >=60 mL/min/1. 73m2 LAB CHEMISTRY METHOD 05/13/2025 12:20 PM [facility] Comment: Calculation based on the Chronic Kidney Disease Epidemiology Collaboration (CKD- EPI) equation refit without adjustment for race. Calculation based on the Chronic Kidney Disease Epidemiology Collaboration (CKD- EPI) equation refit without adjustment for race. BUN/Creatinine Ratio 22.9 LAB CHEMISTRY METHOD 05/13/2025 12:20 PM [facility] Calcium 9.4 8.5 - 10.5 mg/dL LAB CHEMISTRY METHOD 05/13/2025 12:20 PM [facility] Blood Venous blood specimen / Unknown Venipuncture / Unknown 05/13/2025 7:13 AM EDT 05/13/2025 9:55 AM EDT us Darwin Costa MD LAB BLOOD ORDERABLES Final Resul t [facility] [address] [place] [address], * (ABNORMAL) Complete blood count (05/13/2025 7:13 AM EDT) WBC 4.9 4.8 - 10.8 K/mcL LAB HEMETOLOGY METHOD 05/13/2025 10:53 AM [facility] RBC 3.80 3.80 - 4.80 M/[facility] LAB HEMETOLOGY METHOD 05/13/2025 10:53 AM [facility] Hemoglobin 10.4(L) 11.5 - 16.0 g/dL LAB HEMETOLOGY METHOD 05/13/2025 10:53 AM [facility] Hematocrit 34.2(L) 35.0 - 47.0 % LAB HEMETOLOGY METHOD 05/13/2025 10:53 AM [facility] MCV 90.7 79.0 - 98.0 FL LAB HEMETOLOGY METHOD 05/13/2025 10:53 AM [facility] MCH 27.6 27.0 - 32.0 pcg LAB HEMETOLOGY METHOD 05/13/2025 10:53 AM [facility] MCHC 30.4(L) 32.0 - 37.0 g/dL LAB HEMETOLOGY METHOD 05/13/2025 10:53 AM [facility] RDW 15.6(H) 11.0 - 15.0 % LAB HEMETOLOGY METHOD 05/13/2025 10:53 AM [facility] Platelets 299 130 - 400 K/[facility] LAB HEMETOLOGY METHOD 05/13/2025 10:53 AM [facility] MPV 9.3 7.0 - 11.0 FL LAB HEMETOLOGY METHOD 05/13/2025 10:53 AM [facility] NRBC 0.0 <1.0 % LAB HEMETOLOGY METHOD 05/13/2025 10:53 AM [facility] NRBC Absolute 0.00 <0.10 K/[facility] LAB HEMETOLOGY METHOD 05/13/2025 10:53 AM [facility] Blood Venous blood specimen / Unknown Venipuncture / Unknown 05/13/2025 7:13 AM EDT 05/13/2025 9:58 AM EDT Darwin Costa MD LAB BLOOD ORDERABLES Final Resul t [facility] [address] [place] [address], documented in this encounter Visit Diagnoses Diagnosis Systemic lupus erythematosus, unspecified (CMS/HCC V24, CMS/HCC V28) documented in this encounter Care Teams Acid Washer Operator Relationship Specialty Start Date End Date Darwin Costa MD [address] [place] [address] [address] [place] [address] PCP - General Geriatric Medicine 05/08/25 documented as of this encounter
--- OUTSIDE RECORDS SUMMARY | 2025-08-15 09:40 | XMS_ITS | Encounter Summary ---
Author Organization [facility] Address [address] [place] [address] [place] [address] Phone Care Team Providers Care Touring Production Manager Name Role Phone Isadora Contreras NP Primary Care Provider [phone] Unknown, Unknown Primary Care Provider Eli Ruth MD Primary Care Provider [phone] Ricardo You MD Primary Care Provider Encounter Details Date Type Department Care Team (Late st Contact Info) Description 02/28/2023 Telephone [facility] [address] [place] [address] Danyell Gautam RN [email or web address] Social History Tobacco Use Types Packs/Day Years [...] Description 08/26/2025 10:00 AM EST Office Visit [facility] Rheumatology [address] [place] [address] Francisca Tony MD [address] [facility], [address] [place] [address] [email or web address] documented as of this encounter Visit Diagnoses Not on filedocumented in this encounter Additional Health Concerns Assessment Noted Time PHQ-9 Depression Total Score: 23 023 9:20 AM EDT PHQ-2 Depression Total Score: 6 02/05/20 23 9:20 AM EDT documented as of this encounter Care Teams Touring Production Manager Relationship Specialty Start Date End Date Isadora Contreras NP PCP - General Family Medicine 11/20/19 01/08/24 Unknown, Asif, PCP - General 01/09/24 06/13/24 Eli Madden MD [address] [place] [address] PCP - General Internal Medicine 06/14/24 06/17/24 Ricardo You MD [address] [place] [address] PCP - General Family Medicine 06/18/24 documented as of this encounter Additional Source Comments The information contained in this document represents components of the legal health record. It is not the complete legal health record.[facility]
--- OUTSIDE RECORDS SUMMARY | 2025-08-15 09:40 | XMS_ITS | Encounter Summary ---
Author Organization [facility] Address [address] [place] [address] Care Team Providers Care Crime Laboratory Analyst Name Role Phone Darwin Costa MD Primary Care Provider [phone] Encounter Details Date Type Department Care Team (Late st Contact Info) Description 05/08/2025 Lab Requisition [facility] - Main Lab [address] [facility] [place] [address] Darwin Costa MD [address] [place] [address] Systemic lupus erythematosus, unspecified (CMS/HCC V24, CMS/HCC [...] LAB CHEMISTRY METHOD 05/08/2025 12:08 PM EDT [facility] Folate 12.8 2.8 - 17.0 ng/ml LAB CHEMISTRY METHOD 05/08/2025 12:08 PM EDT [facility] Blood Venous blood specimen / Unknown Venipuncture / Unknown 05/08/2025 7:49 AM EDT 05/08/2025 9:53 AM EDT us Darwin Costa MD LAB BLOOD ORDERABLES Final Resul t [facility] [address] [place] [address], * (ABNORMAL) Thyroid stimulating hormone (05/08/2025 7:49 AM EDT) TSH 4.14(H) 0.40 - 4.00 mcIU/mL LAB CHEMISTRY METHOD 05/08/2025 12:38 PM EDT [facility] Blood Venous blood specimen / Unknown Venipuncture / Unknown 05/08/2025 7:49 AM EDT 05/08/2025 9:53 AM EDT Darwin Costa MD LAB BLOOD ORDERABLES Final Resul t [facility] [address] [place] [address], [place] [phone] * Comprehensive metabolic panel (05/08/2025 7:49 AM EDT) Sodium 137 133 - 145 mmol/L LAB CHEMISTRY METHOD 05/08/2025 12:[address] [facility] Potassium 4.3 3.5 - 5.5 mmol/L LAB CHEMISTRY METHOD 05/08/2025 12:[address] [facility] Chloride 106 96 - 110 mmol/L LAB CHEMISTRY METHOD 05/08/2025 12:[address] [facility] CO2 24 21 - 32 mmol/L LAB CHEMISTRY METHOD 05/08/2025 12:[address] [facility] Anion Gap 7 3 - 11 LAB CHEMISTRY METHOD 05/08/2025 12:[address] [facility] Glucose 77 70 - 100 mg/dL LAB CHEMISTRY METHOD 05/08/2025 12:[address] [facility] BUN 13 5 - 25 mg/dL LAB CHEMISTRY METHOD 05/08/2025 12:[address] [facility] Creatinine 0.93 0.50 - 1.10 mg/dL LAB CHEMISTRY METHOD 05/08/2025 12:[address] [facility] eGFR 65 >=60 mL/min/1. 73m2 LAB CHEMISTRY METHOD 05/08/2025 12:[address] [facility] Comment:Calculation based on the Chronic Kidney Disease Epidemiology Collaboration (CKD-EPI) equation refit without adjustment for race. BUN/Creatinine Ratio 14.0 LAB CHEMISTRY METHOD 05/08/2025 12:[address] [facility] Calcium 9.2 8.5 - 10.5 mg/dL LAB CHEMISTRY METHOD 05/08/2025 12:[address] [facility] AST (SGOT) 21 10 - 42 unit/L LAB CHEMISTRY METHOD 05/08/2025 12:[address] [facility] ALT (SGPT) 15 10 - 60 unit/L LAB CHEMISTRY METHOD 05/08/2025 12:[address] [facility] Alkaline Phosphatase 91 42 - 121 unit/L LAB CHEMISTRY METHOD 05/08/2025 12:[address] [facility] Total Protein 6.6 6.0 - 8.0 g/dL LAB CHEMISTRY METHOD 05/08/2025 12:[address] [facility] Albumin 3.2 3.2 - 5.0 g/dL LAB CHEMISTRY METHOD 05/08/2025 12:[address] [facility] Total Bilirubin 0.2 0.0 - 1.4 mg/dL LAB CHEMISTRY METHOD 05/08/2025 12:[address] [facility] Blood Venous blood specimen / Unknown Venipuncture / Unknown 05/08/2025 7:49 AM EDT 05/08/2025 9:53 AM EDT us Darwin Costa MD LAB BLOOD ORDERABLES Final Resul t [facility] [address] [place] [address], * (ABNORMAL) Complete blood count (05/08/2025 7:49 AM EDT) WBC 4.8 4.8 - 10.8 K/mcL LAB HEMETOLOGY METHOD 05/08/2025 11:03 AM EDT [facility] RBC 3.70(L) 3.80 - 4.80 M/mcL LAB HEMETOLOGY METHOD 05/08/2025 11:[address] [facility] Hemoglobin 10.5(L) 11.5 - 16.0 g/dL LAB HEMETOLOGY METHOD 05/08/2025 11:[address] [facility] Hematocrit 33.3(L) 35.0 - 47.0 % LAB HEMETOLOGY METHOD 05/08/2025 11:[address] [facility] MCV 89.5 79.0 - 98.0 FL LAB HEMETOLOGY METHOD 05/08/2025 11:[address] [facility] MCH 28.2 27.0 - 32.0 pcg LAB HEMETOLOGY METHOD 05/08/2025 11:[address] [facility] MCHC 31.5(L) 32.0 - 37.0 g/dL LAB HEMETOLOGY METHOD 05/08/2025 11:[address] [facility] RDW 14.7 11.0 - 15.0 % LAB HEMETOLOGY METHOD 05/08/2025 11:[address] [facility] Platelets 292 130 - 400 K/mcL LAB HEMETOLOGY METHOD 05/08/2025 11:[address] [facility] MPV 9.0 7.0 - 11.0 FL LAB HEMETOLOGY METHOD 05/08/2025 11:[address] [facility] NRBC 0.0 <1.0 % LAB HEMETOLOGY METHOD 05/08/2025 11:[address] [facility] NRBC Absolute 0.00 <0.10 K/mcL LAB HEMETOLOGY METHOD 05/08/2025 11:[address] [facility] Blood Venous blood specimen / Unknown Venipuncture / Unknown 05/08/2025 7:49 AM EDT 05/08/2025 9:53 AM EDT Darwin Costa MD LAB BLOOD ORDERABLES Final Resul t [facility] ([facility] [address] [place] [address], documented in this encounter Visit Diagnoses Diagnosis Systemic lupus erythematosus, unspecified (CMS/HCC V24, CMS/HCC V28) Chronic migraine without aura, not intractable, with status migrainosus Anxiety disorder, unspecified documented in this encounter Care Teams Crime Laboratory Analyst Relationship Specialty Start Date End Date Darwin Costa MD [address] [facility] [address] [place] [address] PCP - General Geriatric Medicine 05/08/25 documented as of this encounter
--- OUTSIDE RECORDS SUMMARY | 2025-08-15 09:41 | XMS_ITS | Data Portability ---
Author Organization [place] [facility] Address [address] [place] [address] Care Team Providers Care Wildlife Control Operator Name Role Phone DEEPA FONSECA Primary Care Provider [phone] Assessment Encounter Date Assessment Date Assessment LastModified [...] questions were answered prior to team departure. [email or web address] Not available 07/29/2022 09:50:43 Plan of Treatment [...] By Organization Details Last Modified Time 07/29/2022 [id number] [facility] yo [facility]. We cannot always find the [...] in your condition between 8am-10pm, please [facility] at [phone] to help navigate your care. [email or web address] Not available 07/29/2022 09:35:09 Reason for Referral None Reported. Medical Equipment None Reported. Allergies Allergen ID Allergen Name Allergen Category Reaction Reaction Severity Criticality Documentation Date Start Date Code Code System Note Provider Name and Address Organization Details Recorded Time 447575 Substance with sulfonami de structure and antibacte rial mechanism of action (substanc e) medicatio n Not available Not available Not available 07/29/2022 95967 8003 SNOMED April HUGO Guerrero [address] [place], [address], [place] [facility] 2 09:12:58 762030 Tegretol medicatio n Not available Not available Not available 07/29/202220292 9 RxNorm April HUGO Guerrero [address] [place], [address], [place] [facility] 2 09:13:07 590176 gabapenti n medicatio n Not available Not available Not available 07/29/2022 66964 RxNorm Josseline HUGO Guerrero [address] [place], [address], [place] [facility] 2 09:13:15 133476 tizanidin e medicatio n Not available Not available Not available 07/29/2022 09296 RxNorm April HUGO Guerrero [address], [address] [place], [place], [address], [place] [facility] 2 09:13:24 [id number] shellfish derived food,medi cation Not available Not available Not available 07/29/2022 Josseline HUGO Guerrero [address], [place], [address], [place] [facility] 2 09:13:37 [...] blood by Pulse oximetry Body temperature Systolic And Diastolic Provider Name and Address Organization Details Last Updated DateTime 2 90 /min 18 /min 99 % 99 % 98.6 [degF] 136/68 mm[Hg] Not Available [facility] 09:16:37 Social History Question Answer Notes LastModified by Organizat ion Details LastModified Time Tobacco Smoking Status Former Smoker April Cesar, HUGO [address], [place], [address], [place] [facility] 07/29/2022 09:32:30 Do You Have An Advance Directive? Yes [email or web address] Information not available 07/29/2022 Is Blood Transfusion Acceptable In An Emergency? Yes [email or web address] Information not available 07/29/2022 What Is Your Code Status? Full Code [email or web address] Information not available 07/29/2022 Do You Have A Directive To Physicians? No [email or web address] Information not available 07/29/2022 When Did You Quit Smoking? 16+yearssince lastcigarette [email or web address] Information not available 07/29/2022 Within The Past 12 Months, Has It Happened That The Food You Bought Just Didn't Last And You Didn't Have Money To Get More. No [email or web address] Information not available 07/29/2022 Within The Past 12 Months, Have You Worried That Your Food Would Run Out Before You Got Money To Buy More. No [email or web address] Information not available 07/29/2022 Fall Risk: Do You Feel Unsteady When Standing Or Walking? No [email or web address] Information not available 07/29/2022 We Know That How And When People Interact With Friends And Family Can Be Very Different From Person To Person. How Often Do You Have The Opportunity To See Or Talk To People That You Care About And Feel Close To? (Ex: Talking To Friends On The Phone Or Visiting Friends Or Family Or Going To Orthodoxy Or Club Meetings) Choose Not To Answer This Question [email or web address] Information not available 07/29/2022 Excessive Alcohol Or Drug Use No [email or web address] Information not available 07/29/2022 Does This Patient Have A PCP? Yes [email or web address] Information not available 07/28/2022 Has The Patient Seen Their PCP In The Past 6 Months? Yes [email or web address] Information not available 07/28/2022 Is This Patient In Hospice? No [email or web address] Information not available 07/29/2022 We Know From Many Of Our Patients That Covering All Of Their Costs Can Be Difficult At Times. This Can Cause Stress And Impact Health. In The Past Year, Have You Been Unable To Get Any Of The Following When It Was Really Needed? No [email or web address] Information not available 07/29/2022 What Is Your Housing Situation Today? I Have Housing [email or web address] Information not available 07/29/2022 Would You Like Help Connecting To Resources? None [email or web address] Information not available 07/29/2022 Do You Have A Medical Power Of Shrimp Trawler? No [email or web address] Information not available 07/29/2022 Do You Have An Out Of Hospital DNR? No [email or web address] Information not available 07/29/2022 Do You Have A Patient Advocate? No [email or web address] Information not available 07/29/2022 Sex: Unknown Functional Status Question Answer Note LastModified by Organizat ion Details LastModified Time Do you use any illicit or recreational drugs? No [email or web address] Information not available 07/29/2022 What is your level of alcohol consumption? Occasional [email or web address] Information not available 07/29/2022 Mental Status None recorded. Family History Nothing Reported. Medical History Condition Response Diabetes N Coronary Artery Disease N CHF N Parkinson's Disease N Cancer N Stroke N Dementia N Hypothyroidism Y COPD N Asthma N Depression N High Cholesterol Y Rheumatoid Arthritis N Pulmonary Embolism N Hypertension N A-fib N Osteoporosis Y Kidney Disease N Gynecological HistoryNo gynecological history recorded. Obstetrics History GPAL:G 0 P 0 0 0 0 Past Encounters Encounter ID Performer Location Encounter Start Date Encounter Closed Date Diagnosis/Indication Diagnosis SNOMED-CT Code Diagnosis ICD10 Code Diagnosis IMO Codes Diagnosis Note [id number] April HUGO Guerrero [facility] [address] [facility], [place] [address] 07/29/2022 09:11:05 07/29/2022 11:15:33 Health Concerns Section Related Observation LastModified by Organization Detai ls LastModified Time None Recorded Concern Status LastModified by Organization Details LastModified Time None Recorded Advance Directives Directive Y: Payers Insurance Date Sequence Insurance Name Policy Number Policy Titus Covered Member ID Titus Member ID Guarantor Name 08/09/2022 1 [place]ICARE B[place]: [employer] Kiara Pastrana [id number] Ashely Pastrana 08/09/2022 1 *SELF PAY* Ashely Pastrana [id number] Ashely Pastrana 08/09/2022 2 [place] Ashely Pastrana [id number] Ashely Pastrana Notes Date Note Type Note [...] neuropathy. April HUGO Guerrero [address], [place], [address], [place] [facility] 07/29/2022 09:50:54 OBGyn Episode No OBEpisode recorded.
--- OUTSIDE RECORDS SUMMARY | 2025-08-15 09:41 | XMS_ITS | Clinical Summary ---
Author Organization [facility] Address [address] [place] [address] Care Team Providers Care Grapple Skidder Operator Name Role Phone Magda Garsia DMD Primary Care Provider [phone] Source Comments PLEASE NOTE, if this patient [...] on file Insurance [employer]AF[employer] [place] Care Teams Grapple Skidder Operator Relationship Specialty Start Date End Date Magda Garsia DMD [address] [place] [address] PCP - General 07/05/19
--- OUTSIDE RECORDS SUMMARY | 2025-08-15 09:41 | XMS_ITS | Encounter Summary ---
Author Organization [facility] Address [address] [place] [address] Care Team Providers Care Director Of Dementia Operations Name Role Phone Darwin Costa MD Primary Care Provider [phone] Encounter Details Date Type Department Care Team (Late st Contact Info) Description 05/18/2025 Lab Requisition [facility] - Main Lab [address] [facility] [place] [address] Darwin Costa MD [address] [place] [address] Systemic lupus erythematosus, unspecified (CMS/HCC V24, CMS/HCC [...] mmol/L LAB CHEMISTRY METHOD 05/20/2025 11:05 AM [facility] Potassium 4.1 3.5 - 5.5 mmol/L LAB CHEMISTRY METHOD 05/20/2025 11:05 AM [facility] Chloride 109 96 - 110 mmol/L LAB CHEMISTRY METHOD 05/20/2025 11:05 AM [facility] CO2 26 21 - 32 mmol/L LAB CHEMISTRY METHOD 05/20/2025 11:05 AM [facility] Anion Gap 4 3 - 11 LAB CHEMISTRY METHOD 05/20/2025 11:05 AM [facility] Glucose 96 70 - 100 mg/dL LAB CHEMISTRY METHOD 05/20/2025 11:05 AM [facility] BUN 19 5 - 25 mg/dL LAB CHEMISTRY METHOD 05/20/2025 11:05 AM [facility] Creatinine 0.88 0.50 - 1.10 mg/dL LAB CHEMISTRY METHOD 05/20/2025 11:05 AM [facility] eGFR 70 >=60 mL/min/1. 73m2 LAB CHEMISTRY METHOD 05/20/2025 11:05 AM [facility] Comment:Calculation based on the Chronic Kidney Disease Epidemiology Collaboration (CKD-EPI) equation refit without adjustment for race. BUN/Creatinine Ratio 21.6 LAB CHEMISTRY METHOD 05/20/2025 11:05 AM [facility] Calcium 9.6 8.5 - 10.5 mg/dL LAB CHEMISTRY METHOD 05/20/2025 11:05 AM [facility] Blood Venous blood specimen / Unknown Venipuncture / Unknown 05/20/2025 6:51 AM EDT 05/20/2025 9:53 AM EDT us Darwin Costa MD LAB BLOOD ORDERABLES Final Resul t [facility] [address] [place] [address], * (ABNORMAL) Complete blood count (05/20/2025 6:51 AM EDT) WBC 5.8 4.8 - 10.8 K/mcL LAB HEMETOLOGY METHOD 05/20/2025 10:26 AM EDT [facility] RBC 3.70(L) 3.80 - 4.80 M/mcL LAB HEMETOLOGY METHOD 05/20/2025 10:26 AM [facility] Hemoglobin 10.2(L) 11.5 - 16.0 g/dL LAB HEMETOLOGY METHOD 05/20/2025 10:26 AM [facility] Hematocrit 33.3(L) 35.0 - 47.0 % LAB HEMETOLOGY METHOD 05/20/[facility] MCV 91.0 79.0 - 98.0 FL LAB HEMETOLOGY METHOD 05/20/2025 [facility] MCH 27.9 27.0 - 32.0 pcg LAB HEMETOLOGY METHOD 05/20/2025 10:[facility] MCHC 30.6(L) 32.0 - 37.0 g/dL LAB HEMETOLOGY METHOD 05/20/2025 10:26 AM [facility] RDW 15.9(H) 11.0 - 15.0 % LAB HEMETOLOGY METHOD 05/20/2025 10:26 AM [facility] Platelets 309 130 - 400 K/mcL LAB HEMETOLOGY METHOD 05/20/2025 10:26 AM EDT [facility] MPV 9.2 7.0 - 11.0 FL LAB HEMETOLOGY METHOD 05/20/2025 10:26 AM EDT [facility] NRBC 0.0 <1.0 % LAB HEMETOLOGY METHOD 05/20/2025 10:26 AM EDT [facility] NRBC Absolute 0.00 <0.10 K/mcL LAB HEMETOLOGY METHOD 05/20/2025 10:26 AM EDT [facility] Blood Venous blood specimen / Unknown Venipuncture / Unknown 05/20/2025 6:51 AM EDT 05/20/2025 9:56 AM EDT Darwin Costa MD LAB BLOOD ORDERABLES Final Resul t [facility] [address] [place] [address], documented in this encounter Visit Diagnoses Diagnosis Systemic lupus erythematosus, unspecified (CMS/HCC V24, CMS/HCC V28) documented in this encounter Care Teams Director Of Dementia Operations Relationship Specialty Start Date End Date Darwin Cotsa MD [address] [place] [address] [address] [place] [address] PCP - General Geriatric Medicine 05/08/25 documented as of this encounter
--- OUTSIDE RECORDS SUMMARY | 2025-08-15 09:41 | XMS_ITS | Encounter Summary ---
Author Organization [facility] Address [address] [place] [address] Care Team Providers Care Piece Dyeing Machine Tender Name Role Phone Darwin Costa MD Primary Care Provider [phone] Encounter Details Date Type Department Care Team (Late st Contact Info) Description 05/26/2025 Lab Requisition [facility] - Main Lab 299 [facility] [place] [address] Darwin Costa MD [address] [facility] [address] [place] [address] Systemic lupus erythematosus, unspecified (CMS/HCC V24, CMS/HCC [...] V28) documented in this encounter Care Teams Piece Dyeing Machine Tender Relationship Specialty Start Date End Date Darwin Costa MD [address] [place], [place] [id number] PCP - General Geriatric Medicine 05/08/25 documented as of this encounter
--- OUTSIDE RECORDS SUMMARY | 2025-08-15 09:41 | XMS_ITS | Encounter Summary ---
Author Organization [facility] Address [address] [place] [address] Care Team Providers Care Debone Supervisor Name Role Phone Darwin Costa MD Primary Care Provider [phone] Encounter Details Date Type Department Care Team (Latest Contact Info) Description 07/05/2025 Lab Requisition [facility] - Main Lab [address] [place] [id number] Ricardo Arcos MD [address] [phone] Encounter for gynecological examination (general) (routine) without [...] intraepithelial lesion or malignancy [facility] Categorization Negative 07/09/2025 12:[address] [facility] Other Findings Atrophy 07/09/2025 12:08 PM [facility] Specimen Adequacy Satisfactory for evaluation 07/09/2025 12:[facility] Pap Methodology Liquid Based Pap Test 07/09/2025 12:[facility] Disclaimer Note: This pap test could not be imaged utilizing the [employer] System and required a manual review. The Pap test is a screening test which carries an inherent false negative rate. These test results should be correlated with the patient's clinical findings and history. This Pap test was processed using an automated screening system. Technical cytopathology services provided by [facility], at [address] [place] [address] (CLIA # [id number]/German Fields MD, Compressed Gases Tester.) 07/09/2025 12:08 PM [facility] Console Pap Interpretation Reported 07/09/2025 12:08 PM [facility] Brushing/Spatula Cervix uteri structure / Unknown 07/04/2025 07/05/2025 7:43 AM EDT us Ricardo Arcos MD LAB CYTOLOGY ORDERABLES Final Result [facility] [address] [place] [address], documented in this encounter Visit Diagnoses Diagnosis Encounter for gynecological examination (general) (routine) without abnormal findings documented in this encounter Care Teams Debone Supervisor Relationship Specialty Start Date End Date Darwin Costa MD [address] [facility] [address] [place] [address] PCP - General Geriatric Medicine 05/08/25 documented as of this encounter
== END 2025-08-15 09:38 | disposition home or self-care (01) ==
LOC: HO.HUSH 08:56
PROVIDERS: PCP Family Medicine; Visit Provider Nurse Practitioner Family
DX: N28.1 Cyst of kidney, acquired (principal); R33.9 Retention of urine, unspecified; Z13.9 Encounter for screening, unspecified
CPT/HCPCS: 99213; G2211

== ENCOUNTER → 2025-08-15 08:55 | Outpatient (BNVA) | payer OTHER, SELFPAY | PROVIDERS: PCP Family Medicine; Visit Provider Nurse Practitioner Family | DX: R39.14 Feeling of incomplete bladder emptying (principal); N28.1 Cyst of kidney, acquired; R33.9 Retention of urine, unspecified | CPT/HCPCS: 51798; 81003; 99212 ==

== ENCOUNTER 2025-09-02 13:30 | Outpatient (AMB) | payer OTHER, SELFPAY ==
--- NOTE | 2025-09-02 13:53 | A.OFFPC_ITS ---
Vital Signs 09/02/25 13:58 Height 5 ft Weight 128 lb 4 oz BMI 25.0 BP 120/70 Blood Pressure Location Lt brachial Position Sitting Respiration 14 Temp 97.4 F Temp Source Oral Intake Visit Reasons: f/u HTN, chronic conditions Intake Note: patient is scheduled for htn and chronic condition follow up with pcp Resp Therapist Required: No Allergies carbamazepine (From Tegretol) Allergy (Intermediate, Verified 09/02/25 13:54) MOUTH SORES spider venom (SPIDER BITES) Allergy (Intermediate, Verified 09/02/25 13:54) BLISTERS Sulfa (Sulfonamide Antibiotics) Allergy (Intermediate, Verified 09/02/25 13:54) DISORIENTATION/RASH tizanidine (Tizanidine) Allergy (Intermediate, Verified 09/02/25 13:54) NIGHTMARES horton Adverse Reaction (Severe, Verified 09/02/25 13:54) SEVERE VOMITING Shellfish Allergy (Severe, Uncoded 08/15/25 10:10) TONGUE SWELLING, SHORTNESS OF BREATH spider bites Allergy (Intermediate, Uncoded 08/15/25 10:10) swelling, anaphylaxis cherries Allergy (Unknown, Uncoded 08/15/25 10:10) Nausea and Vomiting mold Allergy (Unknown, Uncoded 08/15/25 10:10) congestion SUGAR SUBSTITUTES Allergy (Unknown, Uncoded 08/15/25 10:10) SORE THROAT - LARYNGITIS Medication List - Last Reconciled 09/02/25 by Ricardo You MD amlodipine 10 mg PO DAILY aspirin 81 mg PO DAILY atorvastatin 20 mg PO BEDTIME bupropion HCl XL 150 mg PO QAM 90 days [calciuum citrate plus d 1 tab PO DAILY] carisoprodol 350 mg PO TID PRN 30 days diclofenac sodium 1% 1 ea topical BID PRN dicyclomine 10 mg PO TID PRN docusate calcium 240 mg PO DAILY PRN gabapentin (Neurontin) 800 mg PO QID hydroxychloroquine 300 mg PO DAILY levothyroxine 100 mcg (2 x 50 mcg) PO DAILY 90 days linaclotide (Linzess) 290 mcg PO DAILY lorazepam 0.5 mg (1/2 x 1 mg) PO BID PRN meclizine 25 mg PO TID PRN 10 days meloxicam 15 mg PO DAILY 30 days montelukast 10 mg PO BEDTIME nortriptyline 50 mg PO BEDTIME pantoprazole 40 mg PO DAILY 90 days pen needle, diabetic (BD Ultra-Fine Mini Pen Needle) As directed sumatriptan succinate 100 mg PO DAILY PRN triamcinolone acetonide 0.1% 1 appl topical BID-TID PRN Tobacco use date assessed: 05/29/25 Dental Screening Dental Screen Date: 06/05/25 HPI f/u HTN, chronic conditions HPI Details 74 y/o female presents to f/u HTN, chron ic conditions. Blood pressure today 120/70. She is on amlodipine 10mg daily. Reports ongoing issues with concussion. Notes bump on head still hurts at times. Reports ongoing headaches. Reports worsening anxiety. Notes episodes of severe depression, poor judgment, lack of sleep. [facility] Medical History Nephrolithiasis Perennial allergic rhinitis Surgical History History of colonoscopy (~2019) Social History Housing: Apartment Are you a primary healthcare network consultant to a significant other at home: No Do you presently have visiting nurse or other home services: No Patient Tobacco Use Status: Former Tobacco user Cigarettes Per Day: 10 Years Smoked: 20 e-Cigarette/Vaping Use: Currently Using Second Hand Smoke Exposure: No service: No Current occupational status: retired and disabled Current occupational exposures/hazards: No Cognitive needs: No Hearing needs: No Vision needs: Yes Questionnaire Thrive Questionnaire Date Thrive assessed: 10/29/24 I am a: Patient What is your living situation today?: I have a steady place to live Within the past 12 months, did the food you bought not last and you didn't have the money to get more?: Never true Within the past 12 months, did you worry whether your food would run out before you got money to buy more?: Never true Do you have trouble paying for medicines?: No Do you have trouble getting transportation to medical appointments?: Yes Do you have trouble paying your heating and electricity bill?: No Do you have trouble taking care of your child, family member or friend?: No Do you have trouble with day-to-day activities such as bathing, preparing meals, shopping, managing finances, etc.?: Yes Are you currently unemployed and looking for a job?: Yes Are you interested in more education?: No Please select the resources that you would like help with: Transportation Currently or been in a relationship where the following occur: Controlled Emotionally THRIVE Score: 2 FERMIN-7 AMB Questionnaire FERMIN-7 Date FERMIN - 7 assessed: 02/28/25 Source: Developed by Drs. Eric Pineda, Judy Martinez, Anup Bahena and colleagues, with an educational malu from [employer]. Review of Systems Const Denies chills, Denies fatigue, Denies fever(s), Denies headache(s) and Denies weakness ENT Denies dizziness and Denies headache(s) Card Denies dyspnea Resp Denies cough, Denies dyspnea, Denies wheezing and Denies other (shortness of breath) Musc Denies numbness and Denies tingling Neuro Denies dizziness, Denies headache(s), Denies numbness, Denies tingling and Vitaly es weakness Psych Denies anxiety and Denies depression Endo Denies fatigue Aller/Immun Denies wheezing Physical exam (Primary Care) Vital Signs: Last Vital Signs Temp 97.4 F 09/02/25 13:58 Resp 14 09/02/25 13:58 BP 120/70 09/02/25 13:58 BMI result Body Mass Index 25.0 Tobacco/Smoking Status: Tobacco use Status Tobacco use date assessed 05/29/25 09/02/25 14:04 Patient Tobacco Use Status Former Tobacco user 09/02/25 14:04 e-Cigarette/Vaping Use Currently Using 09/02/25 14:04 Thrive Assessment: Date of Thrive Assessment Date Thrive assessed 10/29/24 09/02/25 14:04 Currently or been in a relationship where the following occur: Controlled Emotionally Const General: well developed; No acute distress Nutritional Appearance: well nourished Orientation/consciousness: patient oriented x3 HENMT Head: Yes normocephalic and Yes atraumatic Eyes General: appearance normal, both eyes and all related structures Pupils: Equal, round and reactive pupils present EOM: EOMs intact bilaterally Resp Effort & Inspection: normal respiratory effort Neuro General: patient oriented x3 and gait normal Cranial nerves: Yes Equal, round and reactive pupils present Psych Affect: normal affect Coding Level of Care Code Est Pt Level 5 (01892) Diagnoses Hypertension I10 Concussion without loss of consciousness, initial encounter S06.0X0A Encounter type: initial encounter Loss of consciousness presence/duration: without LOC Anxiety F41.9 Assessment & Plan Assessment & Plan (1) Hypertension: Code(s): I10 - Essential (primary) hypertension Category: Medical Plan: Blood pressure is controlled. Goal is less than 140/90 Continue current medication (2) Concussion: Code(s): S06.0XAA - Concussion with loss of consciousness status unknown, initial encounter Category: Medical Qualifiers: Encounter type: initial encounter Loss of consciousness presence/duration: without LOC Qualified Code(s): S06.0X0A - Concussion without loss of consciousness, initial encounter Plan: Gradually improving. Continue symptoms limited activities (3) Anxiety: Code(s): F41.9 - Anxiety disorder, unspecified Category: Medical Plan: Ongoing and severe anxiety and likely depression. Patient notes episodes of severe depression and then episodes of elation and poor judgment as well as lack of sleep. She has a psychiatrist and it is unclear if she has a diagnosis of bipolar disorder. She is currently taking bupropion and also lorazepam. Her psychiatrist had given her mirtazapine but patient says she stopped it because she did not like the way it made her feel. We discussed that I am willing to continue the current medications but she would need to talk to her psychiatrist as he is unclear to me if she has bipolar disorder a to avoid certain medications. She would like a referral to a new psychiatrist as she thinks that her current psychiatrist is not listening to her or helpful. Will make a new referral Plan She will return in 3 months for follow-up of hypertension and pre physical labs. Will also ensure she has referral. See A/P Orders: Orders Comprehensive [place]. Panel Fast 09/02/25 Z. - Encounter for general adult medical examination without abnormal findings Lipid Panel 09/02/25. - Encounter for general adult medical examination without abnormal findings TSH reflex Free T4 09/02/25. - Encounter for general adult medical examination without abnormal findings UA CC w/rflx Micro + Cult 09/02/25. - Encounter for general adult medical examination without abnormal findings Complete Blood Count Auto Diff 09/02/25 Z00.00 - Encounter for general adult medical examination without abnormal findings Microalbumin, Random (w Creat) 09/02/25 I10 - Essential (primary) hypertension Referrals Psychiatry Referral F32.A - Depression, unspecified, F41.9 - Anxiety disorder, unspecified Medications: New cetirizine (All Day Allergy (cetirizine)) 10 mg PO DAILY PRN 90 tabs 3RF allergy symptoms 90 days Changed From bupropion HCl XL 150 mg PO QAM To bupropion HCl XL 150 mg PO QAM 90 tabs 2RF 90 days Refilled lorazepam 0.5 mg (1/2 x 1 mg) PO BID PRN 30 tabs 0RF anxiety meclizine 25 mg PO TID PRN 30 tabs 0RF Dizziness Or Vertigo 10 days carisoprodol 350 mg PO TID PRN 90 tabs 0RF muscle pain/spasm 30 days
[2025-09-02 13:58] VITALS: BP 120/70; RESP 14; TEMP 36.3; BMI 25.0
--- OUTSIDE RECORDS SUMMARY | 2025-09-02 15:37 | XMS_ITS | Encounter Summary ---
Author Organization [facility] Address [address] [place] [address] [place] [phone] Phone Care Team Providers Care Superintendent Plant Protection Name Role Phone Isadora Cnotreras NP Primary Care Provider [phone] Unknown, Unknown Primary Care Provider Eli Ruth MD Primary Care Provider [phone] Ricardo You MD Primary Care Provider Encounter Details Date Type Department Care Team (Late st Contact Info) Description 02/28/2023 Telephone Evalve [facility] [address] [place] [address] Danyell Gautam RN [email or web address] Social History Tobacco Use Types Packs/Day [...] Care Team (Late st Contact Info) Description 12/06/2025 2:00 PM EST Office Visit [facility] Rheumatology [address] [place] [address] Francisca Tony MD [address] [facility], [address] [place] [address] [email or web address] documented as of this encounter Visit Diagnoses Not on filedocumented in this encounter Additional Health Concerns Assessment Noted Time PHQ-9 Depression Total Score: 23 023 9:20 AM EDT PHQ-2 Depression Total Score: 6 02/05/20 23 9:20 AM EDT documented as of this encounter Care Teams Superintendent Plant Protection Relationship Specialty Start Date End Date Isadora Contreras NP [email or web address] PCP - General Family Medicine 11/20/19 01/08/24 Unknown, Asif, PCP - General 01/09/24 06/13/24 Eli Madden MD [address] [place] [id number] PCP - General Internal Medicine 06/14/24 06/17/24 Ricardo You MD [address] [place] [address] PCP - General Family Medicine 06/18/24 documented as of this encounter Additional Source Comments The information contained in this document represents components of the legal health record. It is not the complete legal health record.[facility]
--- OUTSIDE RECORDS SUMMARY | 2025-09-02 15:37 | XMS_ITS | Data Portability ---
Author Organization [place] [facility] Address [address] [place] [id number] Care Team Providers Care Claim Approver Name Role Phone DEEPA FONSECA Primary Care Provider [phone] Assessment Encounter Date Assessment Date Assessment LastModified [...] By Organization Details Last Modified Time 07/29/2022 [id number] Thank you for yo ur visit with [facility] today. We cannot always find [...] in your condition between 8am-10pm, please call [facility] at [phone] to help navigate your care. [email or web address] Not available 07/29/2022 09:35:09 Reason for Referral None Reported. Medical Equipment None Reported. Allergies Allergen ID Allergen Name Allergen Category Reaction Reaction Severity Criticality Documentation Date Start Date Code Code System Note Provider Name and Address Organization Details Recorded Time [id number] Substance with sulfonami de structure and antibacte rial mechanism of action (substanc e) medicatio n Not available Not available Not available 07/29/2022 43617 8003 SNOMED April HUGO Guerrero [address] [place], [address], [place] [facility] 2 09:12:58 [id number] Tegretol medicatio n Not available Not available Not available 07/29/202220292 9 RxNorm April HUGO Guerrero [address] [place], [address], [place] [facility] 2 09:13:07 [id number] gabapenti n medicatio n Not available Not available Not available 07/29/2022 04551 RxNorm April HUGO Guerrero [address] [place], [address], [place] [facility] 2 09:13:15 [id number] tizanidin e medicatio n Not available Not available Not available 07/29/2022 02908 RxNorm April HUGO Guerrero [address], [address] [place], [place], [address], [place] [facility] 2 09:13:24 [id number] shellfish derived food,medi cation Not available Not available Not available 07/29/2022 Josseline HUGO Guerrero [address], [place], [address], [place] [facility] 2 09:13:37 [...] Smoker April Cesar, HUGO [address], [place], [address], [place] [facility] 07/29/2022 09:32:30 Do You Have An Advance Directive? Yes [email or web address] Information not available 07/29/2022 Is Blood Transfusion Acceptable In An Emergency? Yes [email or web address] Information not available 07/29/2022 What Is Your Code Status? Full Code [email or web address] Information not available 07/29/2022 Do You Have A Directive To Physicians? No [email or web address] Information not available 07/29/2022 When Did You Quit Smoking? 16+yearssince lastcigarette [email or web address] Information not available 07/29/2022 Within The Past 12 Months, Has It Happened That The Food You Bought Just Didn't Last And You Didn't Have Money To Get More. No Information not available 07/29/2022 Within The Past 12 Months, Have You Worried That Your Food Would Run Out Before You Got Money To Buy More. No [email or web address] Information not available 07/29/2022 Fall Risk: Do You Feel Unsteady When Standing Or Walking? No [email or web address] Information not available 07/29/2022 We Know That [...] Meetings) Choose Not To Answer This Question [email or web address] Information not available 07/29/2022 Excessive Alcohol Or Drug Use No [email or web address] Information not available 07/29/2022 Does This Patient Have A PCP? Yes [email or web address] Information not available 07/28/2022 Has The Patient Seen Their PCP In The Past 6 Months? Yes [email or web address] Information not available 07/28/2022 Is This Patient In Hospice? No [email or web address] Information not available 07/29/2022 We Know From Many Of Our Patients That Covering All Of Their Costs Can Be Difficult At Times. This Can Cause Stress And Impact Health. In The Past Year, Have You Been Unable To Get Any Of The Following When It Was Really Needed? No [email or web address] Information not available 07/29/2022 What Is Your Housing Situation Today? I Have Housing [email or web address] Information not available 07/29/2022 Would You Like Help Connecting To Resources? None [email or web address] Information not available 07/29/2022 Do You Have A Medical Power Of Director Of Health Care Marketing? No Information not available 07/29/2022 Do You Have An Out Of Hospital DNR? No [email or web address] Information not available 07/29/2022 Do You Have A Patient Advocate? No [email or web address] Information not available 07/29/2022 Sex: Unknown Functional Status Question Answer Note LastModified by Organizat ion Details LastModified Time Do you use any illicit or recreational drugs? No [email or web address] Information not available 07/29/2022 What is your level of alcohol consumption? Occasional [email or web address] Information not available 07/29/2022 Mental Status None recorded. Family History Nothing Reported. Medical History Condition Response Coronary Artery Disease N Parkinson's Disease N COPD N Depression N Hypothyroidism Y A-fib N Diabetes N CHF N Cancer N Stroke N Dementia N Asthma N High Cholesterol Y Rheumatoid Arthritis N Pulmonary Embolism N Hypertension N Osteoporosis Y Kidney Disease N Gynecological HistoryNo gynecological history recorded. Obstetrics History GPAL:G 0 P 0 0 0 0 Past Encounters Encounter ID Performer Location Encounter Start Date Encounter Closed Date Diagnosis/Indication Diagnosis SNOMED-CT Code Diagnosis ICD10 Code Diagnosis IMO Codes Diagnosis Note [id number] April HUGO Guerrero [facility] [address] [facility], [place] [address] 07/29/2022 09:11:05 07/29/2022 11:15:33 Health Concerns Section Related Observation LastModified by Organization Detai ls LastModified Time None Recorded Concern Status LastModified by Organization Details LastModified Time None Recorded Advance Directives Directive Y: Payers Insurance Date Sequence Insurance Name Policy Number Policy Titus Covered Member ID Titus Member ID Guarantor Name 08/09/2022 1 [place]ARE B-[place]: [employer] Kiara Pastrana [id number] Ashely Pastrana 08/09/2022 1 *SELF PAY* Ashely Pastrana [id number] Ashely Pastrana 08/09/2022 2 [place] Ashely Pastrana [id number] Ashely Pastrana Notes Date Note Type Note [...] neuropathy. April HUGO Guerrero [address], [place], [address], [place] [facility] 07/29/2022 09:50:54 OBGyn Episode No OBEpisode recorded.
--- OUTSIDE RECORDS SUMMARY | 2025-09-02 15:37 | XMS_ITS | Clinical Summary ---
Author Organization 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 Active dicyclomine (BENTYL) 10 MG capsuleIndication s:as needed Take 10 mg by mouth. 2 tabs Indications: as needed Active SUMAtriptan (IMITREX) 50 MG tablet Take 100 mg by mouth daily as needed. Active topiramate (TOPAMAX) 100 MG tablet Take 100 mg by mouth daily. Active meclizine (ANTIVERT) 25 mg tabletIndications :Chronic vertigo TAKE 1 TABLET BY MOUTH THREE TIMES DAILY NEEDED 30 tablet 3 021 Active NEURONTIN 800 mg tablet Take 1 tablet (800 mg total) by mouth 4 (four) times a day. 120 tablet 1 023 Active magnesium oxide (MAG-OX) 400 mg (241.3 mg elemental) tablet TAKE 1 TABLET(400 MG) BY MOUTH DAILY 30 tablet 11 023 Active pantoprazole (PROTONIX) 40 MG tablet TAKE 1 TABLET BY MOUTH DAILY TAKE 30-60 MINUTES BEFORE BREAKFAST 30 tablet 11 023 Active aspirin 81 MG EC tabletIndications :Systemic lupus erythematosus with organ system involvement TAKE 1 TABLET BY MOUTH EVERY DAY AT LUNCH 90 tablet 3 023 Active nortriptyline (PAMELOR) 50 MG capsuleIndication s:Small fiber neuropathy Take 1 capsule (50 mg total) by mouth nightly at bedtime. 90 capsule 3 023 Active atorvastatin (LIPITOR) 20 MG tablet take 1 tablet by mouth at bedtime 90 tablet 3 023 Active polyethylene glycol (MIRALAX) 17 gram/dose powder DISSOLVE 17G IN 8OZ WATER AND DRINK NEEDED FOR CONSTIPATION 510 g 3 024 Active EPINEPHrine 0.3 mg/0.3 mL auto-injector INJECT INTO THE MUSCLE NEEDED FOR AMAPHYLAXIS 2 each 024 Active triamcinolone acetonide 0.1 % cream APPLY TWICE DAILY TWICE DAILY NEEDED. SKIP EVERY 3RD WEEK. 30 g 1 024 Active levothyroxine (SYNTHROID, LEVOTHROID) 50 MCG tabletIndications :Acquired hypothyroidism TAKE 1 TABLET BY MOUTH EVERY DAY FOR 5 DAYS AND TAKE 2 TABLET BY MOUTH EVERY DAY ON 2 DAYS A WEEK 108 tablet 3 024 Active buPROPion (WELLBUTRIN XL) 150 MG ER 24 hr tablet Take 150 mg by mouth daily. Active carisoprodol (SOMA) 350 MG tabletIndications :Muscle spasm TAKE 1 TABLET BY MOUTH UP TO TWICE DAILY NEEDED 60 tablet 3 024 Active calcium citrate/vitamin D3 (CALCIUM CITRATE + D ORAL) Take 1 tablet by mouth daily. 630 mg , D3 12.5 MCG Active LORazepam (ATIVAN) 0.5 MG tablet Take 0.5 mg by mouth 2 (two) times a day. Active diclofenac sodium (VOLTAREN) 1 % Gel 2-4 gm TID PRN to left hip 200 g 2 025 Active hydroxychloroquin e (PLAQUENIL) 200 mg tabletIndications :Systemic lupus erythematosus with organ system involvement TAKE 1 TABLET BY MOUTH EVERY MORNING AN TAKE 1/2 EVERY NIGHT AT BEDTIME 135 tablet 3 025 Active amLODIPine (NORVASC) 10 MG tabletIndications :Essential hypertension Take 1 tablet (10 mg total) by mouth every morning. 90 tablet 3 025 Active docusate sodium (COLACE) 100 MG capsule TAKE 1 CAPSULE BY MOUTH TWICE DAILY 180 capsule 3 023 2024 Discontinued(N o longer taking) montelukast (SINGULAIR) 10 mg tablet TAKE 1 TABLET(10 MG) BY MOUTH EVERY NIGHT AT BEDTIME 90 tablet 3 023 2024 Discontinued mirtazapine (REMERON) 45 MG tablet Take 1 tablet (45 mg total) by mouth nightly at bedtime. 30 tablet 1 024 2024 Discontinued(N o longer taking) amLODIPine (NORVASC) 10 MG tabletIndications :Essential hypertension TAKE 1 TABLET(10 MG) BY MOUTH DAILY 90 tablet 3 024 2024 Discontinued teriparatide (FORTEO) 20 mcg/dose (600mcg/2.4mL) PnIj Inject 20 mcg under the skin daily. 2024 Discontinued(N o longer taking) lamoTRIgine (LAMICTAL) 25 MG IMMEDIATE release tablet Take 25 mg by mouth daily. 2024 Discontinued(N o longer taking) meloxicam (MOBIC) 15 MG tablet Take 15 mg by mouth daily. 2024 Discontinued(N o longer taking) amLODIPine (NORVASC) 10 MG tabletIndications :Essential hypertension TAKE 1 TABLET BY MOUTH EVERY DAY 90 tablet 3 025 2024 Discontinued(R lex) Active Problems Problem Noted Date Diagnosed Date Memory loss 08/26/2025 Assessment & Plan (08/26/2025 11:02 AM EST): Chronic but worsening in her opinion after her most recent concussion on 05/05/2025. She is aware that it may take up to a full calendar year to recover and understands that if symptoms are progressing she may need separate assessment of her memory in memory center. Anemia in other chronic diseases classified else where 09/13/2024 Assessment & Plan (01/15/2025 4:36 PM EDT): Well-balanced nutritionally diet, rich in iron, vitamin C, vitamin B12 and optimizing treatment for her underlying systemic lupus erythematosus. Primary osteoarthritis involving multiple joints 06/14/2024 Assessment & Plan (08/26/2025 10:17 AM EST): Joint protection, energy conservation. Gentle, regular exercise routine. Avoid falls, injuries, overuse. Keep body weight in ideal range for her height. She may benefit from topical cream such as Arnica, Biofreeze, Aspercreme versus medicated patches such as salonpas, icy hot patch 2-3 times daily and if necessary at bedtime x 3 weeks. Assessment & Plan (04/24/2025 10:23 AM EDT): [...] not have fracture there. She went to [facility] radiology and I was paged at [...] She was given suicide hotline today in [facility]- I enc her to put the number [...] is in talk therapy once weekly with [facility] counselor Kristy Lomeli-will not make [...] care. She will continue talk therapy with [facility] counselor 1 x a week. Suicide hotline [...] use of Plaquenil 10/01/2019 Assessment & Plan (08/26/2025 10:17 AM EST): Take exactly as prescribed. Follow closely with certified industrial hygienist at least every 12 months-she is due for yearly checkup later in spring 2024. Daily sun protection all year round. Assessment & Plan (04/24/2025 10:23 AM EDT): Take exactly as prescribed. Follow closely with certified industrial hygienist at least every 12 months-she is due for yearly checkup later in spring 2024. Daily sun protection all year round. Assessment & Plan (01/15/2025 4:31 PM EDT): Take exactly as prescribed. Follow closely with certified industrial hygienist at least every 12 months-she is due for yearly checkup later in spring 2024. Daily sun protection all year round. Assessment & Plan (09/13/2024 11:48 AM EST): Take exactly as prescribed. Follow closely with certified industrial hygienist at least every 12 months. Daily sun protection all year round. Assessment & Plan (06/14/2024 10:42 AM EDT): Take exactly as prescribed. Follow closely with certified industrial hygienist at least every 12 months. Daily sun protection all year round. Assessment & Plan (12/17/2023 7:59 PM EST): Take exactly as prescribed. Follow closely with certified industrial hygienist at least every 12 months. Daily sun protection all year round. Assessment & Plan (08/13/2023 5:53 PM EDT): Take exactly as prescribed. Follow closely with certified industrial hygienist at least every 12 months. Daily sun protection all year round. Assessment & Plan (01/26/2023 9:10 AM EDT): Take exactly as prescribed. Follow closely with certified industrial hygienist at least every 12 months. Daily sun protection all year round. Assessment & Plan (06/21/2022 12:28 PM EDT): Take exactly as prescribed. Follow closely with certified industrial hygienist at least every 12 months. Daily sun protection all year round. Assessment & Plan (03/01/2022 11:12 AM EDT): Take exactly as prescribed. Follow closely with certified industrial hygienist at least every 12 months. Daily sun protection all year round. Assessment & Plan (12/04/2021 10:47 AM EST): Take exactly as prescribed. Follow closely with certified industrial hygienist at least every 12 months. Daily sun protection all year round. Assessment & Plan (09/04/2021 2:46 PM EST): Take exactly as prescribed. Follow closely with certified industrial hygienist at least every 12 months. Daily sun protection all year round. Assessment & Plan (06/05/2021 11:31 AM EDT): Take exactly as prescribed. Follow closely with certified industrial hygienist at least every 12 months. Daily sun protection all year round. Assessment & Plan (04/09/2021 9:57 AM EDT): Take exactly as prescribed. Follow closely with certified industrial hygienist at least every 12 months. Daily sun protection all year round. Assessment & Plan (02/26/2021 9:29 AM EDT): Take exactly as prescribed. Follow closely with certified industrial hygienist at least every 12 months. Daily sun protection all year round. Assessment & Plan (12/04/2020 9:21 AM EST): Take exactly as prescribed. Follow closely with certified industrial hygienist at least every 12 months. Daily sun protection all year round. Assessment & Plan (09/29/2020 12:18 PM EST): Take exactly as prescribed. Follow closely with certified industrial hygienist at least every 12 months. Daily sun protection all year round. Assessment & Plan (04/21/2020 10:31 AM EDT): Take exactly as prescribed. Follow closely with certified industrial hygienist at least every 12 months. Daily sun protection all year round. Assessment & Plan (12/05/2019 10:33 AM EST): Take exactly as prescribed. Follow closely with certified industrial hygienist at least every 12 months. Daily sun protection all year round. Assessment & Plan (10/02/2019 7:38 PM EST): Take exactly as prescribed. Follow closely with certified industrial hygienist at least every 12 months. Daily sun protection all year round. On statin therapy 10/01/2019 Assessment & Plan (08/26/2025 10:18 AM EST): Monitor for muscle tenderness, swelling and weakness Assessment & Plan (04/24/2025 10:24 AM EDT): [...] Aspirin long-term use 10/01/2019 Assessment & Plan (08/26/2025 10:18 AM EST): Avoid falls, injuries and cuts. Monitor for excessive bruising and bleeding. Assessment & Plan (04/24/2025 10:24 AM EDT): [...] Overview: Sees Dr. Jc Assessment & Plan (08/26/2025 10:18 AM EST): Generally managed with submaximal doses of gabapentin. Since she reports most of the discomfort at night I suggested her to discuss with prescribing doctor consideration for increasing bedtime dose from 800 mg to 1200 mg. She may benefit additionally from regular meditation/relaxation, CBT, DNRS, acupuncture, acupressure, positive imagery etc. Assessment & Plan (04/24/2025 10:24 AM EDT): [...] EDT): Neuropathic pain managed through neurology with [facility], now patient though has exacerbation with history [...] to pharmacy. Patient should also follow-up with [facility] next week in regards to her pain. Counseled patient on dizziness, hives, bronchospasm, constipation that can occur with Percocet, also with long-term use addiction possible and actually probable. Patient stated that she would not request it for more than short period of time 7 to 14 days for example Raynaud's disease without gangrene 05/24/2018 Assessment & Plan (08/26/2025 10:17 AM EST): Keep warm, dress in layers. Optimize stress management strategies. Avoid vasoconstrictors in OTC products for cold/flu and sinus. Assessment & Plan (04/24/2025 10:23 AM EDT): [...] tis 09/30/2017 Overview (09/30/2020): Assessment & Plan (08/26/2025 10:17 AM EST): Avoid late, large, spicy meals and oral NSAIDs. Keep headboard elevated at 45 angle for nighttime. Carefully continue 40 mg Protonix ( pantoprazole) 30-60 minutes prior to breakfast Assessment & Plan (04/24/2025 10:24 AM EDT): [...] hyperlipidemia 09/30/2017 Osteoporosis 09/30/2017 Assessment & Plan (08/26/2025 11:01 AM EST): .Due to her report of [...] Forteo on 12/07/2024 to continue for 2 years but stopped it in early May 2025 due to episodes of dizziness and feeling off balance every morning after injecting it. Assessment & Plan (04/24/2025 10:23 AM EDT): [...] D supplementation. She decided to meet with rivet sorter at [facility] in October 2024 and pursue Evenity [...] D supplementation. She decided to meet with rivet sorter at [facility] in October 2024 and pursue Evenity [...] D supplementation. She got bone density at [facility] but I do not have the [...] D supplementation. She got bone density at [facility] but I do not have the [...] D supplementation. She got bone density at [facility] but I do not have the [...] supplementation. She is getting bone density at [facility] within the next week. Assessment & [...] system i nvolvement 09/30/2017 Assessment & Plan (08/26/2025 10:17 AM EST): Clinically appears stable-new set of lab work pending from earlier this morning [facility]. Carefully continue Plaquenil as prescribed and follow with certified industrial hygienist as scheduled at least once every 12 months. . Balance rest and activity. Avoid sick contacts. Keep up-to-date with age-appropriate screenings and preventive strategies. Daily sun protection all year round. Call if questions or problems. Assessment & Plan (04/24/2025 10:55 AM EDT): Clinically appears stable-new set of lab work pending from earlier this morning [facility]. Carefully continue Plaquenil as prescribed and follow with certified industrial hygienist as scheduled at least once every 12 months. . Balance rest and activity. Avoid sick contacts. Keep up-to-date with age-appropriate screenings and preventive strategies. Daily sun protection all year round. Call if questions or problems. Assessment & Plan (12/21/2024 11:41 AM EST): Clinically appears stable-new set of lab work requested[facility]. Carefully continue Plaquenil as prescribed and follow with certified industrial hygienist as scheduled at least once every 12 months. She already received yearly influenza vaccination the newest COVID-19 vaccine booster . Balance rest and activity. Avoid sick contacts. Keep up-to-date with age-appropriate screenings and preventive strategies. Daily sun protection all year round. Call if questions or problems. Assessment & Plan (09/13/2024 12:57 PM EST): Clinically appears stable-new set of lab work requested[facility]. Carefully continue Plaquenil as prescribed and follow with certified industrial hygienist as scheduled at least once every 12 months. She already received yearly influenza vaccination the newest COVID-19 vaccine booster . Balance rest and activity. Avoid sick contacts. Keep up-to-date with age-appropriate screenings and preventive strategies. Daily sun protection all year round. Call if questions or problems. Assessment & Plan (06/14/2024 10:52 AM EDT): Clinically appears stable-new set of lab work requested[facility]. Carefully continue Plaquenil as prescribed and follow with certified industrial hygienist as scheduled at least once every 12 [...] continue Plaquenil as prescribed and follow with certified industrial hygienist as scheduled at least once every 12 months. Balance rest and activity. Avoid sick contacts. Keep up-to-date with age-appropriate screenings and preventive strategies. Daily sun protection all year round. Call if questions or problems. Assessment & Plan (08/13/2023 5:51 PM EDT): Carefully continue Plaquenil as prescribed and follow with certified industrial hygienist as scheduled at least once every 12 months. Balance rest and activity. Avoid sick contacts. Keep up-to-date with age-appropriate screenings and preventive strategies. Daily sun protection all year round. Call if questions or problems. Assessment & Plan (01/26/2023 9:09 AM EDT): Carefully continue Plaquenil as prescribed and follow with certified industrial hygienist as scheduled at least once every 12 months. Balance rest and activity. Avoid sick contacts. Keep up-to-date with age-appropriate screenings and preventive strategies. Daily sun protection all year round. Call if questions or problems. Assessment & Plan (06/21/2022 12:27 PM EDT): Carefully continue Plaquenil as prescribed and follow with certified industrial hygienist as scheduled at least once every 12 months. Balance rest and activity. Avoid sick contacts. Keep up-to-date with age-appropriate screenings and preventive strategies. Daily sun protection all year round. Call if questions or problems. Assessment & Plan (03/01/2022 11:09 AM EDT): Carefully continue Plaquenil as prescribed and follow with certified industrial hygienist as scheduled at least once every 12 months. Balance rest and activity. Avoid sick contacts. Keep up-to-date with age-appropriate screenings and preventive strategies. Daily sun protection all year round. Call if questions or problems. Assessment & Plan (12/04/2021 10:43 AM EST): Carefully continue Plaquenil as prescribed and follow with certified industrial hygienist as scheduled at least once every 12 months. Balance rest and activity. Avoid sick contacts. Keep up-to-date with age-appropriate screenings and preventive strategies. Daily sun protection all year round. Call if questions or problems. Assessment & Plan (09/04/2021 2:40 PM EST): Carefully continue Plaquenil as prescribed and follow with certified industrial hygienist as scheduled at least once every 12 months. Balance rest and activity. Avoid sick contacts. Keep up-to-date with age-appropriate screenings and preventive strategies. Daily sun protection all year round. Call if questions or problems. Assessment & Plan (06/05/2021 11:29 AM EDT): Carefully continue Plaquenil as prescribed and follow with certified industrial hygienist as scheduled at least once every 12 months. Balance rest and activity. Avoid sick contacts. Keep up-to-date with age-appropriate screenings and preventive strategies. Daily sun protection all year round. Call if questions or problems. Assessment & Plan (04/09/2021 9:58 AM EDT): Carefully continue Plaquenil as prescribed and follow with certified industrial hygienist as scheduled at least once every 12 months. Balance rest and activity. Avoid sick contacts. Keep up-to-date with age-appropriate screenings and preventive strategies. Daily sun protection all year round. Call if questions or problems. Assessment & Plan (02/26/2021 9:24 AM EDT): Carefully continue Plaquenil as prescribed and follow with certified industrial hygienist as scheduled at least once every 12 months. Balance rest and activity. Avoid sick contacts. Keep up-to-date with age-appropriate screenings and preventive strategies. Daily sun protection all year round. Call if questions or problems. Assessment & Plan (12/04/2020 9:11 AM EST): Carefully continue Plaquenil as prescribed and follow with certified industrial hygienist as scheduled at least once every 12 months. Balance rest and activity. Avoid sick contacts. Keep up-to-date with age-appropriate screenings and preventive strategies. Daily sun protection all year round. Call if questions or problems. Assessment & Plan (09/30/2020 8:12 PM EST): Carefully continue Plaquenil as prescribed and follow with certified industrial hygienist as scheduled at least once every 12 [...] continue Plaquenil as prescribed and follow with certified industrial hygienist as scheduled at least once every 12 [...] continue Plaquenil as prescribed and follow with certified industrial hygienist as scheduled at least once every 12 [...] continue Plaquenil as prescribed and follow with certified industrial hygienist as scheduled at least once every 12 [...] Encounters Date Type Department Care Team Description 08/28/2025 Telephone [facility] [address] [place] [address] Francisca Tony MD RX Pharmacy Change 08/26/2025 10:00 AM EST Office Visit [facility] [address] [place] [address] [place] [address] Francisca Tony MD Systemic lupus erythematosus with organ system involvement (Primary Dx); Raynaud's disease without gangrene; Primary osteoarthritis involving multiple joints; Long-term use of Plaquenil; Gastroesophageal reflux disease without esophagitis; Age-related osteoporosis without current pathological fracture; Small fiber neuropathy; On statin therapy; Aspirin long-term use; Memory loss 08/24/2025 Refill [facility] [address] [place] [address] [place] [address] Francisca Tony MD Medication Refill 08/21/2025 1:22 PM EDT - 08/21/2025 11:59 PM EDT Hospital Encounter [facility] [address] [place] [address] Francisca Tony MD Discharge Disposition: Home or Self Care 08/21/2025 Transcribe Orders [facility] [address] [place] [address] Francisca Tony MD Systemic lupus erythematosus with organ system involvement (Primary Dx); Long-term use of Plaquenil from Last 3 Months Immunizations Immunization Administration [...] Sign Reading Time Taken Comments Blood Pressure 120/78 08/26/2025 10:08 AM EST Pulse 90 08/26/2025 10:08 AM EST Temperature 36.4 C (97.5 F) 07/20/2023 10:30 AM EDT Respiratory Rate 16 12/08/2023 11:27 AM EST Oxygen Saturation 97% 08/26/2025 10:08 AM EST Inhaled Oxygen Concentration - - Weight 57.7 kg (127 lb 3.2 oz) 08/26/2025 10:08 AM EST Height 152.4 cm (5') 08/26/2025 10:08 AM EST Body Mass Index 24.84 08/26/2025 10:08 AM EST Plan of Treatment Upcoming Encounters Date Type Department Care Team (Late st Contact Info) Description 12/06/2025 2:00 PM EST Office Visit [facility] Rheumatology [address] [place] [address] Francisca Tony MD [address] [facility], [address] [place] [address] Health Maintenance Due Date Last Done Comments COLOGUARD 1997 FIT TEST 1997 FOBT 1997 SIGMOIDOSCOPY 1997 VIRTUAL COLONOSCOPY 1997 FOLLOW UP BONE DENSITY TESTING 12/08/2023 12/08/2021, 08/17/2019, 07/24/2013 DEPRESSION SCREENING 12/08/2024 12/08/2023, 12/08/19 24 COVID-19 VACCINE ( season) 2025 05/31/2025, 06/29/2024, 08/04/2023, Additional history exists MAMMOGRAM 12/08/2025 12/08/2023, 11/24, 08/17/2019, Additional history exists BLOOD PRESSURE 02/23/2026 08/26/2025 TSH LEVEL 05/08/2026 05/08/2025, 07/25, 06/10/2022, Additional history exists LIPID PANEL 02/05/2028 02/04/2023, 07/25, 08/13/2022, Additional history exists COLONOSCOPY 07/06/2033 07/06/2023, 10/19/2012 COLORECTAL CANCER SCREENING 07/06/2033 Adult Td,Tdap Booster 01/29/2035 01/29/2025, 015 PNEUMOCOCCAL VACCINES (50+ years) Completed 07/31/2019, 06/25/2018, 09/20/2012 HEPATITIS C SCREENING Completed 08/01/2019, 019 OSTEOPOROSIS SCREENING INITIAL (ONE-TIME) Completed 12/08/2021, 08/17/2019, 07/24/2013 RSV VACCINE Completed 12/26/2023 ZOSTER VACCINES Completed 12/30/2023, 06/2019, 05/01/2019, Additional history exists INFLUENZA VACCINE Completed 05/31/2025, , 06/14/2023, Additional history exists SMOKING STATUS SCREENING (Once After 26 Yrs) Completed 08/26/2025 HEPATITIS A VACCINES Aged Out No long er eligible based on patient's age to complete this topic HIB VACCINES Aged Out No longer eligi ble based on patient's age to complete this topic IPV VACCINES Aged Out No longer eligi ble [...] EDT) TSH 5.03(H) 0.27 - 4.20 uIU/mL [facility] Blood 08/12/2023 11:2 0 AM EDT 08/12/2023 11:23 AM EDT Ashley Pichardo JOB PRINTER APPRENTICE LAB BLOOD BKR ORDERABLES Fin al Result Performing Organization Address City/[facility]/ZIP Co de Phone Number [address] [phone] * HM COLONOSCOPY FOR RESULT ENTRY ONLY (07/06/2023) Historical Provider HEALTH MAINTENANCE Edited Result - Final * (ABNORMAL) Lipid panel (02/04/2023 10:10 AM EDT) HDL 76 mg/dL [facility] Comment: Interpretation <40 mg/dL: Low HDL cholesterol (major risk factor for CHD) Greater than or equal to 60 mg/dL: High HDL cholesterol ( negative risk factor for CHD) HDL - cholesterol is affected by a number of factors, e.g. smoking, excerise, hormones, sex and age. CHOLESTEROL 188 0 - 240 mg/dL [facility] TRIGLYCERIDES 130 30 - 160 mg/dL [facility] LDL 86 50 - 129 mg/dL [facility] Comment: LDL levels in terms of risk for coronary heart disease: <100 mg/dL: Optimal 100-129 mg/dL: Near or above optimal 130-159 mg/dL: Borderline high 160-189 mg/dL: High >190 mg/dL: Very High CARDIAC RISK RATIO 2.5(L) 3.3 - 4.4 [facility] Blood 02/04/2023 10:1 0 AM EDT 02/04/2023 10:13 AM EDT Isadora Contreras JOB PRINTER APPRENTICE LAB BLOOD BKR ORDERABLES Final Result [address] [address] * OUTSIDE BONE DENSITY SCREENING (12/08/2021) BONE DENSITY SCREENING - EXTERNAL osteoporosis Historical Provider HEALTH MAINTENANCE Final Result * HM MAMMOGRAPHY FOR RESULT ENTRY ONLY (12/08/2021) Historical Provider HEALTH MAINTENANCE Edited Result - Final * Hepatitis C antibody, qualitative (08/01/2019 9:35 AM EDT) HCV NON-REACTIV E NON-REACTI VE [facility] Blood 08/01/2019 9:35 AM EDT 08/01/2019 9:38 AM EDT Isadora Contreras NP LAB BLOOD BKR ORDERABLES Final Result [facility] [address] [place] [address] from Last 3 Months or Most Recently Relevant to Health Maintenance Insurance MEDICARE REPLACEMENT [facility] MEDICARE REPLACEMENT MEDICARE REPLACEMENT MEDICARE REPLACEMENT MEDIC[facility] [id number] Care Teams Sewing Techniques Demonstrator Relationship Specialty Start Date End Date Ricardo You MD PCP - General Family Medicine 06/18/24 Additional Source Comments The information contained in this document represents components of the legal health record. It is not the complete legal health record.[facility]
--- OUTSIDE RECORDS SUMMARY | 2025-09-02 15:37 | XMS_ITS | Data Portability ---
Author Organization [facility] Address [address] [place] [address] Care Team Providers Care Pony Roll Finisher Name Role Phone CCA PRIMARY CARE Referring Provider Assessment Encounter Date Assessment Date Assessment LastModified by Organization Details LastModified Time 10/15/2023 10/15/2023 I have reviewed and agree with the assessment and plan as documented by the procedures analyst. I provided real time medical direction for this encounter and was immediately available to provide additional phone based assistance as needed. History as noted by procedures analyst. Pt reports 2-3 weeks of a cough [...] doxycycline hyclate 100 mg tablet 2022 023 [id number], [address], [place], [place], [id number], 10:46:47 guaifenesin ER 600 mg tablet, extended release hr 2022 023 [facility], [address], [place], [id number], 3 10:46:44 albuterol sulfate HFA 90 mcg/actuati on aerosol inhaler 2022 023 [facility], [address], [place], [id number], 3 10:46:44 Patient TargetsNo targets recorded. Patient [...] ICD10 Code Diagnosis IMO Codes Diagnosis Note 99898 Storm Hutchinson MD Main - instED [address] [place] [phone] 10/15/2023 10:37:19 10/15/2023 17:33:51 Acute bronchitis 74120502 J20.9 Health Concerns Section Related Observation LastModified by Organization Detai ls LastModified Time None Recorded Concern Status LastModified by Organization Details LastModified Time None Recorded Advance Directives Directive None Recorded Payers Insurance Date Sequence Insurance Name Policy Number Policy Titus Covered Member ID Titus Member ID Guarantor Name 12/28/[address] [facility] - DOS ON OR AFTER 2023 - DUAL ELIGIBLE - INTERMEDIATE OPTIONS AND ONE CARE (MEDICARE REPLACEMENT/ADV ANTAGE - HMO) Kiara Pastrana [id number] Kiara Pastrana Notes Date Note Type Note Provider Name and Address Organization Details Recorded Time 10/15/2023 text/html ROS as noted in the HPI This was a supervised home visit with procedures analyst Naye Yi. CRC Nurse Triage Notes (Denilson Cedeno): Chief Complaints: URI Allergies: Unknown Comments: Cough/cold/congest ion/fever -s/s for few weeks - SOB of times - Wellness check - Coreen SAHNI .................. .................. .................. .................. .................. .................. .................. ............... Assistant Import Manager Note From Naye Yi: Community Assistant Import Manager Angelic Yi CCA[facility] 73 yof C/O [...] .................. ............... Disposition: Fulfilled Storm Hutchinson MD [address] [place] [address],[address] [facility], [place], [address], [facility] 10/15/2023 11:33:52 OBGyn Episode No OBEpisode recorded.
--- OUTSIDE RECORDS SUMMARY | 2025-09-02 15:37 | XMS_ITS | Encounter Summary ---
Author Organization [facility] Address [address] [place] [address] Care Team Providers Care Ship Harbor Pilot Name Role Phone Darwin Costa MD Primary Care Provider Encounter Details Date Type Department Care Team (Late st Contact Info) Description 05/18/[address] [facility] - Main Lab [address] [facility] [place] [address] Darwin Costa MD [address] [place] [address] Systemic lupus erythematosus, unspecified (CMS/HCC V24, CMS/HCC [...] MD LAB BLOOD ORDERABLES Final Resul t [facility] [address] [place] [address], * (ABNORMAL) Complete blood count (05/20/2025 6:51 AM EDT) WBC 5.8 4.8 - 10.8 K/mcL LAB HEMETOLOGY METHOD 05/20/2025 10:26 AM EDT [facility] RBC 3.70(L) 3.80 - 4.80 M/mcL LAB HEMETOLOGY METHOD 05/20/2025 10:26 AM [facility] Hemoglobin 10.2(L) 11.5 - 16.0 g/dL LAB HEMETOLOGY METHOD 05/20/2025 10:26 AM [facility] Hematocrit 33.3(L) 35.0 - 47.0 % LAB HEMETOLOGY METHOD 05/20[facility]2025 10[facility] MCV 91.0 79.0 - 98.0 FL LAB HEMETOLOGY METHOD 05/20/2025 10:[facility] MCH 27.9 27.0 - 32.0 pcg LAB HEMETOLOGY METHOD 05/20/2025 10:[facility] MCHC 30.6(L) 32.0 - 37.0 g/dL LAB HEMETOLOGY METHOD 05/20/2025 10:26 AM [facility] RDW 15.9(H) 11.0 - 15.0 % LAB HEMETOLOGY METHOD 05/20/2025 10:26 AM [facility] Platelets 309 130 - 400 K/mcL LAB HEMETOLOGY METHOD 05/20/2025 10:26 AM EDT [facility] MPV 9.2 7.0 - 11.0 FL LAB HEMETOLOGY METHOD 05/20/2025 10:26 AM EDT [facility] NRBC 0.0 <1.0 % LAB HEMETOLOGY METHOD 05/20/2025 10:26 AM EDT [facility] NRBC Absolute 0.00 <0.10 K/mcL LAB HEMETOLOGY METHOD 05/20/2025 10:26 AM EDT [facility] Blood Venous blood specimen / Unknown Venipuncture / Unknown 05/20/2025 6:51 AM EDT 05/20/2025 9:56 AM EDT Darwin Costa MD LAB BLOOD ORDERABLES Final Resul t [facility] [address] [place] [address], documented in this encounter Visit Diagnoses Diagnosis Systemic lupus erythematosus, unspecified (CMS/HCC V24, CMS/HCC V28) documented in this encounter Care Teams Ship Harbor Pilot Relationship Specialty Start Date End Date Darwin Costa MD [address] [place] [address] [address] [place] [address] PCP - General Geriatric Medicine 05/08/25 documented as of this encounter
--- OUTSIDE RECORDS SUMMARY | 2025-09-02 15:37 | XMS_ITS | Encounter Summary ---
Author Organization [facility] Address [address] [place] [address] Care Team Providers Care Solo Truck Driver Name Role Phone Darwin Costa MD Primary Care Provider [phone] Encounter Details Date Type Department Care Team (Latest Contact Info) Description 07/05/2025 Lab Requisition [facility] - Main Lab [address] [place] [phone] Ricardo Arcos MD [address] [phone] Encounter for gynecological examination (general) (routine) without [...] intraepithelial lesion or malignancy [facility] General Categorization Negative 07/09/2025 12:[address] [facility] Other Findings Atrophy 07/09/2025 12:08 PM [facility] Specimen Adequacy Satisfactory for evaluation 07/09/2025 12:08 [facility] Pap Methodology Liquid Based Pap Test 07/09/2025 12:08 [facility] Disclaimer Note: This pap test could not be imaged utilizing the [employer] System and required a manual review. The Pap test is a screening test which carries an inherent false negative rate. These test results should be correlated with the patient's clinical findings and history. This Pap test was processed using an automated screening system. Technical cytopathology services provided by [facility], at [address] [place] [address] (CLIA # [id number]/German Fields MD, Configuration Management Consultant.) 07/09/2025 12:08 PM [facility] Console Pap Interpretation Reported 07/09/2025 12:08 PM [facility] Brushing/Spatula Cervix uteri structure / Unknown 07/04/2025 07/05/2025 7:43 AM EDT us Ricardo Arcos MD LAB CYTOLOGY ORDERABLES Final Result [facility] [address] [place] [address], documented in this encounter Visit Diagnoses Diagnosis Encounter for gynecological examination (general) (routine) without abnormal findings documented in this encounter Care Teams Solo Truck Driver Relationship Specialty Start Date End Date Darwin Costa MD [address] [facility] [address] [place] [address] PCP - General Geriatric Medicine 05/08/25 documented as of this encounter
--- OUTSIDE RECORDS SUMMARY | 2025-09-02 15:37 | XMS_ITS | Encounter Summary ---
Author Organization [facility] Address [address] [place] [address] Care Team Providers Care Orchestrator Name Role Phone Darwin Costa MD Primary Care Provider [phone] Encounter Details Date Type Department Care Team (Late st Contact Info) Description 05/12/2025 Lab Requisition [facility] - Main Lab [address] [facility] [place] [address] Darwin Costa MD [address] [place] [address] Systemic lupus erythematosus, unspecified (CMS/HCC V24, CMS/HCC [...] 7:13 AM EDT Systemic lupus erythematosus, unspecified ([facility] V24, [facility] V28) documented in this encounter Results * (ABNORMAL) Comprehensive metabolic panel (05/13/2025 7:13 AM EDT) Sodium 139 133 - 145 mmol/L LAB CHEMISTRY METHOD 05/13/2025 12:20 PM [facility] Potassium 4.1 3.5 - 5.5 mmol/L LAB CHEMISTRY METHOD 05/13/2025 12:20 PM [facility] Chloride 110 96 - 110 mmol/L LAB CHEMISTRY METHOD 05/13/2025 12:20 PM [facility] CO2 23 21 - 32 mmol/L LAB CHEMISTRY METHOD 05/13/2025 12:20 PM [facility] Anion Gap 6 3 - 11 LAB CHEMISTRY METHOD 05/13/2025 12:20 PM [facility] Glucose 67(L) 70 - 100 mg/dL LAB CHEMISTRY METHOD 05/13/2025 12:20 PM [facility] BUN 19 5 - 25 mg/dL LAB CHEMISTRY METHOD 05/13/2025 12:20 PM [facility] Creatinine 0.83 0.50 - 1.10 mg/dL LAB CHEMISTRY METHOD 05/13/2025 12:20 PM [facility] eGFR 75 >=60 mL/min/1. 73m2 LAB CHEMISTRY METHOD 05/13/2025 12:20 PM [facility] Comment:Calculation based on the Chronic Kidney Disease Epidemiology Collaboration (CKD-EPI) equation refit without adjustment for race. BUN/Creatinine Ratio 22.9 LAB CHEMISTRY METHOD 05/13/2025 12:20 PM [facility] Calcium 9.4 8.5 - 10.5 mg/dL LAB CHEMISTRY METHOD 05/13/2025 12:20 PM EDT [facility] AST (SGOT) 20 10 - 42 unit/L LAB CHEMISTRY METHOD 05/13/2025 12:20 PM [facility] ALT (SGPT) 20 10 - 60 unit/L LAB CHEMISTRY METHOD 05/13/2025 12:20 PM [facility] Alkaline Phosphatase 92 42 - 121 unit/L LAB CHEMISTRY METHOD 05/13/2025 12:20 PM [facility] Total Protein 7.0 6.0 - 8.0 g/dL LAB CHEMISTRY METHOD 05/13/2025 12:20 PM [facility] Albumin 3.6 3.2 - 5.0 g/dL LAB CHEMISTRY METHOD 05/13/2025 12:20 PM [facility] Total Bilirubin 0.2 0.0 - 1.4 mg/dL LAB CHEMISTRY METHOD 05/13/2025 12:20 PM [facility] Blood Venous blood specimen / Unknown Venipuncture / Unknown 05/13/2025 7:13 AM EDT 05/13/2025 9:55 AM EDT us Darwin Costa MD LAB BLOOD ORDERABLES Final Resul t [facility] [address] [place] [address], * (ABNORMAL) Basic metabolic panel (05/13/2025 7:13 AM EDT) Sodium 139 133 - 145 mmol/L LAB CHEMISTRY METHOD 05/13/2025 12:20 PM [facility] Potassium 4.1 3.5 - 5.5 mmol/L LAB CHEMISTRY METHOD 05/13/2025 12:20 PM [facility] Chloride 110 96 - 110 mmol/L LAB CHEMISTRY METHOD 05/13/2025 12:20 PM [facility] CO2 23 21 - 32 mmol/L LAB CHEMISTRY METHOD 05/13/2025 12:20 PM [facility] Anion Gap 6 3 - 11 LAB CHEMISTRY METHOD 05/13/2025 12:20 PM [facility] Glucose 67(L) 70 - 100 mg/dL LAB CHEMISTRY METHOD 05/13/2025 12:20 PM [facility] BUN 19 5 - 25 mg/dL LAB CHEMISTRY METHOD 05/13/2025 12:20 PM [facility] Creatinine 0.83 0.50 - 1.10 mg/dL LAB CHEMISTRY METHOD 05/13/2025 12:20 PM [facility] eGFR 75 >=60 mL/min/1. 73m2 LAB CHEMISTRY METHOD 05/13/2025 12:20 PM [facility] Comment: Calculation based on the Chronic Kidney Disease Epidemiology Collaboration (CKD- EPI) equation refit without adjustment for race. Calculation based on the Chronic Kidney Disease Epidemiology Collaboration (CKD- EPI) equation refit without adjustment for race. BUN/Creatinine Ratio 22.9 LAB CHEMISTRY METHOD 05/13/2025 12:20 PM [facility] Calcium 9.4 8.5 - 10.5 mg/dL LAB CHEMISTRY METHOD 05/13/2025 12:20 PM [facility] Blood Venous blood specimen / Unknown Venipuncture / Unknown 05/13/2025 7:13 AM EDT 05/13/2025 9:55 AM EDT us Darwin Costa MD LAB BLOOD ORDERABLES Final Resul t [facility] [address] [place] [address], * (ABNORMAL) Complete blood count (05/13/2025 7:13 AM EDT) WBC 4.9 4.8 - 10.8 K/mcL LAB HEMETOLOGY METHOD 05/13/2025 10:53 AM [facility] RBC 3.80 3.80 - 4.80 M/[facility] LAB HEMETOLOGY METHOD 05/13/2025 10:53 AM [facility] Hemoglobin 10.4(L) 11.5 - 16.0 g/dL LAB HEMETOLOGY METHOD 05/13/2025 10:53 AM [facility] Hematocrit 34.2(L) 35.0 - 47.0 % LAB HEMETOLOGY METHOD 05/13/2025 10:53 AM [facility] MCV 90.7 79.0 - 98.0 FL LAB HEMETOLOGY METHOD 05/13/2025 10:53 AM [facility] MCH 27.6 27.0 - 32.0 pcg LAB HEMETOLOGY METHOD 05/13/2025 10:53 AM [facility] MCHC 30.4(L) 32.0 - 37.0 g/dL LAB HEMETOLOGY METHOD 05/13/2025 10:53 AM [facility] RDW 15.6(H) 11.0 - 15.0 % LAB HEMETOLOGY METHOD 05/13/2025 10:53 AM [facility] Platelets 299 130 - 400 K/[facility] LAB HEMETOLOGY METHOD 05/13/2025 10:53 AM [facility] MPV 9.3 7.0 - 11.0 FL LAB HEMETOLOGY METHOD 05/13/2025 10:53 AM [facility] NRBC 0.0 <1.0 % LAB HEMETOLOGY METHOD 05/13/2025 10:53 AM [facility] NRBC Absolute 0.00 <0.10 K/[facility] LAB HEMETOLOGY METHOD 05/13/2025 10:53 AM [facility] Blood Venous blood specimen / Unknown Venipuncture / Unknown 05/13/2025 7:13 AM EDT 05/13/2025 9:58 AM EDT Darwin Costa MD LAB BLOOD ORDERABLES Final Resul t [facility] [address] [place] [address], documented in this encounter Visit Diagnoses Diagnosis Systemic lupus erythematosus, unspecified (CMS/HCC V24, CMS/HCC V28) documented in this encounter Care Teams Orchestrator Relationship Specialty Start Date End Date Darwin Costa MD [address] [place] [address] [address] [place] [address] PCP - General Geriatric Medicine 05/08/25 documented as of this encounter
--- OUTSIDE RECORDS SUMMARY | 2025-09-02 15:37 | XMS_ITS | Clinical Summary ---
Author Organization [address] [facility] Address [address] [place] [address] Phone Care Team Providers Care Tutorial Laboratory Supervisor Name Role Phone Darwin Costa MD Primary Care Provider [phone] Encounters Date Type Department Care Team Description 07/05/[address] [facility] - Main Lab [address] [place] [address] Ricardo Arcos MD Encounter for gynecological examination (general) (routine) without abnormal findings from Last 3 Months Surgical History Surgery [...] 's disease Neuropathy DX:Neuropathy Arthritis DX:Arthritis A-fib ([facility] V24, [facility] V28) DX:A-fib ([facility]) IBS (irritable bowel syndrome) D X:IBS (irritable bowel syndrome) Migraines DX:Migraines Chest pain, unspecified 11/07/2012 DX:Chest pain, unspecified Essential hypertension, benign 11/07/2012 D X:Essential hypertension, benign Other and unspecified hyperlipidemia 11/07/2012 DX:Other and unspecified hyperlipidemia Systemic lupus erythematosus (CMS/[facility] V24, CMS/[facility] V28) 11/07/2012 DX:Systemic lupus erythemato farzaneh ([facility]) Small fiber neuropathy 05/24/2018 DX:Small fiber neuropathy; [...] Tdap) 05/21/2025 05/21/2015 COVID-19 Vaccine (1 - 2023- season) 2025 Influenza Vaccine (#1) 2025 , 06/09/2022, 06/07/2021, Additional history exists Hypertension/CHF/CAD Annual BMP Blood Test 05/20/2026 05/20/2025, 05/13/2025, 05/13/2025, Additional history exists RSV Immunization Adult Patients (1 - 1-dose 75+ series) 2027 Cholesterol Screening (Lipid Panel) 02/05/2028 02/04/2023 Zoster Vaccines Completed 07/02/2019, 0706/2019, 03/31/2016 Pneumococcal Vaccine: 50+ Years Completed 07/31/2019, [...] 6:51 AM EDT Systemic lupus erythematosus, unspecified (CMS/[facility] V24, CMS/[facility] V28) from Last 3 Months or Most Recently Relevant to Health Maintenance Results * Pap smear (07/04/2025 12:00 AM EDT) Interpretation Negative for intraepithelial lesion or malignancy 07/09/2025 12:08 PM T [facility] General Categorization Negative [facility] Other Findings Atrophy 07/09/2025 12:[facility] Specimen Adequacy Satisfactory for evaluation 07/09/2025 12:08 PM [facility] Pap Methodology Liquid Based Pap Test 07/09/2025 12:08 PM [facility] Disclaimer Note: This pap test could not be imaged utilizing the [employer] System and required a manual review. The Pap test is a screening test which carries an inherent false negative rate. These test results should be correlated with the patient's clinical findings and history. This Pap test was processed using an automated screening system. Technical cytopathology services provided by [facility], at [address] [place] [address] (CLIA # [id number]/German Fields MD, [employer].) 07/09/2025 12:08 PM EDT [facility] Console Pap Interpretation Reported 07/09/2025 12:08 PM [facility] Brushing/Spatula Cervix uteri structure / Unknown 07/04/2025 07/05/2025 7:43 AM EDT us Ricardo Arcos MD LAB CYTOLOGY ORDERABLES Final Result [facility] [address] [place] [address], * Basic metabolic panel (05/20/2025 6:51 AM EDT) Sodium 139 133 - 145 mmol/L LAB CHEMISTRY METHOD 05/20/2025 11:05 AM [facility] Potassium 4.1 3.5 - 5.5 mmol/L LAB CHEMISTRY METHOD 05/20/2025 11:05 AM [facility] Chloride 109 96 - 110 mmol/L LAB CHEMISTRY METHOD 05/20/2025 11:05 AM [facility] CO2 26 21 - 32 mmol/L LAB CHEMISTRY METHOD 05/20/2025 11:05 AM [facility] Anion Gap 4 3 - 11 LAB CHEMISTRY METHOD 05/20/2025 11:05 AM [facility] Glucose 96 70 - 100 mg/dL LAB CHEMISTRY METHOD 05/20/2025 11:05 AM [facility] BUN 19 5 - 25 mg/dL LAB CHEMISTRY METHOD 05/20/2025 11:05 AM [facility] Creatinine 0.88 0.50 - 1.10 mg/dL LAB CHEMISTRY METHOD 05/20/2025 11:05 AM EDT [facility] eGFR 70 >=60 mL/min/1. 73m2 LAB CHEMISTRY METHOD 05/20/2025 11:05 AM EDT [facility] Comment:Calculation based on the Chronic Kidney Disease Epidemiology Collaboration (CKD-EPI) equation refit without adjustment for race. BUN/Creatinine Ratio 21.6 LAB CHEMISTRY METHOD 05/20/2025 11:05 AM EDT [facility] Calcium 9.6 8.5 - 10.5 mg/dL LAB CHEMISTRY METHOD 05/20/2025 11:05 AM EDT [facility] Blood Venous blood specimen / Unknown Venipuncture / Unknown 05/20/2025 6:51 AM EDT 05/20/2025 9:53 AM EDT Darwin Costa MD LAB BLOOD ORDERABLES Final Resul t [facility] [address] [place] [address], from Last 3 Months or Most Recently Relevant to Health Maintenance Insurance [facility] [employer] Member Subscriber Plan / Payer (Ef fective 2022-Present) Name:Ashely Pastrana Relation to Subscriber:Self Name:Ashely Pastrana Payer ID:[id number] Group ID:Not on file Type:Not on file Address: [place] [phone] Advance Directives Documents on File Type Date Recorded Patient I&C Technician Expl anation Health Care Decision (hx) 04/10/2010 AD FERRELL DIRECTIVE Health Care Decision (hx) 04/10/2010 AD FERRELL DIRECTIVE Care Teams Tutorial Laboratory Supervisor Relationship Specialty Start Date End Date Darwin Costa MD [address] [place] [address] [address] [place] [address] PCP - General Geriatric Medicine 05/08/25
--- OUTSIDE RECORDS SUMMARY | 2025-09-02 15:37 | XMS_ITS | Encounter Summary ---
Author Organization [facility] Address [address] [place] [address] Care Team Providers Care Tennis Player Name Role Phone Darwin Costa MD Primary Care Provider [phone] Encounter Details Date Type Department Care Team (Late st Contact Info) Description 05/08/[address] [facility] - Main Lab [address] [facility] [place] [address] Darwin Costa MD [address] [place] [address] Systemic lupus erythematosus, unspecified (CMS/HCC V24, CMS/HCC [...] LAB CHEMISTRY METHOD 05/08/2025 12:08 PM EDT [facility] Folate 12.8 2.8 - 17.0 ng/ml LAB CHEMISTRY METHOD 05/08/2025 12:08 PM EDT [facility] Blood Venous blood specimen / Unknown Venipuncture / Unknown 05/08/2025 7:49 AM EDT 05/08/2025 9:53 AM EDT us Darwin Costa MD LAB BLOOD ORDERABLES Final Resul t [facility] [address] [place] [address], * (ABNORMAL) Thyroid stimulating hormone (05/08/2025 7:49 AM EDT) TSH 4.14(H) 0.40 - 4.00 mcIU/mL LAB CHEMISTRY METHOD 05/08/2025 12:38 PM EDT [facility] Blood Venous blood specimen / Unknown Venipuncture / Unknown 05/08/2025 7:49 AM EDT 05/08/2025 9:53 AM EDT Darwin Costa MD LAB BLOOD ORDERABLES Final Resul t [facility] [address] [place] [address], [place] [phone] * Comprehensive metabolic panel (05/08/2025 7:49 AM EDT) Sodium 137 133 - 145 mmol/L LAB CHEMISTRY METHOD 05/08/2025 12:08 PM [facility] Potassium 4.3 3.5 - 5.5 mmol/L LAB CHEMISTRY METHOD 05/08/2025 12:08 PM [facility] Chloride 106 96 - 110 mmol/L LAB CHEMISTRY METHOD 05/08/2025 12:08 PM [facility] CO2 24 21 - 32 mmol/L LAB CHEMISTRY METHOD 05/08/2025 12:08 PM [facility] Anion Gap 7 3 - 11 LAB CHEMISTRY METHOD 05/08/2025 12:08 PM [facility] Glucose 77 70 - 100 mg/dL LAB CHEMISTRY METHOD 05/08/2025 12:08 PM [facility] BUN 13 5 - 25 mg/dL LAB CHEMISTRY METHOD 05/08/2025 12:08 PM [facility] Creatinine 0.93 0.50 - 1.10 mg/dL LAB CHEMISTRY METHOD 05/08/2025 12:08 PM [facility] eGFR 65 >=60 mL/min/1. 73m2 LAB CHEMISTRY METHOD 05/08/2025 12:08 PM [facility] Comment:Calculation based on the Chronic Kidney Disease Epidemiology Collaboration (CKD-EPI) equation refit without adjustment for race. BUN/Creatinine Ratio 14.0 LAB CHEMISTRY METHOD 05/08/2025 12:08 PM [facility] Calcium 9.2 8.5 - 10.5 mg/dL LAB CHEMISTRY METHOD 05/08/2025 12:08 PM [facility] AST (SGOT) 21 10 - 42 unit/L LAB CHEMISTRY METHOD 05/08/2025 12:08 PM [facility] ALT (SGPT) 15 10 - 60 unit/L LAB CHEMISTRY METHOD 05/08/2025 12:08 PM [facility] Alkaline Phosphatase 91 42 - 121 unit/L LAB CHEMISTRY METHOD 05/08/2025 12:08 PM [facility] Total Protein 6.6 6.0 - 8.0 g/dL LAB CHEMISTRY METHOD 05/08/2025 12:08 PM [facility] Albumin 3.2 3.2 - 5.0 g/dL LAB CHEMISTRY METHOD 05/08/2025 12:08 PM [facility] Total Bilirubin 0.2 0.0 - 1.4 mg/dL LAB CHEMISTRY METHOD 05/08/2025 12:08 PM [facility] Blood Venous blood specimen / Unknown Venipuncture / Unknown 05/08/2025 7:49 AM EDT 05/08/2025 9:53 AM EDT us Darwin Costa MD LAB BLOOD ORDERABLES Final Resul t [facility] [address] [place] [address], * (ABNORMAL) Complete blood count (05/08/2025 7:49 AM EDT) WBC 4.8 4.8 - 10.8 K/mcL LAB HEMETOLOGY METHOD 05/08/2025 11:03 AM EDT [facility] RBC 3.70(L) 3.80 - 4.80 M/mcL LAB HEMETOLOGY METHOD 05/08/2025 11:03 AM [facility] Hemoglobin 10.5(L) 11.5 - 16.0 g/dL LAB HEMETOLOGY METHOD 05/08/2025 11:03 AM [facility] Hematocrit 33.3(L) 35.0 - 47.0 % LAB HEMETOLOGY METHOD 05/08/2025 11:03 AM [facility] MCV 89.5 79.0 - 98.0 FL LAB HEMETOLOGY METHOD 05/08/2025 11:03 AM [facility] MCH 28.2 27.0 - 32.0 pcg LAB HEMETOLOGY METHOD 05/08/2025 11:03 AM [facility] MCHC 31.5(L) 32.0 - 37.0 g/dL LAB HEMETOLOGY METHOD 05/08/2025 11:03 AM [facility] RDW 14.7 11.0 - 15.0 % LAB HEMETOLOGY METHOD 05/08/2025 11:03 AM [facility] Platelets 292 130 - 400 K/mcL LAB HEMETOLOGY METHOD 05/08/2025 11:03 AM [facility] MPV 9.0 7.0 - 11.0 FL LAB HEMETOLOGY METHOD 05/08/2025 11:03 AM [facility] NRBC 0.0 <1.0 % LAB HEMETOLOGY METHOD 05/08/2025 11:03 AM [facility] NRBC Absolute 0.00 <0.10 K/mcL LAB HEMETOLOGY METHOD 05/08/2025 11:03 AM [facility] Blood Venous blood specimen / Unknown Venipuncture / Unknown 05/08/2025 7:49 AM EDT 05/08/2025 9:53 AM EDT Darwin Costa MD LAB BLOOD ORDERABLES Final Resul t [facility] [address] [place] [address], documented in this encounter Visit Diagnoses Diagnosis Systemic lupus erythematosus, unspecified (CMS/HCC V24, CMS/HCC V28) Chronic migraine without aura, not intractable, with status migrainosus Anxiety disorder, unspecified documented in this encounter Care Teams Tennis Player Relationship Specialty Start Date End Date Darwin Costa MD [address] [facility] [address] [place] [address] PCP - General Geriatric Medicine 05/08/25 documented as of this encounter
--- OUTSIDE RECORDS SUMMARY | 2025-09-02 15:37 | XMS_ITS | Encounter Summary ---
Author Organization [facility] Address [address] [place] [address] [address] [place] [address] Phone Care Team Providers Care Coat Repair Inspector Name Role Phone Ricardo You MD Primary Care Provider Reason for Visit * Reason Onset Date Comments RX Pharmacy Change 08/28/2025 Encounter Details Date Type Department Care Team (Late st Contact Info) Description 08/28/2025 Telephone [facility] Rheumatology [address] [place] [address] Francisca Tony MD [address] [facility], [address] [place] [address] [email or web address] [place] Pharmacy Change Social History Tobacco Use Types Packs/Day Years Used Date Smoking Tobacco: Former Cigarettes 1 14 1 980 - 02/21/1993 Passive Smoke Exposure: Current Smokeless Tobacco: Never Comments:off and on Alcohol [...] on file documented as of this encounter Progress Notes * Francisca Tony MD - 08/29/2025 10:05 PM EST Thanks for pending prescription to [facility]-signed * Francisca Tony MD - 08/29/2025 10:05 PM ESTAddended by: FRANCISCA TONY on: 08/29/2025 10:05 PM Modules accepted: Orders * Tamir Denis CMA - 08/28/2025 2:49 PM ESTAddended by: TAMIR DENIS on: 08/28/2025 02:49 PM Modules accepted: Orders * Tamir Denis CMA - 08/28/2025 2:48 PM EST Tried to call patient no answer no mailbox Amlodipine pended to [facility] * Jeannie Stewart - 08/28/2025 2:29 PM EST Pt called and LVM, she stated her RX was sent to the wrong pharmacy yesterday. She would like a call back to correct the pharmacy location. documented in this encounter Plan of Treatment Upcoming Encounters Date Type Department Care Team (Late st Contact Info) Description 12/06/2025 2:00 PM EST Office Visit [facility] Rheumatology [address] [place] [address] Francisca Tony MD [address] [facility], [address] [place] [address] [email or web address] documented as of this encounter Visit Diagnoses Diagnosis Essential hypertension Unspecified essential hypertension documented in this encounter Additional Health Concerns Assessment Noted Time PHQ-9 Depression Total Score: 24 024 10:41 AM EST PHQ-2 Depression Total Score: 6 12/08/19 24 10:41 AM EST documented as of this encounter Care Teams Coat Repair Inspector Relationship Specialty Start Date End Date Ricardo You MD PCP - General Family Medicine 06/18/24 documented as of this encounter Additional Source Comments The information contained in this document represents components of the legal health record. It is not the complete legal health record.[facility]
--- OUTSIDE RECORDS SUMMARY | 2025-09-02 15:37 | XMS_ITS | Clinical Summary ---
Author Organization [facility] Address [address] [place] [address] Care Team Providers Care Superintendent Power Name Role Phone Magda Garsia DMD Primary Care Provider [phone] Source Comments PLEASE NOTE, if this patient [...] on file Insurance [employer] [place] Care Teams Superintendent Power Relationship Specialty Start Date End Date Magda Garsia DMD [address] [place] [address] PCP - General 07/05/19
--- OUTSIDE RECORDS SUMMARY | 2025-09-02 15:37 | XMS_ITS | Encounter Summary ---
Author Organization [facility] Address [address] [place] [address] Care Team Providers Care Magnetic Resonance Imaging Coordinator Name Role Phone Darwin Costa MD Primary Care Provider [phone] Encounter Details Date Type Department Care Team (Late st Contact Info) Description 05/26/2025 Lab Requisition [facility] - Main Lab [address] [facility] [place] [address] Darwin Costa MD [address] [facility] [address] [place] [address] Systemic lupus erythematosus, unspecified (CMS/HCC V24, CMS/HCC [...] V28) documented in this encounter Care Teams Magnetic Resonance Imaging Coordinator Relationship Specialty Start Date End Date Darwin Costa MD [address] [place], [place] [id number] PCP - General Geriatric Medicine 05/08/25 documented as of this encounter
== END 2025-09-02 14:30 | disposition home or self-care (01) ==
LOC: HO.HMCFM 13:31
PROVIDERS: PCP Family Medicine; Visit Provider Family Medicine
DX: I10 Essential (primary) hypertension (principal); S06.0X0A Concussion without loss of consciousness, initial encounter; F41.9 Anxiety disorder, unspecified

== ENCOUNTER → 2025-09-02 13:30 | Outpatient (BNVA) | payer OTHER, SELFPAY | PROVIDERS: PCP Family Medicine; Visit Provider Family Medicine | DX: I10 Essential (primary) hypertension (principal); S06.0X0A Concussion without loss of consciousness, initial encounter; F41.9 Anxiety disorder, unspecified | CPT/HCPCS: 99212 ==

== ENCOUNTER 2025-09-30 10:47 | Outpatient (REF) | payer OTHER, SELFPAY ==
[2025-09-30 11:11] LABS: MANUAL DIFF FLAG NO
[2025-09-30 11:57] LABS: Hematocrit 34.0 % (37.0-47.0); Hemoglobin 10.5 g/dl (12.0-16.0); Imm Gran Abs Auto 0.02 X10*3/uL (0.00-0.03); Imm Gran Pct Auto 0.3 % (0.0-0.4); Lymphocytes Absolute Auto 1.8 X10*3/uL (1.2-4.9); Mean Corpuscular HGB Conc 30.9 g/dl (31.0-35.0); Mean Corpuscular Hemoglobin 27.3 pg (27.0-33.0); Mean Corpuscular Volume 88.3 fL (80.0-98.0); NRBC Abs Auto 0.000 X10*3/uL (0.0-0.012); NRBC Pct Auto 0.0 /100WBC (0.0-0.2); Platelet Count 272 X10*3/uL (160-400); Red Blood Count 3.85 X10*6/uL (4.20-5.50); White Blood Count 6.3 X10*3/uL (4.8-10.8)
[2025-09-30 12:32] LABS: Appearance Urine Clear; Glucose Urine UA Negative (Negative); PH 5.5 (5.0-9.0); Specific Gravity - Urine 1.020 (1.005-1.025); UMIC TRIGGER UACC YES
[2025-09-30 12:37] LABS: UACC Culture Trigger YES
[2025-09-30 12:52] LABS: Alanine Aminotransferase 20 U/L (0-31); Albumin Level 4.3 g/dL (3.5-5.0); Alkaline Phosphatase 110 U/L (39-117); Anion Gap 11 (12-20); Aspartate Amino Transferase 31 U/L (5-31); Blood Urea Nitrogen 18 mg/dL (9-16); Calcium 10.0 mg/dL (8.4-10.2); Carbon Dioxide 20 mmol/L (22-29); Chloride 112 mmol/L (96-108); Cholesterol 179 mg/dL (<200); Estimated Glomerular Filt Rate 52; HDL Cholesterol 75 mg/dL (>40); Potassium 4.2 mmol/L (3.3-5.1); Sodium 139 mmol/L (135-145); Total Protein 7.8 g/dL (6.5-8.0); Triglycerides 95 mg/dL (<150)
[2025-09-30 13:12] LABS: Microalbum/Creatinine Ratio Ur 23.1 ug/mg cr (<30)
== END 2025-09-30 10:48 | disposition home or self-care (01) ==
LOC: HO.LAB 10:47
PROVIDERS: PCP Family Medicine; Visit Provider Family Medicine
DX: Z00.00 Encounter for general adult medical examination without abnormal findings (principal); R55 Syncope and collapse; I10 Essential (primary) hypertension
CPT/HCPCS: 36415; 80053; 80061; 81001; 82043; 82570; 84443; 85025; 87086; 87147; 93005; 99202

== ENCOUNTER 2025-09-30 12:15 | Outpatient (AMB) | payer OTHER, SELFPAY ==
[2025-09-30 12:50] VITALS: BP 110/60; PULSE 98; BMI 25.2
--- NOTE | 2025-09-30 12:50 | MHC.OFFVIS ---
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 Gamb Cutter Required: No Accompanied by: Self / Same As Patient Allergies carbamazepine (From Tegretol) Allergy (Intermediate, Verified 09/02/25 13:54) MOUTH SORES spider venom (SPIDER BITES) Allergy (Intermediate, Verified 09/02/25 13:54) BLISTERS Sulfa (Sulfonamide Antibiotics) Allergy (Intermediate, Verified 09/02/25 13:54) DISORIENTATION/RASH tizanidine (Tizanidine) Allergy (Intermediate, Verified 09/02/25 13:54) NIGHTMARES horton Adverse Reaction (Severe, Verified 09/02/25 13:54) SEVERE VOMITING Shellfish Allergy (Severe, Uncoded 08/15/25 10:10) TONGUE SWELLING, SHORTNESS OF BREATH spider bites Allergy (Intermediate, Uncoded 08/15/25 10:10) swelling, anaphylaxis cherries Allergy (Unknown, Uncoded 08/15/25 10:10) Nausea and Vomiting mold Allergy (Unknown, Uncoded 08/15/25 10:10) congestion SUGAR SUBSTITUTES Allergy (Unknown, Uncoded 08/15/25 10:10) SORE THROAT - LARYNGITIS Medication List - Last Reconciled 09/30/25 by Karlo Tsang MD amlodipine 10 mg PO DAILY aspirin 81 mg PO DAILY atorvastatin 20 mg PO BEDTIME bupropion HCl XL 150 mg PO QAM 90 days [calciuum citrate plus d 1 tab PO DAILY] carisoprodol 350 mg PO TID PRN 30 days cetirizine (All Day Allergy (cetirizine)) 10 mg PO DAILY PRN 90 days diclofenac sodium 1% 1 ea topical BID PRN dicyclomine 10 mg PO TID PRN docusate calcium 240 mg PO DAILY PRN gabapentin (Neurontin) 800 mg PO QID hydroxychloroquine 300 mg PO DAILY levothyroxine 100 mcg (2 x 50 mcg) PO DAILY 90 days linaclotide (Linzess) 290 mcg PO DAILY lorazepam 0.5 mg (1/2 x 1 mg) PO BID PRN meclizine 25 mg PO TID PRN 10 days meloxicam 15 mg PO DAILY 30 days montelukast 10 mg PO BEDTIME nortriptyline 50 mg PO BEDTIME pantoprazole 40 mg PO DAILY 90 days pen needle, diabetic (BD Ultra-Fine Mini Pen Needle) As directed sumatriptan succinate 100 mg PO DAILY PRN triamcinolone acetonide 0.1% 1 appl topical BID-TID PRN HPI Comments Details: Pleasant 75-year-old lady here for assessment for syncope. She had an episode in April where she passed out hitting her head and unfortunately had a concussion. She was at [facility]. She is saying that she stood up and started feeling somewhat dizzy and does not remember anything after that. She had similar episodes before where she passed out in July last year and also few years ago. She has a history of lupus and had been on hydroxychloroquine. She is saying that she had pericarditis before and from time to time she gets some chest tightness randomly. She does not get symptoms with activities otherwise. Since the concussion she has been walking with a walker and does not get any significant dyspnea or chest discomfort with activity. Blood pressure control is good. No history of any cardiovascular issues other than reported pericarditis from lupus. She has significant Raynaud's and she takes amlodipine 10 mg daily. She does not have any history of hypertension otherwise. [facility] Medical History (Updated 09/30/25 @ 15:17 by Karlo Tsang MD) Nephrolithiasis Perennial allergic rhinitis Surgical History (Updated 09/30/25 @ 12:55 by Megan Blanton CMA) Hx of cardiac cath History of colonoscopy (~2019) Family History (Updated 09/30/25 @ 12:56 by Megan Blanton CMA) Mother Congestive heart disease Social History Housing: Apartment Are you a primary career orientation teacher to a significant other at home: No Do you presently have visiting nurse or other home services: No Patient Tobacco Use Status: Former Tobacco user Cigarettes Per Day: 10 Years Smoked: 20 e-Cigarette/Vaping Use: Currently Using Second Hand Smoke Exposure: No service: No Current occupational status: retired and disabled Current occupational exposures/hazards: No Cognitive needs: No Hearing needs: No Vision needs: Yes Review of Systems Const Denies chills, Denies fatigue, Denies fever(s), Denies frequent falls, Denies weakness, Denies weight gain and Denies weight loss ENT Denies dizziness Card Denies chest pain, Denies leg edema, Denies lightheadedness, Denies palpitations, Denies dyspnea, Denies dyspnea on exertion and Denies orthopnea Resp Denies cough, Denies dyspnea and Denies dyspnea on exertion GI Denies bloating and Denies change in bowel habits Musc Denies muscle weakness, Denies numbness and Denies tingling Neuro Denies dizziness, Denies frequent falls, Denies numbness, Denies tingling and Denies weakness Endo Denies fatigue and Denies palpitations Physical Exam Vital Signs: Last Vital Signs Pulse 98 09/30/25 12:50 BP 110/60 09/30/25 12:50 BMI result Body Mass Index 25.2 GENERAL APPEARANCE: in no acute distress, pleasant. NECK: no carotid bruit, no jugular venous distention. SKIN: no suspicious lesions, warm and dry. HEART: no murmurs, regular rate and rhythm. LUNGS: clear to auscultation bilaterally. ABDOMEN: soft, nontender. EXTREMITIES: no edema. PERIPHERAL PULSES: equal. NEUROLOGIC: No gross deficits, AAO X 3 Office Procedures EKG Details: Sinus rhythm 98 beats per minute, normal axis, inferior infarct, ST-T wave changes consider lateral ischemia, QTC 415 milliseconds. [id number], Complete Assessment & Plan Assessment & Plan (1) Syncope: Code(s): R55 - Syncope and collapse Category: Medical (2) Orthostatic hypotension: Code(s): I95.1 - Orthostatic hypotension Category: Medical Plan [age] year female who is here for syncopal episode in April where she unfortunately passed out and hit her head. She had a concussion. She has had previous episode preceding this event in July as well as 4 years ago. Clinical story appears to be related to orthostasis versus vasovagal syncope. I have advised her to keep herself well hydrated. She is on amlodipine for Raynaud's and gets significant symptoms if she is not on amlodipine. Currently I do not plan to change any medications. We will check echocardiogram to assess for any wall motion abnormalities given the fact that she has inferior Q-waves on the EKG. If any abnormality on the echocardiogram then she may need stress testing. I have advised her to avoid hot environments. Follow-up in few months. Thank you for allowing me to participate in the care of your patient. Please feel free to contact me if you have any questions. Orders: Orders CA echo transthorac w con Today R55 - Syncope and collapse Coding Level of Care Code New Pt Level 4 (97097) Diagnoses Syncope R55 Orthostatic hypotension I95.1 CPT Codes EKG - CPT: 37415-[id number], Complete ([id number])
== END 2025-09-30 13:22 | disposition home or self-care (01) ==
LOC: HO.HCS 12:16
PROVIDERS: PCP Family Medicine; Visit Provider Internal Medicine Cardiovascular Disease
DX: R55 Syncope and collapse (principal); I95.1 Orthostatic hypotension
CPT/HCPCS: 93010; 99204